=== PATIENT | female | born 1965 | race Caucasian/White ===

== ENCOUNTER 2017-04-18 17:15 | Emergency (ER) | payer MEDICARE, SELFPAY | END 2017-04-18 20:52 | disposition home or self-care (01) | PROVIDERS: Emergency Provider Emergency Medicine; Family Provider Family Medicine; Visit Provider Emergency Medicine | DX: S06.0X0A Concussion without loss of consciousness, initial encounter (principal); S16.1XXA Strain of muscle, fascia and tendon at neck level, initial encounter; W19.XXXA Unspecified fall, initial encounter | CPT/HCPCS: 70450; 72050; 72125; 99284 ==

== ENCOUNTER → 2017-04-27 09:34 | Outpatient (CLI) | payer MEDICARE, SELFPAY ==
--- NOTE | 2017-04-27 09:52 | US_ITS ---
US transvaginal CLINICAL INDICATION: ITS.REASON: PELVIC AND PERINEAL PAIN, HYPERTROPHY OF UTERUS ORDERING PHYSICIAN: Ravin Geller MD PATIENT AGE: 52 years COMPARISON: None FINDINGS: The uterus measures 11 x 5 x 6 cm. Combined endometrial thickness is 5 mm. Uterus has a somewhat lobular contour. 2 fibroids are present one which measures 1.6 x 1.5 cm in the body the uterus posteriorly. An additional fibroid noted in the fundal area of the uterus at 2.4 cm. The right ovary is 2.8 x 1.8 cm. The left ovary is 3.8 x 2.8 cm. There is a 1.47 m cyst of the right ovary and small follicles of the left ovary. No cul-de-sac fluid evident.. IMPRESSION: 1. Enlarged uterus with uterine fibroids. 2. Otherwise negative pelvic ultrasound
--- NOTE | 2017-04-27 09:54 | CT_ITS ---
CT chest wo con CLINICAL INDICATION: Follow-up pneumomediastinum ITS.REASON: ABNORMAL CT CSPINE ORDERING PHYSICIAN: Ravin Geller MD PATIENT AGE: 52 years COMPARISON: 04/18/2017 FINDINGS: There is heterogeneous density of the thyroid gland nonspecific. There are bilateral breast implants which evident unremarkable appearance. Calcified nodes are present in the mediastinum. Normal heart size. No mediastinal or hilar mass is evident. Once again there is noted a small area of gas to the right of the upper esophagus and posterior to the trachea. Is at the T2-T3 level similar to the previous exam consistent with a small esophageal or tracheal diverticulum versus a small chronic bleb. This does not have a typical progression for pneumomediastinum. There is evidence of old granulomatous disease. No lobar consolidation or collapse. There is a small hiatal hernia. There is been a prior cholecystectomy. There is borderline splenomegaly at 14 cm. There are degenerative changes in the thoracic spine. IMPRESSION: 1. Persistent small gas density noted posterior to the trachea and to the right of the upper thoracic esophagus unchanged and may represent small bleb the versus small esophageal or tracheal diverticulum. This does not have the normal progression of a pneumomediastinum. 2. No acute finding.
--- NOTE | 2017-04-27 10:14 | MM_ITS ---
MM Dig SC mamm implant BI CAD CAD Screening ORDERING PHYSICIAN : Ravin Geller MD PATIENT AGE: 52 years GENDER: Female COMPARISON: Previous mammograms: 20 Previous studies have finally arrived from towards down dated February 2009, January 2011. INDICATION: Routine screening. 2003 bilateral breast implants. No hormones currently Family history. Maternal with breast cancer. TECHNIQUE: Nyasia technique utilized. CC & MLO images were obtained of the breast tissue overlying implant, as well as a second set of images including the breast implant. Mammography is inherently limited due to the implants is a could obscure areas of breast R2 CAD reviewed. FINDINGS: Prior outside studies have finally become available for comparison Moderate breast density with no dominant mass nor suspicious calcifications either breast. Stable fibroglandular pattern. No dominant mass nor suspicious calcifications at the. Mild asymmetry is again noted & similar,/ stable The implants show no significant change . Bilateral follow-up one year adequate IMPRESSION: Prior outside studies have finally become available for comparison. Stable mammogram bilateral breast implants with no new areas of concern.. Follow-up in one year recommended Breast implants inherently limit optimal visualization of breast tissue but we see no significant new findings. Self breast examination be encouraged BI-RADS Category: 2 Benign Finding(s) RECOMMENDED FOLLOW-UP: 1YR - 1 YEAR FOLLOW-UP (A letter has been sent to the patient regarding results of the study.)
== END ==
PROVIDERS: Family Provider Family Medicine; PCP Family Medicine; Visit Provider Obstetrics & Gynecology
DX: R93.8 Abnormal findings on diagnostic imaging of other specified body structures (principal); R10.30 Lower abdominal pain, unspecified; Z12.31 Encounter for screening mammogram for malignant neoplasm of breast
CPT/HCPCS: 71250; 76830; 77067

== ENCOUNTER → 2017-05-10 12:57 | Outpatient (POV) | payer MEDICARE, SELFPAY | PROVIDERS: Family Provider Family Medicine; PCP Family Medicine; Visit Provider Nurse Practitioner Acute Care | DX: Z00.00 Encounter for general adult medical examination without abnormal findings (principal) ==

== ENCOUNTER → 2017-05-10 13:14 | Outpatient (POV) | payer MEDICARE, SELFPAY | PROVIDERS: Family Provider Family Medicine; PCP Family Medicine; Visit Provider Nurse Practitioner Acute Care | DX: Z00.00 Encounter for general adult medical examination without abnormal findings (principal) ==

== ENCOUNTER 2017-06-14 12:21 | Day surgery (SDC) | payer MEDICARE, SELFPAY ==
[2017-06-09 12:55] VITALS: BMI 30.6
[2017-06-14] VITALS (7 sets, daily range): BP systolic 113–144; BP diastolic 72–92; PULSE 80–100; RESP 18; TEMP 36.6–36.9; O2SAT 96–99
[2017-06-14 12:46] LABS: Urine Pregnancy, HCG Qual. Negative (Negative)
--- NOTE | 2017-06-14 12:49 | HMH.ANESCL ---
[facility] Anesthesia Checklist - Patient Identification Patient Identification: Arm Band, Verbal (Name & ) - Structural Data Admitted From: Home Planned Operative Procedure/s: egd/colon Consent for Planned Operative Procedure(s) Verified: Yes Verified Documents: Surgical Consent - NPO Status Verified Time NPO: 00:00 - Additional verifications Patient : No Anesthesia Reactions: No Hx Blood Transfusions: No Blood Transfusion Reaction: No Cephalosporin Allergy: No Previous Colonoscopy: No - Cardiovascular Assessment Heart Sounds: S1 & S2 Pulse Strength: Baseline Pulse Rhythm: Regular - Airway Assessment C-Spine Mobility Assessed: Yes TMJ Mobility Assessed: Yes Dentition: Good Dentition - Neurological Assessment Level of Consciousness: Awake, Alert, Appropriate Hx Seizures: No Numbness or tingling in extremities: No - Anesthesia Plan Anesthesia Risk discussed: Yes ASA Class: II Anesthesia Type: MAC [facility] Anesthesia HX I have reviewed the patient's past medical history: Yes Medical History: Reports:: Anxiety, Depression, Diabetes Mellitus Type 2 (IDDM, states always above 300), Hypertension Denies:: Diabetes Mellitus Type 1, Internal Pacemaker, Lung Disease Other Surgeries: No: Pacemaker Amputation: No Fractures: No *Family Hx:: Diabetes, Hypertension, Stroke
--- NOTE | 2017-06-14 13:34 | SUR.PREOP ---
1300-pt ambulated w/assist to br, voided w/out diff. 1330-checked on pt and , will go to cafeteria while in procedure. no c/o's from pt. resting quietly.
--- NOTE | 2017-06-14 14:00 | HMH.PROC ---
[facility] Procedure Note Procedure Note:: Upper Endoscopy Procedure Report: Esophagogastroduodenoscopy with cold biopsies and TTS balloon dilation Endoscopost: Oscar Weaver II, MD Referring Physician: Fer Main MD Date of Procedure: June 14, 2017 Equipment: Olympus GIF 180 standard upper endoscope Sedation: MAC sedation Indications: Mrs. Costa is a 52-year-old female with dysphagia and right upper quadrant abdominal pain. She had a cholecystectomy in 1994. She also had an appendectomy and in 1994. She does have some bloating and intermittent constipation. She reports no melena. She does have some dysphagia and her CAT scan did show esophageal diverticulum. The patient reports no weight loss. Procedure: Prior to the procedure, a history and physical exam was performed, and patient's medications and allergies were reviewed. The risks, benefits and alternatives of the sedation and procedure were discussed with the patient. All questions were answered and informed consent was obtained. The patient was brought to the procedure room. Patient identification and proposed procedure were verified by the physician and the nurse. The patient was placed in a left lateral decubitus position and the scope was passed under direct vision. Throughout the procedure, the patient's blood pressure, pulse, and oxygen saturations were monitored continuously. The upper GI endoscopy was accomplished without difficulty. The patient tolerated the procedure well. Findings: The scope was passed directly into the upper esophagus and advanced to the third portion of the duodenum. The post bulbar duodenum and duodenal bulb were normal with normal mucosa and conniventes. The scope was withdrawn through a normal duodenal bulb and pylorus into the stomach. The remainder of the antrum, body and fundus of the stomach were grossly normal. There appeared to be a reticular pattern to the body and fundus of the stomach consistent with mild chronic gastritis or portal gastropathy. Cold biopsies were obtained. Upon retroflexion there was no hiatal hernia. 2 biopsies were taken in the antrum and along the lesser curvature for histology to rule out gastritis and/or H pylori. The scope was then withdrawn into the esophagus. There was no evidence of reflux esophagitis. There were grade 1 esophageal varices. The remainder of the esophageal mucosa was normal. The entire esophagus was dilated to 60 Georgian/20 mm with a TTS hydrostatic balloon. There were tertiary contractions and mild dysmotility with nonerosive GERD. There was some cricopharyngeal spasm. There was resistance at the cricopharyngeus/upper esophageal sphincter. Impression: 1. Grade 1 esophageal varices 2. Mild chronic gastritis versus mild portal gastropathy 3. Cricopharyngeal spasm 4. Nonerosive GERD with mild esophageal dysmotility Plan: I will check liver chemistries as well as hepatic fibrotic markers. I will proceed with colonoscopy to evaluate further her abdominal pain.
--- NOTE | 2017-06-14 14:05 | P.PCN_ITS ---
[facility] Procedure Note Procedure Note:: Upper Endoscopy Procedure Report: Esophagogastroduodenoscopy with cold biopsies and TTS balloon dilation Endoscopost: Oscar Weaver II, MD Referring Physician: Fer Main MD Date of Procedure: June 14, 2017 Equipment: Olympus GIF 180 standard upper endoscope Sedation: MAC sedation Indications: Mrs. Costa is a 52-year-old female with dysphagia and right upper quadrant abdominal pain. She had a cholecystectomy in 1994. She also had an appendectomy and in 1994. She does have some bloating and intermittent constipation. She reports no melena. She does have some dysphagia and her CAT scan did show esophageal diverticulum. The patient reports no weight loss. Procedure: Prior to the procedure, a history and physical exam was performed, and patient' s medications and allergies were reviewed. The risks, benefits and alternatives of the sedation and procedure were discussed with the patient. All questions were answered and informed consent was obtained. The patient was brought to the procedure room. Patient identification and proposed procedure were verified by the physician and the nurse. The patient was placed in a left lateral decubitus position and the scope was passed under direct vision. Throughout the procedure, the patient's blood pressure, pulse, and oxygen saturations were monitored continuously. The upper GI endoscopy was accomplished without difficulty. The patient tolerated the procedure well. Findings: The scope was passed directly into the upper esophagus and advanced to the third portion of the duodenum. The post bulbar duodenum and duodenal bulb were normal with normal mucosa and conniventes. The scope was withdrawn through a normal duodenal bulb and pylorus into the stomach. The remainder of the antrum, body and fundus of the stomach were grossly normal. There appeared to be a reticular pattern to the body and fundus of the stomach consistent with mild chronic gastritis or portal gastropathy. Cold biopsies were obtained. Upon retroflexion there was no hiatal hernia. 2 biopsies were taken in the antrum and along the lesser curvature for histology to rule out gastritis and/ or H pylori. The scope was then withdrawn into the esophagus. There was no evidence of reflux esophagitis. There were grade 1 esophageal varices. The remainder of the esophageal mucosa was normal. The entire esophagus was dilated to 60 Montenegrin/20 mm with a TTS hydrostatic balloon. There were tertiary contractions and mild dysmotility with nonerosive GERD. There was some cricopharyngeal spasm. There was resistance at the cricopharyngeus/upper esophageal sphincter. Impression: 1. Grade 1 esophageal varices 2. Mild chronic gastritis versus mild portal gastropathy 3. Cricopharyngeal spasm 4. Nonerosive GERD with mild esophageal dysmotility Plan: I will check liver chemistries as well as hepatic fibrotic markers. I will proceed with colonoscopy to evaluate further her abdominal pain.
--- NOTE | 2017-06-14 14:20 | HMH.PROC ---
[facility] Procedure Note Procedure Note:: Colonoscopy Procedure Report: Colonoscopy with cold snare polypectomy Endoscopist: Oscar Weaver II, MD Referring physician: Fer Main MD Date of Procedure: June 14, 2017 Equipment: Olympus 180 variable stiffness pediatric colonoscope Sedation: MAC sedation Indication: Mrs. Costa is a 52-year-old female who is here for diagnostic colonoscopy. The patient has had right upper quadrant abdominal pain. She had cholecystectomy in 1994. She also had appendectomy and in 1994. The patient does have some occasional constipation but has regular bowel movements and reports 2-3 bowel movements daily. She reports no weight loss or family history of colon cancer. She does have some bright red rectal bleeding occasionally secondary to internal hemorrhoids. The patient did have an upper endoscopy that showed grade 1 esophageal varices. She has had elevated liver chemistries. She does have uncontrolled diabetes. Her CAT scan on April 18, 2017 showed borderline splenomegaly and steatosis of the liver. Procedure: Prior to the procedure, a history and physical exam was performed, and patient's medications and allergies were reviewed. The risks, benefits and alternatives of the sedation and procedure were discussed with the patient. All questions were answered and informed consent was obtained. The patient was brought to the procedure room. Patient identification and proposed procedure were verified by the physician and the nurse. The patient was placed in a left lateral decubitus position and the scope was passed under direct vision. Throughout the procedure, the patient's blood pressure, pulse, and oxygen saturations were monitored continuously. The colonoscopy was accomplished without difficulty. The patient tolerated the procedure well. Findings: On digital rectal examination there was normal rectal tone. There were no external hemorrhoids. The colonoscope was introduced through the anal canal to the rectum and advanced to the cecum. The ileocecal valve and appendiceal orifice were identified. The scope was advanced a short distance into the ileum which appeared grossly normal. The scope was then withdrawn into the colon. There were 7 colon polyps identified in the cecum ?2, ascending ?2, transverse ?1 and sigmoid ?2. These were placed in 2 bottles of formalin labeled cecum/ascending and transverse (bottle #2). These ranged in size from 4-8 mm and were all removed via cold snare polypectomy. There were scattered diverticuli throughout the descending and sigmoid colon (LEFT colon). The rectum itself was normal. Upon retroflexion within the rectum there were grade 1-2 internal hemorrhoids. Impression: 1. Colonic polyps ?7 2. Left-sided diverticulosis 3. Grade 1-2 internal hemorrhoids Plan: I will follow up the polyp pathology and recommend repeat colonoscopy again in 3 years based upon the polyp histology. I would encourage a fiber bowel regimen on a long-term daily maintenance basis. 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 I will obtain a hepatic fibrotic markers as well as additional serologies. I do feel that her right upper quadrant abdominal pain may be hepatic flexure syndrome versus sphincter of Oddi dysfunction. We will discuss additional diagnostic/treatment options.
--- NOTE | 2017-06-14 14:25 | P.PCN_ITS ---
[facility] Procedure Note Procedure Note:: Colonoscopy Procedure Report: Colonoscopy with cold snare polypectomy Endoscopist: Oscar Weaver II, MD Referring physician: Fer Main MD Date of Procedure: June 14, 2017 Equipment: Olympus 180 variable stiffness pediatric colonoscope Sedation: MAC sedation Indication: Mrs. Costa is a 52-year-old female who is here for diagnostic colonoscopy. The patient has had right upper quadrant abdominal pain. She had cholecystectomy in 1994. She also had appendectomy and in 1994. The patient does have some occasional constipation but has regular bowel movements and reports 2-3 bowel movements daily. She reports no weight loss or family history of colon cancer. She does have some bright red rectal bleeding occasionally secondary to internal hemorrhoids. The patient did have an upper endoscopy that showed grade 1 esophageal varices. She has had elevated liver chemistries. She does have uncontrolled diabetes. Her CAT scan on March showed borderline splenomegaly and steatosis of the liver. Procedure: Prior to the procedure, a history and physical exam was performed, and patient' s medications and allergies were reviewed. The risks, benefits and alternatives of the sedation and procedure were discussed with the patient. All questions were answered and informed consent was obtained. The patient was brought to the procedure room. Patient identification and proposed procedure were verified by the physician and the nurse. The patient was placed in a left lateral decubitus position and the scope was passed under direct vision. Throughout the procedure, the patient's blood pressure, pulse, and oxygen saturations were monitored continuously. The colonoscopy was accomplished without difficulty. The patient tolerated the procedure well. Findings: On digital rectal examination there was normal rectal tone. There were no external hemorrhoids. The colonoscope was introduced through the anal canal to the rectum and advanced to the cecum. The ileocecal valve and appendiceal orifice were identified. The scope was advanced a short distance into the ileum which appeared grossly normal. The scope was then withdrawn into the colon. There were 7 colon polyps identified in the cecum ?2, ascending ?2, transverse ?1 and sigmoid ?2. These were placed in 2 bottles of formalin labeled cecum/ascending and transverse (bottle #2). These ranged in size from 4- 8 mm and were all removed via cold snare polypectomy. There were scattered diverticuli throughout the descending and sigmoid colon (LEFT colon). The rectum itself was normal. Upon retroflexion within the rectum there were grade 1 -2 internal hemorrhoids. Impression: 1. Colonic polyps ?7 2. Left-sided diverticulosis 3. Grade 1-2 internal hemorrhoids Plan: I will follow up the polyp pathology and recommend repeat colonoscopy again in 3 years based upon the polyp histology. I would encourage a fiber bowel regimen on a long-term daily maintenance basis. 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 I will obtain a hepatic fibrotic markers as well as additional serologies. I do feel that her right upper quadrant abdominal pain may be hepatic flexure syndrome versus sphincter of Oddi dysfunction. We will discuss additional diagnostic/treatment options.
[2017-06-14 16:24] LABS: Ammonia 17 umol/L (19-54)
[2017-06-14 16:28] LABS: Basophils % 0.5 % (0.1-2.0); Eosinophils # 0.1 K/mm3 (0.0-0.4); Eosinophils % 1.2 % (0.1-12.0); Hematocrit 38.7 % (37.0-47.0); Hemoglobin 13.3 g/dL (12.2-16.2); Lymphocytes % 37.2 K/mm3 (10-50); Mean Corpuscular HGB Conc 34.4 g/dL (31.8-35.4); Mean Corpuscular Hemoglobin 30.4 pg (27.0-31.2); Mean Corpuscular Volume 88.5 fl (81-99); Mean Platelet Volume 7.9 fl (7.4-10.4); Monocytes # 0.3 K/mm3 (0.1-1.0); Monocytes % 5.7 % (1.7-9.3); Neutrophils % 55.4 % (37.0-80.0); Platelet Count 85 K/mm3 (142-424); Red Blood Count 4.37 M/mm3 (4.20-5.40); Red Cell Distribution Width 14.5 % (11.5-17.5); White Blood Count 5.3 K/mm3 (4.8-10.8)
[2017-06-14 16:33] LABS: INR 0.99 (0.9-1.1); Prothrombin Time 10.7 seconds (9.4-11.8)
[2017-06-14 17:53] LABS: Alanine Aminotransferase 107 U/L (12-78); Albumin/Globulin Ratio 1.2 (1.1-1.8); Alkaline Phosphatase 101 U/L (46-116); Anion Gap 13.8 mEq/L (5-15); Aspartate Amino Transferase 94 U/L (15-37); Bilirubin,Total 1.2 mg/dL (0.2-1.0); Blood Urea Nitrogen 10 mg/dL (7-18); Calcium 8.4 mg/dL (8.5-10.1); Carbon Dioxide 26 mmol/L (21.0-32.0); Chloride 99 mmol/L (98-107); Creatinine Clearance Estimated 126 mL/min (0-300); Creatinine,Serum 0.62 mg/dL (0.55-1.02); Estimated Glomerular Filt Rate 102 ml/min (>60); Ferritin 228 ng/mL (8-388); GFR (African American) 123 ML/MIN (>60); Globulin 3.4 gm/dl (1.3-3.2); Glucose 313 mg/dL (74-106); Sodium 136 mmol/L (136-145); Total Protein,Serum 7.4 gm/dL (6.4-8.2)
[2017-06-14 18:07] LABS: Potassium 2.8 mmoL/L (3.5-5.1)
[2017-06-16 08:28] LABS: Alpha-1-Antitrypsin 120 mg/dL (90-200); Iron 155 ug/dL (27-159); Iron Saturation 45 (15-55); UIBC 187 ug/dL (131-425)
[2017-06-16 09:21] LABS: Hep A Ab, IgM Negative (Negative); Hep B Core Ab, Total Negative (Negative); Hepatitis B Core Antibody IgM Negative (Negative); Hepatitis B Surface Antigen Negative (Negative)
[2017-06-17 11:01] LABS: Hep A Ab, Total Negative (Negative); Hep B Surface Ab, Qual Non Reactive (.); Hepatitis C Antibody <0.1 s/co ratio (0.0-0.9)
[2017-06-17 11:02] LABS: AFP, Tumor Marker 2.1 ng/mL (0.0-8.3); Actin (Smooth Muscle) Antibody 10 Units (0-19); Angiotensin Converting Enzyme 62 U/L (14-82); Liver-Kidney Microsomal Ab <1.0 Units (0.0-20.0); Mitochondrial (M2) Antibody <20.0 Units (0.0-20.0)
[2017-06-18 06:17] LABS: ALT (SGPT) P5P 90 IU/L (0-40); Alpha 2-Macroglobulins, Qn 196 mg/dL (110-276); Apolipoprotein A-1 134 mg/dL (116-209); Bilirubin, Total 0.5 mg/dL (0.0-1.2); Fibrosis Score 0.51 (0.00-0.21); GGT 227 IU/L (0-60); Haptoglobin 48 mg/dL (34-200); Necroinflammat Activity Grade A2-Moderate activity (.)
[2017-06-24 14:59] LABS: POC Glucose,Bedside 256 mg/dL (70-110)
== END 2017-06-14 15:35 | disposition home or self-care (01) ==
LOC: OUTP 12:23
PROVIDERS: Family Provider Family Medicine; PCP Family Medicine; Visit Provider Internal Medicine Gastroenterology
PROC: 0DJ08ZZ Inspection of Upper Intestinal Tract, Via Natural or Artificial Opening Endoscopic (ICD-10-PCS; CPT 43235; principal; 2017-06-14 13:30)
DX: I85.00 Esophageal varices without bleeding (principal); K31.9 Disease of stomach and duodenum, unspecified; J39.2 Other diseases of pharynx; K21.9 Gastro-esophageal reflux disease without esophagitis; K22.4 Dyskinesia of esophagus; E11.65 Type 2 diabetes mellitus with hyperglycemia; K63.5 Polyp of colon; K57.30 Diverticulosis of large intestine without perforation or abscess without bleeding; K64.0 First degree hemorrhoids; K64.1 Second degree hemorrhoids
CPT/HCPCS: 43239; 43249; 45380; 36415; 80053; 80074; 81025; 82104; 82105; 82140; 82164; 82728; 82962; 83550; 85025; 85610; 86255; 86256; 86376; 86704; 86706; 86708; 88305; C1726

== ENCOUNTER → 2017-08-09 10:34 | Outpatient (POV) | payer MEDICARE, SELFPAY | PROVIDERS: Family Provider Family Medicine; PCP Family Medicine; Visit Provider Nurse Practitioner Acute Care | DX: Z00.00 Encounter for general adult medical examination without abnormal findings (principal) ==

== ENCOUNTER → 2017-08-12 07:45 | Outpatient (CLI) | payer MEDICARE, SELFPAY ==
--- NOTE | 2017-08-12 07:48 | US_ITS ---
US abdomen limited: HISTORY: Right upper quadrant pain with nausea and bloating with history of cirrhosis ITS.REASON: CIRRHOSIS ORDERING PHYSICIAN: Carrie Barry PATIENT AGE: 52 years COMPARISON: FINDINGS: PANCREAS: Unremarkable. No obvious mass or abnormal fluid collection. No ductal dilatation LIVER: No focal liver lesion evident. The surface of the liver has a normal appearance. There is some minimal coarseness of the echotexture of the liver. There is appropriate direction of blood flow within the portal vein portal vein is upper normal at 12 mm. RIGHT KIDNEY: Unremarkable. Normal size and echogenicity. No hydronephrosis GALLBLADDER: Prior cholecystectomy. Common bile duct is normal at 4 mm. IMPRESSION: 1. Prior cholecystectomy. 2. Slightly coarse echogenic appearance of the liver which may be seen with cirrhosis. Please correlate with clinical parameters. There is appropriate directional blood flow within the portal vein which does not appear enlarged
== END ==
PROVIDERS: Family Provider Family Medicine; PCP Family Medicine; Visit Provider Nurse Practitioner Acute Care
DX: K74.60 Unspecified cirrhosis of liver (principal)
CPT/HCPCS: 76705

== ENCOUNTER → 2017-09-30 10:27 | Outpatient (CLI) | payer MEDICARE, SELFPAY ==
[2017-10-05 10:04] LABS: H. pylori Breath Test Negative (Negative)
== END ==
PROVIDERS: Visit Provider Nurse Practitioner Acute Care
DX: R10.11 Right upper quadrant pain (principal); R11.0 Nausea; B96.81 Helicobacter pylori [H. pylori] as the cause of diseases classified elsewhere; R14.0 Abdominal distension (gaseous)
CPT/HCPCS: 83013

== ENCOUNTER → 2017-10-13 11:46 | Outpatient (CLI) | payer MEDICARE, SELFPAY ==
[2017-10-13 12:11] LABS: Basophils % 0.4 % (0.1-2.0); Eosinophils # 0.1 K/mm3 (0.0-0.4); Eosinophils % 2.8 % (0.1-12.0); Hematocrit 40.1 % (37.0-47.0); Hemoglobin 13.3 g/dL (12.2-16.2); Lymphocytes # 1.2 K/mm3 (0.7-4.5); Lymphocytes % 27.3 K/mm3 (10-50); Mean Corpuscular HGB Conc 33.1 g/dL (31.8-35.4); Mean Corpuscular Hemoglobin 29.2 pg (27.0-31.2); Mean Corpuscular Volume 88.3 fl (81-99); Mean Platelet Volume 7.5 fl (7.4-10.4); Monocytes # 0.2 K/mm3 (0.1-1.0); Monocytes % 4.3 % (1.7-9.3); Neutrophils # 2.9 K/mm3 (1.8-7.8); Neutrophils % 65.1 % (37.0-80.0); Platelet Count 121 K/mm3 (142-424); Red Blood Count 4.54 M/mm3 (4.20-5.40); Red Cell Distribution Width 13.9 % (11.5-17.5); White Blood Count 4.4 K/mm3 (4.8-10.8)
[2017-10-13 12:19] LABS: Ammonia 38 umol/L (19-54)
[2017-10-13 13:08] LABS: Alanine Aminotransferase 34 U/L (12-78); Albumin Level 3.6 gm/dL (3.4-5.0); Albumin/Globulin Ratio 1.1 (1.1-1.8); Alkaline Phosphatase 85 U/L (46-116); Anion Gap 13.6 mEq/L (5-15); Aspartate Amino Transferase 27 U/L (15-37); Bilirubin,Total 1.4 mg/dL (0.2-1.0); Blood Urea Nitrogen 9 mg/dL (7-18); Calcium 8.9 mg/dL (8.5-10.1); Carbon Dioxide 25 mmol/L (21.0-32.0); Chloride 105 mmol/L (98-107); Creatinine,Serum 0.57 mg/dL (0.55-1.02); Estimated Glomerular Filt Rate 112 ml/min (>60); GFR (African American) 136 ML/MIN (>60); Globulin 3.2 gm/dl (1.3-3.2); Glucose 208 mg/dL (74-106); Potassium 3.6 mmoL/L (3.5-5.1); Sodium 140 mmol/L (136-145); Total Protein,Serum 6.8 gm/dL (6.4-8.2)
== END ==
PROVIDERS: Visit Provider Internal Medicine Gastroenterology
DX: K74.69 Other cirrhosis of liver (principal)
CPT/HCPCS: 36415; 80053; 82105; 82140; 85025

== ENCOUNTER → 2017-10-20 08:25 | Outpatient (CLI) | payer MEDICARE, SELFPAY ==
[2017-10-20 08:57] LABS: Blood Urea Nitrogen 10 mg/dL (7-18); Creatinine,Serum 0.72 mg/dL (0.55-1.02); Estimated Glomerular Filt Rate 86 ml/min (>60); GFR (African American) 104 ML/MIN (>60)
--- NOTE | 2017-10-20 09:12 | CT_ITS ---
CT abdomen w con CLINICAL INDICATION: ITS.REASON: HEPATIC MASS, CIRRHOSIS ORDERING PHYSICIAN: Carrie Barry PATIENT AGE: 52 years COMPARISON: 03/24/2017, 08/12/2017 TECHNIQUE: Axial images obtained with sagittal and coronal reformats. All CT scans at the facility use one or more dose reduction, viz: automated exposure control; ma/kV adjustment per patient size (including targeted exams where dose is matched to indication; i.e. head); or iterative reconstruction technique. PROCEDURE: Oral Contrast: Redicat IV Contrast: 75 mL of Isovue-370. FINDINGS: Lung bases are clear. Bilateral breast prosthesis noted. There is mild nonspecific thickening of the distal esophagus 3 phase liver imaging performed with arterial, portal venous, and delayed images. No enhancing or hypodense lesions are evident. No biliary dilatation. There has been prior cholecystectomy. Liver has homogeneous density. The portal vein is upper normal at 13 mm. There are varices noted in the perisplenic region and along the left renal hilum. Recanalized umbilical vein noted in the falciform ligament region. There is mild splenomegaly at 14 cm. The adrenal glands, pancreas, and kidneys have an unremarkable appearance. No intestinal obstruction or free air. No ascites evident in the upper abdomen. There is mild lumbar scoliosis convex left. IMPRESSION: 1. No liver lesions apparent. 2. Mild splenomegaly with perisplenic and perirenal varices and mild prominence of the portal vein consistent with portal venous hypertension. The liver does not have a typical cirrhotic appearance by CT.
--- NOTE | 2017-10-20 09:38 | HMH.ITSHM ---
INSULIN,LOSARTIN,MNEUROTIN,OXYCODONE
== END ==
PROVIDERS: Family Provider Family Medicine; PCP Family Medicine; Visit Provider Nurse Practitioner Acute Care
DX: K74.69 Other cirrhosis of liver (principal)
CPT/HCPCS: 36415; 74160; 82565; 84520; Q9967

== ENCOUNTER → 2018-01-26 14:47 | Outpatient (CLI) | payer MEDICARE, SELFPAY ==
[2018-02-01 07:33] LABS: H. pylori Breath Test Negative (Negative)
== END ==
PROVIDERS: PCP Family Medicine; Visit Provider Physician Assistant
DX: R10.13 Epigastric pain (principal)
CPT/HCPCS: 83013

== ENCOUNTER → 2018-01-31 09:56 | Outpatient (CLI) | payer MEDICARE, SELFPAY ==
[2018-01-31 10:13] LABS: Basophils % 0.4 % (0.1-2.0); Eosinophils # 0.1 K/mm3 (0.0-0.4); Eosinophils % 2.6 % (0.1-12.0); Hematocrit 36.8 % (37.0-47.0); Hemoglobin 12.6 g/dL (12.2-16.2); Lymphocytes # 1.3 K/mm3 (0.7-4.5); Lymphocytes % 35.4 K/mm3 (10-50); Mean Corpuscular HGB Conc 34.3 g/dL (31.8-35.4); Mean Corpuscular Hemoglobin 31.3 pg (27.0-31.2); Mean Corpuscular Volume 91.3 fl (81-99); Mean Platelet Volume 8.3 fl (7.4-10.4); Monocytes # 0.1 K/mm3 (0.1-1.0); Neutrophils % 57.7 % (37.0-80.0); Platelet Count 84 K/mm3 (142-424); Red Blood Count 4.03 M/mm3 (4.20-5.40); Red Cell Distribution Width 14.3 % (11.5-17.5); White Blood Count 3.5 K/mm3 (4.8-10.8)
[2018-01-31 10:18] LABS: Ammonia 23 umol/L (19-54)
[2018-01-31 10:33] LABS: INR 1.04 (0.9-1.1); Prothrombin Time 10.7 seconds (9.4-11.8)
[2018-01-31 10:44] LABS: Alanine Aminotransferase 33 U/L (12-78); Albumin Level 3.5 gm/dL (3.4-5.0); Albumin/Globulin Ratio 1.2 (1.1-1.8); Alkaline Phosphatase 71 U/L (46-116); Anion Gap 8.9 mEq/L (5-15); Aspartate Amino Transferase 27 U/L (15-37); Bilirubin,Total 0.9 mg/dL (0.2-1.0); Blood Urea Nitrogen 9 mg/dL (7-18); Calcium 8.1 mg/dL (8.5-10.1); Carbon Dioxide 28 mmol/L (21.0-32.0); Chloride 109 mmol/L (98-107); Creatinine,Serum 0.63 mg/dL (0.55-1.02); Estimated Glomerular Filt Rate 100 ml/min (>60); GFR (African American) 121 ML/MIN (>60); Globulin 2.9 gm/dl (1.3-3.2); Glucose 166 mg/dL (74-106); Potassium 3.9 mmoL/L (3.5-5.1); Sodium 142 mmol/L (136-145); Total Protein,Serum 6.4 gm/dL (6.4-8.2)
== END ==
PROVIDERS: PCP Family Medicine; Visit Provider Nurse Practitioner Acute Care
DX: K74.69 Other cirrhosis of liver (principal)
CPT/HCPCS: 36415; 80053; 82140; 85025; 85610

== ENCOUNTER → 2018-01-31 10:25 | Outpatient (POV) | payer MEDICARE, SELFPAY | PROVIDERS: Family Provider Family Medicine; PCP Family Medicine; Visit Provider Nurse Practitioner Acute Care | DX: Z00.00 Encounter for general adult medical examination without abnormal findings (principal) ==

== ENCOUNTER → 2018-02-07 08:23 | Outpatient (POV) | payer MEDICARE, SELFPAY | PROVIDERS: Visit Provider Nurse Practitioner Acute Care | DX: Z00.00 Encounter for general adult medical examination without abnormal findings (principal) ==

== ENCOUNTER → 2018-02-07 08:40 | Outpatient (CLI) | payer MEDICARE, SELFPAY ==
--- NOTE | 2018-02-07 08:45 | CA_ITS ---
PROCEDURE: 2-D M-mode and color Doppler study INDICATIONS FOR THE TEST: Chest pain COPD Heart Murmur Tobacco Smoking Palpitations Fatigue Syncope Edema Hypertension+Diabetes Mellitus+ Rheumatic Fever SOB+MANJARREZ Obesity+Hyperlipidemia Family History HD+ Additional History BREAST REDUCTION YRS AGO PATIENT INFORMATION HEIGHT: 61 WEIGHT:173 GENDER: F B/P:120/70 2-D/M-MODE INTERPRETATION: 2-D MEASUREMENTS OBSERVED VALUES IN CMS Right Ventricular Dimension (RVDd) 1.9 Interventricular Septum (Thickness)(IVsd) 1.2 Left Ventricular Internal Dimensions(LVIDd) 4.0 Left Ventricular Posterior Wall (Thickness)(LVPWd) 0.8 Aortic Root 3.2 Aortic Cusp Separation 1.9 Left Atrial Dimensions (LAD) 3.0 2D 1. Left atrium is qualitatively mildly enlarged, left ventricle is normal size, there is mild qualitative concentric left ventricular hypertrophy, visually estimated ejection fraction 55% with no regional wall motion abnormality. 2. The right atrium and right ventricle are normal size and contractility. 3. The aortic valve is minimally thickened and fibrosed. 4. The mitral and tricuspid valvular grossly normal. 5. The pulmonic valve is poorly visualized. 6. No significant pericardial effusion noted. DOPPLER INTERROGATION: Doppler interrogation of the aortic, mitral and tricuspid valvular presence of mild mitral and tricuspid regurgitation, tricuspid regurgitation jet velocity is inadequate for calculation of the right ventricular systolic pressure, grade 1 diastolic dysfunction seen with tissue Doppler evidence of raised left atrial pressure. CONCLUSION: 1. Mildly enlarged left atrium, normal left ventricular size, mild qualitative concentric left ventricular hypertrophy, visually estimated ejection fraction 55% with no regional wall motion abnormality, grade 1 diastolic dysfunction seen with tissue Doppler evidence of raised left atrial pressure. 2. Mild mitral and tricuspid regurgitation 3. No significant pericardial effusion noted.
== END ==
PROVIDERS: Family Provider Family Medicine; PCP Family Medicine; Visit Provider Family Medicine
DX: R07.9 Chest pain, unspecified (principal); R06.02 Shortness of breath
CPT/HCPCS: 93017; 93306

== ENCOUNTER 2018-03-04 00:42 | Observation (INO) ==
[2018-03-04 01:00] LABS: Basophils # 0.1 K/mm3 (0-0.2); Basophils % 0.6 % (0.1-2.0); Eosinophils # 0.1 K/mm3 (0.0-0.4); Eosinophils % 1.6 % (0.1-12.0); Hematocrit 41.1 % (37.0-47.0); Hemoglobin 13.7 g/dL (12.2-16.2); Lymphocytes % 24.3 % (10-50); Mean Corpuscular HGB Conc 33.2 g/dL (31.8-35.4); Mean Corpuscular Hemoglobin 30.1 pg (27.0-31.2); Mean Corpuscular Volume 90.8 fl (81-99); Monocytes # 0.5 K/mm3 (0.1-1.0); Monocytes % 5.5 % (1.7-9.3); Neutrophils # 5.6 K/mm3 (1.8-7.8); Neutrophils % 67.9 % (37.0-80.0); Platelet Count 145 K/mm3 (142-424); Red Blood Count 4.53 M/mm3 (4.20-5.40); Red Cell Distribution Width 14.4 % (11.5-17.5); White Blood Count 8.2 K/mm3 (4.8-10.8)
[2018-03-04 01:12] LABS: Anion Gap 15.4 mEq/L (5-15); Blood Urea Nitrogen 9 mg/dL (7-18); Carbon Dioxide 25 mmol/L (21.0-32.0); Chloride 103 mmol/L (98-107); Glucose 137 mg/dL (74-106); Potassium 3.4 mmoL/L (3.5-5.1); Sodium 140 mmol/L (136-145)
--- NOTE | 2018-03-04 01:20 | Emergency Department Note ---
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 container terminal insulin use: with chcf use Diabetes mellitus complication status: with unspecified complications Qualified Code(s): E11.8 - Type 2 diabetes mellitus with unspecified complications; Z79.4 - residential (current) use of insulin HTN (hypertension) Qualifiers: Hypertension type: essential hypertension Qualified Code(s): I10 - Essential (primary) hypertension Disposition: Admitted as Observation Condition on Discharge: Good - Critical Care Critical Care Time: No Attestation: On 03/04/18, the high probability of a clinically significant, sudden or life threatening deterioration of the following system(s) required my full and direct attention, intervention and personal management. The time I documented below is in addition to time spent performing reported procedures but includes the fo llowing listed in this critical care notation. Medical Decision Making - Medical Records Medical records reviewed: Yes: I reviewed the patient's medical records. - [place] Inquiry Pt receiving controlled substance: No Vital Signs: 03/04/18 00:42 03/04/18 00:51 03/04/18 01:12 Temperature 98.3 F Temperature Source Oral Pulse Rate [Right Radial] 100 H 106 H 102 H Respiratory Rate 20 18 18 Blood Pressure [Right Arm] 169/116 H 140/92 H 138/89 Blood Pressure Mean [Right Arm] 133 108 105 02 Sat by Pulse Oximetry 100 98 98 Oxygen Delivery Method Room Air - Lab Data Lab results reviewed: Yes: I reviewed the patient's lab results. Lab Results 03/04/18 00:46: WBC 8.2, RBC 4.53, Hgb 13.7, Hct 41.1, MCV 90.8, MCH 30.1, MCHC 33.2, RDW 14.4, Plt Count 145, MPV 7.0 L, Neut % (Auto) 67.9, Lymph % (Auto) 24.3, [place] % (Auto) 5.5, Eos % (Auto) 1.6, Baso % (Auto) 0.6, Neut # (Auto) 5.6, Lymph # (Auto) 2.0, [place] # (Auto) 0.5, Eos # (Auto) 0.1, Baso # (Auto) 0.1 03/04/18 00:46: Sodium 140, Potassium 3.4 L, Chloride 103, Carbon Dioxide 25, Anion Gap 15.4 H, BUN 9, Creatinine 0.68, Estimated Creat Clear 124, Estimated GFR 92, Est GFR ( Amer) 111, Glucose 137 H, Calcium 9.0, Troponin I < 0.02 Result diagrams: 03/04/18 00:46 03/04/18 00:46 Orders (Tests/Meds): ED MEDICATIONS Discontinued Medications Generic Name Dose Route Start Last Admin Trade Name Eliza PRN Reason Stop Dose Admin Aspirin 243 mg 03/04/18 00:49 03/04/18 00:50 Aspirin 81mg Chewable Tablet PO 03/04/18 00:50 243 mg ONCE ONE Administration Nitroglycerin 0.4 mg 03/04/18 00:49 03/04/18 00:50 Nitrostat 0.4mg Sl Tablet SL 03/04/18 00:50 0.4 mg ONCE ONE Administration Nitroglycerin 1 gm 03/04/18 01:05 03/04/18 01:06 Nitroglycerin 1 Inch Oint Udp TD 03/04/18 01:06 1 gm ONCE ONE Administration ORDERS Category Date Time Status XR chest 2V Stat Exams 03/04/18 00:47 Taken ECG Request by /John Stat Y 03/04/18 00:47 Ordered - Radiology Data #1 Image(s): Chest Image Reviewed: Yes I reviewed the patient's radiology image Preliminary Findings: Normal/NAD - ECG Data Tracing #1 Normal Sinus Rhythm: Yes Ischemic changes: non-specific ST-T wave changes - Physician Consults Physician Consulted: [email or web address] Reason -: Admission Additional Consult: molly Reason -: Pt condition Chest Pain HPI - General Chief Complaint: Chest Pain Stated Complaint: chest pain Time Seen by Provider: 03/04/18 00:50 Mode of Arrival: Family Vehicle Source of Information: Patient, Medical Record Limitations: No Limitations Description of Symptoms (Recalled from ER Triage Doc. by RN): pt states that approx 2 hours ago patient began having chest pain. pt states that while driving over here her left arm and shoulder started aching badly. pt states she has a heart cath scheduled wednesday. patient seen dr gurrola this morning. pt states she recently failed a stress test. pt states these pains have been going on all summer and increase with exertion. pt states she had "something very stressful" happen today. - History of Present Illness HPI narrative: pt with chest pain with rad to lt upper ext with hx of abn gxt and positive risk factors for cardiac disease - she saw card today - MD complaint: chest pain indicative of cardiac Onset (ago): hour(s) Duration: intermittent Activity at onset: during rest Pain location: substernal Severity: moderate Quality: dull Pain radiation: LUE Associated symptoms: nausea Risk Factors for CAD: Hypertension, Hypercholesterolemia, Family Hx of CAD, Diabetes Treatments prior to or on arrival for Cardiac Chest Pain: aspirin - MICHELLE Score Non-Stemi Age of patient: Less than 65 yrs Number of risk factors for CAD: Presence of 3 or more Prior coronary artery stenosis(seen in coronary angiography): Less than 50% ST-Segment deviation on ECG (more than 1 min): Absent Prior aspirin intake: ASA intake in the last 7 days Severe anginal chest pain: Two or more episodes in last 24 hours Elevated cardiac markers(CK-MB or troponin): Absent Non-Stemi Risk Score: 3 - Related Data Prior Cardiac Testing/Procedures: Stress Test On Oral Contraceptives: No Home Medications Medication Instructions Recorded Confirmed cyclobenzaprine 5 mg tablet 5 mg PO Q8H PRN 05/13/17 03/04/18 gabapentin 100 mg capsule 300 mg PO TID 05/13/17 03/04/18 lidocaine 5 % topical patch 1 patch TOPICAL Q12H PRN 05/13/17 03/04/18 losartan 25 mg tablet 50 mg PO QDAY 05/13/17 03/04/18 buspirone 5 mg tablet 5 mg PO DAILY tab 03/03/18 03/04/18 [id number] ER 1 tab PO Q12H PRN 03/03/18 03/04/18 tablet,extended release insulin human U-100 NPH-regulr 45 unit SQ BID ml 03/03/18 03/04/18 70-30 mix 100 unit/mL subcutaneous susp oxycodone-acetaminophen 5 mg-325 1 tab PO Q4-6H PRN 03/03/18 03/04/18 mg tablet Aspirin [Low Dose Aspirin EC] 81 mg PO DAILY 03/04/18 03/04/18 Bisoprolol Fumarate [Bisoprolol 5 mg PO QDAY 03/04/18 03/04/18 5mg Tablet] Omeprazole [Omeprazole 40mg 40 mg PO QDAY 03/04/18 03/04/18 Capsule] Ranolazine [Ranexa] 1,000 mg PO BID 03/04/18 03/04/18 Allergies Allergy/AdvReac Type Severity Reaction Status Date / Time No Known Allergies Allergy Verified 03/04/18 00:48 [facility] History I have reviewed the patient's past medical history: Yes Medical History: Reports:: Anxiety, Depression, Diabetes Mellitus Type 2, Hype rtension Denies:: Cancer, Diabetes Mellitus Type 1, Internal Pacemaker, Lung Disease, MRSA, Seizures Other Medical History: Reports: Liver Disease. Denies: Blood Transfusion Reaction Comment: DIABETES. HYPERTENSION. DEPRESSION. LARYNGEAL POLYP Other Surgeries: No: Pacemaker Amputation: No Fractures: No Comment: PRIMARY C/S, BTL--1994. LAP. CHOLY--1994. APPENDECTOMY OPEN--1994. ABDOMINOPLASTY--2001. BREAST REDUCTION--2001. TRIGGER FINGER SURGERY AND CARPAL TUNNEL (BILATERAL)--[id number] - Social History Smoking Status: Never smoker Alcohol Intake: never Alcohol Intake Frequency:: holidays/special occasions only Substance Use Type: denies use - Psychiatric History Expresses thoughts of harming self/others: None Suicide Plan Description: No Plan Pschychiatric History:: Reports:: Anxiety, Depression Family Hx:: Diabetes, Hypertension, Stroke, Coronary Artery Disease, Heart Attack Comment: Mother-@81-[place] Comment: 4 SAB, NO D&E. LMP: 04/19/2017 ROS Obtained: Yes All systems reviewed & no additional complaints - Constitutional Constitutional: Denies fever(s) - Eyes Eyes: Denies change in vision - ENT Ears, Nose, Mouth, and Throat: Denies sore throat - Cardiovascular Cardiovascular: Reports chest pain - Respiratory Respiratory: No cough - Gastrointestinal Gastrointestingal: Denies: abdominal pain - Genitourinary Female Genitourinary: Denies hematuria - Musculoskeletal Musculoskeletal: Denies joint pain - Integumentary/Breasts Skin/Breast: Denies rash - Neurologic Neurologic: Denies seizure-like activity Physical Exam - General General appearance: alert, in no apparent distress - Head Head exam: normocephalic - Eye Eye exam: Present: PERRL, EOMI - ENT ENT exam: Present: mucous membranes moist - Neck Neck exam: Present: trachea midline - Respiratory Respiratory exam: Absent: respiratory distress - Cardiovascular Cardiovascular exam: Present: regular rate, systolic murmur, +S4 - Abdominal Exam Abdominal exam: Present: soft - Extremities Exam Extremities exam: Absent: tenderness - Neurological Exam Neurological exam: Present: alert, oriented X3, CN II-XII intact - Psychiatric Psychiatric exam: Present: normal affect - Skin Skin exam: Absent: rash
[2018-03-04 05:46] LABS: Basophils % 0.6 % (0.1-2.0); Eosinophils # 0.1 K/mm3 (0.0-0.4); Eosinophils % 1.8 % (0.1-12.0); Lymphocytes # 1.8 K/mm3 (0.7-4.5); Lymphocytes % 27.6 % (10-50); Mean Corpuscular HGB Conc 33.2 g/dL (31.8-35.4); Mean Corpuscular Hemoglobin 30.4 pg (27.0-31.2); Mean Corpuscular Volume 91.5 fl (81-99); Monocytes # 0.4 K/mm3 (0.1-1.0); Monocytes % 5.7 % (1.7-9.3); Neutrophils # 4.1 K/mm3 (1.8-7.8); Neutrophils % 64.3 % (37.0-80.0); Platelet Count 134 K/mm3 (142-424); Red Blood Count 3.93 M/mm3 (4.20-5.40); Red Cell Distribution Width 14.4 % (11.5-17.5); White Blood Count 6.4 K/mm3 (4.8-10.8)
[2018-03-04 05:50] LABS: Anion Gap 13.4 mEq/L (5-15); Calcium 8.3 mg/dL (8.5-10.1); Potassium 3.4 mmoL/L (3.5-5.1)
[2018-03-04 06:01] LABS: Hemoglobin 12.1 g/dL (12.2-16.2)
--- NOTE | 2018-03-04 07:45 | Consult Report ---
Addendum entered and electronically signed by RHEAN Avalos 03/04/18 14:34: Cardiac cath showed essentially normal coronary arteries with elevated LVEDP. Will start spironolactone 50 mg daily. OK for discharge home from cardiology standpoint. Follow up in 1-2 wks with BMP prior to visit. Original Note: History of Present Illness Consult date: 03/04/18 Requesting physician: Gris Main Consult reason: chest pain Chief complaint: Chest pain Additional Medical History:: 1. Diabetes mellitus, treated since 2006 2. Hypertension 3. Hyperlipidemia 4. Nonalcoholic cirrhosis with esophageal varices 5. GERD 6. History of breast reduction with breast implant 7. History of cholecystectomy and appendectomy 8. Unstable angina pectoris with abnormal stress test January 2018 without Myoview imaging History of present illness: 52-year-old white female was seen in the office yesterday for abnormal stress test and was scheduled for cardiac catheterization early next week. Patient developed chest discomfort after leaving [place] yesterday with progression of symptoms to include left arm discomfort. Patient came to the ER for evaluation and was given sublingual nitroglycerin along with nitroglycerin paste which dramatically improved her symptoms which resolved eventually and have not recurred overnight. Patient was kept overnight with cardiac troponins returning normal. Patient denies any chest pain this morning. She is quite anxious about having a cardiac catheterization and this was well documented yesterday in the note with prolonged time spent answering multiple questions. EKG is sinus without acute ST segment changes. Patient has agreed to proceed with cardiac catheterization this morning. [facility] History Medical History: Reports:: Anxiety, Depression, Diabetes Mellitus Type 2, Hypertension Denies:: Cancer, Diabetes Mellitus Type 1, Internal Pacemaker, Lung Disease, MRSA, Seizures Other Medical History: Reports: Liver Disease. Denies: Blood Transfusion Reaction Other Surgeries: No: Pacemaker Amputation: No Fractures: No - *Social History Smoking Status: Never smoker Alcohol Intake: never Alcohol Intake Frequency:: holidays/special occasions only Substance Use Type: denies use Occupational Status: employed - Psychiatric History Expresses thoughts of harming self/others: None Suicide Plan Description: No Plan Pschychiatric History:: Reports:: Anxiety, Depression *Family Hx:: Diabetes, Hypertension, Stroke, Coronary Artery Disease, Heart Attack Meds Home Medications Medication Instructions Recorded Confirmed Type cyclobenzaprine 5 mg tablet 5 mg PO Q8H PRN 05/13/17 03/04/18 History gabapentin 100 mg capsule 300 mg PO TID 05/13/17 03/04/18 History lidocaine 5 % topical patch 1 patch TOPICAL Q12H PRN 05/13/17 03/04/18 History losartan 25 mg tablet 50 mg PO QDAY 05/13/17 03/04/18 History buspirone 5 mg tablet 5 mg PO DAILY tab 03/03/18 03/04/18 History eqhkzwufu-mwmik-xqivexwot-PPA ER 1 tab PO Q12H PRN 03/03/18 03/04/18 History tablet,extended release insulin human U-100 NPH-regulr 45 unit SQ BID ml 03/03/18 03/04/18 History 70-30 mix 100 unit/mL subcutaneous susp oxycodone-acetaminophen 5 mg-325 1 tab PO Q4-6H PRN 03/03/18 03/04/18 History mg tablet Aspirin [Low Dose Aspirin EC] 81 mg PO DAILY 03/04/18 03/04/18 History Bisoprolol Fumarate [Bisoprolol 5 mg PO QDAY 03/04/18 03/04/18 History 5mg Tablet] Omeprazole [Omeprazole 40mg 40 mg PO QDAY 03/04/18 03/04/18 History Capsule] Ranolazine [Ranexa] 1,000 mg PO BID 03/04/18 03/04/18 History Allergies Allergy/AdvReac Type Severity Reaction Status Date / Time No Known Allergies Allergy Verified 03/04/18 00:48 Review of Systems - *Cardiovascular Reports chest pain, Reports shortness of breath with activity - *Respiratory Reports shortness of breath - *Gastrointestinal Denies abdominal pain - *Genitourinary Denies blood in urine - *Neurologic Denies seizure-like activity Exam Vital signs and Labs for Last 24 Hours: Temp Pulse Resp BP Pulse Ox 97.8 F 81 18 132/75 99 03/04/18 04:00 03/04/18 04:00 03/04/18 04:00 03/04/18 04:00 03/04/18 04:00 Laboratory Results - last 24 hr 03/04/18 00:46: WBC 8.2, RBC 4.53, Hgb 13.7, Hct 41.1, MCV 90.8, MCH 30.1, MCHC 33.2, RDW 14.4, Plt Count 145, MPV 7.0 L, Neut % (Auto) 67.9, Lymph % (Auto) 24.3, [place] % (Auto) 5.5, Eos % (Auto) 1.6, Baso % (Auto) 0.6, Neut # (Auto) 5.6, Lymph # (Auto) 2.0, [place] # (Auto) 0.5, Eos # (Auto) 0.1, Baso # (Auto) 0.1 03/04/18 00:46: Sodium 140, Potassium 3.4 L, Chloride 103, Carbon Dioxide 25, Anion Gap 15.4 H, BUN 9, Creatinine 0.68, Estimated Creat Clear 124, Estimated GFR 92, Est GFR ( Amer) 111, Glucose 137 H, Calcium 9.0, Troponin I < 0.02 03/04/18 04:50: Troponin I < 0.02 03/04/18 04:50: WBC 6.4, RBC 3.93 L, Hgb 12.1 L D, Hct 36.0 L, MCV 91.5, MCH 30.4, MCHC 33.2, RDW 14.4, Plt Count 134 L, MPV 7.0 L, Neut % (Auto) 64.3, Lymph % (Auto) 27.6, [place] % (Auto) 5.7, Eos % (Auto) 1.8, Baso % (Auto) 0.6, Neut # (Auto) 4.1, Lymph # (Auto) 1.8, [place] # (Auto) 0.4, Eos # (Auto) 0.1, Baso # (Auto) 0.0 03/04/18 04:50: Sodium 140, Potassium 3.4 L, Chloride 105, Carbon Dioxide 25, Anion Gap 13.4, BUN 10, Creatinine 0.60, Estimated Creat Clear 141, Estimated GFR 106, Est GFR ( Amer) 128, Glucose 150 H, Calcium 8.3 L 03/04/18 06:03: POC Glucose 152 H I & O for Last 24 hours: Intake & Output 03/01/18 03/02/18 03/03/18 03/04/18 11:59 11:59 11:59 11:59 Weight 175 lb 0.012 oz - *Routine Neck Exam Present: supple. Absent: JVD, carotid bruit - *Routine Respiratory Exam Present: CTA bilaterally. Absent: accessory muscle use, rales, rhonchi, wheezes - *Routine Cardiovascular Exam Present: RRR. Absent: murmur, gallop, rubs - *Routine Abdominal Exam Present: soft. 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 control technician use Diabetes mellitus complication status: with unspecified complications Qualified Code(s): E11.8 - Type 2 diabetes mellitus with unspecified complications; Z79.4 - intermediate frame tender (current) use of insulin Category: Medical Code(s): E11.9 - Type 2 diabetes mellitus without complications (4) HTN (hypertension) Current visit: Yes Status: Chronic Qualifiers: Hypertension type: essential hypertension Qualified Code(s): I10 - Essential (primary) hypertension Category: Medical Code(s): I10 - Essential (primary) hypertension (5) Dyspnea Current visit: No Status: Acute Qualifiers: Dyspnea type: dyspnea on exertion Qualified Code(s): R06.09 - Other forms of dyspnea Category: Medical Code(s): R06.00 - Dyspnea, unspecified (6) Gastroesophageal reflux disease Current visit: No Status: Chronic Qualifiers: Esophagitis presence: without esophagitis Qualified Code(s): K21.9 - Gastro-esophageal reflux disease without esophagitis Category: Medical Code(s): K21.9 - Gastro-esophageal reflux disease without esophagitis (7) HLD (hyperlipidemia) Current visit: No Status: Chronic Qualifiers: Hyperlipidemia type: unspecified Qualified Code(s): E78.5 - Hyperlipidemia, unspecified Category: Medical Code(s): E78.5 - Hyperlipidemia, unspecified - Assessment and plan all Dx Assessment and Plan for all problems:: Proceed with left heart catheterization today. Further recommendations to follow.
--- NOTE | 2018-03-04 08:36 | Pharmacy Consult Notes ---
[facility] Pharmacy VTE Monitoring - Patient Demographics Admission date: 03/04/18 Report Date: 03/04/18 Time: 08:36 Allergies/Adverse Reactions: Patient Allergies No Known Allergies Allergy (Verified 03/04/18 00:48) Height: 16.15 m Weight: 79.379 kg Patient Problems: Current Active Problems Chest pain (Acute) Unstable angina pectoris (Acute) DM2 (diabetes mellitus, type 2) (Chronic) HTN (hypertension) (Chronic) - VTE Risk Labs: VTE Related Lab Results Hgb 12.1 g/dL (12.2-16.2) L D 03/04/18 04:50 Hct 36.0 % (37.0-47.0) L 03/04/18 04:50 Plt Count 134 K/mm3 (142-424) L 03/04/18 04:50 BUN 10 mg/dL (7-18) 03/04/18 04:50 Creatinine 0.60 mg/dL (0.55-1.02) 03/04/18 04:50 Estimated Creat Clear 141 mL/min (50-200) 03/04/18 04:50 Was VTE Risk Assessment Performed: Yes VTE Score: 1 VTE Risk Level: Very Low Risk - Prophylaxis VTE Prophylaxis Ordered?: Yes Types of VTE Prophylaxis: TEDS Knee High Location of Applied Device: Bilateral Lower Extremeties - VTE Diagnosis Confirmed Treatment or plan recommended: Continue Current Treatment
--- NOTE | 2018-03-04 08:56 | History & Physical Report ---
*Admission Date: 03/04/18 <Sara Mendez 03/04/18 08:58> *Chief complaint: CP <Sara Mendez 03/04/18 08:58> *History of present illness: Ms. Costa is a 52-year-old white female who was seen in the cardiology office yesterday for an abnormal stress test and was scheduled for cardiac catheterization early next week. She developed chest discomfort after leaving [place] yesterday with progression of symptoms to include left arm discomfort. Patient came to the ER for evaluation and was given sublingual nitroglycerin along with nitroglycerin paste which dramatically improved her symptoms. She was kept overnight with cardiac troponins returning normal. She denies any chest pain this morning. She has been seen by cardiology and will have a cath this am. <Sara Mendez 03/04/18 08:58> [facility] History Medical History: Reports:: Anxiety, Depression, Diabetes Mellitus Type 2, Hypertension Denies:: Cancer, Diabetes Mellitus Type 1, Internal Pacemaker, Lung Disease, MRSA, Seizures <Sara Mendez 03/04/18 08:58> Other Medical History: Reports: Liver Disease. Denies: Blood Transfusion Reaction <Sara Mendez 03/04/18 08:58> Comment: Diverticulitis <Sara Mendez 03/04/18 08:58> Other Surgeries: Yes: Appendectomy, Cholecystectomy. No: Pacemaker <Aaron Mendez - 03/04/18 08:58> Amputation: No <Sara Mendez 03/04/18 08:58> Fractures: No <Sara Mendez 03/04/18 08:58> Comment: Trigger thumb bilaterally, trigger finger <Sara Mendez 03/04/18 08:58> - *Social History Smoking Status: Never smoker <Sara Mendez 03/04/18 08:58> Alcohol Intake: never <Sara Mendez 03/04/18 08:58> Alcohol Intake Frequency:: holidays/special occasions only <Sara Mendez 03/04/18 08:58> Substance Use Type: denies use <Sara Mendez 03/04/18 08:58> Occupational Status: employed <Sara Mendez 03/04/18 08:58> - Psychiatric History Expresses thoughts of harming self/others: None <Sara Mendez 03/04/18 08:58> Suicide Plan Description: No Plan <Sara Mendez 03/04/18 08:58> Pschychiatric History:: Reports:: Anxiety, Depression <Sara Mendez 03/04/18 08:58> *Family Hx:: Diabetes, Hypertension, Stroke, Coronary Artery Disease, Heart Attack <Sara Mendez 03/04/18 08:58> Review of Systems - Constitutional Denies chills, Denies fever(s) <Sara Mendez 03/04/18 08:58> - Eyes Denies blurry vision, Denies double vision <Sara Mendez 03/04/18 08:58> - ENT Denies nasal congestion, Denies sore throat <Sara Mendez 03/04/18 08:58> - *Cardiovascular Reports chest pain, Reports shortness of breath, Denies rapid, pounding, or irregular heartbeat <Sara Mendez 03/04/18 08:58> - *Respiratory Reports shortness of breath, Denies cough <Sara Mendez 03/04/18 08:58> - *Gastrointestinal Denies abdominal pain, Denies loose stools, Denies nausea, Denies vomiting <Sara Mendez 03/04/18 08:58> - *Genitourinary Denies difficulty urinating, Denies painful urination <Sara Mendez 03/04/18 08:58> - *Musculoskeletal Reports joint pain (left arm) <Sara Mendez 03/04/18 08:58> - *Neurologic Denies seizure-like activity <Sara Mendez 03/04/18 08:58> Meds Home Medications Medication Instructions Recorded Confirmed Type cyclobenzaprine 5 mg tablet 5 mg PO Q8H PRN 05/13/17 03/04/18 History gabapentin 100 mg capsule 300 mg PO TID 05/13/17 03/04/18 History lidocaine 5 % topical patch 1 patch TOPICAL Q12H PRN 05/13/17 03/04/18 History losartan 25 mg tablet 50 mg PO QDAY 05/13/17 03/04/18 History buspirone 5 mg tablet 5 mg PO DAILY tab 03/03/18 03/04/18 History bqpggwtyy-zmlaa-[id number]-PPA ER 1 tab PO Q12H PRN 03/03/18 03/04/18 History tablet,extended release insulin human U-100 NPH-regulr 45 unit SQ BID ml 03/03/18 03/04/18 History 70-30 mix 100 unit/mL subcutaneous susp oxycodone-acetaminophen 5 mg-325 1 tab PO Q4-6H PRN 03/03/18 03/04/18 History mg tablet Aspirin [Low Dose Aspirin EC] 81 mg PO DAILY 03/04/18 03/04/18 History Bisoprolol Fumarate [Bisoprolol 5 mg PO QDAY 03/04/18 03/04/18 History 5mg Tablet] Omeprazole [Omeprazole 40mg 40 mg PO QDAY 03/04/18 03/04/18 History Capsule] Ranolazine [Ranexa] 1,000 mg PO BID 03/04/18 03/04/18 History <Valorie Comer - 03/04/18 10:28> Allergies Allergy/AdvReac Type Severity Reaction Status Date / Time No Known Allergies Allergy Verified 03/04/18 00:48 <Valorie Comer - 03/04/18 10:28> Exam Vital signs and Labs for Last 24 Hours: Temp Pulse Resp BP Pulse Ox 98.2 F 87 18 118/73 96 03/04/18 08:00 03/04/18 09:40 03/04/18 09:40 03/04/18 09:40 03/04/18 09:40 Laboratory Results - last 24 hr 03/04/18 00:46: WBC 8.2, RBC 4.53, Hgb 13.7, Hct 41.1, MCV 90.8, MCH 30.1, MCHC 33.2, RDW 14.4, Plt Count 145, MPV 7.0 L, Neut % (Auto) 67.9, Lymph % (Auto) 24.3, Emmons % (Auto) 5.5, Eos % (Auto) 1.6, Baso % (Auto) 0.6, Neut # (Auto) 5.6, Lymph # (Auto) 2.0, Emmons # (Auto) 0.5, Eos # (Auto) 0.1, Baso # (Auto) 0.1 03/04/18 00:46: Sodium 140, Potassium 3.4 L, Chloride 103, Carbon Dioxide 25, Anion Gap 15.4 H, BUN 9, Creatinine 0.68, Estimated Creat Clear 124, Estimated GFR 92, Est GFR ( Amer) 111, Glucose 137 H, Calcium 9.0, Troponin I < 0.02 03/04/18 04:50: Troponin I < 0.02 03/04/18 04:50: WBC 6.4, RBC 3.93 L, Hgb 12.1 L D, Hct 36.0 L, MCV 91.5, MCH 30.4, MCHC 33.2, RDW 14.4, Plt Count 134 L, MPV 7.0 L, Neut % (Auto) 64.3, Lymph % (Auto) 27.6, Emmons % (Auto) 5.7, Eos % (Auto) 1.8, Baso % (Auto) 0.6, Neut # (Auto) 4.1, Lymph # (Auto) 1.8, Emmons # (Auto) 0.4, Eos # (Auto) 0.1, Baso # (Auto) 0.0 03/04/18 04:50: Sodium 140, Potassium 3.4 L, Chloride 105, Carbon Dioxide 25, Anion Gap 13.4, BUN 10, Creatinine 0.60, Estimated Creat Clear 141, Estimated GFR 106, Est GFR ( Amer) 128, Glucose 150 H, Calcium 8.3 L 03/04/18 06:03: POC Glucose 152 H <Sound,Valorie - 03/04/18 10:28> Temp Pulse Resp BP Pulse Ox 98.2 F 74 18 121/74 98 03/04/18 08:00 03/04/18 08:00 03/04/18 08:00 03/04/18 08:00 03/04/18 08:00 Laboratory Results - last 24 hr 03/04/18 00:46: WBC 8.2, RBC 4.53, Hgb 13.7, Hct 41.1, MCV 90.8, MCH 30.1, MCHC 33.2, RDW 14.4, Plt Count 145, MPV 7.0 L, Neut % (Auto) 67.9, Lymph % (Auto) 24.3, Emmons % (Auto) 5.5, Eos % (Auto) 1.6, Baso % (Auto) 0.6, Neut # (Auto) 5.6, Lymph # (Auto) 2.0, Emmons # (Auto) 0.5, Eos # (Auto) 0.1, Baso # (Auto) 0.1 03/04/18 00:46: Sodium 140, Potassium 3.4 L, Chloride 103, Carbon Dioxide 25, Anion Gap 15.4 H, BUN 9, Creatinine 0.68, Estimated Creat Clear 124, Estimated GFR 92, Est GFR ( Amer) 111, Glucose 137 H, Calcium 9.0, Troponin I < 0.02 03/04/18 04:50: Troponin I < 0.02 03/04/18 04:50: WBC 6.4, RBC 3.93 L, Hgb 12.1 L D, Hct 36.0 L, MCV 91.5, MCH 30.4, MCHC 33.2, RDW 14.4, Plt Count 134 L, MPV 7.0 L, Neut % (Auto) 64.3, Lymph % (Auto) 27.6, Emmons % (Auto) 5.7, Eos % (Auto) 1.8, Baso % (Auto) 0.6, Neut # (Auto) 4.1, Lymph # (Auto) 1.8, Emmons # (Auto) 0.4, Eos # (Auto) 0.1, Baso # (Auto) 0.0 03/04/18 04:50: Sodium 140, Potassium 3.4 L, Chloride 105, Carbon Dioxide 25, Anion Gap 13.4, BUN 10, Creatinine 0.60, Estimated Creat Clear 141, Estimated GFR 106, Est GFR ( Amer) 128, Glucose 150 H, Calcium 8.3 L 03/04/18 06:03: POC Glucose 152 H <Sara Mendez - 03/04/18 08:58> I & O for Last 24 hours: Intake & Output 03/01/18 03/02/18 03/03/18 03/04/18 11:59 11:59 11:59 11:59 Weight 175 lb 0.012 oz <Valorie Comer - 03/04/18 10:28> Intake & Output 03/01/18 03/02/18 03/03/18 03/04/18 11:59 11:59 11:59 11:59 Weight 175 lb 0.012 oz <Sara Mendez 03/04/18 08:58> - Constitutional no acute distress <Sara Mendez 03/04/18 08:58> - *Routine HEENT Exam Head: Present: normocephalic <Sara Mendez 03/04/18 08:58> Eye: Present: EOMI, PERRL <Sara Mendez 03/04/18 08:58> ENT: Present: mucous membranes moist <Sara Mendez 03/04/18 08:58> - *Routine Neck Exam Present: supple. Absent: lymphadenopathy <Sara Mendez 03/04/18 08:58> - *Routine Respiratory Exam Present: CTA bilaterally <Sara Mendez 03/04/18 08:58> - *Routine Cardiovascular Exam Present: RRR <Sara Mendez 03/04/18 08:58> - *Routine Abdominal Exam Present: soft, normoactive bowel sounds. Absent: tenderness <Sara Mendez 03/04/18 08:58> - *Routine Extremities Exam Absent: cyanosis, clubbing, edema <Sara Mendez 03/04/18 08:58> - *Routine Skin Exam Present: warm. Absent: rash <Sara Mendez 03/04/18 08:58> - *Routine Neurological Exam Present: alert, oriented X3 <Sara Mendez 03/04/18 08:58> H&P: Result - Impressions CXR - nothing acute <Sara Mendez 03/04/18 08:58> Assessment and Plan (1) Unstable angina pectoris Current visit: Yes Status: Acute Category: Medical Code(s): I20.0 - Unstable angina (2) Abnormal result of cardiovascular function study Current visit: No Status: Acute Category: Medical Code(s): R94.30 - Abnormal result of cardiovascular function study, unspecified (3) DM2 (diabetes mellitus, type 2) Current visit: Yes Status: Chronic Qualifiers: Diabetes mellitus intermediate manager insulin use: with intermediate manager use Diabetes mellitus complication status: with unspecified complications Qualified Code(s): E11.8 - Type 2 diabetes mellitus with unspecified complications; Z79.4 - buttermaker helper (current) use of insulin Category: Medical Code(s): E11.9 - Type 2 diabetes mellitus without complications (4) HTN (hypertension) Current visit: Yes Status: Chronic Qualifiers: Hypertension type: essential hypertension Qualified Code(s): I10 - Essential (primary) hypertension Category: Medical Code(s): I10 - Essential (primary) hypertension (5) Dyspnea Current visit: No Status: Acute Qualifiers: Dyspnea type: dyspnea on exertion Qualified Code(s): R06.09 - Other forms of dyspnea Category: Medical Code(s): R06.00 - Dyspnea, unspecified (6) Gastroesophageal reflux disease Current visit: No Status: Chronic Qualifiers: Esophagitis presence: without esophagitis Qualified Code(s): K21.9 - Gastro-esophageal reflux disease without esophagitis Category: Medical Code(s): K21.9 - Gastro-esophageal reflux disease without esophagitis (7) HLD (hyperlipidemia) Current visit: No Status: Chronic Qualifiers: Hyperlipidemia type: unspecified Qualified Code(s): E78.5 - Hyperlipidemia, unspecified Category: Medical Code(s): E78.5 - Hyperlipidemia, unspecified <Sara Mendez - 03/04/18 08:53> (1) Unstable angina pectoris Current visit: Yes Status: Acute Category: Medical Code(s): I20.0 - Unstable angina (2) Abnormal result of cardiovascular function study Current visit: No Status: Acute Category: Medical Code(s): R94.30 - Abnormal result of cardiovascular function study, unspecified (3) DM2 (diabetes mellitus, type 2) Current visit: Yes Status: Chronic Qualifiers: Diabetes mellitus intermediate manager insulin use: with assisted use Diabetes mellitus complication status: with unspecified complications Qualified Code(s): E11.8 - Type 2 diabetes mellitus with unspecified complications; Z79.4 - MCFP (current) use of insulin Category: Medical Code(s): E11.9 - Type 2 diabetes mellitus without complications (4) HTN (hypertension) Current visit: Yes Status: Chronic Qualifiers: Hypertension type: essential hypertension Qualified Code(s): I10 - Essential (primary) hypertension Category: Medical Code(s): I10 - Essential (primary) hypertension (5) Dyspnea Current visit: No Status: Acute Qualifiers: Dyspnea type: dyspnea on exertion Qualified Code(s): R06.09 - Other forms of dyspnea Category: Medical Code(s): R06.00 - Dyspnea, unspecified (6) Gastroesophageal reflux disease Current visit: No Status: Chronic Qualifiers: Esophagitis presence: without esophagitis Qualified Code(s): K21.9 - Gastro-esophageal reflux disease without esophagitis Category: Medical Code(s): K21.9 - Gastro-esophageal reflux disease without esophagitis (7) HLD (hyperlipidemia) Current visit: No Status: Chronic Qualifiers: Hyperlipidemia type: unspecified Qualified Code(s): E78.5 - Hyperlipidemia, unspecified Category: Medical Code(s): E78.5 - Hyperlipidemia, unspecified <Valorie Comer - 03/04/18 10:28> - Assessment and plan all Dx Assessment and Plan for all problems:: Will await heart cath results and follow cardiology recommendations. <Valorie Comer - 03/04/18 10:28> She has been seen by cardiology and will have a heart cath today. <Sara Mendez - 03/04/18 08:58>
--- NOTE | 2018-03-06 17:09 | Discharge Summary ---
General - General Admission date:: 03/04/18 Discharge date: 03/04/18 HPI HPI: Ms. Costa is a 52-year-old white female who was seen in the cardiology office yesterday for an abnormal stress test and was scheduled for cardiac catheterization early next week. She developed chest discomfort after leaving [place] yesterday with progression of symptoms to include left arm discomfort. Patient came to the ER for evaluation and was given sublingual nitr oglycerin along with nitroglycerin paste which dramatically improved her symptoms. She was kept overnight with cardiac troponins returning normal. She denies any chest pain this morning. She has been seen by cardiology and will have a cath this am. Hospital Course Hospital Course: The patient's heart cath showed normal coronary arteries and a hyperdynamic ejection fraction consistent with hypertensive heart disease and/or diastolic dysfunction. They recommended better control of her HTN and diuretics in order to decrease her LVEDP. She was stable to be discharged home. Objective Vital signs: Temp Pulse Resp BP Pulse Ox 97.9 F 78 16 120/75 99 03/04/18 11:10 03/04/18 17:16 03/04/18 17:16 03/04/18 17:16 03/04/18 17:16 Narrative: - Constitutional no acute distress - *Routine HEENT Exam Head: Present: normocephalic Eye: Present: EOMI, PERRL ENT: Present: mucous membranes moist - *Routine Neck Exam Present: supple. Absent: lymphadenopathy - *Routine Respiratory Exam Present: CTA bilaterally - *Routine Cardiovascular Exam Present: RRR - *Routine Abdominal Exam Present: soft, normoactive bowel sounds. Absent: tenderness - *Routine Extremities Exam Absent: cyanosis, clubbing, edema - *Routine Skin Exam Present: warm. Absent: rash - *Routine Neurological Exam Present: alert, oriented X3 DS: Diagnosis - Discharge Diagnosis (1) Unstable angina pectoris Status: Acute (2) Abnormal result of cardiovascular function study Status: Acute (3) DM2 (diabetes mellitus, type 2) Status: Chronic (4) HTN (hypertension) Status: Chronic (5) Dyspnea Status: Acute (6) Gastroesophageal reflux disease Status: Chronic (7) HLD (hyperlipidemia) Status: Chronic Discharge Plan - Patient Discharge Instructions ACTIVITY: Continue current activity DIET: continue same diet Patient Instructions: DI for Chest Pain - Follow up Plan Follow up with: Gris Main MD [Primary Care Provider] - 1 week Disposition: Home, Self-Skilled Nursing Medications: Home Medications Medication Instructions Recorded Confirmed Type cyclobenzaprine 5 mg tablet 5 mg PO Q8H PRN 05/13/17 03/04/18 History buspirone 5 mg tablet 5 mg PO DAILY tab 03/03/18 03/04/18 History afauwiptl-jonmk-ixswvffde-PPA ER 1 tab PO Q12H PRN 03/03/18 03/04/18 History tablet,extended release insulin human U-100 NPH-regulr 45 unit SQ BID ml 03/03/18 03/04/18 History 70-30 mix 100 unit/mL subcutaneous susp Aspirin [Low Dose Aspirin EC] 81 mg PO DAILY 03/04/18 03/04/18 History Bisoprolol Fumarate [Bisoprolol 5 mg PO DAILY 03/04/18 03/04/18 History 5mg Tablet] Butalb/Acetaminophen/Caffeine 1 each PO Q4H 03/04/18 03/04/18 History [Fioricet 50-300-40 mg Capsule] Gabapentin [Gabapentin 300mg Cap] 300 mg PO TID 03/04/18 03/04/18 History Losartan/Hydrochlorothiazide 1 each PO DAILY 03/04/18 03/04/18 History [Losartan-Hctz 50-12.5 mg Tab] Omeprazole [Omeprazole 40mg 40 mg PO DAILY 03/04/18 03/04/18 History Capsule] Oxycodone HCl [Roxicodone 5mg tab] 5 mg PO Q6H 03/04/18 03/04/18 History Ranolazine [Ranexa] 1,000 mg PO BID 03/04/18 03/04/18 History Prescriptions/Medication Reconciliation: New Spironolactone [Aldactone 25mg Tab] 50 mg PO DAILY 30 Days tab Continue cyclobenzaprine 5 mg tablet 5 mg PO Q8H PRN PRN Reason: pain insulin human U-100 NPH-regulr 70-30 mix 100 unit/mL subcutaneous susp 45 unit SQ BID ml buspirone 5 mg tablet 5 mg PO DAILY tab Ranolazine [Ranexa] 1,000 mg PO BID Omeprazole [Omeprazole 40mg Capsule] 40 mg PO DAILY Bisoprolol Fumarate [Bisoprolol 5mg Tablet] 5 mg PO DAILY Aspirin [Low Dose Aspirin EC] 81 mg PO DAILY Oxycodone HCl [Roxicodone 5mg tab] 5 mg PO Q6H Butalb/Acetaminophen/Caffeine [Fioricet 50-300-40 mg Capsule] 1 each PO Q4H Gabapentin [Gabapentin 300mg Cap] 300 mg PO TID Losartan/Hydrochlorothiazide [Losartan-Hctz 50-12.5 mg Tab] 1 each PO DAILY No Action qbfywnlwu-jjwfn-rbhwxkcuq-PPA ER tablet,extended release 1 tab PO Q12H PRN PRN Reason: migraines
== END 2018-03-04 18:10 | disposition home or self-care (01) ==
LOC: 2ND 00:42 → ER 00:42 → 2ND 01:47
PROVIDERS: ADMIT Emergency Medicine; ATTEND Family Medicine

== ENCOUNTER → 2018-08-18 08:00 | Outpatient (CLI) | payer MEDICARE, SELFPAY ==
--- NOTE | 2018-08-18 08:04 | US_ITS ---
US abdomen limited History:Cirrhosis of the liver Ordering Physician:REHAN Eli Patient Age: 53 years Comparison:08/12/2017 Findings: Pancreas:Unremarkable. No obvious mass or abnormal fluid collection. No ductal dilatation Liver:Coarse echogenic appearance of the liver. No ductal dilatation or space occupying lesion. There are postcholecystectomy changes. The common bile duct is 7 mm. There is appropriate direction of blood flow within a nondilated portal vein Right Kidney:Unremarkable. Normal size and echogenicity. No hydronephrosis Gallbladder:Status post cholecystectomy Impression:Coarse echogenic appearance of the liver which may be related to cirrhosis. There is normal directional blood flow within the portal vein which does not appear dilated.
[2018-08-18 09:20] LABS: Basophils % 0.4 % (0.1-2.0); Eosinophils # 0.1 K/mm3 (0.0-0.4); Eosinophils % 2.4 % (0.1-12.0); Hematocrit 42.7 % (37.0-47.0); Hemoglobin 14.2 g/dL (12.2-16.2); Lymphocytes # 1.4 K/mm3 (0.7-4.5); Lymphocytes % 24.9 % (10-50); Mean Corpuscular HGB Conc 33.3 g/dL (31.8-35.4); Mean Corpuscular Hemoglobin 30.3 pg (27.0-31.2); Mean Platelet Volume 7.5 fl (7.4-10.4); Monocytes # 0.3 K/mm3 (0.1-1.0); Monocytes % 5.2 % (1.7-9.3); Neutrophils # 3.7 K/mm3 (1.8-7.8); Neutrophils % 67.1 % (37.0-80.0); Platelet Count 105 K/mm3 (142-424); Red Blood Count 4.69 M/mm3 (4.20-5.40); Red Cell Distribution Width 14.9 % (11.5-17.5); White Blood Count 5.5 K/mm3 (4.8-10.8)
[2018-08-18 19:26] LABS: Alanine Aminotransferase 39 U/L (12-78); Albumin/Globulin Ratio 1.1 (1.1-1.8); Alkaline Phosphatase 87 U/L (46-116); Amylase 49 U/L (25-115); Anion Gap 16.2 mEq/L (5-15); Aspartate Amino Transferase 19 U/L (15-37); Bilirubin,Total 0.7 mg/dL (0.2-1.0); Blood Urea Nitrogen 10 mg/dL (7-18); Calcium 8.8 mg/dL (8.5-10.1); Carbon Dioxide 24 mmol/L (21.0-32.0); Chloride 103 mmol/L (98-107); Creatinine,Serum 0.71 mg/dL (0.55-1.02); Estimated Glomerular Filt Rate 87 ml/min (>60); GFR (African American) 105 ML/MIN (>60); Globulin 3.5 gm/dl (1.3-3.2); Glucose 266 mg/dL (74-106); Lipase 130 u/L (73-393); Potassium 4.2 mmoL/L (3.5-5.1); Sodium 139 mmol/L (136-145); Total Protein,Serum 7.5 gm/dL (6.4-8.2)
== END ==
PROVIDERS: PCP Family Medicine; Visit Provider Physician Assistant
DX: R10.13 Epigastric pain (principal); R10.11 Right upper quadrant pain; K74.60 Unspecified cirrhosis of liver
CPT/HCPCS: 36415; 76705; 80053; 82150; 83690; 85025

== ENCOUNTER → 2019-04-12 08:40 | Outpatient (CLI) | payer MEDICARE, SELFPAY ==
--- NOTE | 2019-04-12 08:45 | US_ITS ---
PROCEDURE: US LIVER CLINICAL INDICATION: CIRRHOSIS Follow-up cirrhosis COMPARISON: [facility] US abdomen limited from 08/18/2018 FINDINGS: PANCREAS: Pancreas is poorly demonstrated. Pancreas may be better evaluated with CT if clinically desired LIVER: There remains coarse echogenicity of the liver. Common bile duct is normal at 4 mm. Portal vein is within normal limits with appropriate direction of blood flow. No focal liver lesions are evident. RIGHT KIDNEY: Unremarkable. Normal size and echogenicity. No hydronephrosis GALLBLADDER: Prior cholecystectomy IMPRESSION: Continued mild coarse echogenicity of the liver not significantly changed. Prior cholecystectomy Dictated by: Burak Ding MD 04/12/2019 19:02 Electronically signed by Burak Ding MD in [place] 04/12/2019 19:02
== END ==
PROVIDERS: PCP Family Medicine; Visit Provider Nurse Practitioner
DX: K74.60 Unspecified cirrhosis of liver (principal)
CPT/HCPCS: 76705

== ENCOUNTER → 2019-09-14 12:52 | Outpatient (CLI) | payer MEDICARE, SELFPAY ==
--- NOTE | 2019-09-14 12:55 | CT_ITS ---
PROCEDURE: CT ABDOMEN PELVIS WO CON CLINICAL INDICATION: LT UPPER QUAD PAIN Left upper quadrant pain radiating into the COMPARISON: ABDPELW/O CT ABD PELVIS W/O CONTRAST from 03/24/[address] abdomen w con from 10/20/2017 TECHNIQUE: Axial images obtained with sagittal and coronal reformats. All CT scans at the facility use one or more dose reduction, viz: automated exposure control, ma/kV adjustment per patient size (including targeted exams where dose is matched to indication, i.e. head), or iterative reconstruction technique. FINDINGS: LOWER THORAX: There bilateral breast implants. ABDOMEN & PELVIS: Status post cholecystectomy. Small hiatal hernia. The liver has an unremarkable appearance. Spleen is enlarged at 15 cm. There are perisplenic varices. The adrenal glands and pancreas have an unremarkable appearance. No renal or ureteral calculi. Sandhya renal varices noted. No evidence of appendicitis or diverticulitis. There are scattered colonic diverticula. No pelvic mass or abnormal fluid collection. The uterus has a somewhat bulky appearance. No acute bony findings. IMPRESSION: Overall no change with no acute finding. Splenomegaly with perisplenic and perirenal varices suggesting portal hypertension. Colonic diverticulosis without evidence of diverticulitis Dictated by: Burak Ding MD 09/14/2019 15:11 Electronically signed by Burak Ding MD in [facility] 09/14/2019 15:11
== END ==
PROVIDERS: PCP Family Medicine; Visit Provider Family Medicine
DX: R10.12 Left upper quadrant pain (principal)
CPT/HCPCS: 74176

== ENCOUNTER 2019-10-04 21:45 | Emergency (ER) | payer MEDICARE, SELFPAY ==
[2019-10-04 21:45] VITALS: BP 189/96; PULSE 98; RESP 16; TEMP 37; O2SAT 100; BMI 34.0
[2019-10-04 22:11] LABS: Microscopic, Urine URINE MICROSCOPIC (MICROSCOPIC)
[2019-10-04 22:12] LABS: Basophils % 0.4 % (0.1-2.0); Eosinophils # 0.2 K/mm3 (0.0-0.4); Eosinophils % 2.2 % (0.1-12.0); Hematocrit 40.2 % (37.0-47.0); Hemoglobin 14.4 g/dL (12.2-16.2); Lymphocytes # 2.3 K/mm3 (0.7-4.5); Lymphocytes % 26.7 % (10-50); Mean Corpuscular HGB Conc 35.9 g/dL (31.8-35.4); Mean Corpuscular Hemoglobin 32.8 pg (27.0-31.2); Mean Corpuscular Volume 91.3 fl (81-99); Mean Platelet Volume 7.8 fl (7.4-10.4); Monocytes # 0.4 K/mm3 (0.1-1.0); Monocytes % 5.1 % (1.7-9.3); Neutrophils # 5.7 K/mm3 (1.8-7.8); Neutrophils % 65.6 % (37.0-80.0); Platelet Count 96 K/mm3 (142-424); Red Cell Distribution Width 15.2 % (11.5-17.5); White Blood Count 8.7 K/mm3 (4.8-10.8)
[2019-10-04 22:16] LABS: Appearance,Urine CLEAR (Clear); Bilirubin,Urine Negative (Negative); Blood, Urine Negative (Negative); Color,Urine YELLOW (Yellow); Glucose,Urine (UA) Negative (Negative); Ketones,Urine Negative (Negative); Leukocyte Esterase,Urine Negative (Negative); Nitrate,Urine Negative (Negative); Protein,Urine Negative (Negative); Specific Gravity, Urine >= 1.030 (1.005-1.030)
--- NOTE | 2019-10-04 22:17 | CT_ITS ---
PROCEDURE: CT ABDOMEN PELVIS WO CON CLINICAL INDICATION: abd pain Localized left upper quadrant abdominal pain COMPARISON: CT ABDOMEN PELVIS WO CON from 09/14/2019 TECHNIQUE: Axial images obtained with sagittal and coronal reformats. All CT scans at the facility use one or more dose reduction, viz: automated exposure control, ma/kV adjustment per patient size (including targeted exams where dose is matched to indication, i.e. head), or iterative reconstruction technique. FINDINGS: LOWER THORAX: Bilateral breast implants are present. Mild thickening of the distal esophagus which is nonspecific. ABDOMEN & PELVIS: There is splenomegaly at 14 cm. There has been a prior cholecystectomy. The pancreas, adrenal glands, and kidneys have an unremarkable appearance. Perisplenic and left renal hilar varices are noted. No intestinal obstruction or free air. The appendix is not clearly delineated. There are multiple colonic diverticula. There is mild mucosal thickening involving the descending colon with very minimal stranding of the pericolic fat. No acute bony findings. No pelvic mass or abnormal fluid collection. The uterus is somewhat bulky. IMPRESSION: 1. There is colonic diverticulosis. There is minimal thickening of the descending colon with questionable stranding of the pericolic fat. Colitis or mild diverticulitis is a consideration. Repeat exam with IV and oral contrast may provide further evaluation. 2. Splenomegaly with varices noted consistent with portal hypertension. 3. Thickened distal esophagus which is nonspecific and may be better evaluated with upper GI or upper endoscopy. Dictated by: Burak Ding MD 10/05/2019 09:45 Electronically signed by Burak Ding MD in [facility] 10/05/2019 09:45
[2019-10-04 22:20] VITALS: BP 163/100; PULSE 107; RESP 18; O2SAT 99
[2019-10-04 22:22] LABS: Chloride 104 mmol/L (98-107)
[2019-10-04 22:23] LABS: Potassium 3.6 mmoL/L (3.5-5.1); Sodium 136 mmol/L (136-145)
[2019-10-04 22:25] LABS: Alanine Aminotransferase 40 U/L (12-78); Alkaline Phosphatase 95 U/L (38-126); Anion Gap 8.6 mEq/L (5-15); Aspartate Amino Transferase 54 U/L (14-36); Bilirubin,Total 2.5 mg/dl (0.2-1.3); Blood Urea Nitrogen 16 mg/dl (7-17); Carbon Dioxide 27 mmol/L (22.0-30.0); Creatinine Clearance Estimated 106 mL/min (50-200); Estimated Glomerular Filt Rate 75 ml/min (>60); GFR (African American) 91 ML/MIN (>60)
--- NOTE | 2019-10-04 22:25 | HMH.EDGENADL ---
ED Disposition Clinical Impression: Diverticulitis Disposition: Home, Self-Care Condition on Discharge: Good Instructions: DI for Diverticulitis Additional Instructions: look for shingles rash and call pcp for follow up Prescriptions: metroNIDAZOLE [Flagyl 500mg Tablet] 500 mg PO TID #21 tab Transmission Status: Pending to [facility] levoFLOXacin [Levaquin 500mg tab] 500 mg PO DAILY #7 tab Transmission Status: Pending to [facility] Referrals: Gris Main MD [Primary Care Provider] - - Critical Care Critical Care Time: No Attestation: On 10/04/19, the high probability of a clinically significant, sudden or life threatening deterioration of the following system(s) required my full and direct attention, intervention and personal management. The time I documented below is in addition to time spent performing reported procedures but includes the following listed in this critical care notation. Medical Decision Making - Medical Records Medical records reviewed: Yes: I reviewed the patient's medical records. - [place] Inquiry Pt receiving controlled substance: No Vital Signs: 10/04/19 21:45 10/04/19 22:20 10/04/19 22:44 Temperature 98.6 F Temperature Source Oral Pulse Rate Pulse Rate [Left Radial] 98 H 107 H 91 H Respiratory Rate 16 18 16 Blood Pressure Blood Pressure [Right Arm] 189/96 H 163/100 H 145/91 H Blood Pressure Mean [Right Arm] 127 121 109 Blood Pressure Source Blood Pressure Source [Right Arm] Automatic Cuff Blood Pressure Position Blood Pressure Position [Right Arm] Sitting Sitting 02 Sat by Pulse Oximetry 100 99 98 Oxygen Delivery Method Room Air Room Air Room Air 10/04/19 23:39 Temperature 98.6 F Temperature Source Oral Pulse Rate 85 Pulse Rate [Left Radial] Respiratory Rate 16 Blood Pressure 106/64 L Blood Pressure [Right Arm] Blood Pressure Mean [Right Arm] Blood Pressure Source Automatic Cuff Blood Pressure Source [Right Arm] Blood Pressure Position Sitting Blood Pressure Position [Right Arm] 02 Sat by Pulse Oximetry Oxygen Delivery Method Room Air - Lab Data Lab results reviewed: Yes: I reviewed the patient's lab results. Lab Results 10/04/19 22:05: Urine Color Yellow, Urine Appearance Clear, Urine pH 6.0, Ur Specific [place] >= 1.030, Urine Protein Negative, Urine Glucose (UA) Negative, Urine Ketones Negative, Urine Blood Negative, Urine Nitrate Negative, Urine Bilirubin Negative, Urine Urobilinogen 1.0, Ur Leukocyte Esterase Negative, Urine WBC Occasional, Ur Squamous Epith Cells 3-5, Urine Bacteria Trace 10/04/19 22:05: WBC 8.7, RBC 4.40, Hgb 14.4, Hct 40.2, MCV 91.3, MCH 32.8 H, MCHC 35.9 H, RDW 15.2, Plt Count 96 L, MPV 7.8, Neut % (Auto) 65.6, Lymph % (Auto) 26.7, [place] % (Auto) 5.1, Eos % (Auto) 2.2, Baso % (Auto) 0.4, Neut # (Auto) 5.7, Lymph # (Auto) 2.3, [place] # (Auto) 0.4, Eos # (Auto) 0.2, Baso # (Auto) 0.0, ESR 26 10/04/19 22:05: Sodium 136, Potassium 3.6, Chloride 104, Carbon Dioxide 27, Anion Gap 8.6, BUN 16, Creatinine 0.80, Estimated Creat Clear 106, Estimated GFR 75, Est GFR ( Amer) 91, Glucose 146 H, Calcium 9.4, Total Bilirubin 2.5 H, AST 54 H, ALT 40, Alkaline Phosphatase 95, C-Reactive Protein 1.6, Total Protein 7.9, Albumin 4.4, Globulin 3.5 H, Albumin/Globulin Ratio 1.3 Result diagrams: 10/04/19 22:05 10/04/19 22:05 Orders (Tests/Meds): ED MEDICATIONS Generic Name Dose Route Start Last Admin Trade Name Freq PRN Reason Stop Dose Admin Sodium Chloride 1,000 mls @ 999 mls/hr 10/04/19 22:30 10/04/19 22:38 Sod Chlor 0.9% 1000ml Bag IV 10/04/19 23:30 999 mls/hr .Q1H1M ZARA Administration Metronidazole 500 mg in 100 mls @ 100 mls/hr 10/04/19 23:45 10/05/19 00:02 Flagyl 500mg/100ml Ivpb IV 10/18/19 23:44 100 mls/hr Q8H ZARA Administration Protocol Discontinued Medications Generic Name Dose Route Start Last Admin Trade Name Freq PRN Reason
[2019-10-04 22:26] LABS: Albumin Level 4.4 g/dl (3.5-5.0); Albumin/Globulin Ratio 1.3 (1.1-1.8); Calcium 9.4 mg/dl (8.4-10.2); Globulin 3.5 g/dL (1.3-3.2); Glucose 146 mg/dl (74-100); Total Protein,Serum 7.9 g/dl (6.3-8.2)
[2019-10-04 22:34] LABS: Bacteria,Urine Trace /lpf; WBC,Urine Occasional #/hpf (0-3)
[2019-10-04 22:44] VITALS: BP 145/91; PULSE 91; RESP 16; O2SAT 98
[2019-10-04 23:10] LABS: C-Reactive Protein 1.6 mg/L (0-4)
[2019-10-04 23:11] LABS: Erythrocyte Sedimentation Rate 26 mm/hr (0-30)
[2019-10-04 23:39] VITALS: BP 177/91; PULSE 89; RESP 16; TEMP 37; O2SAT 99
== END 2019-10-05 01:11 | disposition home or self-care (01) ==
PROVIDERS: Emergency Provider Emergency Medicine; PCP Family Medicine
DX: K57.92 Diverticulitis of intestine, part unspecified, without perforation or abscess without bleeding (principal); K74.60 Unspecified cirrhosis of liver; I10 Essential (primary) hypertension; E11.9 Type 2 diabetes mellitus without complications; F41.8 Other specified anxiety disorders
CPT/HCPCS: 74176; 80053; 81001; 85025; 85651; 86140; 96365; 96367; 96375; 99284; J2405

== ENCOUNTER → 2020-02-07 11:23 | Outpatient (CLI) | payer MEDICARE, SELFPAY ==
[2020-02-07 12:20] LABS: Basophils % 0.5 % (0.1-2.0); Eosinophils # 0.1 K/mm3 (0.0-0.4); Eosinophils % 2.1 % (0.1-12.0); Hematocrit 43.4 % (37.0-47.0); Hemoglobin 13.8 g/dL (12.2-16.2); Lymphocytes # 1.2 K/mm3 (0.7-4.5); Mean Corpuscular HGB Conc 31.8 g/dL (31.8-35.4); Mean Corpuscular Hemoglobin 30.2 pg (27.0-31.2); Mean Corpuscular Volume 95.2 fl (81-99); Mean Platelet Volume 7.6 fl (7.4-10.4); Monocytes # 0.2 K/mm3 (0.1-1.0); Monocytes % 5.6 % (1.7-9.3); Neutrophils # 2.8 K/mm3 (1.8-7.8); Neutrophils % 63.9 % (37.0-80.0); Platelet Count 90 K/mm3 (142-424); Red Blood Count 4.56 M/mm3 (4.20-5.40); Red Cell Distribution Width 14.7 % (11.5-17.5); White Blood Count 4.4 K/mm3 (4.8-10.8)
[2020-02-07 13:06] LABS: INR 1.03 (0.9-1.1); Prothrombin Time 11.4 seconds (9.4-11.8)
[2020-02-07 14:16] LABS: Chloride 104 mmol/L (98-107); Sodium 139 mmol/L (136-145)
[2020-02-07 14:17] LABS: Potassium 3.8 mmoL/L (3.5-5.1)
[2020-02-07 14:19] LABS: HDL Cholesterol 65 mg/dl (40-60); Uric Acid 4.2 mg/dl (2.5-6.2)
[2020-02-07 14:19] LABS: Alanine Aminotransferase 54 U/L (12-78); Albumin Level 4.4 g/dl (3.5-5.0); Albumin/Globulin Ratio 1.5 (1.1-1.8); Alkaline Phosphatase 80 U/L (38-126); Anion Gap 12.8 mEq/L (5-15); Aspartate Amino Transferase 45 U/L (14-36); Bilirubin,Total 1.1 mg/dl (0.2-1.3); Blood Urea Nitrogen 14 mg/dl (7-17); Carbon Dioxide 26 mmol/L (22.0-30.0); Estimated Glomerular Filt Rate 105 ml/min (>60); GFR (African American) 127 ML/MIN (>60); Total Protein,Serum 7.4 g/dl (6.3-8.2)
[2020-02-07 14:20] LABS: Calcium 9.5 mg/dl (8.4-10.2); Glucose 278 mg/dl (74-100)
[2020-02-07 14:21] LABS: Erythrocyte Sedimentation Rate 16 mm/hr (0-30)
[2020-02-07 14:29] LABS: Direct LDL Cholesterol 101.22 mg/dL (100-129)
[2020-02-07 14:34] LABS: Chol/HDL Ratio 2.7 (1-3.5); Cholesterol 173 mg/dl (140-200); Triglycerides 99 mg/dl (30-150); VLDL Cholesterol 20 mg/dL (0-40)
[2020-02-07 14:51] LABS: Thyroid Stimulating Hormone 1.42 uIU/mL (0.465-4.68)
[2020-02-07 14:54] LABS: Ferritin 18.5 ng/ml (11.1-264)
[2020-02-07 16:26] LABS: Vitamin B12 793 pg/mL (239-931)
[2020-02-08 10:58] LABS: RA Latex Turbid. <10.0 IU/mL (0.0-13.9)
[2020-02-10 10:23] LABS: Antinuclear Antibodies, IFA Negative (.)
== END ==
PROVIDERS: Internal Medicine Gastroenterology; Visit Provider Nurse Practitioner Family
DX: R10.32 Left lower quadrant pain (principal); K75.81 Nonalcoholic steatohepatitis (NASH); K59.00 Constipation, unspecified; M25.50 Pain in unspecified joint; Z13.220 Encounter for screening for lipoid disorders; Z86.010 Personal history of colon polyps
CPT/HCPCS: 36415; 80053; 80061; 82607; 82728; 84439; 84443; 84550; 85025; 85610; 85651; 86038; 86431

== ENCOUNTER → 2020-04-09 08:01 | Outpatient (CLI) | payer MEDICARE, SELFPAY ==
--- NOTE | 2020-04-09 08:14 | US_ITS ---
PROCEDURE: US ABDOMEN LIMITED CLINICAL INDICATION: CIRRHOSIS,ABD PAIN COMPARISON: US ABDLM US abdomen limited from 08/18/[address] ABDOMEN PELVIS WO CON from 10/04/2019 FINDINGS: PANCREAS: Unremarkable. No obvious mass or abnormal fluid collection. No ductal dilatation LIVER: No focal liver lesions demonstrated. The liver has a slight coarse echotexture. No intrahepatic biliary ductal dilatation evident. There is appropriate direction of blood flow within a non dilated portal vein RIGHT KIDNEY: Unremarkable. Normal size and echogenicity. No hydronephrosis GALLBLADDER: Prior cholecystectomy. Common bile duct is normal at 4 mm. IMPRESSION: There is appropriate direction of blood flow within a non dilated portal vein. There is mild coarse echogenicity of the liver which is nonspecific but could be seen with early cirrhosis. Overall no significant change Dictated by: Burak Ding MD 04/09/2020 21:54 Burak Ding MD in [place] 04/09/2020 21:54
== END ==
PROVIDERS: PCP Family Medicine; Visit Provider Nurse Practitioner Family
DX: R10.32 Left lower quadrant pain (principal); K74.60 Unspecified cirrhosis of liver; K75.81 Nonalcoholic steatohepatitis (NASH); K30 Functional dyspepsia; K59.00 Constipation, unspecified; F41.9 Anxiety disorder, unspecified
CPT/HCPCS: 76705

== ENCOUNTER → 2020-08-27 07:49 | Outpatient (CLI) | payer MEDICARE, SELFPAY ==
--- NOTE | 2020-08-27 07:53 | MM_ITS ---
PROCEDURE INFORMATION: Exam: MG Screening 3D Mammography Exam date and time: 08/27/2020 7:53 AM Age: 55 years old Clinical indication: Screening mammogram TECHNIQUE: Imaging protocol: Screening tomosynthesis and 2D mammography including computer-aided detection (CAD) when performed. COMPARISON: MG SCIMPBI MM Dig SC mamm implant BI CAD 04/27/2017 10:29 AM FINDINGS: MAMMOGRAPHY: Breast composition: There are scattered areas of fibroglandular density. Mass: None. Architectural distortion: No new or suspicious architectural distortion. Calcifications: No new or suspicious calcifications are present Asymmetric density: No new or suspicious asymmetric density is present Skin thickening: None. Axillary adenopathy: None. Implants: Subpectoral saline augmentation implants are present. IMPRESSION: No mammographic evidence of malignancy. Recommend annual screening mammography unless otherwise clinically indicated. ASSESSMENT: BI-RADS category 2: Benign
== END ==
PROVIDERS: PCP Family Medicine; Visit Provider Obstetrics & Gynecology Gynecology
DX: Z12.31 Encounter for screening mammogram for malignant neoplasm of breast (principal)
CPT/HCPCS: 77063; 77067

== ENCOUNTER → 2020-09-27 08:28 | Outpatient (CLI) | payer MEDICARE, SELFPAY ==
--- NOTE | 2020-09-27 08:37 | US_ITS ---
PROCEDURE: US ABDOMEN LIMITED CLINICAL INDICATION: CIRRHOSIS, UNSPECIFIED, NONALCOHOLIC STEATOHEATITIS In the COMPARISON: US US ABDOMEN LIMITED from 04/09/2020 FINDINGS: PANCREAS: Unremarkable. No obvious mass or abnormal fluid collection. No ductal dilatation. The pancreatic tail is not well delineated due to overlying bowel gas. LIVER: No focal liver lesions demonstrated. Slightly coarse hepatic echogenicity nonspecific. No intrahepatic biliary ductal dilatation evident. There is appropriate direction of blood flow within a non dilated portal vein RIGHT KIDNEY: Unremarkable. Normal size and echogenicity. No hydronephrosis GALLBLADDER: Prior cholecystectomy. Common bile duct is normal at 3 mm IMPRESSION: Status post cholecystectomy. No biliary dilatation. Mild coarse echogenicity of the liver which is nonspecific but may be seen with hepatitis. There is appropriate direction of blood flow within the portal vein which is nondilated Dictated by: Burak Ding MD 09/27/2020 13:20 Burak Ding MD in [place] 09/27/2020 13:20
== END ==
PROVIDERS: PCP Family Medicine; Visit Provider Nurse Practitioner Family
DX: R10.32 Left lower quadrant pain (principal); K74.60 Unspecified cirrhosis of liver; K75.81 Nonalcoholic steatohepatitis (NASH); K30 Functional dyspepsia; K59.00 Constipation, unspecified; F41.9 Anxiety disorder, unspecified
CPT/HCPCS: 76705

== ENCOUNTER 2020-10-14 10:01 | Emergency (ER) | payer MEDICARE, SELFPAY ==
[2020-10-14 10:30] VITALS: BP 163/96; PULSE 89; RESP 18; TEMP 36.9; O2SAT 97; BMI 36.8
--- NOTE | 2020-10-14 10:56 | HMH.EDUTC ---
[facility] Disposition Clinical Impression: Sore throat (viral) Disposition: Home, Self-Care Condition on Discharge: Good Instructions: Sore Throat, DI for Cough -- Adult Additional Instructions: *Monitor Temp, Over the counter Motrin or Tylenol as directed/as needed Tylenol every 4 hours and Motrin every 6 hours (as long as your family doctor has told you that you can take it) for fever or pain. and straight to ER if unable to lower temp less than 101.0 after medication given *Warm salt water gargles may help to soothe the throat *Throat Lozenges *Warm fluids like tea with honey may help to soothe the throat *Sleep elevated *Humidifier/Vaporizer *Flonase 2 sprays in each nostril daily but be aware that it may take 2-3 days before you notice improvement Your throat swab was sent for culture. Those results are typically sent to your primary care. Be sure to follow up in 2-3 days with your family doctor/primary care physician if no improvement so they can review those result and treat if necessary. If you don?t have a primary care doctor, I recommend you get one but in the mean time, you will have to return to a walk in clinic Follow up IMMEDIATELY for new or worsening symptoms or no Noticeable improvement over the next 48-72 hours. 911 for difficulty breathing or swallowing Prescriptions: Fluticasone Propionate [Flonase Allergy Relief NS] 1 spray NS DAILY #1 bot Transmission Status: Pending to [facility] Benzonatate [Tessalon Perle 100mg Cap*] 100 mg PO TID PRN #15 cap PRN Reason: Cough Transmission Status: Pending to [facility] Referrals: Gris Main MD [Primary Care Provider] - As needed Time of Disposition: 12:02 Medical Decision Making - [place] Inquiry Pt receiving controlled substance: No [place] was queried for this patient: No Vital Signs: 10/14/20 10:30 10/14/20 11:37 Temperature 98.4 F 98.4 F Temperature Source Oral Pulse Rate 89 Pulse Rate [Right Brachial] 89 Respiratory Rate 18 18 Blood Pressure 163/96 H Blood Pressure [Right Arm] 163/96 H Blood Pressure Mean [Right Arm] 118 Blood Pressure Source [Right Arm] Automatic Cuff Blood Pressure Position [Right Arm] Sitting 02 Sat by Pulse Oximetry 97 Oxygen Delivery Method Room Air - Lab Data Lab Results 10/14/20 10:20: Strep Scn Rapid Clinic Negative 10/14/20 11:15: WBC 4.5 L, RBC 4.26, Hgb 12.9, Hct 37.0, MCV 86.8, MCH 30.4, MCHC 35.0, RDW 14.8, Plt Count 77 L, MPV 7.9, Neut % (Auto) 70.3, Lymph % (Auto) 23.1, [place] % (Auto) 4.5, Eos % (Auto) 1.8, Baso % (Auto) 0.2, Neut # (Auto) 3.1, Lymph # (Auto) 1.0, [place] # (Auto) 0.2, Eos # (Auto) 0.1, Baso # (Auto) 0.0 Result diagrams: 10/14/20 11:15 Orders (Tests/Meds): ORDERS Category Date Time Status Strep Screen Confirmation Stat Micro 10/14/20 10:20 Received Medical Decision Narrative: Discussed with patient that we have to draw blood for CBC in [facility] we do not do finger sticks and patient was a little agitated Recommended CXR and URP with COVID and patient declined testing Spoke with nurse in clinic of patient PCP and informed them of patient in [facility] and recommendations awaiting CBC Awaiting CBC results Lab results reported to PCP office and they viewed previous CBC and platelet was 72 in last test in clinic will have patient follow up with with PCP for further evaluation and testing [facility] HPI - General Stated complaint: sore throat, cough Time Seen by Provider: 10/14/20 10:57 Mode of Arrival: Ambulatory Source of Information: Patient Limitations: No Limitations Description of Symptoms (Recalled from Triage Doc. by RN): PATIENT C/O DRY COUGH, EAR PAIN, AND SORE THROAT X 1 WEEK. SHE STATES HER PCP STARTED HER ON ANTIBIOTICS AND STEROIDS BUT SHE IS NOT BETTER HEENT Symptoms (Recalled from RN notes): Yes Resp Symptoms (Recalled from RN notes): Yes Skin Symptoms (Recalled from RN notes): No MS Symptoms (Recalled from RN notes): No Functional S
[2020-10-14 10:59] LABS: UTC Strep Screen (Rapid) Negative (Negative)
[2020-10-14 11:37] VITALS: BP 163/96; PULSE 89; RESP 18; TEMP 36.9; O2SAT 97
[2020-10-14 11:46] LABS: Basophils % 0.2 % (0.1-2.0); Eosinophils # 0.1 K/mm3 (0.0-0.4); Eosinophils % 1.8 % (0.1-12.0); Hemoglobin 12.9 g/dL (12.2-16.2); Lymphocytes % 23.1 % (10-50); Mean Corpuscular Hemoglobin 30.4 pg (27.0-31.2); Mean Corpuscular Volume 86.8 fl (81-99); Mean Platelet Volume 7.9 fl (7.4-10.4); Monocytes # 0.2 K/mm3 (0.1-1.0); Monocytes % 4.5 % (1.7-9.3); Neutrophils # 3.1 K/mm3 (1.8-7.8); Neutrophils % 70.3 % (37.0-80.0); Platelet Count 77 K/mm3 (142-424); Red Blood Count 4.26 M/mm3 (4.20-5.40); Red Cell Distribution Width 14.8 % (11.5-17.5); White Blood Count 4.5 K/mm3 (4.8-10.8)
== END 2020-10-14 12:09 | disposition home or self-care (01) ==
PROVIDERS: Emergency Provider Nurse Practitioner; PCP Family Medicine
DX: J02.8 Acute pharyngitis due to other specified organisms (principal); F41.8 Other specified anxiety disorders
CPT/HCPCS: G0463; 85025; 87880; 99202

== ENCOUNTER 2020-10-15 23:39 | Emergency (ER) | payer MEDICARE, SELFPAY ==
[2020-10-15 23:47] VITALS: BP 124/79; PULSE 75; RESP 16; TEMP 36.6; O2SAT 98; BMI 34.0
--- NOTE | 2020-10-16 00:02 | HMH.EDURI ---
ED Disposition Clinical Impression: Acute pharyngitis Qualifiers: Pharyngitis/tonsillitis etiology: unspecified etiology Qualified Code(s): J02.9 - Acute pharyngitis, unspecified Disposition: Home, Self-Care Condition on Discharge: Good Instructions: DI for Viral Pharyngitis Additional Instructions: use meds and see pcp for follow up Prescriptions: Fluconazole [Diflucan 100mg tablet] 100 mg PO DAILY #5 tab Prescription Printed Referrals: Gris Main MD [Primary Care Provider] - - Critical Care Critical Care Time: No Attestation: On 10/15/20, the high probability of a clinically significant, sudden or life threatening deterioration of the following system(s) required my full and direct attention, intervention and personal management. The time I documented below is in addition to time spent performing reported procedures but includes the following listed in this critical care notation. Medical Decision Making - Medical Records Medical records reviewed: Yes: I reviewed the patient's medical records. - [place] Inquiry Pt receiving controlled substance: No Vital Signs: 10/15/20 23:47 Temperature 97.8 F Temperature Source Oral Pulse Rate [Right Brachial] 75 Respiratory Rate 16 Blood Pressure [Right Arm] 124/79 Blood Pressure Mean [Right Arm] 94 Blood Pressure Source [Right Arm] Automatic Cuff Blood Pressure Position [Right Arm] Sitting 02 Sat by Pulse Oximetry 98 Oxygen Delivery Method Room Air - Lab Data Lab results reviewed: Yes: I reviewed the patient's lab results. Orders (Tests/Meds): ED MEDICATIONS Discontinued Medications Generic Name Dose Route Start Last Admin Trade Name Freq PRN Reason Stop Dose Admin Ketorolac Tromethamine 60 mg 10/15/20 23:57 Ketorolac 60mg/2ml Vial IM 10/15/20 23:58 ONCE ONE Medical Decision Narrative: prob reactive pharyngitis - will ask pt to call pcp and ent wednesday URI/Sore Throat HPI - General Chief Complaint: Ear Stated Complaint: sore throat Time Seen by Provider: 10/16/20 00:02 Mode of Arrival: Family Vehicle Source of Information: Patient, Medical Record Limitations: No Limitations Description of Symptoms (Recalled from ER Triage Doc. by RN): patient states she has complaints of throat and ear pain , throat feels raw, cough. Patient states she was on vacation a week or so ago and it started, she was placed on a zpack and another (unk which one) atb and it improved somewhat. yesterday she was checked for strep and covid with negative results, placed on flonase and tessalon perles, additionally taking claritin, throat spray - History of Present Illness HPI Narrative: has ongoing throat pain over the last 2 weeks - no current fever - no rash - painful swallowing has been on abx and seen in the [facility] yesterday MD Complaint: sore throat Onset (ago): day(s) Severity: moderate Relieving factors: cough suppressant Able to tolerate fluids by mouth: Yes Context: recent travel Associated symptoms: denies other symptoms Treatments prior to arrival: cold medicine , antibiotics - Related Data Home Medications Medication Instructions Recorded Confirmed insulin human U-100 NPH-regulr 45 unit SQ BID ml 03/03/18 06/11/20 70-30 mix 100 unit/mL subcutaneous susp Loratadine [Claritin 10mg 10 mg PO DAILY 06/11/20 06/11/20 Tablet] Previous Rx's Medication Instructions Recorded losartan 50 mg-hydrochlorothiazide 1 tab PO DAILY #90 tab 01/05/20 12.5 mg tablet Benzonatate [Tessalon Perle 100mg 100 mg PO TID PRN #15 cap 10/14/20 Cap*] Fluticasone Propionate [Flonase 1 spray NS DAILY #1 bot 10/14/20 Allergy Relief NS] Fluconazole [Diflucan 100mg tablet] 100 mg PO DAILY #5 tab 10/16/20 Allergies Allergy/AdvReac Type Severity Reaction Status Date / Time No Known Allergies Allergy Verified 06/11/20 09:32 [facility] History - Hepatitis A Screen Drug use history?: No High risk sexual behaviors?: No
[2020-10-16 00:09] VITALS: BP 175/85; PULSE 78; RESP 18; TEMP 36.6; O2SAT 99
== END 2020-10-16 00:20 | disposition home or self-care (01) ==
PROVIDERS: Emergency Provider Emergency Medicine; PCP Family Medicine
DX: J02.9 Acute pharyngitis, unspecified (principal); E11.9 Type 2 diabetes mellitus without complications; F41.8 Other specified anxiety disorders; I10 Essential (primary) hypertension; Z79.899 Other long term (current) drug therapy
CPT/HCPCS: 96372; 99281

== ENCOUNTER → 2020-10-19 10:25 | Outpatient (CLI) | payer MEDICARE, SELFPAY | PROVIDERS: Visit Provider Internal Medicine Gastroenterology | DX: Z01.812 Encounter for preprocedural laboratory examination (principal); Z11.52 Encounter for screening for COVID-19; Z13.810 Encounter for screening for upper gastrointestinal disorder; Z12.11 Encounter for screening for malignant neoplasm of colon | CPT/HCPCS: U0003 ==

== ENCOUNTER 2020-10-21 07:58 | Day surgery (SDC) | payer MEDICARE, SELFPAY ==
[2020-10-16 09:23] VITALS: BMI 34.0
[2020-10-21] VITALS (7 sets, daily range): BP systolic 70–150; BP diastolic 38–93; PULSE 68–84; RESP 16–18; TEMP 36.4–36.8; O2SAT 94–100
[2020-10-21 08:37] LABS: Urine Pregnancy, HCG Qual. Negative (Negative)
[2020-10-21 08:40] LABS: POC Glucose,Bedside 218 (70-110)
--- NOTE | 2020-10-21 09:32 | HMH.PROC ---
[facility] Procedure Note Procedure Note:: Upper Endoscopy Procedure Report: Esophagogastroduodenoscopy with cold biopsies Endoscopost: Oscar Weaver II, MD Referring Physician: Manolo Main MD Date of Procedure: October 21, 2020 Equipment: Olympus GIF 190 standard upper endoscope Sedation: MAC sedation Indications: Mrs. 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 She did have an upper endoscopy in May 2017 and had a single esophageal varix and mild portal gastropathy. The patient did see another shower room attendant (Dr. Shimon Miller). The patient did have a MELD score as high as 11 but more recently was 7. The patient does state there her heartburn and reflux have improved. She has had some throat spasms. She reports no abdominal pain or weight loss. EGD is performed to rule out esophageal varices. Procedure: Prior to the procedure, a history and physical exam was performed, and patient's medications and allergies were reviewed. The risks, benefits and alternatives of the sedation and procedure were discussed with the patient. All questions were answered and informed consent was obtained. The patient was brought to the procedure room. Patient identification and proposed procedure were verified by the physician and the nurse. The patient was placed in a left lateral decubitus position and the scope was passed under direct vision. Throughout the procedure, the patient's blood pressure, pulse, and oxygen saturations were monitored continuously. The upper GI endoscopy was accomplished without difficulty. The patient tolerated the procedure well. Findings: The scope was passed directly into the upper esophagus and advanced to the third portion of the duodenum. The post bulbar duodenum and duodenal bulb were normal with normal mucosa and conniventes. The scope was withdrawn through a normal duodenal bulb and pylorus into the stomach. There was some mild linear reactive gastropathy of the antrum. There was moderate portal gastropathy with mosaic pattern of the body and fundus of the stomach. Upon retroflexion there was no hiatal hernia. There were no fundic varices. Cold biopsies were taken along the lesser curvature. The scope was then withdrawn into the esophagus. There was a serrated Z-line and biopsies were taken at the GE junction. There were grade 1-2 esophageal varices without any stigmata. There was some esophageal dysmotility. The remainder of the esophageal mucosa was normal. Impression: 1. Grade 1-2 esophageal varices without stigmata 2. Nonerosive GERD with mild esophageal dysmotility 3. Mild to moderate portal gastropathy Plan: I will follow-up the biopsies. The patient does have cirrhosis secondary to BLEVINS. Her MELD score is stable. I do feel that she should be on a nonselective beta-satish for prevention of variceal bleeding. I will discuss with the patient and family and proceed with colonoscopy.
--- NOTE | 2020-10-21 09:34 | HMH.ANESCL ---
[facility] Anesthesia Checklist - Structural Data Admitted From: Home Planned Operative Procedure/s: egd/colonoscopy Consent for Planned Operative Procedure(s) Verified: Yes - Additional verifications Anesthesia Reactions: Yes (N/V) Hx Blood Transfusions: No Blood Transfusion Reaction: No - Airway Assessment C-Spine Mobility Assessed: Yes TMJ Mobility Assessed: Yes Dentition: Good Dentition - Neurological Assessment Level of Consciousness: Awake, Alert, Appropriate - Anesthesia Plan Anesthesia Risk discussed: Yes Anesthesia Plan: Verified ASA Class: III Anesthesia Type: MAC [facility] History I have reviewed the patient's past medical history: Yes Medical History: Reports:: Anxiety, Depression, Diabetes Mellitus Type 2, Hypertension Denies:: Cancer, Diabetes Mellitus Type 1, Internal Pacemaker, Lung Disease, MRSA, Seizures *Have you ever received a pneumonia vaccine?: No *Have you received a flu vaccine this season?: No Other Medical History: Reports: Liver Disease. Denies: Blood Transfusion Reaction Anesthesia experience/problems:: none Laterality Cases: Bilateral: Carpal Tunnel Release Other Surgeries: Yes: Appendectomy, Cardiac Catheterization, Cholecystectomy. No: Pacemaker Amputation: No Fractures: No - *Social History Last grade of school completed: GED Smoking Status: Never smoker # Packs/Day (cigarettes): 1 Alcohol Intake: never Alcohol Intake Frequency:: a few times a month Substance Use Type: denies use *Occupational Status:: disabled Housing: house Household Members: spouse *Travel in the last 8 weeks: Inside the [place] - Psychiatric History Pschychiatric History:: Reports:: Anxiety, Depression Family Hx:: No significant family history
--- NOTE | 2020-10-21 09:49 | P.PCN_ITS ---
[facility] Procedure Note Procedure Note:: Colonoscopy Procedure Report: Colonoscopy with cold snare polypectomy Endoscopist: Oscar Weaver II, MD Referring physician: Fer Main MD Date of Procedure: October 21, 2020 Equipment: Olympus 190 variable stiffness pediatric colonoscope Sedation: MAC sedation Indication: Mrs. Costa is a 55-year-old female who is here for follow-up surveillance colonoscopy secondary to a personal history of colon polyps. Her colonoscopy in May 2017 revealed 7 polyps (tubular adenomas x5/small serrated adenomas x2) which were removed. The patient at one point had some left lower quadrant abdominal pain. She has improved with the regular use of MiraLAX plus Metamucil by mouth twice daily). Her bloating and discomfort have improved. She reports no rectal bleeding, weight loss or change in bowel habits. She has 1 first cousin with colon cancer. Procedure: Prior to the procedure, a history and physical exam was performed, and patient's medications and allergies were reviewed. The risks, benefits and alternatives of the sedation and procedure were discussed with the patient. All questions we re answered and informed consent was obtained. The patient was brought to the procedure room. Patient identification and proposed procedure were verified by the physician and the nurse. The patient was placed in a left lateral decubitus position and the scope was passed under direct vision. Throughout the procedure, the patient's blood pressure, pulse, and oxygen saturations were monitored continuously. The colonoscopy was accomplished without difficulty. The patient tolerated the procedure well. Findings: On digital rectal examination there was normal rectal tone. There were no external hemorrhoids. The colonoscope was introduced through the anal canal to the rectum and advanced to the cecum. The ileocecal valve and appendiceal orifice were identified. The scope was advanced a short distance into the ileum which appeared grossly normal. The scope was then withdrawn into the colon. There were 2 colon polyps (transverse x1 (4 mm) and sigmoid x1 (3 mm)) which were both removed via cold snare polypectomy. The remainder of the ascending and transverse were normal. There were scattered diverticuli throughout the descending and sigmoid colon (LEFT colon). The rectum itself was normal. Upon retroflexion within the rectum there were grade 2 internal hemorrhoids. The preparation was excellent throughout with [place] Preparation Score of 9. The cecal time was 12 minutes. Impression: 1. Diminutive colonic polyps x2 2. Left-sided diverticulosis 3. Grade 2 internal hemorrhoids Plan: I will follow up the polyp pathology and recommend repeat colonoscopy again in 5-7 years based upon the polyp histology and the patient's prior adenomatous polyps. I would encourage continuation of the fiber bowel regimen (combined MiraLAX plus Metamucil by mouth twice daily) on a long-term daily maintenance basis.
== END 2020-10-21 10:53 | disposition home or self-care (01) ==
PROVIDERS: PCP Family Medicine; Visit Provider Internal Medicine Gastroenterology
PROC: 0DJ08ZZ Inspection of Upper Intestinal Tract, Via Natural or Artificial Opening Endoscopic (ICD-10-PCS; CPT 43235; principal; 2020-10-21 09:00)
DX: K63.5 Polyp of colon (principal); K57.30 Diverticulosis of large intestine without perforation or abscess without bleeding; K64.1 Second degree hemorrhoids; I85.00 Esophageal varices without bleeding; K21.9 Gastro-esophageal reflux disease without esophagitis; K22.4 Dyskinesia of esophagus; K76.6 Portal hypertension; Z12.11 Encounter for screening for malignant neoplasm of colon; K31.89 Other diseases of stomach and duodenum; K75.81 Nonalcoholic steatohepatitis (NASH); K74.60 Unspecified cirrhosis of liver; Z86.010 Personal history of colon polyps
CPT/HCPCS: 43239; 45385; 81025; 82962; 88305

== ENCOUNTER 2020-12-21 02:31 | Emergency (ER) | payer MEDICARE, SELFPAY ==
[2020-12-21 02:42] VITALS: BP 160/75; PULSE 79; RESP 15; TEMP 36.5; O2SAT 99; BMI 30.7
--- NOTE | 2020-12-21 02:51 | XR_ITS ---
PROCEDURE INFORMATION: Exam: XR Right Ankle Exam date and time: 12/21/2020 2:51 AM Age: 55 years old Clinical indication: Pain; Ankle; Right; Additional info: Pain unable to bear weight on RT leg TECHNIQUE: Imaging protocol: XR Right ankle. Views: 3 or more views. COMPARISON: CR XR TIBIA FIBULA RT 2V 12/21/2020 2:58 AM FINDINGS: Bones/joints: There is a well corticated osseous body noted adjacent to the inferior right lateral malleolus. In addition, there is some spurring noted along the medial and inferior aspect of the medial malleolus. This is likely on the basis of old injury. There is spurring noted along the posterior and inferior aspects of the calcaneus. Soft tissues: There is mild soft tissue swelling noted about the right ankle. IMPRESSION: Suspected old bimalleolar injury. There is no evidence of acute fracture. There is mild overlying soft tissue swelling. Benign calcaneal spurring is identified.
--- NOTE | 2020-12-21 02:51 | XR_ITS ---
PROCEDURE INFORMATION: Exam: XR Right Femur Exam date and time: 12/21/2020 2:51 AM Age: 55 years old Clinical indication: Thigh; Right; Patient HX: Pain unable to bear weight on RT leg TECHNIQUE: Imaging protocol: XR Right femur. Views: 2 views. COMPARISON: CR XR HIP RT 2-3V W/PELVIS 12/21/2020 2:54 AM FINDINGS: Bones/joints: Degenerative changes noted within the right hip. There is spurring noted along the anterior superior aspect of the patella at insertion of quadriceps tendon onto the patella. No evidence of acute fracture. Osseous mineralization is normal. Soft tissues: Unremarkable. IMPRESSION: No acute findings.
--- NOTE | 2020-12-21 02:51 | XR_ITS ---
PROCEDURE INFORMATION: Exam: XR Right Knee Exam date and time: 12/21/2020 2:51 AM Age: 55 years old Clinical indication: Difficulty in walking and other: Pain in knee and RT leg, unable to bear weight; Additional info: Pain unable to bear weight on RT knee TECHNIQUE: Imaging protocol: XR Right knee. Views: 3 views. COMPARISON: CR XR ANKLE RT MIN 3V 12/21/2020 2:59 AM FINDINGS: Bones/joints: There is spurring noted along the superior and anterior aspect of the right patella, at insertion of quadriceps tendon onto the patella, thought to represent benign enthesopathic change. There is prominence of the tibial tuberosity which may be on the basis of old [place]-Schlatter's disease. No evidence of acute fracture. Patellofemoral and femorotibial joint spaces appear well maintained. Osseous mineralization is normal. Soft tissues: No evidence of knee effusion. There is no overlying soft tissue swelling. IMPRESSION: No acute findings.
--- NOTE | 2020-12-21 02:51 | XR_ITS ---
PROCEDURE INFORMATION: Exam: XR Right Hip Exam date and time: 12/21/2020 2:51 AM Age: 55 years old Clinical indication: Hip pain; Right hip; Additional info: Pain unable to bear weight TECHNIQUE: Imaging protocol: XR Right hip. Views: 2 or 3 views hip with pelvis when performed. COMPARISON: CT ABDOMEN PELVIS WO CON 10/04/2019 10:36 PM FINDINGS: Bones/joints: Mild degenerative changes of the right hip joint space. There is no evidence of acute fracture. Osseous mineralization is normal. Soft tissues: Unremarkable. IMPRESSION: No acute findings.
--- NOTE | 2020-12-21 02:51 | XR_ITS ---
PROCEDURE INFORMATION: Exam: XR Right Tibia and Fibula Exam date and time: 12/21/2020 2:51 AM Age: 55 years old Clinical indication: Pain; Lower leg; Right; Additional info: Pain unable to bear weight on RT leg TECHNIQUE: Imaging protocol: XR Right tibia and fibula. Views: 2 views. COMPARISON: No relevant prior studies available. FINDINGS: Bones/joints: No evidence of acute fracture. There is benign enthesopathy noted along the anterior superior aspect of the patella at the insertion of the quadriceps tendon onto the patella. There is prominence of the tibial tuberosity which may be on the basis of old [place]-Schlatter's disease. There is hypertrophic changes noted along the medial aspect of the medial malleolus and an unfused osseous body along the inferior aspect of the right lateral malleolus which is likely secondary to old healed bimalleolar injury. Osseous mineralization is normal. Soft tissues: Normal. IMPRESSION: No evidence of acute fracture. Degenerative and old healed posttraumatic changes, as described.
[2020-12-21 02:57] LABS: Basophils # 0.1 K/mm3 (0-0.2); Eosinophils # 0.1 K/mm3 (0.0-0.4); Eosinophils % 1.6 % (0.1-12.0); Hematocrit 41.1 % (37.0-47.0); Hemoglobin 13.9 g/dL (12.2-16.2); Lymphocytes # 1.5 K/mm3 (0.7-4.5); Mean Corpuscular HGB Conc 33.9 g/dL (31.8-35.4); Mean Corpuscular Hemoglobin 31.2 pg (27.0-31.2); Mean Corpuscular Volume 92.1 fl (81-99); Mean Platelet Volume 8.3 fl (7.4-10.4); Monocytes # 0.3 K/mm3 (0.1-1.0); Monocytes % 5.5 % (1.7-9.3); Neutrophils % 61.9 % (37.0-80.0); Platelet Count 80 K/mm3 (142-424); Red Blood Count 4.46 M/mm3 (4.20-5.40); Red Cell Distribution Width 14.6 % (11.5-17.5); White Blood Count 4.9 K/mm3 (4.8-10.8)
[2020-12-21 03:05] LABS: Chloride 102 mmol/L (98-107); Sodium 138 mmol/L (136-145)
[2020-12-21 03:07] LABS: Alanine Aminotransferase 62 U/L (12-78); Aspartate Amino Transferase 51 U/L (14-36); Blood Urea Nitrogen 13 mg/dl (7-17); Creatinine Clearance Estimated 144 mL/min (50-200); Estimated Glomerular Filt Rate 105 ml/min (>60); GFR (African American) 127 ML/MIN (>60)
[2020-12-21 03:08] LABS: Albumin Level 4.3 g/dl (3.5-5.0); Albumin/Globulin Ratio 1.4 (1.1-1.8); Alkaline Phosphatase 78 U/L (38-126); Bilirubin,Total 1.4 mg/dl (0.2-1.3); Carbon Dioxide 22 mmol/L (22.0-30.0); Glucose 364 mg/dl (74-100); Total Protein,Serum 7.3 g/dl (6.3-8.2)
[2020-12-21 03:14] LABS: C-Reactive Protein 2.8 mg/L (0-4)
[2020-12-21 03:15] LABS: Uric Acid 4.7 mg/dl (2.5-6.2)
[2020-12-21 03:45] VITALS: BP 155/80; PULSE 75; RESP 17; TEMP 36.7; O2SAT 99
[2020-12-21 03:54] LABS: Erythrocyte Sedimentation Rate 18 mm/hr (0-30)
--- NOTE | 2020-12-21 05:50 | HMH.EDGENADL ---
ED Disposition Clinical Impression: Knee internal derangement Qualifiers: Laterality: right Qualified Code(s): M23.91 - Unspecified internal derangement of right knee DM2 (diabetes mellitus, type 2) Qualifiers: Diabetes mellitus watermaster insulin use: unspecified [facility] insulin use status Diabetes mellitus complication status: with other specified complication Qualified Code(s): E11.69 - Type 2 diabetes mellitus with other specified complication Disposition: Home, Self-Care Condition on Discharge: Good Instructions: How to Use Crutches, DI for Knee Pain Additional Instructions: ice and limited wt bearing Referrals: Gris Main MD [Primary Care Provider] - Sam Perez MD [Staff Physician] - - Critical Care Critical Care Time: No Attestation: On 12/21/20, the high probability of a clinically significant, sudden or life threatening deterioration of the following system(s) required my full and direct attention, intervention and personal management. The time I documented below is in addition to time spent performing reported procedures but includes the following listed in this critical care notation. Medical Decision Making - Medical Records Medical records reviewed: Yes: I reviewed the patient's medical records. - [place] Inquiry Pt receiving controlled substance: No Vital Signs: 12/21/20 02:42 12/21/20 03:45 Temperature 97.7 F 98.0 F Temperature Source Oral Oral Pulse Rate 75 Pulse Rate [Right Brachial] 79 Respiratory Rate 15 17 Blood Pressure 155/80 H Blood Pressure [Right Arm] 160/75 H Blood Pressure Mean [Right Arm] 103 Blood Pressure Source Automatic Cuff Blood Pressure Source [Right Arm] Automatic Cuff Blood Pressure Position Sitting Blood Pressure Position [Right Arm] Sitting 02 Sat by Pulse Oximetry 99 Oxygen Delivery Method Room Air Room Air - Lab Data Lab Results 12/21/20 02:45: WBC 4.9, RBC 4.46, Hgb 13.9, Hct 41.1, MCV 92.1, MCH 31.2, MCHC 33.9, RDW 14.6, Plt Count 80 L, MPV 8.3, Neut % (Auto) 61.9, Lymph % (Auto) 30.0, [place] % (Auto) 5.5, Eos % (Auto) 1.6, Baso % (Auto) 1.0, Neut # (Auto) 3.0, Lymph # (Auto) 1.5, [place] # (Auto) 0.3, Eos # (Auto) 0.1, Baso # (Auto) 0.1, ESR 18 12/21/20 02:45: Sodium 138, Potassium 4.0, Chloride 102, Carbon Dioxide 22, Anion Gap 18.0 H, BUN 13, Creatinine 0.60, Estimated Creat Clear 144, Estimated GFR 105, Est GFR ( Amer) 127, Glucose 364 H, Uric Acid 4.7, Calcium 9.0, Total Bilirubin 1.4 H, AST 51 H, ALT 62, Alkaline Phosphatase 78, C-Reactive Protein 2.8, Total Protein 7.3, Albumin 4.3, Globulin 3.0, Albumin/Globulin Ratio 1.4 Result diagrams: 12/21/20 02:45 12/21/20 02:45 Orders (Tests/Meds): ED MEDICATIONS Generic Name Dose Route Start Last Admin Trade Name Freq PRN Reason Stop Dose Admin Sodium Chloride 1,000 mls @ 999 mls/hr 12/21/20 03:00 12/21/20 02:56 Sod Chlor 0.9% 1000ml Bag IV 12/21/20 04:00 999 mls/hr .Q1H1M ZARA Administration Discontinued Medications Generic Name Dose Route Start Last Admin Trade Name Freq PRN Reason Stop Dose Admin Acetaminophen/Codeine Phosphate 1 aramis 12/21/20 04:15 12/21/20 04:17 Acetaminophen 300mg W/Codeine 30mg Take Home Pack (6) PO 12/21/20 04:16 1 aramis ONCE ONE Administration Cyclobenzaprine HCl 10 mg 12/21/20 02:51 12/21/20 02:56 Cyclobenzaprine 10mg Tablet PO 12/21/20 02:52 10 mg ONCE ONE Administration Ketorolac Tromethamine 30 mg 12/21/20 02:50 12/21/20 02:56 Ketorolac 30mg/Ml Vial IV 12/21/20 02:51 30 mg ONCE ONE Administration Methylprednisolone Sodium Succinate 125 mg 12/21/20 02:50 12/21/20 02:56 Methylprednisolone Sod Succ 125mg Vial IV 12/21/20 02:51 125 mg ONCE ONE Administration - Radiology Data #1 Image(s): Pelvis, Hip, Knee, Tib/Fib, Ankle Image Reviewed: Yes I reviewed the patient's radiology image, Yes I have reviewed radiologist's interpretation Preliminary Findings: No Fracture S
== END 2020-12-21 06:04 | disposition home or self-care (01) ==
PROVIDERS: Emergency Provider Emergency Medicine; PCP Family Medicine
DX: M23.91 Unspecified internal derangement of right knee (principal); F41.8 Other specified anxiety disorders; E78.5 Hyperlipidemia, unspecified
CPT/HCPCS: 29505; 73502; 73552; 73562; 73590; 73610; 80053; 84550; 85025; 85651; 86140; 99283

== ENCOUNTER → 2021-01-06 07:44 | Outpatient (CLI) | payer MEDICARE, SELFPAY | PROVIDERS: PCP Family Medicine; Visit Provider Family Medicine | DX: M25.561 Pain in right knee (principal) ==

== ENCOUNTER → 2021-01-07 13:51 | Outpatient (CLI) | payer MEDICARE, SELFPAY | PROVIDERS: PCP Physician Assistant; Visit Provider Nurse Practitioner | DX: Z20.822 Contact with and (suspected) exposure to COVID-19 (principal) | CPT/HCPCS: C9803; U0003; U0005 ==

== ENCOUNTER → 2021-01-09 09:55 | Outpatient (CLI) | payer MEDICARE, SELFPAY ==
--- NOTE | 2021-01-09 09:59 | MR_ITS ---
PROCEDURE: MR KNEE RT WO CON CLINICAL INDICATION: RIGHT KNEE PAIN COMPARISON: CR XR KNEE RT 3V from 12/21/2020 TECHNIQUE: Routine multiplanar multi echo sequences are performed without gadolinium enhancement. FINDINGS: The cruciate ligaments, collateral ligaments, patellar tendon, and quadriceps tendon are intact. No obvious meniscal tear. There are mild osteoarthritic changes. There is moderate thinning of the patellar cartilage with minimal lateral patellar subluxation. The patellofemoral ligaments appear intact. There is a small knee joint effusion. IMPRESSION: Osteoarthritic changes most prominent at the patellofemoral joint with thinning of the patellar cartilage and minimal lateral patellar subluxation. Small knee joint effusion. No internal derangement. Dictated by: Burak Ding MD 01/10/2021 08:09 Burak Ding MD in [place] 01/10/2021 08:09
== END ==
PROVIDERS: PCP Family Medicine; Visit Provider Family Medicine
DX: M25.561 Pain in right knee (principal)
CPT/HCPCS: 73721

== ENCOUNTER → 2021-01-31 08:36 | Outpatient (CLI) | payer MEDICARE, SELFPAY ==
--- NOTE | 2021-01-31 08:39 | US_ITS ---
PROCEDURE: US ABDOMEN LIMITED CLINICAL INDICATION: CIRRHOSIS,ANXIETY DISORDER,CONSTIPATION COMPARISON: CT CT ABDOMEN PELVIS WO CON from 10/04/2019 FINDINGS: PANCREAS: Unremarkable. No obvious mass or abnormal fluid collection. No ductal dilatation LIVER: Slightly coarse echogenicity the hepatic parenchyma nonspecific. There is appropriate direction of blood flow within the portal vein. Portal vein does not appear dilated. Common bile duct is normal at 3 mm. No focal hepatic lesions. RIGHT KIDNEY: Unremarkable. Normal size and echogenicity. No hydronephrosis GALLBLADDER: Prior cholecystectomy. IMPRESSION: Overall no significant change. Slightly coarse echotexture of the liver with appropriate direction of blood flow within the portal vein. Dictated by: Burak Ding MD 02/03/2021 09:17 Burak Ding MD in [place] 02/03/2021 09:17
[2021-01-31 10:07] LABS: Basophils % 0.6 % (0.1-2.0); Eosinophils # 0.1 K/mm3 (0.0-0.4); Eosinophils % 1.1 % (0.1-12.0); Lymphocytes # 1.5 K/mm3 (0.7-4.5); Lymphocytes % 18.5 % (10-50); Mean Corpuscular HGB Conc 32.7 g/dL (31.8-35.4); Mean Corpuscular Hemoglobin 31.8 pg (27.0-31.2); Mean Corpuscular Volume 97.3 fl (81-99); Mean Platelet Volume 9.1 fl (7.4-10.4); Monocytes # 0.4 K/mm3 (0.1-1.0); Monocytes % 4.2 % (1.7-9.3); Neutrophils # 6.2 K/mm3 (1.8-7.8); Neutrophils % 75.6 % (37.0-80.0); Platelet Count 82 K/mm3 (142-424); Red Blood Count 4.73 M/mm3 (4.20-5.40); Red Cell Distribution Width 15.5 % (11.5-17.5); White Blood Count 8.2 K/mm3 (4.8-10.8)
[2021-01-31 10:14] LABS: Ammonia < 9 umol/L (9-30)
[2021-01-31 10:16] LABS: INR 1.01 (0.9-1.1); Prothrombin Time 11.4 seconds (10.1-12.5)
[2021-01-31 10:43] LABS: Chloride 105 mmol/L (98-107); Potassium 4.1 mmoL/L (3.5-5.1); Sodium 138 mmol/L (136-145)
[2021-01-31 10:45] LABS: Blood Urea Nitrogen 11 mg/dl (7-17); Estimated Glomerular Filt Rate 105 ml/min (>60); GFR (African American) 127 ML/MIN (>60)
[2021-01-31 10:46] LABS: Alanine Aminotransferase 62 U/L (12-78); Albumin Level 3.7 g/dl (3.5-5.0); Albumin/Globulin Ratio 1.4 (1.1-1.8); Alkaline Phosphatase 86 U/L (38-126); Anion Gap 9.1 mEq/L (5-15); Aspartate Amino Transferase 48 U/L (14-36); Bilirubin,Total 1.2 mg/dl (0.2-1.3); Carbon Dioxide 28 mmol/L (22.0-30.0); Globulin 2.7 g/dL (1.3-3.2); Glucose 114 mg/dl (74-100); Iron 90 ug/dL (37-170); Total Protein,Serum 6.4 g/dl (6.3-8.2)
[2021-01-31 10:55] LABS: Total Iron Binding Capacity 368 ug/dL (265-497)
[2021-01-31 11:21] LABS: Ferritin 45.5 ng/ml (11.1-264)
[2021-02-01 08:51] LABS: AFP, Tumor Marker 1.7 ng/mL (0.0-8.3)
== END ==
PROVIDERS: PCP Physician Assistant; Visit Provider Nurse Practitioner Family
DX: K75.81 Nonalcoholic steatohepatitis (NASH) (principal); K74.60 Unspecified cirrhosis of liver; K30 Functional dyspepsia; K59.00 Constipation, unspecified; F41.9 Anxiety disorder, unspecified
CPT/HCPCS: 36415; 76705; 80053; 82105; 82140; 82728; 83540; 83550; 85025; 85610

== ENCOUNTER → 2021-06-18 16:13 | Outpatient (CLI) | payer MEDICARE, SELFPAY ==
[2021-06-18 17:46] LABS: Creatinine,Urine Random 115 mg/dL (Not Estab.)
[2021-06-18 17:50] LABS: Microalbumin/Creatinine Ratio 15.9
[2021-06-18 18:04] LABS: Alanine Aminotransferase 65 U/L (12-78); Albumin Level 4.3 g/dl (3.5-5.0); Albumin/Globulin Ratio 1.5 (1.1-1.8); Alkaline Phosphatase 86 U/L (38-126); Anion Gap 11.1 mEq/L (5-15); Aspartate Amino Transferase 71 U/L (14-36); Bilirubin,Total 1.7 mg/dl (0.2-1.3); Blood Urea Nitrogen 13 mg/dl (7-17); Calcium 9.2 mg/dl (8.4-10.2); Carbon Dioxide 28 mmol/L (22.0-30.0); Chloride 103 mmol/L (98-107); Chol/HDL Ratio 3.1 (1-3.5); Cholesterol 175 mg/dl (140-200); Estimated Glomerular Filt Rate 104 ml/min (>60); GFR (African American) 126 ML/MIN (>60); Globulin 2.8 g/dL (1.3-3.2); Glucose 293 mg/dl (74-100); HDL Cholesterol 56 mg/dl (40-60); Potassium 4.1 mmoL/L (3.5-5.1); Sodium 138 mmol/L (136-145); Total Protein,Serum 7.1 g/dl (6.3-8.2); Triglycerides 190 mg/dl (30-150); VLDL Cholesterol 38 mg/dL (0-40)
[2021-06-18 18:14] LABS: Direct LDL Cholesterol 96.12 mg/dL (100-129)
[2021-06-18 18:34] LABS: Thyroid Stimulating Hormone 2.04 uIU/mL (0.465-4.68)
== END ==
PROVIDERS: Visit Provider Nurse Practitioner Family
DX: E11.9 Type 2 diabetes mellitus without complications (principal); Z79.4 Long term (current) use of insulin
CPT/HCPCS: 36415; 80053; 80061; 82043; 82570; 84443

== ENCOUNTER → 2021-07-30 10:48 | Outpatient (CLI) | payer MEDICARE, SELFPAY ==
[2021-07-30 11:20] LABS: INR 1.06 (0.9-1.1); Prothrombin Time 11.9 seconds (10.1-12.5)
[2021-07-30 11:23] LABS: Basophils % 1.1 % (0.1-2.0); Eosinophils # 0.1 K/mm3 (0.0-0.4); Eosinophils % 2.2 % (0.1-12.0); Hematocrit 41.3 % (37.0-47.0); Hemoglobin 13.6 g/dL (12.2-16.2); Lymphocytes # 1.1 K/mm3 (0.7-4.5); Lymphocytes % 31.4 % (10-50); Mean Corpuscular Hemoglobin 31.8 pg (27.0-31.2); Mean Corpuscular Volume 96.6 fl (81-99); Monocytes # 0.2 K/mm3 (0.1-1.0); Neutrophils # 2.1 K/mm3 (1.8-7.8); Neutrophils % 60.2 % (37.0-80.0); Platelet Count 77 K/mm3 (142-424); Red Blood Count 4.28 M/mm3 (4.20-5.40); White Blood Count 3.5 K/mm3 (4.8-10.8)
[2021-07-30 11:24] LABS: Ammonia 12 umol/L (9-30)
[2021-07-30 13:31] LABS: Chloride 108 mmol/L (98-107); Sodium 138 mmol/L (136-145)
[2021-07-30 13:34] LABS: Alanine Aminotransferase 53 U/L (12-78); Alkaline Phosphatase 82 U/L (38-126); Aspartate Amino Transferase 54 U/L (14-36); Bilirubin,Total 1.8 mg/dl (0.2-1.3); Blood Urea Nitrogen 13 mg/dl (7-17); Calcium 8.2 mg/dl (8.4-10.2); Carbon Dioxide 26 mmol/L (22.0-30.0); Estimated Glomerular Filt Rate 104 ml/min (>60); GFR (African American) 126 ML/MIN (>60); Glucose 228 mg/dl (74-100); Iron 94 ug/dL (37-170)
[2021-07-30 13:35] LABS: Albumin Level 3.6 g/dl (3.5-5.0); Albumin/Globulin Ratio 1.4 (1.1-1.8); Globulin 2.6 g/dL (1.3-3.2); Total Protein,Serum 6.2 g/dl (6.3-8.2)
[2021-07-30 13:45] LABS: Total Iron Binding Capacity 384 ug/dL (265-497)
[2021-07-30 14:10] LABS: Ferritin 50.1 ng/ml (11.1-264)
[2021-07-31 08:18] LABS: AFP, Tumor Marker 2.2 ng/mL (0.0-9.2)
== END ==
PROVIDERS: PCP Family Medicine; Visit Provider Nurse Practitioner Family
DX: K74.60 Unspecified cirrhosis of liver (principal); K75.81 Nonalcoholic steatohepatitis (NASH)
CPT/HCPCS: 36415; 80053; 82105; 82140; 82728; 83540; 83550; 85025; 85610

== ENCOUNTER → 2021-08-04 07:52 | Outpatient (CLI) | payer MEDICARE, SELFPAY ==
--- NOTE | 2021-08-04 08:08 | US_ITS ---
FINAL REPORT CLINICAL HISTORY: CIRRHOSIS FINDINGS: Sonographic images of the right upper quadrant were obtained. Gallbladder is absent. There is a coarsened echotexture to the liver which could represent cirrhosis. Common duct is within normal limits. Pancreas not well visualized. Spleen enlarged at 14.5 cm. Right kidney is unremarkable. IMPRESSION: Possible cirrhosis and splenomegaly. Reviewed, Interpreted and Dictated by Terence Valdez MD Transcribed by Fernanda Adam Authenticated by Terence Valdez MD on 08/04/2021 11:05:28 AM [facility]
== END ==
PROVIDERS: PCP Family Medicine; Visit Provider Nurse Practitioner Family
DX: K74.60 Unspecified cirrhosis of liver (principal)
CPT/HCPCS: 76705

== ENCOUNTER → 2022-01-02 09:15 | Outpatient (CLI) | payer MEDICARE, SELFPAY ==
--- NOTE | 2022-01-02 09:20 | US_ITS ---
FINAL REPORT CLINICAL HISTORY: CIRRHOSIS,DYSPEPSIA, COMPARISON: August 04, 2021 FINDINGS: Sonographic images of the right upper quadrant were obtained. The pancreas is partially obscured. The liver has a coarsened echotexture and mild irregular contour consistent with history of cirrhosis. The portal vein is patent with normal directional flow. The gallbladder appears normal without evidence of gallstones.There is no evidence of biliary ductal dilatation.The common duct measures 4mm. Limited images of the right kidney are unremarkable. IMPRESSION: Cirrhosis. Reviewed, Interpreted and Dictated by Jordi Toussaint III, MD Transcribed by Jerome Jaimes Authenticated and [facility]
== END ==
PROVIDERS: PCP Family Medicine; Visit Provider Nurse Practitioner Family
DX: K75.81 Nonalcoholic steatohepatitis (NASH) (principal); K74.60 Unspecified cirrhosis of liver; K30 Functional dyspepsia; K59.00 Constipation, unspecified; F41.9 Anxiety disorder, unspecified
CPT/HCPCS: 76705

== ENCOUNTER → 2022-01-05 19:36 | Outpatient (CLI) | payer MEDICARE, SELFPAY ==
[2022-01-05 20:33] LABS: Basophils # 0.1 K/mm3 (0-0.2); Basophils % 1.4 % (0.1-2.0); Eosinophils # 0.1 K/mm3 (0.0-0.4); Eosinophils % 1.1 % (0.1-12.0); Hematocrit 40.2 % (37.0-47.0); Hemoglobin 13.5 g/dL (12.2-16.2); Lymphocytes # 1.6 K/mm3 (0.7-4.5); Lymphocytes % 27.2 % (10-50); Mean Corpuscular HGB Conc 33.5 g/dL (31.8-35.4); Mean Corpuscular Hemoglobin 31.6 pg (27.0-31.2); Mean Corpuscular Volume 94.2 fl (81-99); Mean Platelet Volume 8.3 fl (7.4-10.4); Monocytes # 0.3 K/mm3 (0.1-1.0); Monocytes % 5.7 % (1.7-9.3); Neutrophils # 3.9 K/mm3 (1.8-7.8); Neutrophils % 64.6 % (37.0-80.0); Platelet Count 83 K/mm3 (142-424); Red Blood Count 4.27 M/mm3 (4.20-5.40)
[2022-01-05 20:39] LABS: Alanine Aminotransferase 51 U/L (12-78); Albumin Level 4.1 g/dl (3.5-5.0); Albumin/Globulin Ratio 1.4 (1.1-1.8); Alkaline Phosphatase 92 U/L (38-126); Anion Gap 14.5 mEq/L (5-15); Aspartate Amino Transferase 53 U/L (14-36); Blood Urea Nitrogen 12 mg/dl (7-17); Calcium 9.5 mg/dl (8.4-10.2); Carbon Dioxide 26 mmol/L (22.0-30.0); Chloride 101 mmol/L (98-107); Estimated Glomerular Filt Rate 104 ml/min (>60); GFR (African American) 126 ML/MIN (>60); Glucose 130 mg/dl (74-100); Potassium 3.5 mmoL/L (3.5-5.1); Sodium 138 mmol/L (136-145); Total Protein,Serum 7.1 g/dl (6.3-8.2)
[2022-01-05 20:40] LABS: Ammonia 23 umol/L (9-30)
[2022-01-05 20:44] LABS: INR 1.05 (0.9-1.1); Prothrombin Time 11.3 seconds (10.1-12.5)
[2022-01-05 21:10] LABS: Iron 115 ug/dL (37-170)
[2022-01-06 08:16] LABS: Total Iron Binding Capacity 353 ug/dL (265-497)
[2022-01-07 09:13] LABS: AFP, Tumor Marker 1.9 ng/mL (0.0-9.2)
== END ==
PROVIDERS: PCP Family Medicine; Visit Provider Nurse Practitioner Family
DX: K75.81 Nonalcoholic steatohepatitis (NASH) (principal); K74.60 Unspecified cirrhosis of liver; K30 Functional dyspepsia; K59.00 Constipation, unspecified; F41.9 Anxiety disorder, unspecified
CPT/HCPCS: 80053; 82105; 82140; 82728; 83540; 83550; 85025; 85610

== ENCOUNTER → 2022-06-23 09:52 | Outpatient (POV) | payer MEDICARE, SELFPAY ==
[2022-06-23 10:28] VITALS: BP 126/78; PULSE 84; RESP 18; O2SAT 97; BMI 35.9
--- NOTE | 2022-06-23 13:01 | EXP.PAIN.OV ---
HPI Data of Consult Patient: new to practice Consult date: 06/23/22 Requesting Physician: Ana Laura Vasques APRN Primary Care Provider: Gris Main MD Consult Narrative Reason for consult: Low back pain, right leg pain, right hip pain, bilateral knee pain History of present illness: Ms. Costa is a 57 year old female who presents today as a new patient. She is a referral from Monik Gibbs's office. She rates her pain a 2 out of 10 today. She states her pain is primarily in her low back that radiates into her right hip and right leg. She states this is a achy, throbbing sensation that is worse with increased activity. She cannot tolerate prolonged sitting, standing, walking due to the pain. She does state that walking up steps seems to aggravate her symptoms and that occasionally adding pressure to certain locations does help relieve some of the pain. She does state that it feels almost as if like she is bruised and sore to touch in certain areas especially around her right hip. She does state this has been going on for years but this last episode has been over several weeks and has not let up. She does state that she is worked at [employer] for 13 years and thinks this has to do with some of her additional pain symptoms. Patient also states that she has trouble with her knees and has had right knee injections by Dr. Perez in the past. She states this is a sharp, achy sensation and occasionally she will have her knees give out with difficulty walking. Patient states the prior injection did last for almost a year. She states she has reached out to this office and made an appointment for July 02 to discuss bilateral knee injections. Patient has tried steroid pack and muscle relaxer with minimal relief. Patient states she has gone to physical therapy in the past however this made her symptoms worse. She states she has had some imaging done by Dr. Johnson in [place]. Patient does have a significant history of Blevins and states she does have advanced cirrhosis. She cannot tolerate any NSAIDs due to this condition. Patient states that she does typically take Tylenol approximately 4 times per day. She also uses ice for additional relief however only temporary. Patient denies any topical use. She states that she does continue to do exercising at home to specifically target her low back pain and hip pain. She has been to a chiropractor for 1 visit for her neck pain years ago however it gave no additional relief and made her symptoms worse. She is not on any scheduled medications. Her [place] is [phone]. Its been reviewed and appropriate. CC: Ana Laura Vasques APRN [facility] Disclaimer: The information contained in this section may have been updated after the patient was seen, as this information can be updated by other users. Medical History BPV (benign positional vertigo) Cirrhosis of liver Diastolic dysfunction DM2 (diabetes mellitus, type 2) Gastroesophageal reflux disease HLD (hyperlipidemia) HTN (hypertension) TMJ tenderness, right Vertigo Surgical History H/O breast augmentation History of carpal tunnel release History of delivery Hx of appendectomy Social History (Updated 06/23/22 @ 10:30 by Bailey Henriquez RN) Smoking Status: Never smoker alcohol intake: never substance use type: denies use current occupational status: disabled Travel in the last 8 weeks: None household members: spouse housing: house current occupational exposures/hazards: No caffeine: Yes Review of Systems Review of Systems Review of systems:: pertinent systems reviewed and negative unless documented below Review of systems (narrative): Review of Systems: General: No recent weight changes, no fever, no sleep disturbances Respiratory: No cough, no shortness of air, no recurring pulmonary infections Cardiovascular/per
== END ==
LOC: SC.PAIN 09:53
PROVIDERS: PCP Family Medicine; Visit Provider Nurse Practitioner Family
DX: M54.50 Low back pain, unspecified (principal); M54.16 Radiculopathy, lumbar region; M46.1 Sacroiliitis, not elsewhere classified; M70.60 Trochanteric bursitis, unspecified hip; M25.551 Pain in right hip; M79.604 Pain in right leg; M25.561 Pain in right knee; M25.562 Pain in left knee
CPT/HCPCS: 99202; G0463

== ENCOUNTER → 2022-07-02 09:05 | Outpatient (CLI) | payer MEDICARE, SELFPAY ==
--- NOTE | 2022-07-02 09:11 | XR_ITS ---
FINAL REPORT CLINICAL HISTORY: knee pain FINDINGS: RIGHT KNEE Three views of the right knee reveal no evidence of fracture or dislocation. The bony alignment is normal. There are mild degenerative changes. There is no evidence of joint effusion. No localized soft tissue abnormality is identified. IMPRESSION: Mild degenerative changes with no acute abnormality identified. Reviewed, Interpreted and Dictated by Jordi Toussaint III, MD Transcribed by Janette Haney Authenticated and [facility]
--- NOTE | 2022-07-02 09:11 | XR_ITS ---
FINAL REPORT CLINICAL HISTORY: knee pain FINDINGS: LEFT KNEE Three views of the left knee reveal no evidence of fracture or dislocation. The bony alignment is normal. There are mild degenerative changes. There is no evidence of joint effusion. No localized soft tissue abnormality is identified. IMPRESSION: Mild degenerative changes with no acute bony abnormality. Reviewed, Interpreted and Dictated by Jordi Toussaint III, MD Transcribed by Janette Haney Authenticated and . [facility]
== END ==
LOC: RAD 09:06
PROVIDERS: PCP Family Medicine; Visit Provider Orthopaedic Surgery
DX: M25.561 Pain in right knee (principal); M25.562 Pain in left knee
CPT/HCPCS: 73562

== ENCOUNTER → 2022-07-21 07:49 | Outpatient (CLI) | payer MEDICARE, SELFPAY ==
--- NOTE | 2022-07-21 07:52 | US_ITS ---
FINAL REPORT TECHNIQUE: Sonographic images of the right upper quadrant were obtained. CLINICAL HISTORY: CIRRHOSIS,DYSPEPSIA,SOB,ANXIETY DISORDER FINDINGS: PANCREAS: Obscured. LIVER: Coarsened echotexture with slight nodular contour. No focal hepatic lesion. No intrahepatic biliary ductal dilatation. GALLBLADDER: Surgically absent. COMMON DUCT: 5 mm. Normal for age. RIGHT KIDNEY: The right kidney measures 10.1 cm. There is no hydronephrosis, mass, or stone. FREE FLUID: None. IMPRESSION: Cirrhosis. Cholecystectomy. Reviewed, Interpreted and Dictated by Heather Vyas MD Transcribed by Jerome Jaimes Authenticated and [facility]
== END ==
PROVIDERS: PCP Family Medicine; Visit Provider Nurse Practitioner Family
DX: K75.81 Nonalcoholic steatohepatitis (NASH) (principal)
CPT/HCPCS: 76705

== ENCOUNTER 2022-07-21 08:10 | Day surgery (SDC) | payer MEDICARE, SELFPAY ==
[2022-07-21 08:31] VITALS: BP 153/71; PULSE 74; RESP 18; TEMP 36.6; O2SAT 99; BMI 35.9
[2022-07-21 08:56] VITALS: BP 162/86; PULSE 74; RESP 18; O2SAT 98
[2022-07-21 08:57] VITALS: BP 162/86; PULSE 74; RESP 18; O2SAT 98
--- NOTE | 2022-07-21 09:00 | P.PCN_ITS ---
Procedure Date: 07/21/22 Time: 08:45 Anesthesiologist:: Gildardo Dubois CRNA Complications:: None Pre-procedure Diagnosis:: Right trochanteric bursitis, right sacroiliitis Post-procedure Diagnosis:: Same. Indications for Procedure:: Patient is a pleasant 57-year-old female that comes our clinic today for her initial right sacroiliac joint injection as well as right trochanteric bursa injection. Patient has extreme point tenderness upon examination at each site. She rates her pain 7/10. Patient has difficulty transitioning from sitting to standing. Difficulty laying on her right side. Difficulty climbing stairs. She rates her pain 8/10 Procedure Details:: Procedure: Right sacroliliac joint injection under fluoroscopy Informed consent was obtained and the risk and benefits of the procedure were explained to the patient.~ The patient was taken to the procedure room and noninvasive monitors were placed including noninvasive blood pressure cuff and pulse oximeter.~ The patient was placed prone on the procedure table.~ The~ rig ht hip was cleansed using Betadine as a cleansing solution.~ C-arm fluorosocpy was used to view the right SI joint.~ The skin and subcutaneous tissues were anesthetized using Lidocaine 1.5% and a 25-gauge needle.~ After this, a 22-gauge spinal needle was inserted under fluoroscopic guidance into the inferior aspect of the right SI joint.~ Omnipaque dye was injected and a good spread was seen throughout the joint.~ After this, approximately 5 mL of bupivacaine 0.25% and Depo-Medrol 40 mg was incrementally injected into the sacroiliac joint.~ The patient tolerated the procedure well with no complications.~ The patient was observed in the Pain Clinic, then discharged home neurologically intact.~ Procedure: Right trochanteric bursa injection under fluoroscopy We then moved to the right trochanteric bursa.~ C-arm fluoroscopy was used to view the left greater trochanter.~ The skin and subcutaneous tissues overlying the right greater trochanter were anesthetized using lidocaine, 1.5% and a 25- gauge needle.~ After this, a 22-gauge spinal needle was inserted and advanced until it contacted the right greater trochanter.~ Dye was injected and good spread was seen throughout the right trochanteric bursa. After this, approximately 5 mL of bupivacaine, 0.25% and Depo-Medrol, 40 mg was incrementally injected into the right right trochanteric bursa.~ The patient tolerated the procedure well with no complications. Plan and Disposition:: Patient was discharged without incident.
[2022-07-21 09:01] VITALS: BP 148/90; PULSE 77; RESP 18; O2SAT 98
== END 2022-07-21 09:01 | disposition home or self-care (01) ==
PROVIDERS: PCP Family Medicine; Visit Provider Nurse Anesthetist, Certified Registered
DX: M70.61 Trochanteric bursitis, right hip (principal); M46.1 Sacroiliitis, not elsewhere classified
CPT/HCPCS: 20610; 27096; 76705; 77002; G0260; J1040

== ENCOUNTER → 2022-07-28 18:29 | Outpatient (CLI) | payer MEDICARE, SELFPAY ==
[2022-07-28 19:15] LABS: Basophils # 0.1 K/mm3 (0-0.2); Basophils % 0.9 % (0.1-2.0); Eosinophils # 0.1 K/mm3 (0.0-0.4); Eosinophils % 1.5 % (0.1-12.0); Hematocrit 39.8 % (37.0-47.0); Hemoglobin 13.3 g/dL (12.2-16.2); Lymphocytes # 1.2 K/mm3 (0.7-4.5); Lymphocytes % 16.5 % (10-50); Mean Corpuscular HGB Conc 33.5 g/dL (31.8-35.4); Mean Corpuscular Hemoglobin 32.1 pg (27.0-31.2); Mean Corpuscular Volume 95.9 fl (81-99); Mean Platelet Volume 8.2 fl (7.4-10.4); Monocytes # 0.3 K/mm3 (0.1-1.0); Monocytes % 4.4 % (1.7-9.3); Neutrophils # 5.5 K/mm3 (1.8-7.8); Neutrophils % 76.7 % (37.0-80.0); Platelet Count 100 K/mm3 (142-424); Red Blood Count 4.15 M/mm3 (4.20-5.40); Red Cell Distribution Width 15.5 % (11.5-17.5); White Blood Count 7.1 K/mm3 (4.8-10.8)
[2022-07-28 19:22] LABS: Chloride 102 mmol/L (98-107)
[2022-07-28 19:23] LABS: INR 1.03 (0.9-1.1); Prothrombin Time 11.1 seconds (10.1-12.5); Sodium 136 mmol/L (136-145)
[2022-07-28 19:25] LABS: Alanine Aminotransferase 94 U/L (12-78); Aspartate Amino Transferase 55 U/L (14-36); Blood Urea Nitrogen 16 mg/dl (7-17); Estimated Glomerular Filt Rate 87 ml/min (>60); GFR (African American) 105 ML/MIN (>60)
[2022-07-28 19:26] LABS: Albumin/Globulin Ratio 1.5 (1.1-1.8); Alkaline Phosphatase 100 U/L (38-126); Bilirubin,Total 1.5 mg/dl (0.2-1.3); Calcium 8.9 mg/dl (8.4-10.2); Carbon Dioxide 27 mmol/L (22.0-30.0); Globulin 2.7 g/dL (1.3-3.2); Glucose 259 mg/dl (74-100); Iron 73 ug/dL (37-170); Total Protein,Serum 6.7 g/dl (6.3-8.2)
[2022-07-28 19:27] LABS: Ammonia 15 umol/L (9-30)
[2022-07-28 23:13] LABS: Total Iron Binding Capacity 330 ug/dL (265-497)
[2022-07-28 23:42] LABS: Ferritin 37.2 ng/ml (11.1-264)
== END ==
PROVIDERS: PCP Family Medicine; Visit Provider Nurse Practitioner Family
DX: R06.02 Shortness of breath (principal); D69.6 Thrombocytopenia, unspecified; K75.81 Nonalcoholic steatohepatitis (NASH); K74.60 Unspecified cirrhosis of liver; K30 Functional dyspepsia; K59.00 Constipation, unspecified; F41.9 Anxiety disorder, unspecified
CPT/HCPCS: 36415; 80053; 82105; 82140; 82728; 83540; 83550; 85025; 85610

== ENCOUNTER → 2022-08-06 10:00 | Outpatient (POV) | payer MEDICARE, SELFPAY ==
[2022-08-06 10:34] VITALS: BP 136/80; PULSE 78; RESP 18; O2SAT 98; BMI 35.9
--- NOTE | 2022-08-06 11:55 | EXP.PAIN.SOA ---
[facility] Pain Management SOAP Note Subjective:: Patient is a pleasant 57-year-old female who presents today for follow-up of right SI and right bursa injection on 07/21/2022. We are currently treating the patient for low back pain with lumbar radiculopathy symptoms, sacroiliitis, greater trochanteric bursitis, right hip pain, right leg pain, bilateral knee pain. Today she states she had at least 75% improvement following these injections. She does rate her pain a 2 out of 10. Patient denies any new trauma or injury. She does state that her pain is more related to her right knee and describes it as an aching, throbbing that is more medial to the joint. She does state it is tender to touch and frequently causes trouble even ambulating due to the pain. She does state this pain does interfere with her ability to perform activities of daily living. She also states she still continues to be tender to touch at her low back along the right side. Patient does take Tylenol approximately 4 times per day and cannot tolerate any NSAIDs due to advanced cirrhosis and Blevins. Patient has been to physical therapy however this made her symptoms worse but she continues to do at home exercises and stretching techniques with minimal improvement. Patient is not on any scheduled medications. Her [place] is [phone]. Its been reviewed and appropriate. Review of Systems: General: No recent weight changes, no fever, no sleep disturbances Respiratory: No cough, no shortness of air, no recurring pulmonary infections Cardiovascular/peripheral vascular: No chest pain, no palpitations, no edema, no shortness of breath Gastrointestinal: No new onset incontinence, normal bowel movements reported Genitourinary: No new onset incontinence Musculoskeletal: Low back pain, right knee pain Psychiatric: [Normal mood/affect] Neurological: [Denies weakness in extremities], [denies balance issues] Objective:: Physical Exam: General: Alert and oriented x3, no acute distress, pleasant and cooperative Lungs: Respirations even and unlabored, symmetrical chest expansion Eyes: PERRL Musculoskeletal: Flexion and extension of lumbar [spine] somewhat guarded secondary to pain, [antalgic gait noted] extreme point tenderness at right SI with positive right Melanie's, Chyna's, Gaenslen's, compression and distraction exam. Extreme point tenderness along right satorius muscle Neurological: Speech clear, no gross sensory deficit Assessment:: Low back pain with lumbar radiculopathy symptoms, sacroiliitis, greater trochanteric bursitis, right hip pain, right leg pain, bilateral knee pain, myofascial pain of the right sartorius muscle Plan:: Patient is experiencing significant pain at her medial side of her right knee with limited range of motion and extreme point tenderness with palpation on her right sartorius muscle. I have discussed with the patient that she may benefit from repeat right SI injection as well as trigger point injections of her right sartorius muscle along the medial aspect of her right knee. Risk and benefits of both of these injections were discussed with the patient however at this time she states she currently has a balance that she needs to take care of prior to scheduling any additional injections. Patient states she will call to schedule one of these injections in the future. She states she does have significant pain at both of these locations however she will decide depending on which one is more bothersome at that time. Patient will follow-up in clinic in 1 month for reevaluation of symptoms and plan of care. Patient has been instructed to contact the clinic with any concerns before the next appointment. Dr. Gee has reviewed this note and agrees with this plan of care. This note was dictated using voice recognition software and make contain errors or omissions. [facility] Disclaimer: The information contained in this section may have been updated after the patient was seen, as this informa
== END ==
LOC: SC.PAIN 10:01
PROVIDERS: PCP Family Medicine; Visit Provider Nurse Practitioner Family
DX: M54.16 Radiculopathy, lumbar region (principal); M54.50 Low back pain, unspecified; M46.1 Sacroiliitis, not elsewhere classified; M70.60 Trochanteric bursitis, unspecified hip; M25.551 Pain in right hip; M79.604 Pain in right leg; M25.561 Pain in right knee; M25.562 Pain in left knee; M79.18 Myalgia, other site
CPT/HCPCS: 99212; G0463

== ENCOUNTER → 2022-10-28 12:03 | Outpatient (CLI) | payer MEDICARE, SELFPAY ==
--- NOTE | 2022-10-28 | CA_ITS ---
APPROVED REPORT Exam: Pharmacologic Technologist: Argenis Christianson Ht: 5 ft 1 in Wt: 190 lbs BSA: 1.85 m2 HR: 66 bpm BP: 148/79 mmHg Rhythm: NSR Indications: Chest pain Medical History Medications: Metoprolol,,,,, Losartan,,,,, INSULIN,,,,, ClARITin,,,,, Multivitamin,,,,, Stress Test Details Test: LEXISCAN HR Resting HR: 65 bpm Max Heart Rate (APMHR): 165 bpm Max HR Achieved: 76 bpm Target HR (85% APMHR): 140 bpm % of APMHR: 46 Recovery HR: 68 bpm BP Resting BP: 148.0/79.0 mmHg Max BP: 148.0/79.0 mmHg Recovery BP: 147.0/82.0 mmHg ECG Resting ECG: Normal sinus rhythm, T-wave changes in lateral leads, low voltage QRS Stress ECG: No change Arrhythmia: None Recovery ECG: No change Recovery Arrhythmia: None Clinical Exercise duration: 04:00 min Highest Stage Achieved: Exercise capacity: 1.0 METs Stress ECG Conclusion Symptoms: Mild shortness of air, and head discomfort. No chest pain. Arrhythmias/Ectopy: None Baseline ECG demonstrates normal sinus rhythm, low-voltage across precordial leads, T-wave changes in lateral leads ST-T Changes: No significant changes. Conclusion: Unremarkable Lexiscan stress. Myoview images reported separately. Test Summary REST . . . . . . . Resting REST 03:56 . . 65 . 148/ 79 . . Stage 1 01:00 . . 74 . . . . Stage 2 01:00 . . 70 . 147/ 80 . . Stage 3 . . . . . . . left shoulder pain Stage 3 01:00 . . 71 . 140/ 86 . . Stage 4 01:00 . . 69 . 144/ 86 . Stop exercise at 04:00 RECOVERY 01:00 . . 68 . . . . RECOVERY 02:00 . . 70 . 146/ 87 . . RECOVERY 03:00 . . 68 . 147/ 82 . . RECOVERY 03:18 . . 66 . 147/ 82 . . Electronically signed by : Jana Cardoso, 10/29/2022 21:50:54
--- NOTE | 2022-10-28 12:07 | NM_ITS ---
APPROVED REPORT Exam: Nuclear Stress Test Indication: HTN, DM, FM HX, C.P., SOB, PALPITATIONS, FATIGUE Patient Location: Outpatient Stress Tech: Argenis Christianson [place] Tech:Cornelia Reynolds VIKRAMJero RT(R)(N) Ht: 5 ft 1 in Wt: 190 lbs Bra Size: D HR: 65 bpm BP: 148/79 mmHg BSA: 1.85 m2 Rhythm: NSR TID: 1.08 BMI: 35.8 History: HTN, DM, FM HX, C.P., SOB, PALPITATIONS, FATIGUE Procedure: Patient received 0.4 mg of intravenous Lexiscan, resting heart rate 65 bpm, resting blood pressure 148/79 mmHg, with Lexiscan maximum heart rate achieved was 76 bpm which is 46 % of the maximum predicted heart rate and blood pressure was 148/79 mmHg. With Lexiscan, patient denied any complaint of chest pain. Cardiac Stress and Resting SPECT Images: Cardiac Stress and Resting SPECT images were obtained using technetium 99m Myoview 30.3 mCi stress and 10.10 mCi at rest. Resting and stress perfusion imaging in both supine and prone positions demonstrate no reversible or fixed perfusion defects. Gated imaging demonstrates normal global and regional LV systolic function. LVEF is calculated at 75%. Conclusion: No reversible or fixed perfusion defects. Gated imaging demonstrates normal global and regional LV systolic function. LVEF is calculated at 75%. Electronically signed by : Jana Cardoso, 10/29/2022 21:53:09
== END ==
LOC: RAD 12:04
PROVIDERS: PCP Family Medicine; Visit Provider Physician Assistant
DX: R07.9 Chest pain, unspecified (principal); R06.02 Shortness of breath
CPT/HCPCS: 78452; 93017; A9502; J2785

== ENCOUNTER → 2023-01-20 18:07 | Outpatient (CLI) | payer MEDICARE, SELFPAY ==
[2023-01-20 19:07] LABS: Basophils % 0.3 % (0.1-2.0); Eosinophils # 0.1 K/mm3 (0.0-0.4); Hematocrit 43.1 % (37.0-47.0); Hemoglobin 14.2 g/dL (12.2-16.2); Lymphocytes # 1.6 K/mm3 (0.7-4.5); Lymphocytes % 29.7 % (10-50); Mean Corpuscular HGB Conc 33.1 g/dL (31.8-35.4); Mean Corpuscular Hemoglobin 30.9 pg (27.0-31.2); Mean Corpuscular Volume 93.4 fl (81-99); Mean Platelet Volume 8.4 fl (7.4-10.4); Monocytes # 0.3 K/mm3 (0.1-1.0); Monocytes % 5.6 % (1.7-9.3); Neutrophils # 3.3 K/mm3 (1.8-7.8); Neutrophils % 62.3 % (37.0-80.0); Platelet Count 79 K/mm3 (142-424); Red Blood Count 4.61 M/mm3 (4.20-5.40); Red Cell Distribution Width 14.8 % (11.5-17.5); White Blood Count 5.3 K/mm3 (4.8-10.8)
[2023-01-20 19:13] LABS: INR 1.09 (0.9-1.1); Prothrombin Time 11.7 seconds (10.1-12.5)
[2023-01-20 19:15] LABS: Chloride 107 mmol/L (98-107); Potassium 3.3 mmoL/L (3.5-5.1); Sodium 140 mmol/L (136-145)
[2023-01-20 19:17] LABS: Alanine Aminotransferase 57 U/L (12-78); Alkaline Phosphatase 92 U/L (38-126); Aspartate Amino Transferase 57 U/L (14-36); Bilirubin,Total 2.7 mg/dl (0.2-1.3); Blood Urea Nitrogen 10 mg/dl (7-17); Estimated Glomerular Filt Rate 104 ml/min (>60); GFR (African American) 126 ML/MIN (>60)
[2023-01-20 19:18] LABS: Albumin Level 3.9 g/dl (3.5-5.0); Albumin/Globulin Ratio 1.3 (1.1-1.8); Anion Gap 11.3 mEq/L (5-15); Calcium 9.1 mg/dl (8.4-10.2); Carbon Dioxide 25 mmol/L (22.0-30.0); Globulin 3.1 g/dL (1.3-3.2); Glucose 117 mg/dl (74-100); Iron 180 ug/dL (37-170)
[2023-01-20 19:19] LABS: Ammonia 35 umol/L (9-30)
[2023-01-20 19:27] LABS: Total Iron Binding Capacity 363 ug/dL (265-497)
[2023-01-20 19:55] LABS: Ferritin 39.7 ng/ml (11.1-264)
[2023-01-22 12:27] LABS: AFP, Tumor Marker 2.1 ng/mL (0.0-9.2)
== END ==
PROVIDERS: PCP Nurse Practitioner Family; Visit Provider Nurse Practitioner Family
DX: K75.81 Nonalcoholic steatohepatitis (NASH) (principal); K30 Functional dyspepsia; K74.60 Unspecified cirrhosis of liver; D69.6 Thrombocytopenia, unspecified; R68.84 Jaw pain
CPT/HCPCS: 36415; 80053; 82105; 82140; 82728; 83540; 83550; 85025; 85610

== ENCOUNTER → 2023-01-26 07:47 | Outpatient (CLI) | payer MEDICARE, SELFPAY ==
--- NOTE | 2023-01-26 07:55 | US_ITS ---
FINAL REPORT CLINICAL HISTORY: CIRRHOSIS,FUNCTIONAL DYSPEPSIA,STEATOHEPATITIS FINDINGS: Sonographic images of the right upper quadrant were obtained. The pancreas is partially obscured.The liver has a coarsened echotexture of uncertain significance.The gallbladder is surgically absent.There is no evidence of biliary ductal dilatation.The common duct measures 5 mm. Limited images of the right kidney are unremarkable. IMPRESSION: Coarsened hepatic echotexture of uncertain significance. Reviewed, Interpreted and Dictated by Jordi Toussaint III, MD Transcribed by Jerome Jaimes Authenticated and [facility]
== END ==
LOC: RAD 07:48
PROVIDERS: PCP Nurse Practitioner Family; Visit Provider Nurse Practitioner Family
DX: K75.81 Nonalcoholic steatohepatitis (NASH) (principal); K74.60 Unspecified cirrhosis of liver; K30 Functional dyspepsia; D69.6 Thrombocytopenia, unspecified; R68.84 Jaw pain
CPT/HCPCS: 76705

== ENCOUNTER → 2023-02-01 13:31 | Outpatient (CLI) | payer MEDICARE, SELFPAY ==
--- NOTE | 2023-02-01 13:34 | CA_ITS ---
APPROVED REPORT EXAM: Comprehensive 2D, Doppler, and color-flow Echocardiogram Can Repairer: Muriel Tadeo RVT Ht: 5 ft 1 in Wt: 190lbs BSA: 1.85 BP: 148/88 mmHg Indications: CP,PALPS,DM,CIRRHOSIS,DD,HTN,HLD 2D Dimensions LVOT 2.29 cm (M/F) 1.5-2.5 LA Volume 36.50 mL LA Volume Index 19.73 mL/m2 (M/F) 16-34 M-Mode Dimensions RVDd 3.54 cm (0.9-2.6) LA Diam 3.73 cm (1.9-4.0) LVDd 3.70 cm (3.5-5.7) Ao Diam 3.17 cm (2.0-3.7) LVDs 2.45 cm (3.5-5.7) IVSd 0.97 cm (0.6-1.1) PWd 0.76 cm (0.6-1.1) EF (Teich) 63.50% FS 33.80% EDV (Teich) 58.10 mL TAPSE 2.87 (<1.7) ESV (Teich) 21.20 mL LV Diastology E Decel Time 200.00 (160-240 msec) E/A Ratio 0.8 MED E' 4.80 (< 7 cm/sec) E'/MED E' Ratio 14.02 (>14) LAT E' 6.50 (<10 cm/sec) E/LAT E' Ratio 10.35 (>14) Aortic Valve AO Peak GR. 6.70 mmHg Mitral Valve MV E Max Lambert. 67.00 (40-130 cm/s) MV A Velocity 79.00 (40-130 cm/s) E/A Ratio 0.86 MV Decel. Time 200.00 (160-240 ms) MV PHT 59.00 ms Pulmonary Valve PV Peak Velocity 96.00 (50-150 cm/s) Tricuspid Valve TR P. Velocity 247.00 cm/s RAP Estimate 10.00 mmHg RVSP 34.40 mmHg Left Ventricle The left ventricle is normal size. The left ventricular systolic function is normal. The left ventricular ejection fraction is within the normal range. There is normal left ventricular wall thickness. There is normal LV segmental wall motion. The left ventricular diastolic function is normal. LVEF is 60% Right Ventricle The right ventricle is normal size. The right ventricular systolic function is normal. Atria The left atrium size is normal. The right atrium size is normal. The interatrial septum there is no Doppler evidence of interatrial shunt. Aortic Valve The aortic valve opens well. There is no aortic valvular stenosis. No aortic regurgitation is present. Mitral Valve The mitral valve is normal in structure. No evidence of mitral valve stenosis. Trace mitral regurgitation. Tricuspid Valve The tricuspid valve leaflets are thin and pliable. Mild tricuspid regurgitation. RVSP is 20-25 mmHg. Pulmonic Valve The pulmonary valve is normal in structure. Trace pulmonic regurgitation. Great Vessels The aortic root is normal in size. The ascending aorta is normal in size. IVC is normal in size and collapses >50% with inspiration. Pericardium There is no pericardial effusion. Other Information Study Quality: Fair Conclusion Normal biventricular systolic function. No significant valvular stenosis or regurgitation. Electronically signed by : Jana Cardoso MD 02/03/2023 23:18:12
== END ==
LOC: RT 13:31
PROVIDERS: PCP Nurse Practitioner Family; Visit Provider Physician Assistant
DX: R07.9 Chest pain, unspecified (principal); R06.02 Shortness of breath
CPT/HCPCS: 93306

== ENCOUNTER → 2023-03-16 12:41 | Outpatient (CLI) | payer MEDICARE, SELFPAY ==
[2023-03-16 13:13] LABS: Ammonia 52 umol/L (9-30)
[2023-03-17 10:22] LABS: Alanine Aminotransferase 43 U/L (12-78); Albumin Level 3.7 g/dl (3.5-5.0); Albumin/Globulin Ratio 1.3 (1.1-1.8); Alkaline Phosphatase 110 U/L (38-126); Anion Gap 9.6 mEq/L (5-15); Aspartate Amino Transferase 48 U/L (14-36); Bilirubin,Total 1.6 mg/dl (0.2-1.3); Blood Urea Nitrogen 8 mg/dl (7-17); Calcium 8.8 mg/dl (8.4-10.2); Carbon Dioxide 23 mmol/L (22.0-30.0); Chloride 106 mmol/L (98-107); Estimated Glomerular Filt Rate 128 ml/min (>60); GFR (African American) 155 ML/MIN (>60); Globulin 2.8 g/dL (1.3-3.2); Glucose 207 mg/dl (74-100); Potassium 3.6 mmoL/L (3.5-5.1); Sodium 135 mmol/L (136-145); Total Protein,Serum 6.5 g/dl (6.3-8.2)
== END ==
PROVIDERS: PCP Family Medicine; Visit Provider Nurse Practitioner Family
DX: K75.81 Nonalcoholic steatohepatitis (NASH) (principal); K74.60 Unspecified cirrhosis of liver; K30 Functional dyspepsia; D69.6 Thrombocytopenia, unspecified; R19.4 Change in bowel habit; K72.90 Hepatic failure, unspecified without coma
CPT/HCPCS: 80053; 82140

== ENCOUNTER → 2023-03-23 09:28 | Outpatient (CLI) | payer MEDICARE, SELFPAY ==
--- NOTE | 2023-03-23 09:39 | US_ITS ---
FINAL REPORT TECHNIQUE: Multiple transverse and longitudinal images CLINICAL HISTORY: CIRRHOSIS COMPARISON: 07/21/2022 FINDINGS: The gallbladder is surgically absent. No biliary ductal dilatation is appreciated. No fluid collections are seen. The liver has a coarse echotexture and slightly nodular contour similar to that seen on the prior ultrasound of January, stable in appearance. No evidence of ascites is seen. Limited portions of the right kidney are unremarkable. IMPRESSION: Coarse echotexture of the liver with a slightly nodular contour, stable. This is consistent with the patient's clinical diagnosis of cirrhosis. Prior cholecystectomy. Reviewed, Interpreted and Dictated by Gris Nguyen MD Transcribed by Nathaly Kirk Authenticated and [facility]
== END ==
LOC: RAD 09:29
PROVIDERS: PCP Family Medicine; Visit Provider Nurse Practitioner Family
DX: K75.81 Nonalcoholic steatohepatitis (NASH) (principal); K74.60 Unspecified cirrhosis of liver; R18.8 Other ascites; K72.90 Hepatic failure, unspecified without coma; R14.0 Abdominal distension (gaseous); K30 Functional dyspepsia
CPT/HCPCS: 76705

== ENCOUNTER → 2023-04-07 19:33 | Outpatient (CLI) | payer MEDICARE, SELFPAY ==
[2023-04-07 19:43] LABS: MANUAL DIFFERENTIAL MANUAL DIFFERENTIAL (MANUAL DIFF)
[2023-04-07 20:15] LABS: Basophils % 0.8 % (0.1-2.0); Eosinophils # 0.1 K/mm3 (0.0-0.4); Eosinophils % 2.1 % (0.1-12.0); Hematocrit 38.9 % (37.0-47.0); Hemoglobin 13.6 g/dL (12.2-16.2); Lymphocytes # 1.4 K/mm3 (0.7-4.5); Lymphocytes % 24.8 % (10-50); Mean Corpuscular HGB Conc 34.9 g/dL (31.8-35.4); Mean Corpuscular Hemoglobin 32.8 pg (27.0-31.2); Mean Corpuscular Volume 94.2 fl (81-99); Monocytes # 0.3 K/mm3 (0.1-1.0); Monocytes % 5.7 % (1.7-9.3); Neutrophils # 3.7 K/mm3 (1.8-7.8); Neutrophils % 66.6 % (37.0-80.0); Platelet Count 74 K/mm3 (142-424); Red Blood Count 4.13 M/mm3 (4.20-5.40); Red Cell Distribution Width 14.9 % (11.5-17.5); White Blood Count 5.5 K/mm3 (4.8-10.8)
[2023-04-07 20:27] LABS: Ammonia 20 umol/L (9-30)
[2023-04-07 22:04] LABS: Eosinophils % 1 % (0-3); Lymphocytes % 31 % (10-50); Monocytes % 2 % (2-9); Neutrophils % 66 % (42-76); Total Cells Counted 100
[2023-04-07 22:05] LABS: Platelet Estimate Moderate Decrease; RBC Morphology Normal
[2023-04-13 18:40] LABS: Vitamin B1 122.4 nmol/L (66.5-200.0)
== END ==
PROVIDERS: PCP Family Medicine; Visit Provider Nurse Practitioner Family
DX: E66.9 Obesity, unspecified (principal); E72.20 Disorder of urea cycle metabolism, unspecified; G47.9 Sleep disorder, unspecified; G89.29 Other chronic pain; H93.A3 Pulsatile tinnitus, bilateral; I10 Essential (primary) hypertension; K74.60 Unspecified cirrhosis of liver; R06.83 Snoring; R51.9 Headache, unspecified; E11.9 Type 2 diabetes mellitus without complications; Z79.4 Long term (current) use of insulin; Z68.38 Body mass index [BMI] 38.0-38.9, adult
CPT/HCPCS: 36415; 82140; 84425; 85007; 85014; 85018; 85048; 85049

== ENCOUNTER 2023-04-16 20:34 | Emergency (ER) | payer MEDICARE, SELFPAY ==
[2023-04-16 20:45] VITALS: BP 148/86; PULSE 103; RESP 15; TEMP 37.3; O2SAT 97; BMI 38.2
--- NOTE | 2023-04-16 20:45 | PC.NURSE ---
patient in room, no concerns at this time.
--- NOTE | 2023-04-16 20:54 | HMH.EDGENADL ---
Discharge Plan Disposition Patient Disposition: Home, Self-Care Prescriptions Prescriptions: New [id number] [Bromfed DM] 2-30-10 mg/5 mL syrup 5 ml PO Q6H PRN (Reason: cold symptoms) Qty: 118 0RF No Action furosemide 20 mg tablet 20 mg PO DAILY Xifaxan 550 mg tablet 550 mg PO ONCE lactulose 20 gram/30 mL solution 20 g PO DAILY loratadine [Claritin] 10 mg tablet 10 mg PO DAILY polyethylene glycol 3350 [Miralax] 17 gram/dose powder 17 g PO DAILY psyllium husk [Metamucil] 0.4 gram capsule 0.4 g PO DAILY Novolin 70/30 U-100 Insulin 100 unit/mL (70-30) suspension 0.8 unit SQ TID Rx Instructions: 80u in am/40 in pm cyclobenzaprine 5 mg tablet 5 mg PO DIRECTED losartan-hydrochlorothiazide 50-12.5 mg tablet 1 tab PO DAILY Qty: 90 3RF loratadine 10 MG tablet 10 mg PO DAILY metoprolol succinate 25 MG tablet extended release 24 hr 25 mg PO DAILY Referrals Follow up/Referrals: Gris Main MD [Primary Care Provider] - See instructions Activity Restrictions/Add. Instructions Additional Instructions/Restrictions: At this time it was felt you are safe to be discharged home. If new or worsening symptoms please do not hesitate to return the emergency department. If symptoms persist please follow-up with your family doctor as you are able. Clinical Impressions Clinical Impression: Viral respiratory infection Discharge ED Provider: Elder Oden General Adult HPI General Chief complaint: Upper Respiratory Infection Stated complaint: cough, headache, body aches Time Seen by Provider: 04/16/23 20:41 Mode of Arrival: Family Vehicle Source of Information: Patient Limitations: No Limitations Description of Symptoms (Recalled from ER Triage Doc. by RN): 57 yo female presents with cc of cough that has settled into her chest , headache, fever, body aches x 2 days. Possible exposure to illness 2 days ago. Patient is a liver patient who states she has to be extremely careful about what OTC meds she takes for her symptoms. Patient is alert, oriented, vss. Denies tobacco/etoh/drug History of Present Illness HPI narrative: Patient is a 57-year-old female with past medical history of insulin-dependent diabetes, cirrhosis who presents emergency department for evaluation of bodyaches, cough. Onset was acute, over the last 48 hours. Due to persistent symptoms she presents here for continued evaluation. Patient states her sugars have been running in the low 100s. Adequate p.o. intake and urine output. There is associated ear burning bilaterally. No other acute complaints at this time. Related Data Home Medications Medication Instructions Recorded Confirmed loratadine 10 mg tablet 10 mg PO DAILY allergies 06/11/20 08/06/22 metoprolol succinate 25 mg 25 mg PO DAILY bp 10/16/20 03/30/23 tablet,extended release 24 hr cyclobenzaprine 5 mg tablet 5 mg PO DIRECTED MUSCLES 05/27/22 08/06/22 furosemide 20 mg tablet 20 mg PO DAILY 03/30/23 03/30/23 insulin human U-100 NPH-regulr 0.8 unit SQ TID Diabetes 03/30/23 03/30/23 70-30 mix 100 unit/mL subcutaneous susp (Novolin 70/30 U-100 Insulin) lactulose 20 gram/30 mL oral 20 g PO DAILY 03/30/23 03/30/23 solution loratadine 10 mg tablet (Claritin) 10 mg PO DAILY 03/30/23 03/30/23 polyethylene glycol 3350 17 17 g PO DAILY 03/30/23 03/30/23 gram/dose oral powder (Miralax) psyllium husk 0.4 gram capsule 0.4 g PO DAILY 03/30/23 03/30/23 (Metamucil) rifaximin 550 mg tablet (Xifaxan) 550 mg PO ONCE 03/30/23 03/30/23 Previous Rx's Medication Instructions Recorded losartan 50 mg-hydrochlorothiazide 1 tab PO DAILY Hypertension #90 01/05/20 12.5 mg tablet tabs [id number]-[id number]-[id number] 5 ml PO Q6H PRN cold symptoms #118 04/16/23 2 mg-30 mg-10 mg/5 mL oral syrup mL (Bromfed DM) Allergies Allergy/AdvReac Type Severity Reaction Status Date / Time No Known A
[2023-04-16 21:08] LABS: POC Glucose,Bedside 129 (70-110)
[2023-04-16 21:20] LABS: Coronavirus 19, PCR Not Detected (NotDetected); Influenza A, PCR Not Detected (NotDetected); Influenza B, PCR Not Detected (NotDetected)
[2023-04-16 21:35] VITALS: BP 132/75; PULSE 78; RESP 15; TEMP 37.2; O2SAT 97
[2023-04-16 21:39] VITALS: BP 142/79; PULSE 100; RESP 16; TEMP 37.3; O2SAT 97
== END 2023-04-16 21:45 | disposition home or self-care (01) ==
PROVIDERS: Emergency Provider Emergency Medicine; PCP Family Medicine
DX: R05.9 Cough, unspecified (principal); R51.9 Headache, unspecified; R50.9 Fever, unspecified; M79.18 Myalgia, other site; B34.9 Viral infection, unspecified; E11.9 Type 2 diabetes mellitus without complications; K74.60 Unspecified cirrhosis of liver; K21.9 Gastro-esophageal reflux disease without esophagitis; I10 Essential (primary) hypertension; E78.5 Hyperlipidemia, unspecified; Z79.4 Long term (current) use of insulin
CPT/HCPCS: 82962; 87636; 99283

== ENCOUNTER 2023-05-05 13:44 | Outpatient (CLI) | payer MEDICARE, SELFPAY ==
[2023-05-05 14:19] LABS: Ammonia 57 umol/L (9-30)
[2023-05-05 14:59] LABS: Chloride 107 mmol/L (98-107); Potassium 3.8 mmoL/L (3.5-5.1); Sodium 138 mmol/L (136-145)
[2023-05-05 15:01] LABS: Blood Urea Nitrogen 17 mg/dl (7-17); Estimated Glomerular Filt Rate 87 ml/min (>60); GFR (African American) 105 ML/MIN (>60)
[2023-05-05 15:02] LABS: Alanine Aminotransferase 40 U/L (12-78); Albumin Level 3.7 g/dl (3.5-5.0); Albumin/Globulin Ratio 1.4 (1.1-1.8); Alkaline Phosphatase 65 U/L (38-126); Anion Gap 12.8 mEq/L (5-15); Aspartate Amino Transferase 41 U/L (14-36); Bilirubin,Total 2.4 mg/dl (0.2-1.3); Calcium 8.9 mg/dl (8.4-10.2); Carbon Dioxide 22 mmol/L (22.0-30.0); Globulin 2.6 g/dL (1.3-3.2); Glucose 151 mg/dl (74-100); Total Protein,Serum 6.3 g/dl (6.3-8.2)
== END 2023-05-05 23:59 ==
LOC: LAB 13:45
PROVIDERS: PCP Family Medicine; Visit Provider Nurse Practitioner Family
DX: K75.81 Nonalcoholic steatohepatitis (NASH) (principal); K74.60 Unspecified cirrhosis of liver; R18.8 Other ascites; K72.90 Hepatic failure, unspecified without coma; R14.0 Abdominal distension (gaseous); K30 Functional dyspepsia
CPT/HCPCS: 36415; 80053; 82140

== ENCOUNTER 2023-07-27 21:53 | Emergency (ER) | payer MEDICARE, SELFPAY ==
[2023-07-27 21:53] VITALS: BP 147/74; PULSE 91; RESP 16; TEMP 36.8; O2SAT 98; BMI 37.8
--- NOTE | 2023-07-27 21:59 | PC.NURSE ---
initial finger stick was 411, RN and MD aware
--- NOTE | 2023-07-27 22:01 | ED_ITS ---
<Statement entered by Ana Laura Link DO - 07/27/23 22:44> I was consulted by the DMITRIY, and we discussed the complexity of the problems being addressed. I approved the treatment and management plan for this patient's care in the emergency department, thus performing a substantive portion of the medical decision making. Ana Laura Link DO Discharge Plan Disposition Patient Disposition: Home, Self-Care Prescriptions Prescriptions: No Action furosemide 20 mg tablet 20 mg PO DAILY Xifaxan 550 mg tablet 550 mg PO ONCE lactulose 20 gram/30 mL solution 20 g PO DAILY loratadine [Claritin] 10 mg tablet 10 mg PO DAILY polyethylene glycol 3350 [Miralax] 17 gram/dose powder 17 g PO DAILY psyllium husk [Metamucil] 0.4 gram capsule 0.4 g PO DAILY Novolin 70/30 U-100 Insulin 100 unit/mL (70-30) suspension 0.8 unit SQ TID Rx Instructions: 80u in am/40 in pm cyclobenzaprine 5 mg tablet 5 mg PO DIRECTED losartan-hydrochlorothiazide 50-12.5 mg tablet 1 tab PO DAILY Qty: 90 3RF loratadine 10 MG tablet 10 mg PO DAILY metoprolol succinate 25 MG tablet extended release 24 hr 25 mg PO DAILY rysnlubjrliaagb-bulfzuqvd-WF [Bromfed DM] 2-30-10 mg/5 mL syrup 5 ml PO Q6H PRN (Reason: cold symptoms) Qty: 118 0RF Referrals Follow up/Referrals: Gris Main MD [Primary Care Provider] - See instructions Activity Restrictions/Add. Instructions Additional Instructions/Restrictions: Please follow-up with your primary care provider and neurology for further assessment of your symptoms. You will likely need an MRI of your brain and of your neck. Also recommend getting a follow-up ultrasound of your thyroid as the thyroid looked a little abnormal on the CT scan. Please return to the emergency department if you develop any new or worsening symptoms or become concerned for your health. Clinical Impressions Clinical Impression: Cervical radiculopathy, Transient diplopia, Abnormal imaging of thyroid, Hyperglycemia Discharge ED Provider: Ana Laura Link General Adult HPI <REHAN Gan - Last Filed: 07/27/23 22:29> General Chief complaint: PAIN Stated complaint: arm numbness Time Seen by Provider: 07/27/23 21:54 History of Present Illness HPI narrative: Patient presents for 3-day history of intermittent double vision and for numbness of the left upper extremity. Patient has a longstanding history of headaches, neck pain and was in the process of being worked up for same by her PCP with outpatient imaging scheduled. Patient reports that on Wednesday when she woke that she was having problems with double vision. It has occurred intermittently for the last 3 days and has not been constant. However today patient began having numbness of her left upper extremity associated with left- sided trapezius pain. Palpation of the trapezius and range of motion testing of the left upper extremity increases the patient's sensation of numbness/tingling. Patient denies chest pain loss of vision change in sensorium alteration in taste or smell fever chills hemoptysis hematochezia melena nausea vomiting diarrhea diaphoresis. Related Data Home Medications Medication Instructions Recorded Confirmed loratadine 10 mg tablet 10 mg PO DAILY allergies 06/11/20 08/06/22 metoprolol succinate 25 mg 25 mg PO DAILY bp 10/16/20 03/30/23 tablet,extended release 24 hr cyclobenzaprine 5 mg tablet 5 mg PO DIRECTED MUSCLES 05/27/22 08/06/22 furosemide 20 mg tablet 20 mg PO DAILY 03/30/23 03/30/23 insulin human U-100 NPH-regulr 0.8 unit SQ TID Diabetes 03/30/23 03/30/23 70-30 mix 100 unit/mL subcutaneous susp (Novolin 70/30 U-100 Insulin) lactulose 20 gram/30 mL oral 20 g PO DAILY 03/30/23 03/30/23 solution loratadine 10 mg tablet (Claritin) 10 mg PO DAILY 03/30/23 03/30/23 polyethylene glycol 3350 17 17 g PO DAILY 03/30/23 03/30/23 gram/dose oral powder (Miralax) psyllium husk 0.4 gram capsule 0.4 g PO DAILY 03/30/23 03/30/23 (Metamucil) rifaximin 550 mg tablet (Xifaxan) 550 mg PO ONCE 03/30/23 03/30/23 Previous Rx's Medication Instructions Recorded losartan 50 mg-hydrochlorothiazide 1 tab PO DAILY Hypertension #90 01/05/20 12.5 mg tablet tabs ofsizgnibtoyydx-wzqaqmjxefaovzn-GO 5 ml PO Q6H PRN cold symptoms #118 04/16/23 2 mg-30 mg-10 mg/5 mL oral syrup mL (Bromfed DM) Allergies Allergy/AdvReac Type Severity Reaction Status Date / Time No Known Allergies Allergy Verified 03/30/23 10:13 PFS <REHAN Gan - Last Filed: 07/27/23 22:29> PFS Disclaimer: The information contained in this section may have been updated after the patient was seen, as this information can be updated by other users. Medical History (Updated 07/27/23 @ 23:48 by Joaquín Plunkett MD) Difficulty sleeping Obesity BPV (benign positional vertigo) TMJ tenderness, right Vertigo Cirrhosis of liver Gastroesophageal reflux disease Diastolic dysfunction DM2 (diabetes mellitus, type 2) HLD (hyperlipidemia) HTN (hypertension) Surgical History History of carpal tunnel release H/O breast augmentation History of delivery Hx of appendectomy Family History (Updated 03/30/23 @ 10:24 by Lida Bain) Other Alcoholism Cancer Coronary artery disease Diabetes Hypertension No significant family history Social History (Updated 03/30/23 @ 10:25 by Lida Bain) Smoking Status: Never smoker alcohol intake: former substance use type: denies use current occupational status: disabled Travel in the last 8 weeks: None household members: spouse housing: house current occupational exposures/hazards: No caffeine: Yes <REHAN Gan - Last Filed: 07/27/23 22:29> ROS Obtained: Yes Systems reviewed as appropriate & no additional complaints except as documented Physical Exam <REHAN Gan - Last Filed: 07/27/23 22:29> General General appearance: alert and in no apparent distress Head Head exam: atraumatic and normal inspection Eye Eye exam: Present normal appearance, PERRL and EOMI; Absent scleral icterus, conjunctival redness, nystagmus, miosis, mydriasis, periorbital swelling or periorbital tenderness ENT ENT exam: Present normal exam, normal oropharynx, mucous membranes moist and TM's normal bilaterally Neck Neck exam: Present normal inspection, full ROM, trachea midline and tenderness (Posterior cervical muscular tenderness to palpation but no deformities felt on palpation. Patient has tenderness to palpation of the cervical portion of the left trapezius as well as the thoracic portion.); Absent lymphadenopathy Chest Chest inspection: Present normal inspection and symmetric chest wall rise Respiratory Respiratory exam: Present normal lung sounds bilaterally; Absent respiratory distress Cardiovascular Cardiovascular exam: Present regular rate, normal rhythm, normal heart sounds, +S1 and +S2 Abdominal Exam Abdominal exam: Present soft and normal bowel sounds; Absent tenderness Extremities Exam Extremities exam: Present normal inspection, full ROM (Painful range of motion testing about the left shoulder) and tenderness (Left upper extremity trapezius muscles) Expanded Upper Extremity Exam Left: Arm exam: Present normal inspection, full ROM (Tender range of motion testing in the left trapezius area) and tenderness; Absent swelling Elbow exam: Present normal inspection and full ROM Forearm/Wrist exam: Present normal inspection and full ROM Hand exam: Present normal inspection and full ROM Neurosensory exam: Normal radial nerve, ulnar nerve, median nerve, axillary nerve and 2-point discrimination (Intact) Vascular exam: Normal capillary refill (Normal), radial pulse (Normal), ulnar pulse (Normal), brachial pulse (Normal) and Burak?s test (Normal) Back Exam Back exam: Present normal inspection, full ROM and tenderness (To palpation of the musculature of the left trapezius but not of the dorsal spine) Neurological Exam Neurological exam: Present alert, oriented X3 and CN II-XII intact Psychiatric Psychiatric exam: Present normal affect and normal mood Skin Skin exam: Present warm, dry and normal color Medical Decision Making <REHAN Gan - Last Filed: 07/27/23 22:29> Medical Records Medical records reviewed: Yes I reviewed the patient's medical records. [place] Inquiry Pt receiving controlled substance: No Vital Signs: 07/27/23 21:53 07/27/23 22:30 07/27/23 23:11 Temperature 98.3 F Temperature Source Oral Pulse Rate 84 80 Pulse Rate [Left] 91 H Respiratory Rate 16 Blood Pressure 135/90 114/65 Blood Pressure [Right Arm] 147/74 H Blood Pressure Mean [Right Arm] 98 02 Sat by Pulse Oximetry 98 97 98 Oxygen Delivery Method Room Air 07/27/23 23:30 07/27/23 23:52 Temperature 98.4 F Temperature Source Oral Pulse Rate 81 79 Pulse Rate [Left] Respiratory Rate 16 Blood Pressure 116/67 116/67 Blood Pressure [Right Arm] Blood Pressure Mean [Right Arm] 02 Sat by Pulse Oximetry 98 Oxygen Delivery Method Room Air Lab Data Lab results reviewed: Yes I reviewed the patient's lab results. Lab Results 07/27/23 21:57: WBC 2.9 L, RBC 3.65 L, Hgb 12.6, Hct 36.3 L, MCV 99.5 H, MCH 34.5 H, MCHC 34.7, RDW 14.9, Plt Count 63 L, MPV 8.5, Neut % (Auto) 53.8, Lymph % (Auto) 35.6, [place] % (Auto) 7.9, Eos % (Auto) 1.8, Baso % (Auto) 0.9, Neut # (Auto) 1.6 L, Lymph # (Auto) 1.0, [place] # (Auto) 0.2, Eos # (Auto) 0.1, Baso # (Auto) 0.0, ESR 18, PT 11.4, INR 1.06, D-Dimer 0.44, Sodium 133 L, Potassium 4.2, Chloride 105, Carbon Dioxide 23, Anion Gap 9.2, BUN 16, Creatinine 0.70, Estimated Creat Clear 129, Estimated GFR 87, Est GFR ( Amer) 105, Glucose 413 H*, Calcium 9.0, Magnesium 1.9, Total Bilirubin 1.7 H, AST 65 H, ALT 57, Alkaline Phosphatase 97, Troponin I < 0.01, Total Protein 6.4, Albumin 3.7, Globulin 2.7, Albumin/Globulin Ratio 1.4, TSH 2.06 07/27/23 22:36: Lactate 1.6, Ammonia 34 H 07/27/23 21:57 07/27/23 21:57 Orders (Tests/Meds): ED MEDICATIONS Discontinued Medications Generic Name Dose Route Start Last Admin Trade Name Freq PRN Reason Stop Dose Admin Acetaminophen 1,000 mg 07/27/23 22:17 07/27/23 22:24 Acetaminophen 1,000mg/100ml Vial IV 07/27/23 22:18 1,000 mg ONCE ONE Administration Lactated Ringer's 1,000 mls @ 999 mls/hr 07/27/23 22:49 07/27/23 23:09 Lactated Ringer's 1000 Ml Bag IV 07/27/23 23:49 999 mls/hr .Q1H1M ONE Administration Insulin Human Regular 5 unit 07/27/23 22:48 07/27/23 23:05 Insulin Human Regular 100 Units/Ml 10ml Vial IVP 07/27/23 22:49 5 unit ONCE ONE Administration Iopamidol 100 ml 07/27/23 23:06 07/27/23 23:07 Iopamidol-370 (76%);100ml Bottle IV 07/27/23 23:07 100 ml ONCE ONE Administration Ketorolac Tromethamine 15 mg 07/27/23 22:17 07/27/23 22:24 Ketorolac 30mg/Ml Vial IV 07/27/23 22:18 15 mg ONCE ONE Administration Sodium Chloride 10 ml 07/27/23 23:06 07/27/23 23:07 Sodium Chloride 0.9% 10ml Syr (Rad Only) IV 07/27/23 23:07 10 ml ONCE ONE Administration ORDERS Category Date Time Status CT angio head Stat Cat Scan 07/27/23 22:[address] angio neck Stat Cat Scan 07/27/23 22:[address] cervical spine wo con Stat Cat Scan 07/27/23 22:[address] head/brain wo con Stat Cat Scan 07/27/23 22:16 Completed Ammonia Stat Lab 07/27/23 22:36 Completed CBC w/Auto Diff [Complete Blood Count Auto Diff] Stat Lab 07/27/23 21:57 Completed CMP [Comprehensive Metabolic Panel] Stat Lab 07/27/23 21:57 Completed D-Dimer Stat Lab 07/27/23 21:57 Completed ESR [Erythrocyte Sedimentation Rate] Stat Lab 07/27/23 21:57 Completed INR [Prothrombin Time INR] Stat Lab 07/27/23 21:57 Completed Lactic Acid Stat Lab 07/27/23 22:36 Completed Magnesium Stat Lab 07/27/23 21:57 Completed TSH [Thyroid Stimulating Hormone] Stat Lab 07/27/23 21:57 Completed Trop I [Troponin I] Stat Lab 07/27/23 21:57 Completed Medical Decision Narrative: In summary patient is a 8-year-old female who presents to the emergency department for evaluation of double vision, headache, left upper extremity paresthesia. Patient is hemodynamically stable upon arrival, afebrile. Physical exam is remarkable for equal pupils with normal reaction to light and accommodation and extraocular movements intact with no nystagmus. Patient is neurovascularly intact distally in the left upper extremity. Patient experiencing of paresthesias with bilateral loss of sensorimotor. Patient has worsened sensation with palpation of the cervical portion and thoracic portion of the trapezius but no abnormalities felt or elicited on palpation of the dorsal cervical or thoracic spine. [place] Coma Score 15 currently.. Differential diagnosis includes cervical radiculopathy versus tension headache versus CVA versus vertebral dissection etc. Initial workup will be conducted with ET scan of the head and neck without contrast and CTA of the head and neck, hematologic labs.. Initial interventions include Toradol and Tylenol. Initial workup pending at time of transfer to Dr. Plunkett at 2300 <Joaquín Plunkett MD - Last Filed: 07/28/23 00:09> Vital Signs: 07/27/23 21:53 07/27/23 22:30 07/27/23 23:11 Temperature 98.3 F Temperature Source Oral Pulse Rate 84 80 Pulse Rate [Left] 91 H Respiratory Rate 16 Blood Pressure 135/90 114/65 Blood Pressure [Right Arm] 147/74 H Blood Pressure Mean [Right Arm] 98 02 Sat by Pulse Oximetry 98 97 98 Oxygen Delivery Method Room Air 07/27/23 23:30 07/27/23 23:52 Temperature 98.4 F Temperature Source Oral Pulse Rate 81 79 Pulse Rate [Left] Respiratory Rate 16 Blood Pressure 116/67 116/67 Blood Pressure [Right Arm] Blood Pressure Mean [Right Arm] 02 Sat by Pulse Oximetry 98 Oxygen Delivery Method Room Air Lab Data Lab Results 07/27/23 21:57: WBC 2.9 L, RBC 3.65 L, Hgb 12.6, Hct 36.3 L, MCV 99.5 H, MCH 34.5 H, MCHC 34.7, RDW 14.9, Plt Count 63 L, MPV 8.5, Neut % (Auto) 53.8, Lymph % (Auto) 35.6, [place] % (Auto) 7.9, Eos % (Auto) 1.8, Baso % (Auto) 0.9, Neut # (Auto) 1.6 L, Lymph # (Auto) 1.0, [place] # (Auto) 0.2, Eos # (Auto) 0.1, Baso # (Auto) 0.0, ESR 18, PT 11.4, INR 1.06, D-Dimer 0.44, Sodium 133 L, Potassium 4.2, Chloride 105, Carbon Dioxide 23, Anion Gap 9.2, BUN 16, Creatinine 0.70, Estimated Creat Clear 129, Estimated GFR 87, Est GFR ( Amer) 105, Glucose 413 H*, Calcium 9.0, Magnesium 1.9, Total Bilirubin 1.7 H, AST 65 H, ALT 57, Alkaline Phosphatase 97, Troponin I < 0.01, Total Protein 6.4, Albumin 3.7, Globulin 2.7, Albumin/Globulin Ratio 1.4, TSH 2.06 07/27/23 22:36: Lactate 1.6, Ammonia 34 H Orders (Tests/Meds): ED MEDICATIONS Discontinued Medications Generic Name Dose Route Start Last Admin Trade Name Freq PRN Reason Stop Dose Admin Acetaminophen 1,000 mg 07/27/23 22:17 07/27/23 22:24 Acetaminophen 1,000mg/100ml Vial IV 07/27/23 22:18 1,000 mg ONCE ONE Administration Lactated Ringer's 1,000 mls @ 999 mls/hr 07/27/23 22:49 07/27/23 23:09 Lactated Ringer's 1000 Ml Bag IV 07/27/23 23:49 999 mls/hr .Q1H1M ONE Administration Insulin Human Regular 5 unit 07/27/23 22:48 07/27/23 23:05 Insulin Human Regular 100 Units/Ml 10ml Vial IVP 07/27/23 22:49 5 unit ONCE ONE Administration Iopamidol 100 ml 07/27/23 23:06 07/27/23 23:07 Iopamidol-370 (76%);100ml Bottle IV 07/27/23 23:07 100 ml ONCE ONE Administration Ketorolac Tromethamine 15 mg 07/27/23 22:17 07/27/23 22:24 Ketorolac 30mg/Ml Vial IV 07/27/23 22:18 15 mg ONCE ONE Administration Sodium Chloride 10 ml 07/27/23 23:06 07/27/23 23:07 Sodium Chloride 0.9% 10ml Syr (Rad Only) IV 07/27/23 23:07 10 ml ONCE ONE Administration ORDERS Category Date Time Status CT angio head Stat Cat Scan 07/27/23 22:[address] angio neck Stat Cat Scan 07/27/23 22:[address] cervical spine wo con Stat Cat Scan 07/27/23 22:[address] head/brain wo con Stat Cat Scan 07/27/23 22:16 Completed Ammonia Stat Lab 07/27/23 22:36 Completed CBC w/Auto Diff [Complete Blood Count Auto Diff] Stat Lab 07/27/23 21:57 Completed CMP [Comprehensive Metabolic Panel] Stat Lab 07/27/23 21:57 Completed D-Dimer Stat Lab 07/27/23 21:57 Completed ESR [Erythrocyte Sedimentation Rate] Stat Lab 07/27/23 21:57 Completed INR [Prothrombin Time INR] Stat Lab 07/27/23 21:57 Completed Lactic Acid Stat Lab 07/27/23 22:36 Completed Magnesium Stat Lab 07/27/23 21:57 Completed TSH [Thyroid Stimulating Hormone] Stat Lab 07/27/23 21:57 Completed Trop I [Troponin I] Stat Lab 07/27/23 21:57 Completed Medical Decision Narrative: In summary patient is a 8-year-old female who presents to the emergency department for evaluation of double vision, headache, left upper extremity paresthesia. Patient is hemodynamically stable upon arrival, afebrile. Physical exam is remarkable for equal pupils with normal reaction to light and accommodation and extraocular movements intact with no nystagmus. Patient is neurovascularly intact distally in the left upper extremity. Patient experiencing of paresthesias with bilateral loss of sensorimotor. Patient has worsened sensation with palpation of the cervical portion and thoracic portion of the trapezius but no abnormalities felt or elicited on palpation of the dorsal cervical or thoracic spine. [place] Coma Score 15 currently.. Differential diagnosis includes cervical radiculopathy versus tension headache versus CVA versus vertebral dissection etc. Initial workup will be conducted with ET scan of the head and neck without contrast and CTA of the head and neck, hematologic labs.. Initial interventions include Toradol and Tylenol. Initial workup pending at time of transfer to Dr. Plunkett at 2300 Dimitrios FIGUEREDO: I assumed care of the patient at the time of handoff from the prior provider. On reassessment, patient made hemodynamically stable, no return of diplopia. Laboratory studies interpreted by me, significant for hyperglycemia for which she was given 5 units of regular insulin by previous provider. Otherwise nonactionable labs that are consistent with her chronic medical conditions. CT imaging independently interpreted by me, significant for no acute intracranial extracranial occlusion stenosis dissection etc. No large intracranial masses. Does show likely thyroid nodules that will require outpatient follow-up. Noncon scans show multilevel facet arthropathy. Given these findings, the underlying etiology of the diplopia is unclear, but does not appear to be as result of acute stroke, dissection, intracranial mass or bleeding. The underlying etiology of the left upper extremity radicular symptoms is likely cervical radiculopathy from chronic degenerative changes. I had extensive discussion with patient regarding her presentation, symptoms, laboratory and imaging findings. I recommend that she call and follow-up with her PCP and neurologist. She likely needs MRI of the brain and of the cervical spine for further assessment of these symptoms. She was discharged in stable condition symptom- free. Critical Care <REHAN Gan - Last Filed: 07/27/23 22:29> Critical Care Time Critical Care Time: No
--- NOTE | 2023-07-27 22:16 | CT_ITS ---
PROCEDURE INFORMATION: Exam: CT Head Without Contrast Exam date and time: 07/27/2023 10:51 PM Age: 58 years old Clinical indication: Visual disturbance; Additional info: Double vision, headache TECHNIQUE: Imaging protocol: Computed tomography of the head without contrast. Radiation optimization: All CT scans at this facility use at least one of these dose optimization techniques: automated exposure control; mA and/or kV adjustment per patient size (includes targeted exams where dose is matched to clinical indication); or iterative reconstruction. COMPARISON: [facility] CT HEAD W/O CONTRAST 04/18/2017 7:20 PM FINDINGS: Brain: Normal. No hemorrhage. Unremarkable white matter. No mass effect. Cerebral ventricles: No ventriculomegaly. Pituitary gland and sella: Negative Paranasal sinuses: Visualized sinuses are unremarkable. No fluid levels. Mastoid air cells: Visualized mastoid air cells are well aerated. Orbital cavities: Negative. Parotid and submandibular glands: Negative Bones/joints: Unremarkable. No acute fracture. Soft tissues: Unremarkable. Vasculature: Negative. IMPRESSION: No acute intracranial abnormality.
--- NOTE | 2023-07-27 22:16 | CT_ITS ---
PROCEDURE INFORMATION: Exam: CTA Head With Contrast, Arteriography Exam date and time: 07/27/2023 10:59 PM Age: 58 years old Clinical indication: Visual disturbance; Additional info: Double vision, headache TECHNIQUE: Imaging protocol: Computed tomographic angiography of the head with contrast. Exam focused on the arteries. 3D rendering (Not supervised by radiologist): MIP and/or 3D reconstructed images were created by the technologist. Radiation optimization: All CT scans at this facility use at least one of these dose optimization techniques: automated exposure control; mA and/or kV adjustment per patient size (includes targeted exams where dose is matched to clinical indication); or iterative reconstruction. Contrast material: ISOVUE; Contrast volume: 100 ml; Contrast route: INTRAVENOUS (IV); COMPARISON: CT HEAD/BRAIN WO CON 07/27/2023 10:51 PM FINDINGS: ANTERIOR CIRCULATION: Right internal carotid artery: Intracranial segment is patent with no significant stenosis. No aneurysm. Right middle cerebral artery: No occlusion or significant stenosis. No aneurysm. Right anterior cerebral artery: No occlusion or significant stenosis. No aneurysm. Left internal carotid artery: Intracranial segment is patent with no significant stenosis. No aneurysm. Left middle cerebral artery: No occlusion or significant stenosis. No aneurysm. Left anterior cerebral artery: No occlusion or significant stenosis. No aneurysm. POSTERIOR CIRCULATION: Right vertebral artery: No occlusion or significant stenosis. No aneurysm. Left vertebral artery: No occlusion or significant stenosis. No aneurysm. Basilar artery: No occlusion or significant stenosis. No aneurysm. Right posterior cerebral artery: No occlusion or significant stenosis. No aneurysm. Left posterior cerebral artery: No occlusion or significant stenosis. No aneurysm. Brain: No definite mass, mass effect, or midline shift. Cerebral ventricles: No ventriculomegaly. Bones/joints: Unremarkable. No acute fracture. Soft tissues: Unremarkable. IMPRESSION: No large vessel stenosis or occlusion.
--- NOTE | 2023-07-27 22:16 | CT_ITS ---
PROCEDURE INFORMATION: Exam: CTA Neck With Contrast Exam date and time: 07/27/2023 10:59 PM Age: 58 years old Clinical indication: Visual disturbance; Additional info: Double vision, headache TECHNIQUE: Imaging protocol: Computed tomographic angiography of the neck with contrast. Exam focused on the cervical segments of the vasculature. 3D rendering (Not supervised by radiologist): MIP and/or 3D reconstructed images were created by the technologist. Radiation optimization: All CT scans at this facility use at least one of these dose optimization techniques: automated exposure control; mA and/or kV adjustment per patient size (includes targeted exams where dose is matched to clinical indication); or iterative reconstruction. Contrast material: ISOVUE; Contrast volume: 100 ml; Contrast route: INTRAVENOUS (IV); COMPARISON: CT CERVICAL SPINE WO CON 07/27/2023 10:54 PM FINDINGS: Right common carotid artery: No stenosis. No dissection or occlusion. Right internal carotid artery: No stenosis of the extracranial segment. No dissection or occlusion. Right external carotid artery: No occlusion or stenosis of the origin. Left common carotid artery: No stenosis. No dissection or occlusion. Left internal carotid artery: No stenosis of the extracranial segment. No dissection or occlusion. Left external carotid artery: No occlusion or stenosis of the origin. Right vertebral artery: No stenosis. No dissection or occlusion. Left vertebral artery: No stenosis. No dissection or occlusion. Thyroid: Small low-density lesions in both thyroid lobes; recommend ultrasound. Soft tissues: Normal. No significant soft tissue swelling. Bones/joints: No acute fracture. IMPRESSION: Evidence for occlusion, stenosis or dissection of the cervical vessels. REFERENCES: NASCET CRITERIA. The degree of stenosis in the cervical segment of the internal carotid artery is based on NASCET criteria. Normal is no stenosis. Mild is less than 50% stenosis. Moderate is 50-69% stenosis. Severe is 70% to 99% stenosis. Total occlusion is no detectable patent lumen.
--- NOTE | 2023-07-27 22:16 | CT_ITS ---
PROCEDURE INFORMATION: Exam: CT Cervical Spine Without Contrast Exam date and time: 07/27/2023 10:54 PM Age: 58 years old Clinical indication: Other: Double vision; Additional info: Double vision, headache TECHNIQUE: Imaging protocol: Computed tomography of the cervical spine without contrast. Radiation optimization: All CT scans at this facility use at least one of these dose optimization techniques: automated exposure control; mA and/or kV adjustment per patient size (includes targeted exams where dose is matched to clinical indication); or iterative reconstruction. COMPARISON: [facility] CT CERVICAL SPINE W/O CONT 04/18/2017 7:16 PM FINDINGS: Bones/joints: Spine alignment is normal. No fracture or bone destruction. Predental space narrowing and proliferative changes around the dens consistent with arthritis. Multilevel degenerative disc disease most notable at C5-C6 and C6-C7 levels with posterior osteophytic spurring. Multilevel ventral osteophytic spurring. Multilevel ezhm-qb-hbhpawwu facet arthropathy. Lungs: Lung apices are normal. Soft tissues: Unremarkable. IMPRESSION: 1. Spine alignment is normal. 2. No fracture or bone destruction. 3. Predental space narrowing and proliferative changes around the dens consistent with arthritis. 4. Multilevel degenerative disc disease most notable at C5-C6 and C6-C7 levels with posterior osteophytic spurring. 5. Multilevel ventral osteophytic spurring. 6. Multilevel prae-jk-nruwghox facet arthropathy.
[2023-07-27] MEDS: KETOROLAC 30MG/ML VIAL 15 MG IV (22:24)
[2023-07-27] MEDS: ACETAMINOPHEN 1,000MG/100ML VIAL 1000 MG IV (22:24)
[2023-07-27 22:26] LABS: Basophils % 0.9 % (0.1-2.0); Eosinophils # 0.1 K/mm3 (0.0-0.4); Eosinophils % 1.8 % (0.1-12.0); Hematocrit 36.3 % (37.0-47.0); Hemoglobin 12.6 g/dL (12.2-16.2); Lymphocytes % 35.6 % (10-50); Mean Corpuscular HGB Conc 34.7 g/dL (31.8-35.4); Mean Corpuscular Hemoglobin 34.5 pg (27.0-31.2); Mean Corpuscular Volume 99.5 fl (81-99); Mean Platelet Volume 8.5 fl (7.4-10.4); Monocytes # 0.2 K/mm3 (0.1-1.0); Monocytes % 7.9 % (1.7-9.3); Neutrophils # 1.6 K/mm3 (1.8-7.8); Neutrophils % 53.8 % (37.0-80.0); Platelet Count 63 K/mm3 (142-424); Red Blood Count 3.65 M/mm3 (4.20-5.40); Red Cell Distribution Width 14.9 % (11.5-17.5); White Blood Count 2.9 K/mm3 (4.8-10.8)
[2023-07-27 22:30] VITALS: BP 135/90; PULSE 84; O2SAT 97
[2023-07-27 22:35] LABS: INR 1.06 (0.9-1.1); Prothrombin Time 11.4 seconds (10.1-12.5)
[2023-07-27 22:40] LABS: Chloride 105 mmol/L (98-107); Potassium 4.2 mmoL/L (3.5-5.1); Sodium 133 mmol/L (136-145)
[2023-07-27 22:43] LABS: Alanine Aminotransferase 57 U/L (12-78); Albumin Level 3.7 g/dl (3.5-5.0); Albumin/Globulin Ratio 1.4 (1.1-1.8); Alkaline Phosphatase 97 U/L (38-126); Anion Gap 9.2 mEq/L (5-15); Aspartate Amino Transferase 65 U/L (14-36); Bilirubin,Total 1.7 mg/dl (0.2-1.3); Blood Urea Nitrogen 16 mg/dl (7-17); Carbon Dioxide 23 mmol/L (22.0-30.0); Creatinine Clearance Estimated 129 mL/min (50-200); Estimated Glomerular Filt Rate 87 ml/min (>60); GFR (African American) 105 ML/MIN (>60); Globulin 2.7 g/dL (1.3-3.2); Magnesium 1.9 mg/dl (1.6-2.3); Total Protein,Serum 6.4 g/dl (6.3-8.2)
[2023-07-27 22:47] LABS: Glucose 413 mg/dl (74-100)
--- NOTE | 2023-07-27 22:47 | PC.NURSE ---
pt to CT
[2023-07-27 22:49] LABS: D-Dimer 0.44 ug/mL (0.0-0.5)
[2023-07-27 22:54] LABS: Ammonia 34 umol/L (9-30); Lactic Acid 1.6 mmol/L (0.7-2.1)
[2023-07-27 23:03] LABS: Troponin I < 0.01 ng/ml (0.00-0.034)
[2023-07-27 23:05] LABS: Erythrocyte Sedimentation Rate 18 mm/hr (0-30)
[2023-07-27] MEDS: INSULIN HUMAN REGULAR 100 UNITS/ML 10ML VIAL 5 UNIT IVP (23:05)
[2023-07-27] MEDS: SODIUM CHLORIDE 0.9% 10ML SYR (RAD ONLY) 10 ML IV (23:07)
[2023-07-27] MEDS: IOPAMIDOL-370 (76%);100ML BOTTLE 100 ML IV (23:07)
[2023-07-27] MEDS: LACTATED RINGERS 1000ML 1,000 ML 999 ML IV (23:09)
[2023-07-27 23:11] VITALS: BP 114/65; PULSE 80; O2SAT 98
[2023-07-27 23:14] LABS: Thyroid Stimulating Hormone 2.06 uIU/mL (0.465-4.68)
[2023-07-27 23:30] VITALS: BP 116/67; PULSE 81; O2SAT 98
[2023-07-27 23:52] VITALS: BP 116/67; PULSE 79; RESP 16; TEMP 36.9; O2SAT 99
== END 2023-07-27 23:57 | disposition home or self-care (01) ==
PROVIDERS: Physician Assistant; Emergency Provider Emergency Medicine; PCP Family Medicine
DX: E11.65 Type 2 diabetes mellitus with hyperglycemia (principal); M54.12 Radiculopathy, cervical region; H53.2 Diplopia; R93.89 Abnormal findings on diagnostic imaging of other specified body structures; K21.9 Gastro-esophageal reflux disease without esophagitis; E78.5 Hyperlipidemia, unspecified; I10 Essential (primary) hypertension; Z79.4 Long term (current) use of insulin
CPT/HCPCS: 70450; 70496; 70498; 72125; 80053; 82140; 83605; 83735; 84443; 84484; 85025; 85378; 85610; 85651; 96361; 96374; 96375; 99285; J0131; Q9967

== ENCOUNTER 2023-08-24 15:15 | Outpatient (CLI) | payer MEDICARE, SELFPAY ==
--- NOTE | 2023-08-24 15:17 | US_ITS ---
FINAL REPORT CLINICAL HISTORY: THYROID NODULE COMPARISON: None FINDINGS: THYROID ULTRASOUND: The right lobe of the thyroid measures 4.5 x 2.2 x 1.5 cm in size. The left lobe of the thyroid measures 4.9 x 1.9 x 1.7 cm in size. The isthmus measures 2 mm in thickness. There is a single solid nodule in the left lobe of the thyroid, isoechoic, measuring up to 17 mm in size. There are several other cystic and subcentimeter in size foci noted bilaterally. IMPRESSION: Single solid isoechoic left thyroid nodule, a TI-RADS category 3 nodule. Recommend 12-month follow-up ultrasound for further Reviewed, Interpreted and Dictated by Gris Nguyen MD Transcribed by Nathaly Kirk Authenticated and [facility]
== END 2023-08-24 23:59 | disposition home or self-care (01) ==
LOC: RAD 15:15
PROVIDERS: PCP Physician Assistant; Visit Provider Physician Assistant
DX: E04.1 Nontoxic single thyroid nodule (principal)
CPT/HCPCS: 76536

== ENCOUNTER 2023-09-02 08:54 | Outpatient (CLI) | payer MEDICARE, SELFPAY ==
--- NOTE | 2023-09-02 09:00 | MR_ITS ---
FINAL REPORT CLINICAL HISTORY: RADICULAR PAIN OF LEFT UPPER EXTREMITY FINDINGS: Multiplanar MR imaging of the cervical spine was performed without contrast. On the sagittal T2-weighted images, disc degeneration is seen at multiple levels. There is no evidence of fracture. The vertebral alignment is normal. The cervical spinal cord has an unremarkable appearance without evidence of mass, edema or syrinx. The cervicomedullary junction is normal. C2-3: There is no significant canal stenosis or neural foraminal narrowing. C3-4: A disc bulge is present with small uncovertebral osteophytes. A small right paracentral disc protrusion mildly indents the thecal sac. There is moderate left neural foraminal narrowing. C4-5: A disc bulge is present with a small central disc protrusion which indents the thecal sac. No significant canal stenosis or neural foraminal narrowing is seen. C5-6: A disc osteophyte complex is present. There is a left paracentral disc protrusion which indents the thecal sac. There is probable left C6 nerve root impingement. Mild right and severe left neural foraminal narrowing is seen. Mild central canal stenosis is seen with an AP diameter of the thecal sac of 7 mm. C6-7: A disc osteophyte complex is present. There is a small right foraminal disc protrusion. Mild right and moderate left neural foraminal narrowing is seen. C7-T1: There is no significant canal stenosis or neural foraminal narrowing. IMPRESSION: Left paracentral C5-6 disc protrusion with mild central canal stenosis and left C6 nerve root impingement. Small right foraminal C6-7 disc protrusion. Small disc protrusions at C3-4 and C4-5. Authenticated and [facility]
--- NOTE | 2023-09-02 09:00 | MR_ITS ---
FINAL REPORT CLINICAL HISTORY: DOUBLE VISION, DIZZINES FINDINGS: Multiplanar MR imaging of the brain was performed without and with contrast. There is degradation of overall image quality secondary to motion on many sequences. There is no evidence of intracranial hemorrhage or mass. No abnormal extra-axial fluid collection is seen. The ventricular size is within normal limits. There is no evidence of shift of the midline structures. The posterior fossa and brainstem have an unremarkable appearance. No area of abnormal restricted diffusion is identified. No abnormal contrast enhancement is seen. Normal major vessel vascular flow voids are noted. IMPRESSION: No acute intracranial abnormality identified. Reviewed, Interpreted and Dictated by Jordi Toussaint III, MD Transcribed by Nathaly Kirk Authenticated and [facility]
[2023-09-02 09:56] LABS: Blood Urea Nitrogen 15 mg/dl (7-17); Estimated Glomerular Filt Rate 103 ml/min (>60); GFR (African American) 125 ML/MIN (>60)
[2023-09-02] MEDS: SODIUM CHLORIDE 0.9% 10ML SYR (RAD ONLY) 10 ML IV (11:17)
[2023-09-02] MEDS: GADOTERIDOL INJ 17ML SYRINGE 18 ML IV (11:17)
== END 2023-09-02 23:59 | disposition home or self-care (01) ==
LOC: RAD 08:56
PROVIDERS: PCP Physician Assistant; Visit Provider Physician Assistant
DX: M79.2 Neuralgia and neuritis, unspecified (principal); H53.2 Diplopia; R42 Dizziness and giddiness
CPT/HCPCS: 36415; 70553; 72141; 82565; 84520; A9576

== ENCOUNTER 2023-12-14 09:19 | Outpatient (CLI) | payer MEDICARE, SELFPAY ==
--- NOTE | 2023-12-14 09:32 | CT_ITS ---
FINAL REPORT CLINICAL HISTORY: CIRRHOSIS OF LIVER W/OUT ASCITES COMPARISON: 10/05/2019 FINDINGS: CT ABDOMEN AND PELVIS WITH AND WITHOUT CONTRAST: Bilateral subglandular implants are noted. The lung bases are clear. Moderate fatty infiltration of the liver is present. The spleen is enlarged, measuring 14.5 cm in the craniocaudal dimension and 16.5 cm in the AP dimension, larger than seen on the prior exam of 2019. The adrenals are normal. The pancreas is unremarkable. There are left hemiabdominal varices, and the perisplenic and perirenal areas. These are also more prominent than noted on the prior CT. The kidneys enhance appropriately. Precontrast images demonstrate no nephrolithiasis. The uterus is anteverted. The bladder is incompletely distended. There are diverticula present in the descending and sigmoid portions of the colon, without evidence of acute inflammatory change. IMPRESSION: Increased splenomegaly since the prior CT of 2019. Left abdominal varices are more evident and numerous when compared to the prior exam. Moderate fatty infiltration of the liver is present without evidence of biliary ductal dilatation. No ascites is present. Reviewed, Interpreted and Dictated by Terence Valdez MD Transcribed by Nathaly Kirk Authenticated and [facility]
[2023-12-14 10:33] LABS: Blood Urea Nitrogen 12 mg/dl (7-17); Estimated Glomerular Filt Rate 87 ml/min (>60); GFR (African American) 105 ML/MIN (>60)
[2023-12-14] MEDS: SODIUM CHLORIDE 0.9% 10ML SYR (RAD ONLY) 10 ML IV (11:08)
[2023-12-14] MEDS: IOPAMIDOL-370 (76%);100ML BOTTLE 75 ML IV (11:08)
== END 2023-12-14 23:59 | disposition home or self-care (01) ==
LOC: RAD 09:19
PROVIDERS: PCP Nurse Practitioner Pediatrics; Visit Provider Physician Assistant Medical
DX: K74.60 Unspecified cirrhosis of liver (principal)
CPT/HCPCS: 36415; 74178; 82565; 84520; Q9967

== ENCOUNTER 2024-01-04 17:20 | Emergency (ER) | payer MEDICARE, SELFPAY ==
[2024-01-04 17:29] VITALS: BP 169/91; PULSE 97; RESP 14; TEMP 36.8; O2SAT 97; BMI 37.8
--- NOTE | 2024-01-04 17:37 | HMH.EDGENADL ---
Discharge Plan Disposition Patient Disposition: Home, Self-Care Prescriptions Prescriptions: New prednisone 20 mg tablet 40 mg PO DAILY 5 Days Qty: 10 0RF lidocaine 5 % adhesive patch,medicated 1 patch topical DAILY Qty: 30 0RF Rx Instructions: leave on most painful area for up to 12 hrs No Action furosemide 20 mg tablet 20 mg PO DAILY Xifaxan 550 mg tablet 550 mg PO ONCE lactulose 20 gram/30 mL solution 20 g PO DAILY loratadine [Claritin] 10 mg tablet 10 mg PO DAILY polyethylene glycol 3350 [Miralax] 17 gram/dose powder 17 g PO DAILY psyllium husk [Metamucil] 0.4 gram capsule 0.4 g PO DAILY Novolin 70/30 U-100 Insulin 100 unit/mL (70-30) suspension 0.8 unit SQ TID Rx Instructions: 80u in am/40 in pm cyclobenzaprine 5 mg tablet 5 mg PO DIRECTED losartan-hydrochlorothiazide 50-12.5 mg tablet 1 tab PO DAILY Qty: 90 3RF loratadine 10 MG tablet 10 mg PO DAILY metoprolol succinate 25 MG tablet extended release 24 hr 25 mg PO DAILY sbagpyvsfbaqfwr-wukizcvts-PE [Bromfed DM] 2-30-10 mg/5 mL syrup 5 ml PO Q6H PRN (Reason: cold symptoms) Qty: 118 0RF Referrals Follow up/Referrals: Gris Main MD [Primary Care Provider] - See instructions Jason Vasques DO [Staff Physician] - See instructions Activity Restrictions/Add. Instructions Additional Instructions/Restrictions: Call your family doctor to establish care for this visit to the emergency department and schedule follow-up within 48 hours to ensure improvement. If you have any worsening of your condition or any other concerning signs or symptoms, return to the emergency department or your primary care doctor for further evaluation. Prednisone each morning for the next 5 days. Be sure to check your sugars every 4-6 hours at a minimum while on prednisone to avoid dangerous spikes in glucose. Clinical Impressions Clinical Impression: Cervical radiculopathy at C8 Instructions Patient Instructions: DI for Neck Pain Print Language Print Language: Moldovan Discharge ED Provider: Jose Alfredo Carpenter General Adult HPI General Chief complaint: Neck Pain/Injury Stated complaint: Pain in neck radiating down left arm,no injury Time Seen by Provider: 01/04/24 17:23 Mode of Arrival: Ambulatory Source of Information: Patient Limitations: No Limitations Description of Symptoms (Recalled from ER Triage Doc. by RN): pt states she woke up a few days ago with L sided neck pain that radiates distal to her L elbow. pt states the pain is constant, 10/10 and pinching/shooting in nature. pt states she took 1000mg of tylenol around 1200 and flexeril at 0300 without any relief. pt denies injury. pt thinks it was aggrevated by folding towels or sleeping wrong. pt says she recently had a cervical CT and is suppose to consult with a surgeon. pt reports a hx of BLEVINS, cirrhosis and DM. Due to the liver conditions she states she does not take NSAIDS. History of Present Illness HPI narrative: Please note that above description of symptoms, in this electronic medical record under categorization of recalled from ER triage doctor by RN are reflective of an initial nursing assessment, however, is not reflective of my full history and physical exam that was personally taken and clarified. Consequentially, this preceding description of symptoms, which may include the patient's categorized chief complaint in the EMR, do not reflect my personal clinical impression, and the ultimate description of history of present illness and patient stated complaints should be deferred to this section of the note. Unless stated otherwise or congruent with this section of the note, additional signs, symptoms, or incongruence should be interpreted as inaccurate with my clinical impression. Related Data Home Medications ?Medication ?Instructions ?Recorded ?Confirmed loratadine 10 mg tablet 10 mg PO DAILY allergies 06/11/20 08/06/22 metoprolol succinate 25 mg 25 mg PO DAILY bp 10/16/20 03/30/23 tablet,extended release 24 hr cyclobenzaprine 5 mg tablet 5 mg PO DIRECTED MUSCLES 05/27/22 08/06/22 furosemide 20 mg tablet 20 mg PO DAILY 03/30/23 03/30/23 insulin human U-100 NPH-regulr 0.8 unit SQ TID Diabetes 03/30/23 03/30/23 70-30 mix 100 unit/mL subcutaneous susp (Novolin 70/30 U-100 Insulin) lactulose 20 gram/30 mL oral 20 g PO DAILY 03/30/23 03/30/23 solution loratadine 10 mg tablet (Claritin) 10 mg PO DAILY 03/30/23 03/30/23 polyethylene glycol 3350 17 17 g PO DAILY 03/30/23 03/30/23 gram/dose oral powder (Miralax) psyllium husk 0.4 gram capsule 0.4 g PO DAILY 03/30/23 03/30/23 (Metamucil) rifaximin 550 mg tablet (Xifaxan) 550 mg PO ONCE 03/30/23 03/30/23 Previous Rx's ?Medication ?Instructions ?Recorded losartan 50 mg-hydrochlorothiazide 1 tab PO DAILY Hypertension #90 01/05/20 12.5 mg tablet tabs dfheecogroeennu-ijtznqpylmuezry-SO 5 ml PO Q6H PRN cold symptoms #118 04/16/23 2 mg-30 mg-10 mg/5 mL oral syrup mL (Bromfed DM) lidocaine 5 % topical patch 1 patch topical DAILY #30 ea 01/04/24 prednisone 20 mg tablet 40 mg (2 x 20 mg) PO DAILY 5 days 01/04/24 #10 tabs Allergies Allergy/AdvReac Type Severity Reaction Status Date / Time No Known Allergies Allergy Verified 01/04/24 17:37 [facility] Disclaimer: The information contained in this section may have been updated after the patient was seen, as this information can be updated by other users. Medical History (Updated 01/04/24 @ 17:39 by Jose Alfredo Carpenter MD) Difficulty sleeping Obesity BPV (benign positional vertigo) TMJ tenderness, right Vertigo Cirrhosis of liver Gastroesophageal reflux disease Diastolic dysfunction DM2 (diabetes mellitus, type 2) HLD (hyperlipidemia) HTN (hypertension) Surgical History History of carpal tunnel release H/O breast augmentation History of delivery Hx of appendectomy Family History (Updated 03/30/23 @ 10:24 by Lida Bain) Other Alcoholism Cancer Coronary artery disease Diabetes Hypertension No significant family history Social History (Updated 03/30/23 @ 10:25 by Lida Bain) Smoking Status: Never smoker alcohol intake: former substance use type: denies use current occupational status: disabled Travel in the last 8 weeks: None household members: spouse housing: house current occupational exposures/hazards: No caffeine: Yes ROS Obtained: Yes All systems reviewed & no additional complaints except as documented Physical Exam General General appearance: alert and in no apparent distress Head Head exam: atraumatic and normocephalic Eye Eye exam: Present normal appearance, PERRL and EOMI Neck Neck exam: Present normal inspection, full ROM, trachea midline and tenderness (Paraspinal muscles on the left side as well as trapezius muscle on the left side radiating down left shoulder posteriorly.) Respiratory Respiratory exam: Absent respiratory distress, wheezes, stridor, accessory muscle use or prolonged expiratory phase Cardiovascular Cardiovascular exam: Present other (Pulses equal symmetric in upper and lower extremities) Abdominal Exam Abdominal exam: Present soft; Absent distention, tenderness or pulsatile mass Extremities Exam Extremities exam: Absent edema Neurological Exam Neurological exam: Present alert, oriented X3 and CN II-XII intact; Absent motor sensory deficit (Tingling left fourth and fifth digits) Skin Skin exam: Present warm and dry; Absent diaphoresis or erythema Medical Decision Making Medical Records Medical records reviewed: Yes I reviewed the patient's medical records. [place] Inquiry Pt receiving controlled substance: No [place] was queried for this patient: No Vital Signs: 01/04/24 17:29 Temperature 98.2 F Temperature Source Oral Pulse Rate [Left] 97 H Respiratory Rate 14 Blood Pressure [Right Arm] 169/91 H Blood Pressure Mean [Right Arm] 117 Blood Pressure Source [Right Arm] Automatic Cuff Blood Pressure Position [Right Arm] Sitting 02 Sat by Pulse Oximetry 97 Oxygen Delivery Method Room Air Medical Decision Narrative: This is a 58-year-old female with history of poorly controlled type 2 diabetes, Blevins cirrhosis, hypertension, hyperlipidemia, chronic neck and back pain presenting with acute on chronic neck and back pain. Patient states that a couple days prior to this she was folding laundry and she had an acute pain shot from her base of her neck down her left arm. Is getting progressively worse. States that she was opening food packet today when she had severe pain shoot from the base of her neck down posterior left shoulder into her left fourth and fifth digit. States that she has been taking ibuprofen, ice packs, putting towels under her neck, avoiding Tylenol secondary to her Blevins cirrhosis. States that she is going to call and get follow-up with orthopedics here at [facility], just has not done so yet. Pain is currently moderate in intensity, sharp, stabbing, radiating. No weakness, bilateral symptoms, left lower extremity symptoms, or any other concerns. History obtained with patient. On arrival, patient appears to be uncomfortable, but in no acute distress. She is holding her left wrist with her right arm in internal rotation. Tenderness about paraspinal muscles on the left with palpable muscular knot at the base of her neck and trapezius on the left. Sensation of tingling down into her left fourth and fifth digits consistent with C8 radiculopathy. Because patient without upper extremity weakness, lower extremity symptoms, any other red flag signs or symptoms, deemed appropriate for outpatient management. Was given her first lidocaine patch here and prednisone for symptomatic management and relief. Close return precautions were discussed with patient and close glucose monitoring was also discussed with patient, she voiced her understanding. Because patient at baseline without signs or symptoms of clinical decompensation, deemed appropriate for discharge. I discussed my clinical impression with patient and answered all questions. At this time, the evidence for any other entities in the differential is insufficient to warrant any further testing or ED observation. This was explained as well. Advisory was given that persistent or worsening symptoms require further evaluation. I confirmed the understanding of this discussion. [place] Auditor disclaimer Much of this encounter note is an electronic legal billing analyst spoken language to printed text. Electronic legal billing analyst of the spoken language may permit errors. Although I have reviewed the note, some errors may still exist. Critical Care Critical Care Time Critical Care Time: No
[2024-01-04] MEDS: LIDOCAINE 5% TRANSDERMAL PATCH 1 EACH TP (17:39)
[2024-01-04] MEDS: predniSONE 20MG TAB 40 MG PO (17:40)
[2024-01-04 17:45] VITALS: BP 154/99; PULSE 90; RESP 14; TEMP 36.8
== END 2024-01-04 17:47 | disposition home or self-care (01) ==
PROVIDERS: Emergency Provider Emergency Medicine; PCP Family Medicine
DX: M50.13 Cervical disc disorder with radiculopathy, cervicothoracic region (principal); R20.2 Paresthesia of skin
CPT/HCPCS: 99283

== ENCOUNTER 2024-01-16 18:20 | Emergency (ER) | payer MEDICARE, SELFPAY ==
[2024-01-16 18:22] VITALS: BP 174/88; PULSE 96; RESP 18; TEMP 36.8; O2SAT 99; BMI 37.8
--- NOTE | 2024-01-16 18:22 | ED_ITS ---
<Statement entered by Ana Laura Link DO - 01/16/24 19:54> I was consulted by the DMITRIY, and we discussed the complexity of the problems being addressed. I approved the treatment and management plan for this patient's care in the emergency department, thus performing a substantive portion of the medical decision making. Ana Laura Link DO Discharge Plan Disposition Patient Disposition: Xfer Short-Term Hosp Condition: Good Prescriptions Prescriptions: No Action furosemide 20 mg tablet 20 mg PO DAILY Xifaxan 550 mg tablet 550 mg PO ONCE lactulose 20 gram/30 mL solution 20 g PO DAILY loratadine [Claritin] 10 mg tablet 10 mg PO DAILY polyethylene glycol 3350 [Miralax] 17 gram/dose powder 17 g PO DAILY psyllium husk [Metamucil] 0.4 gram capsule 0.4 g PO DAILY Novolin 70/30 U-100 Insulin 100 unit/mL (70-30) suspension 0.8 unit SQ TID Rx Instructions: 80u in am/40 in pm cyclobenzaprine 5 mg tablet 5 mg PO DIRECTED losartan-hydrochlorothiazide 50-12.5 mg tablet 1 tab PO DAILY Qty: 90 3RF loratadine 10 MG tablet 10 mg PO DAILY metoprolol succinate 25 MG tablet extended release 24 hr 25 mg PO DAILY xchkboegtnjvkkf-xdkkzvczy-IF [Bromfed DM] 2-30-10 mg/5 mL syrup 5 ml PO Q6H PRN (Reason: cold symptoms) Qty: 118 0RF prednisone 20 mg tablet 40 mg PO DAILY 5 Days Qty: 10 0RF lidocaine 5 % adhesive patch,medicated 1 patch topical DAILY Qty: 30 0RF Rx Instructions: leave on most painful area for up to 12 hrs Referrals Follow up/Referrals: Juan Thornton MD [Primary Care Provider] - See instructions Activity Restrictions/Add. Instructions Additional Instructions/Restrictions: To the [facility] emergency department care of Dr. Garcia Clinical Impressions Clinical Impression: Vitreous detachment of left eye Stand Alone Forms Stand Alone Forms: Transfer Record - ED Print Language Print Language: [place] Discharge ED Provider: Ana Laura Link General Adult HPI <REHAN Gan - Last Filed: 01/16/24 19:53> General Chief complaint: Eye Problems Stated complaint: black spot in left eye Time Seen by Provider: 01/16/24 18:23 History of Present Illness HPI narrative: Patient presents for evaluation of vision changes in left eye. She woke up at 9 AM with a black portion of her superior vision of the left eye. Throughout the day it has moved but not gone away completely. She has central preserved vision she denies headache fever chills hemoptysis hematochezia melena nausea vomit diarrhea. She has had previous retinal surgery at the [facility] although she is not sure exactly what the procedure was. Patient is also a diabetic. Related Data Home Medications ?Medication ?Instructions ?Recorded ?Confirmed loratadine 10 mg tablet 10 mg PO DAILY allergies 06/11/20 08/06/22 metoprolol succinate 25 mg 25 mg PO DAILY bp 10/16/20 03/30/23 tablet,extended release 24 hr cyclobenzaprine 5 mg tablet 5 mg PO DIRECTED MUSCLES 05/27/22 08/06/22 furosemide 20 mg tablet 20 mg PO DAILY 03/30/23 03/30/23 insulin human U-100 NPH-regulr 0.8 unit SQ TID Diabetes 03/30/23 03/30/23 70-30 mix 100 unit/mL subcutaneous susp (Novolin 70/30 U-100 Insulin) lactulose 20 gram/30 mL oral 20 g PO DAILY 03/30/23 03/30/23 solution loratadine 10 mg tablet (Claritin) 10 mg PO DAILY 03/30/23 03/30/23 polyethylene glycol 3350 17 17 g PO DAILY 03/30/23 03/30/23 gram/dose oral powder (Miralax) psyllium husk 0.4 gram capsule 0.4 g PO DAILY 03/30/23 03/30/23 (Metamucil) rifaximin 550 mg tablet (Xifaxan) 550 mg PO ONCE 03/30/23 03/30/23 Previous Rx's ?Medication ?Instructions ?Recorded losartan 50 mg-hydrochlorothiazide 1 tab PO DAILY Hypertension #90 01/05/20 12.5 mg tablet tabs lzbanzcsvawhcuk-atznfbkpdbfdkuf-UF 5 ml PO Q6H PRN cold symptoms #118 04/16/23 2 mg-30 mg-10 mg/5 mL oral syrup mL (Bromfed DM) lidocaine 5 % topical patch 1 patch topical DAILY #30 ea 01/04/24 prednisone 20 mg tablet 40 mg (2 x 20 mg) PO DAILY 5 days 01/04/24 #10 tabs Allergies Allergy/AdvReac Type Severity Reaction Status Date / Time No Known Allergies Allergy Verified 01/04/24 17:37 [facility] <REHAN Gan - Last Filed: 01/16/24 19:53> [facility] Disclaimer: The information contained in this section may have been updated after the patient was seen, as this information can be updated by other users. Medical History (Updated 01/16/24 @ 19:26 by REHAN Gan) Difficulty sleeping Obesity BPV (benign positional vertigo) TMJ tenderness, right Vertigo Cirrhosis of liver Gastroesophageal reflux disease Diastolic dysfunction DM2 (diabetes mellitus, type 2) HLD (hyperlipidemia) HTN (hypertension) Surgical History History of carpal tunnel release H/O breast augmentation History of delivery Hx of appendectomy Family History (Updated 03/30/23 @ 10:24 by Lida Bain) Other Alcoholism Cancer Coronary artery disease Diabetes Hypertension No significant family history Social History (Updated 03/30/23 @ 10:25 by Lida Bain) Smoking Status: Never smoker alcohol intake: former substance use type: denies use current occupational status: disabled Travel in the last 8 weeks: None household members: spouse housing: house current occupational exposures/hazards: No caffeine: Yes <REHAN Gan - Last Filed: 01/16/24 19:53> ROS Obtained: Yes Systems reviewed as appropriate & no additional complaints except as documented Physical Exam <REHAN Gan - Last Filed: 01/16/24 19:53> General General appearance: alert and in no apparent distress Eye Eye exam: Present PERRL and EOMI; Absent conjunctival redness, conjunctival injection or nystagmus Respiratory Respiratory exam: Present normal lung sounds bilaterally Cardiovascular Cardiovascular exam: Present regular rate Neurological Exam Neurological exam: Present alert and oriented X3 Medical Decision Making <REHAN Gan - Last Filed: 01/16/24 19:53> Medical Records Medical records reviewed: Yes I reviewed the patient's medical records. Screening: Per USPSTF and CDC recommendations, given the prevalence of disease in our region, it is our hospital?s policy to screen for HIV and viral Hepatitis for all patients aged 18 and over and those with ongoing risk factors. [place] Inquiry Pt receiving controlled substance: No Vital Signs: 01/16/24 18:22 01/16/24 18:30 Temperature 98.3 F Temperature Source Oral Pulse Rate 98 H Pulse Rate [Radial] 96 H Respiratory Rate 18 Blood Pressure 155/83 H Blood Pressure [Right Arm] 174/88 H Blood Pressure Mean [Right Arm] 116 Blood Pressure Source [Right Arm] Automatic Cuff Blood Pressure Position [Right Arm] Sitting 02 Sat by Pulse Oximetry 99 98 Oxygen Delivery Method Room Air Lab Data Lab results reviewed: Yes I reviewed the patient's lab results. Orders (Tests/Meds): ORDERS Category Date Time Status POCUS Point of Care (ER Only) Stat Exams 01/16/24 18:27 Ordered Medical Decision Narrative: In summary patient is a 58-year-old female who presents to the emergency department for evaluation of loss of vision left eye. Patient is hemodynamically stable upon arrival, afebrile. Physical exam is remarkable for her pupils being equal round reactive to light accommodation. Patient has good bilateral light reflex with ophthalmoscope and I am unable to appreciate a defect in the retina with the hand-held abdominal scope patient's visual acuity is 20/10 in both eyes 20/10 in the right eye and 20/13 in the left. Differential diagnosis includes retinal detachment versus floater versus vitreal detachment etc. Initial workup will be conducted with POCUS. After review of POCUS she has vitreal detachment without evidence of involvement of the retina currently. Given this I had a interact discussion with the [facility] Dr. Garcia and one of the ophthalmology residents on-call about patient management. She will be transferred to the [facility] emergency department by POV for further evaluation and management and care of Dr. Garcia. <Ana Laura Link, DO - Last Filed: 01/16/24 19:12> Vital Signs: 01/16/24 18:22 01/16/24 18:30 Temperature 98.3 F Temperature Source Oral Pulse Rate 98 H Pulse Rate [Radial] 96 H Respiratory Rate 18 Blood Pressure 155/83 H Blood Pressure [Right Arm] 174/88 H Blood Pressure Mean [Right Arm] 116 Blood Pressure Source [Right Arm] Automatic Cuff Blood Pressure Position [Right Arm] Sitting 02 Sat by Pulse Oximetry 99 98 Oxygen Delivery Method Room Air Orders (Tests/Meds): ORDERS Category Date Time Status POCUS Point of Care (ER Only) Stat Exams 01/16/24 18:27 Ordered Procedures <Ana Laura Link DO - Last Filed: 01/16/24 19:12> Limited Ultrasound Findings:: Limited ocular ultrasound Indication: Vision change Identified structures: -Left Findings: Left eye: Retina: Normal Lens: Normal Vitreous body: hyperechoic strand without involvement of retina Optic nerve sheath diameter: normal Foreign body: absent Impression: Left eye: -vitreous detachment without involvement of retina Images were saved to permanent archive The study was technically adequate CPT 86256-14 This study was performed by me, and I personally interpreted all images/videos. Based on my clinical judgement, these images were adequate and did not necessitate further imaging. Critical Care <REHAN Gan - Last Filed: 01/16/24 19:53> Critical Care Time Critical Care Time: No
[2024-01-16 18:30] VITALS: BP 155/83; PULSE 98; O2SAT 98
--- NOTE | 2024-01-16 19:13 | PC.NURSE ---
Contacted [facility] in regards to a consult for this patient they will be calling back.
[2024-01-16 19:57] VITALS: BP 155/83; PULSE 101; RESP 16; TEMP 36.6; O2SAT 99
== END 2024-01-16 19:59 | disposition short-term general hospital (02) ==
PROVIDERS: Emergency Provider Emergency Medicine; PCP Family Medicine
DX: H43.812 Vitreous degeneration, left eye (principal); I10 Essential (primary) hypertension; E78.5 Hyperlipidemia, unspecified; E11.9 Type 2 diabetes mellitus without complications; K74.60 Unspecified cirrhosis of liver; K21.9 Gastro-esophageal reflux disease without esophagitis; E66.9 Obesity, unspecified
CPT/HCPCS: 99285

== ENCOUNTER 2024-05-18 09:42 | Outpatient (CLI) | payer MEDICARE, SELFPAY ==
--- NOTE | 2024-05-18 09:47 | CT_ITS ---
FINAL REPORT TECHNIQUE: Pre- and postcontrast images of the abdomen were performed by computed tomography. This study was performed with techniques to keep radiation doses as low as reasonably achievable (ALARA). Individualized dose reduction techniques using automated exposure control or adjustment of mA and/or kV according to the patient's size were employed. CLINICAL HISTORY: [facility] COMPARISON: 12/14/2023 FINDINGS: CT ABDOMEN WITH AND WITHOUT CONTRAST: Bilateral subglandular breast implants are present. The lung bases are clear. Diffuse fatty infiltration of the liver is once again noted. The gallbladder has been surgically resected. There is moderate splenomegaly, with an AP diameter of the spleen measuring 17 mm, larger than seen on the prior exam of November 2023. A multitude of varices are once again noted in the left upper quadrant, similar to the previous examination. The adrenals are normal. The pancreas is unremarkable. The kidneys enhance appropriately. Prominent cecal mucosa is identified, that may be secondary to incomplete distention. The uterus is anteverted. Diverticulosis is present in the descending and sigmoid colon without acute inflammatory change. IMPRESSION: Increased splenomegaly since the prior exam of November 2023. Numerous varices are once again noted in the left upper quadrant, similar to the prior examination. Diffuse fatty infiltration of the liver persists. Reviewed, Interpreted and Dictated by Terence Valdez MD Transcribed by Nathaly Kirk Authenticated and [facility]
[2024-05-18 10:07] LABS: Blood Urea Nitrogen 9 mg/dl (7-17); Estimated Glomerular Filt Rate 86 ml/min (>60); GFR (African American) 104 ML/MIN (>60)
[2024-05-18] MEDS: IOPAMIDOL-370 (76%);100ML BOTTLE 75 ML IV (10:54)
[2024-05-18] MEDS: SODIUM CHLORIDE 0.9% 10ML SYR (RAD ONLY) 10 ML IV (10:54)
== END 2024-05-18 23:59 | disposition home or self-care (01) ==
LOC: RAD 09:44
PROVIDERS: PCP Family Medicine; Visit Provider Physician Assistant Medical
DX: K75.81 Nonalcoholic steatohepatitis (NASH) (principal); K74.60 Unspecified cirrhosis of liver
CPT/HCPCS: 36415; 74170; 82565; 84520; Q9967

== ENCOUNTER 2024-06-15 14:00 | Outpatient (RCR) | payer MEDICARE, SELFPAY ==
--- NOTE | 2024-06-11 17:44 | HMH.PTOPEV ---
PT Outpatient Evaluation Rehab PT Outpatient Evaluation Start: 06/08/24 13:07 Freq: Status: Active Protocol: Document 06/08/24 10:00 FARAZ (Rec: 06/11/24 17:44 FARAZ [id number]) E-signed By Daniel Hollins, PT Outpatient Therapy Subjective History Subjective History Patient is a 59 year old female presenting to outpatient PT with reports of insidious onset starting approx 10 years ago per patient report. Most recent imaging indicates mulit-level bulging discs and stenosis. At this time, cervical spine pain and NT radiating to L hand are main concern. Other comorbidities include hx of diabetes, B CTR, cirrhosis and cardiac arrhythmia. Cervical Eval Palpation Cervical Muscles R Cervical Paraspinal,L Cervical Paraspinal,R CT Junction,L CT Junction,R Upper Trapezius,L Upper Trapezius,R Thoracic Paraspinals,L Thoracic Paraspinals Cervical/Thoracic Palpation Findings Tenderness,Spasm Posture Head/C-Spine Posture Sitting Position C-Spine Flattened Head/C-Spine Posture Standing Position C-Spine Flattened Flexibility Deficits Upper Trapezius Muscle Length (R) Moderate Tightness,(L) Moderate Tightness Levaetor Scapulae Muscle Length (R) Moderate Tightness,(L) Moderate Tightness Scalene Group Muscle Length (R) Moderate Tightness,(L) Moderate Tightness Pectoralis Minor Muscle Length (R) Moderate Tightness,(L) Moderate Tightness Passive Joint Mobility Cervical PIVM Dec: R OA L OA R AA L AA R C2/3 L C2/3 R C3/4 L C3/4 R C4/5 L C4/5 R C5/6 L C5/6 R C6/7 L C6/7 R C7/T1 L C7/T1 AROM Cervical Spine Extension Active Range of 22 Motion (degrees) Cervical Spine Flexion Active Range of 28 Motion (degrees) Cervical Spine Right Lateral Flexion 31 Active Range of Motion (degrees) Cervical Spine Left Lateral Flexion 29 Active Range of Motion (degrees) Cervical Spine Right Rotation Active 34 Range of Motion (degrees) Cervical Spine Left Rotation Active 36 Range of Motion (degrees) MMT Bilateral Deltoid (C5) 4- Good- Biceps Brachii Strength Grade 4- Good- Wrist Extension Strength Grade 4 Good Triceps Brachii Strength Grade 4 Good Wrist Flexion Strength Grade 4 Good Extensor Pollicis Longus Strength Grade 4 Good Finger Abduction Strength Grade 4- Good- Altered Sensation Left Upper extremity Dermatomes C4 Comment int NT Special Test C-Spine Foraminal Compression (Spurling) Negative Left,Negative Right Test C-Spine Foraminal Distraction Test Positive Shoulder/Elbow Eval Shoulder Objective Measurements Palpation Tenderness tenderness over the SA bursa shoulder bilateral exam standard Shoulder Palpation Findings Tenderness Shoulder Palpation Overall Comment supra/infraspinatus Posture Shoulder Posture Sitting Position (L) Forward,(R) Forward Shoulder Posture Standing Position (L) Forward,(R) Forward Scapula Posture Sitting Position (L) Protracted,(R) Protracted Scapular Posture Standing Position (L) Protracted,(R) Protracted Shoulder ROM Bilateral Shoulder ROM Limitations Soft Tissue Tightness,Bony Restriction Shoulder Abduction Active Range of 90 Motion (degrees) Shoulder Flexion Active Range of Motion 124 (degrees) Query Text: Shoulder External Rotation Active Range 70 of Motion (degrees) Shoulder Internal Rotation Active Range 55 of Motion (degrees) pain with active ROM shoulder exam bilateral standard Shoulder MMT Left Shoulder Abduction Strength Grade 4- Good- Shoulder Flexion Strength Grade 4- Good- Shoulder External Rotation Strength 4- Good- Grade Shoulder Internal Rotation Strength 4- Good- Grade Shoulder Special Tests impingement sign present shoulder exam bilateral standard Shoulder Drop Arm Test Negative Left,Negative Right Shoulder Cross-Over Impingement Test Positive Left,Positive Right Shoulder Empty Can (Supraspinatus) Test Negative Right,Positive Left Shoulder Madrigal-Zafar Impingement Positive Left,Positive Right Test Shoulder Neer Impingement Test Positive Left,Positive Right Shoulder Speed's Sign Test Positive Left,Positive Right Elbow Objective Measurements Lumbopelvic Eval Posture Thoracic Spine Posture Standing Position Increased Kyphosis Lumbar Spine Posture Standing Position Increased Lordosis Assistive device Assistive Devices None / NA Palapation tenderness bilateral lumbar spinal tenderness Yes: L3-S1 3/4 buttock tenderness Yes: 3/4 Lumbar/Sacral Palpation Findings Tenderness Lumbar/Sacral Palpation Overall Comment B SIJ 3/4 Accessory Movement L3 bilateral L4 bilateral L5 bilateral S1 bilateral Range of Motion Lumbar Spine Active Flexion Range of 34 Motion (degrees) Lumbar Spine Active Extension Range of 7 Motion (degrees) Left Lumbar Spine Lateral Flexion Active 14 Range of Motion (degrees) Right Lumbar Spine Lateral Flexion 16 Active Range of Motion (degrees) Lumbar Spine ROM Limitations Soft Tissue Tightness,Bony Restriction Manual Muscle Test Bilateral Knee Extension Strength Grade 4 Good Knee Flexion Strength Grade 4 Good Hip Flexion Strength Grade 4 Good Extensor Hallucis Longus Strength Grade 4 Good Ankle Dorsiflexion Strength Grade 5 Normal Gastronemius/Soleus Strength Grade 4 Good Special Tests Hip Gildardo (ADÁN) Test Positive Left,Positive Right Hip Kerri Test Positive Left,Positive Right Hip Piriformis Test Positive Left,Positive Right Sciatic Nerve Tension Test Positive Left,Positive Right Odell Test Positive Sacroiliac Joint Compression Test Negative Left,Negative Right Sacroiliac Joint Distraction Test Negative Left,Negative Right Lumbar Long Ewing Distraction Test/Manual Positive Traction Oswestry Index Section 1 Pain Intensity The pain is mild and does not vary much Section 2 Personal Care (Washing,Dresing) increase the pain and I find it necessary to change my way of doing it Section 3 Lifting lifting heavy weights off the floor, but I can manage if they are Section 4 Walking I cannot walk more than 1/4 mile without increasing pain Section 5 Sitting Pain prevents me from sitting for more than 10 minutes Section 6 Standing I cannot stand more than 10 minutes without increasing pain Section 7 Sleeping Because of my pain, my normal night's sleep is less than 4 hours Section 8 Social Life Pain has restricted my social life and I do not go out often Section 9 Traveling I get extra pain while traveling, but it does not compel me to seek al Section 10 Changing Degreee of Pain My pain is gradually getting worse Score and Risk Level Oswestry Sc 31 Oswestry Risk Level Severe Disability Neck Disability Index Neck Disability Index Section 1: Pain Intensity The pain is moderate at the moment Section 2: Personal Care (washing, It is painful to look after dressing, etc.) myself and I am slow and careful Section 3: Lifting I can only lift very light weights Section 5: Headaches I have severe headaches, which come frequently Section 6: Concentration I have a lot of difficulty in concentrating when I want to Section 7: Work I can hardly do any work at all Section 8: Driving I can drive my car as long as I want with moderate pain in my neck Section 9: Sleeping My sleep is greatly disturbed (3-5 hrs sleepless) Section 10: Recreation I am able to engage in a few of my usual recreation activities because [employer] Activities Please rate your ability to do the following activities in the last week by selecting the number below the appropriate response. 1. Open a tight or new jar. Moderate difficulty 2. Do heavy bread dumper (e.g., wash Severe difficulty hilario, floors). 3. Carry a shopping bag or briefcase. Moderate difficulty 4. Wash your back. Moderate difficulty 6. Recreational activities in which you Severe difficulty take some force or impact through your arm, shoulder, or hand (e.g., golf, hammering, tennis, etc.). 7. During the past week, to what extent Moderately has your arm, shoulder or hand problem interfered with your normal social activities with family, friends, neighbors or groups? 8. During the past week, were you Moderately limited limited in your work or other regular daily activites as a result of your arm, shoulder or hand problem? 9. Arm, shoulder or hand pain. Moderate 10. Tingling (pins and needles) in your Moderate arm, shoulder or hand. 11. During the past week, how much Moderate difficulty difficulty have you had sleeping because of the pain in your arm, shoulder or hand? Outpatient Therapy Assessment Impairments Problems/Impairmments Palpation Tenderness,Impaired Range of Motion,Impaired Strength,Impaired Walking, Impaired Standing,Impaired Driving,Impaired Lifting, Impaired Dressing,Impaired Household Care,Impaired Bending,Impaired Recreational Activities,Subjective C/O Pain ,Impaired Self Care/Self Management Prognosis Rehab Potential Good Outpatient Therapy Plan of Care Treatment Plan May Include Therapeutic Exercise Including Home Yes Exercise Program Manual Therapy Techniques Yes Neuromuscular Re-education Yes Therapeutic Activities to Return to Yes Previous Functional/Work Level Gait Training Yes ADL/Self Care Education Yes Mechanical Traction Yes Dry Needling Yes Thermal Modalities Yes Electrical Stimulation Yes Ultrasound/Phonophoresis Yes Iontophoresis Yes Orthotics/Bracing/Splinting Yes Vasopneumatic Compression Pump Yes Massage Yes Eval/Re-Eval Yes Frequency Times per week 2-3 Duration Number of Weeks 4-6 Addendums This patient is a candidate for social No or vocational rehab? Patient/Guardian verbally acknowledges Yes understanding of treatment program and consents to further treatment? Patient/Guardian verbally acknowledges Yes understanding of diagnosis, prognosis and goals for treatment? Eval Complexity PT Charges 97502 - Moderate Complexity PHYSICIAN CERTIFICATION: I certify the specified therapy services for Monae Costa are required, authorized, and reviewed every 30 days.
== END 2024-06-15 23:59 | disposition home or self-care (01) ==
LOC: PT 14:00
PROVIDERS: PCP Family Medicine; Visit Provider Physician Assistant
DX: M25.611 Stiffness of right shoulder, not elsewhere classified (principal); M54.2 Cervicalgia; G57.01 Lesion of sciatic nerve, right lower limb
CPT/HCPCS: 97110; 97163

== ENCOUNTER 2024-07-13 22:57 | Emergency (ER) | payer MEDICARE, SELFPAY ==
[2024-07-13 23:04] VITALS: BP 136/74; PULSE 88; RESP 20; TEMP 36.6; O2SAT 99; BMI 35.9
--- NOTE | 2024-07-13 23:06 | ECG_ITS ---
APPROVED REPORT Exam: Resting ECG HR:88 bpm ECG Measurements Heart Rate 88 AXES IN 151 P 39 QRSd 85 QRS 9 QT 380 T 23 QTc 425 Conclusion SINUS RHYTHM LOW QRS VOLTAGE IN PRECORDIAL LEADS [QRS DEFLECTION < 1.0 mV IN CHEST LEADS] BORDERLINE ECG UNCONFIRMED REPORT Electronically signed by : ADAL ARGUETA, 07/14/2024 02:22:35
--- NOTE | 2024-07-13 23:07 | XR_ITS ---
PROCEDURE INFORMATION: Exam: XR Chest Exam date and time: 07/13/2024 11:25 PM Age: 59 years old Clinical indication: Pain; Chest pressure; Additional info: Chest pain TECHNIQUE: Imaging protocol: Radiologic exam of the chest. Views: 1 view. COMPARISON: CR CXR2V XR chest 2V 03/04/2018 1:09 AM FINDINGS: Lungs: Unremarkable. No consolidation. Pleural spaces: Unremarkable. No pleural effusion. No pneumothorax. Heart/Mediastinum: Unremarkable. No cardiomegaly. Bones/joints: Unremarkable. IMPRESSION: No acute findings.
--- NOTE | 2024-07-13 23:08 | PC.NURSE ---
Skin pink warm and dry Resp full and easy Speech clear and appropriate. Family at bedside
--- NOTE | 2024-07-13 23:09 | HMH.EDGENADL ---
Discharge Plan Disposition Patient Disposition: Home, Self-Care Prescriptions Prescriptions: No Action furosemide 20 mg tablet 20 mg PO DAILY Xifaxan 550 mg tablet 550 mg PO ONCE lactulose 20 gram/30 mL solution 20 g PO DAILY loratadine [Claritin] 10 mg tablet 10 mg PO DAILY polyethylene glycol 3350 [Miralax] 17 gram/dose powder 17 g PO DAILY psyllium husk [Metamucil] 0.4 gram capsule 0.4 g PO DAILY Novolin 70/30 U-100 Insulin 100 unit/mL (70-30) suspension 0.8 unit SQ TID Rx Instructions: 80u in am/40 in pm cyclobenzaprine 5 mg tablet 5 mg PO DIRECTED losartan-hydrochlorothiazide 50-12.5 mg tablet 1 tab PO DAILY Qty: 90 3RF loratadine 10 MG tablet 10 mg PO DAILY metoprolol succinate 25 MG tablet extended release 24 hr 25 mg PO DAILY oabshueoynqhgpb-msxfqzfny-ZX [Bromfed DM] 2-30-10 mg/5 mL syrup 5 ml PO Q6H PRN (Reason: cold symptoms) Qty: 118 0RF prednisone 20 mg tablet 40 mg PO DAILY 5 Days Qty: 10 0RF lidocaine 5 % adhesive patch,medicated 1 patch topical DAILY Qty: 30 0RF Rx Instructions: leave on most painful area for up to 12 hrs Referrals Follow up/Referrals: Gris Main MD [Primary Care Provider] - See instructions Activity Restrictions/Add. Instructions Additional Instructions/Restrictions: Please follow-up with your primary care provider. Please return to the emergency department if you develop any new or worsening symptoms or become concerned for your health. Clinical Impressions Clinical Impression: Chest pain Stand Alone Forms Stand Alone Forms: Work/School Release Print Language Print Language: Greek Discharge ED Provider: Joaquín Plunkett General Adult HPI General Chief complaint: Chest Pain Stated complaint: chest pain Time Seen by Provider: 07/13/24 23:00 Mode of Arrival: Ambulatory Source of Information: Patient Description of Symptoms (Recalled from ER Triage Doc. by RN): intermittant chest pain History of Present Illness HPI narrative: 59-year-old female with history of cirrhosis and poorly controlled diabetes, GERD recently started on Ozempic presents for chest pain. Reports it is centrally located, burning, has been ongoing throughout the day. Associated with some shortness of breath. She felt like it was just reflux and so did not come in, but it has been persistent and so she came to be evaluated. She reports that her sister recently suddenly without obvious explanation and her older brother just underwent open heart surgery. She is doing better from a cirrhosis standpoint. Since starting the Ozempic, her blood sugars have been lower so she has been adjusting her insulin at home to try to avoid going too low. As result she reports her blood sugar has been high, in the 300s and 400s. Denies any significant abdominal pain, nausea vomiting, cough, fever. Related Data Home Medications ?Medication ?Instructions ?Recorded ?Confirmed loratadine 10 mg tablet 10 mg PO DAILY allergies 06/11/20 08/06/22 metoprolol succinate 25 mg 25 mg PO DAILY bp 10/16/20 03/30/23 tablet,extended release 24 hr cyclobenzaprine 5 mg tablet 5 mg PO DIRECTED MUSCLES 05/27/22 08/06/22 furosemide 20 mg tablet 20 mg PO DAILY 03/30/23 03/30/23 insulin human U-100 NPH-regulr 0.8 unit SQ TID Diabetes 03/30/23 03/30/23 70-30 mix 100 unit/mL subcutaneous susp (Novolin 70/30 U-100 Insulin) lactulose 20 gram/30 mL oral 20 g PO DAILY 03/30/23 03/30/23 solution loratadine 10 mg tablet (Claritin) 10 mg PO DAILY 03/30/23 03/30/23 polyethylene glycol 3350 17 17 g PO DAILY 03/30/23 03/30/23 gram/dose oral powder (Miralax) psyllium husk 0.4 gram capsule 0.4 g PO DAILY 03/30/23 03/30/23 (Metamucil) rifaximin 550 mg tablet (Xifaxan) 550 mg PO ONCE 03/30/23 03/30/23 Previous Rx's ?Medication ?Instructions ?Recorded losartan 50 mg-hydrochlorothiazide 1 tab PO DAILY Hypertension #90 01/05/20 12.5 mg tablet tabs tmiqcooqgqvmuor-bgjofjhcremxiyr-IN 5 ml PO Q6H PRN cold symptoms #118 04/16/23 2 mg-30 mg-10 mg/5 mL oral syrup mL (Bromfed DM) lidocaine 5 % topical patch 1 patch topical DAILY #30 ea 01/04/24 prednisone 20 mg tablet 40 mg (2 x 20 mg) PO DAILY 5 days 01/04/24 #10 tabs Allergies Allergy/AdvReac Type Severity Reaction Status Date / Time No Known Allergies Allergy Verified 01/04/24 17:37 [facility] Disclaimer: The information contained in this section may have been updated after the patient was seen, as this information can be updated by other users. Medical History (Updated 07/14/24 @ 02:11 by Joaquín Plunkett MD) Difficulty sleeping Obesity BPV (benign positional vertigo) TMJ tenderness, right Vertigo Cirrhosis of liver Gastroesophageal reflux disease Diastolic dysfunction DM2 (diabetes mellitus, type 2) HLD (hyperlipidemia) HTN (hypertension) Surgical History History of carpal tunnel release H/O breast augmentation History of delivery Hx of appendectomy Family History (Updated 03/30/23 @ 10:24 by Lida Bain) Other Alcoholism Cancer Coronary artery disease Diabetes Hypertension No significant family history Social History (Updated 03/30/23 @ 10:25 by Lida Bain) Smoking Status: Never smoker alcohol intake: former substance use type: denies use current occupational status: disabled Travel in the last 8 weeks: None household members: spouse housing: house current occupational exposures/hazards: No caffeine: Yes Have you lived/traveled outside US in past 30 days?: No Contact w/someone who lives/traveled outside US past 30 days?: No Exposure to someone with infectious disease in past 14 days?: No Do you have a fever (greater than 100.4 F or 38 C)?: No Have you tested positive for COVID-19: No Exposed to someone with COVID-19 in past 14 days?: No Do you have a sore throat?: No Do you have a cough?: No Do you have any weakness?: No Do you have any diarrhea?: No Are you experiencing any unusual bleeding?: No Do you have any muscle aches/pain?: No Do you have any abdominal pain?: No Are you experiencing loss of taste or smell?: No Other Medical History Have you received the Flu Vaccine for this season: No Have you received the Pneumonia Vaccine: No ROS Obtained: Yes All systems reviewed & no additional complaints except as documented Physical Exam General General appearance: alert and in no apparent distress Head Head exam: atraumatic and normocephalic Eye Eye exam: Present normal appearance, PERRL and EOMI ENT ENT exam: Present normal oropharynx and normal external ear exam Neck Neck exam: Present normal inspection and full ROM Chest Chest inspection: Present normal inspection and symmetric chest wall rise; Absent tenderness Respiratory Respiratory exam: Present normal lung sounds bilaterally; Absent respiratory distress Cardiovascular Cardiovascular exam: Present regular rate and normal rhythm Abdominal Exam Abdominal exam: Present soft; Absent distention, tenderness or guarding Extremities Exam Extremities exam: Present normal inspection; Absent edema or joint swelling Back Exam Back exam: Present normal inspection; Absent tenderness Neurological Exam Neurological exam: Present alert and oriented X3; Absent motor sensory deficit Psychiatric Psychiatric exam: Present normal affect and normal mood Skin Skin exam: Present warm, dry and normal color Lymphatic Lymphatic Findings: no adenopathy Medical Decision Making Medical Records Medical records reviewed: Yes I reviewed the patient's medical records. Screening: Per USPSTF and CDC recommendations, given the prevalence of disease in our region, it is our hospital?s policy to screen for HIV and viral Hepatitis for all patients aged 18 and over and those with ongoing risk factors. [place] Inquiry Pt receiving controlled substance: No [place] was queried for this patient: No Vital Signs: 07/13/24 23:04 07/14/24 00:00 07/14/24 00:30 Temperature 97.8 F Temperature Source Oral Pulse Rate 93 H 96 H Pulse Rate [Right Brachial] 88 Respiratory Rate 20 15 15 Blood Pressure 112/73 122/65 Blood Pressure [Right Arm] 136/74 Blood Pressure Mean 86 82 Blood Pressure Mean [Right Arm] 94 Blood Pressure Source Blood Pressure Source [Right Arm] Manual Cuff/ Auscultation Blood Pressure Position Blood Pressure Position [Right Arm] Supine 02 Sat by Pulse Oximetry 99 96 96 Oxygen Delivery Method Room Air 07/14/24 01:00 07/14/24 01:30 07/14/24 02:14 Temperature 98.4 F Temperature Source Oral Pulse Rate 89 68 83 Pulse Rate [Right Brachial] Respiratory Rate 13 15 20 Blood Pressure 113/73 102/74 L 121/77 Blood Pressure [Right Arm] Blood Pressure Mean 82 80 Blood Pressure Mean [Right Arm] Blood Pressure Source Automatic Cuff Blood Pressure Source [Right Arm] Blood Pressure Position Sitting Blood Pressure Position [Right Arm] 02 Sat by Pulse Oximetry 97 97 Oxygen Delivery Method Room Air Lab Data Lab results reviewed: Yes I reviewed the patient's lab results. Lab Results 07/13/24 22:15: WBC 6.3, RBC 4.22, Hgb 13.5, Hct 37.9, MCV 89.8, MCH 32.0 H, MCHC 35.6 H, RDW 13.5, Plt Count 64 L, MPV 10.6 H, Neut % (Auto) 84.2 H, Lymph % (Auto) 11.5, Grimes % (Auto) 3.7, Eos % (Auto) 0.2, Baso % (Auto) 0.2, Neut # (Auto) 5.3, Lymph # (Auto) 0.7, Grimes # (Auto) 0.2, Eos # (Auto) 0.0, Baso # (Auto) 0.0, PT 12.4, INR 1.12 H, D-Dimer 0.38, Sodium 133 L, Potassium 4.3, Chloride 102, Carbon Dioxide 23, Anion Gap 12.3, BUN 15, Creatinine 0.80, Estimated Creat Clear 106, Estimated GFR 74, Est GFR ( Amer) 89, Glucose 333 H, Calcium 9.5, Total Bilirubin 2.9 H, AST 42 H, ALT 38, Alkaline Phosphatase 54, Troponin I < 0.01, Total Protein 7.1, Albumin 4.6, Globulin 2.5, Albumin/Globulin Ratio 1.8, Lipase 192, Acetone Level None detected, HCV Ab MARION w/Rflx PCR Qn Negative, HIV Ag/Ab Combo Qual Negative 07/13/24 23:08: VBG pH 7.40, VBG pCO2 40.1, VBG pO2 42.0 H, VBG HCO3 24.1, VBG Total CO2 25.3, VBG O2 Saturation 76.0 H, VBG Base Excess -0.8, VBG Lactic Acid 2.5 H 07/13/24 23:15: SARS-CoV-2 (PCR) Not detected, Influenza A Untype (PCR) Not detected, Influenza Type B (PCR) Not detected 07/14/24 01:35: Troponin I < 0.01 07/13/24 22:15 07/13/24 22:15 Orders (Tests/Meds): ED MEDICATIONS Discontinued Medications Generic Name Dose Route Start Last Admin Trade Name Freq PRN Reason Stop Dose Admin Acetaminophen 1,000 mg 07/13/24 23:06 07/13/24 23:25 Acetaminophen 500mg Tab PO 07/13/24 23:07 1,000 mg ONCE ONE Administration Aspirin 324 mg 07/13/24 23:06 07/13/24 23:25 Aspirin 81mg Chewable Tablet PO 07/13/24 23:07 324 mg ONCE ONE Administration Belladonna Alkaloids 60 ml 07/13/24 23:06 07/13/24 23:28 Belladonna Alkaloids 60 Ml Ml PO 07/13/24 23:07 60 ml ONCE ONE Administration Insulin Human Lispro 8 unit 07/14/24 00:40 07/14/24 00:45 Humalog 100 Units/Ml 10ml Vial (Ssi) SUBCUT 07/14/24 00:41 8 unit ONCE ONE Administration ORDERS Category Date Time Status CXR --portable [XR chest portable] Stat Exams 07/13/24 23:07 Completed Acetone, Serum (Rapid) Stat Lab 07/13/24 22:15 Completed CBC w/Auto Diff [Complete Blood Count Auto Diff] Stat Lab 07/13/24 22:15 Completed CMP [Comprehensive Metabolic Panel] Stat Lab 07/13/24 22:15 Completed D-Dimer Stat Lab 07/13/24 22:15 Completed HIV Combo Routine Lab 07/13/24 22:15 Completed Hepatitis C Ab Qual. W/ RFX Routine Lab 07/13/24 22:15 Completed INR [Prothrombin Time INR] Stat Lab 07/13/24 22:15 Completed Lipase Stat Lab 07/13/24 22:15 Completed Rapid PCR Covid and Flu A/B Stat Lab 07/13/24 23:15 Completed Troponin I Q3H Lab 07/13/24 22:15 Completed Troponin I Q3H Lab 07/14/24 01:35 Completed VBG [Venous Blood Gas] Stat RT 07/13/24 23:08 Completed HEART Score History (anamnesis): Slightly suspicious ECG: Normal Age: 45-65 years Risk factors: 3 or more risk factors Troponin: </= normal limit HEART Score: 3 Medical Decision Narrative: 59-year-old female with history of cirrhosis, poorly controlled diabetes, hypertension hyperlipidemia, GERD presents for central chest pain throughout the day with some associated shortness of. History was obtained via interactive discussion with patient, chart review. On arrival, patient is [afebrile, hemodynamically stable, satting appropriately, alert, oriented x4, GCS 15], moving all extremities spontaneously. Full physical exam performed and significant for clear lungs bilaterally, no significant abdominal tenderness. Differential includes but is not limited to ACS, PE, GERD, pancreatitis, variceal bleed, esophagitis, cholecystitis, musculoskeletal chest pain, pneumonia, pneumothorax, diabetic complication Patient was given Tylenol, full dose aspirin, GI cocktail, for symptomatic management and correction of underlying abnormalities. Workup initiated including CBC CMP EKG troponin chest x-ray D-dimer, VBG,. On re-evaluation, patient reports significant symptomatic improvement after the GI cocktail Laboratory workup independently interpreted by me and significant for no significant leukocytosis, thrombocytopenia, stable from patient's baseline, INR normal, no significant acidosis. Minimally elevated lactate. Blood sugar 333, no evidence of DKA, bilirubin mildly elevated. Initial troponin negative. D-dimer negative. Overall, labs are consistent with patient's history of cirrhosis and diabetes. Does not appear acutely decompensated.. Imaging independently interpreted by me and significant for clear lungs bilaterally without focal opacity. See radiology read for full review of final results. EKG independently interpreted by me and significant for normal sinus rhythm, ventricular rate of 88, no ST elevation or depression, no T wave inversions. At this time patient was placed in ED observation status for cardiac monitoring and serial troponin. CT PE was considered, but deemed unnecessary due to negative D-dimer. On reassessment, patient remains in sinus rhythm on a pvc monitor. Repeat troponin interpreted me and is undetectably low. No evidence of emergent pathology on ER workup. Given this, patient was deemed appropriate for discharge with outpatient management. Patient's symptoms may be related to Ozempic, or could be gastroesophageal. Does not appear to be cardiac based on workup. No evidence of cirrhotic decompensation on workup either. She was discharged in stable condition with return precautions and instructions to follow-up with PCP/cardiology. Procedures Risk/Benefits of Procedure(s) Were Explained: Yes Critical Care Critical Care Time Critical Care Time: No
[2024-07-13 23:25] LABS: Basophils % 0.2 % (0.1-2.0); Eosinophils % 0.2 % (0.1-12.0); Hematocrit 37.9 % (37.0-47.0); Hemoglobin 13.5 g/dL (12.2-16.2); Lymphocytes # 0.7 K/mm3 (0.7-4.5); Lymphocytes % 11.5 % (10-50); Mean Corpuscular HGB Conc 35.6 g/dL (31.8-35.4); Mean Corpuscular Volume 89.8 fl (81-99); Mean Platelet Volume 10.6 fl (7.4-10.4); Monocytes # 0.2 K/mm3 (0.1-1.0); Monocytes % 3.7 % (1.7-9.3); Neutrophils # 5.3 K/mm3 (1.8-7.8); Neutrophils % 84.2 % (37.0-80.0); Platelet Count 64 K/mm3 (142-424); Red Blood Count 4.22 M/mm3 (4.20-5.40); Red Cell Distribution Width 13.5 % (11.5-17.5); White Blood Count 6.3 K/mm3 (4.8-10.8)
[2024-07-13] MEDS: ACETAMINOPHEN 500MG TAB 1000 MG PO (23:25)
[2024-07-13] MEDS: ASPIRIN 81MG CHEWABLE TABLET 324 MG PO (23:25)
[2024-07-13 23:27] LABS: Lactate Venous 2.5 mmol/L (0.4-2.0); VBG Base Excess -0.8 mmol/L (-2.4-2.3); VBG HCO3 24.1 mmol/L (23-30); VBG PCO2 40.1 mmol/L (35-51); VBG Total CO2 25.3 mmol/L (23-27)
[2024-07-13 23:28] LABS: Coronavirus 19, PCR Not Detected (NotDetected); Influenza A, PCR Not Detected (NotDetected); Influenza B, PCR Not Detected (NotDetected)
[2024-07-13] MEDS: BELLADONNA ALKALOIDS 60 ML ML PO (23:28)
[2024-07-13 23:36] LABS: INR 1.12 (0.9-1.1); Prothrombin Time 12.4 seconds (10.1-12.5)
[2024-07-13 23:40] LABS: Albumin Level 4.6 g/dl (3.5-5.0); Chloride 102 mmol/L (98-107); Potassium 4.3 mmoL/L (3.5-5.1); Sodium 133 mmol/L (136-145)
[2024-07-13 23:42] LABS: Blood Urea Nitrogen 15 mg/dl (7-17); Creatinine Clearance Estimated 106 mL/min (50-200); Estimated Glomerular Filt Rate 74 ml/min (>60); GFR (African American) 89 ML/MIN (>60)
[2024-07-13 23:43] LABS: Alanine Aminotransferase 38 U/L (12-78); Albumin/Globulin Ratio 1.8 (1.1-1.8); Alkaline Phosphatase 54 U/L (38-126); Anion Gap 12.3 mEq/L (5-15); Aspartate Amino Transferase 42 U/L (14-36); Bilirubin,Total 2.9 mg/dl (0.2-1.3); Calcium 9.5 mg/dl (8.4-10.2); Carbon Dioxide 23 mmol/L (22.0-30.0); Globulin 2.5 g/dL (1.3-3.2); Glucose 333 mg/dl (74-100); Lipase 192 U/L (23-300); Total Protein,Serum 7.1 g/dl (6.3-8.2)
[2024-07-13 23:44] LABS: D-Dimer 0.38 ug/mL (0.0-0.5)
[2024-07-13 23:45] LABS: Acetone, Serum (Rapid) None Detected (None Detect)
[2024-07-13 23:56] LABS: Troponin I < 0.01 ng/ml (0.00-0.034)
[2024-07-14] VITALS: BP 112/73; PULSE 93; RESP 15; O2SAT 96
[2024-07-14 00:25] LABS: HIV Combo NEGATIVE (Negative)
[2024-07-14 00:30] VITALS: BP 122/65; PULSE 96; RESP 15; O2SAT 96
[2024-07-14 00:32] LABS: Hepatitis C Ab Qual. W/ RFX NEGATIVE (Negative)
[2024-07-14] MEDS: humaLOG 100 UNITS/ML 10ML VIAL (SSI) 8 UNIT SUBCUT (00:45)
[2024-07-14 01:00] VITALS: BP 113/73; PULSE 89; RESP 13; O2SAT 97
[2024-07-14 01:30] VITALS: BP 102/74; PULSE 68; RESP 15; O2SAT 97
[2024-07-14 02:07] LABS: Troponin I < 0.01 ng/ml (0.00-0.034)
[2024-07-14 02:14] VITALS: BP 121/77; PULSE 83; RESP 20; TEMP 36.9; O2SAT 97
[2024-07-14 03:28] LABS: Reflex Lactic Add Lactic Reflex
== END 2024-07-14 02:20 | disposition home or self-care (01) ==
PROVIDERS: Emergency Medicine; Emergency Provider Emergency Medicine; PCP Family Medicine
DX: R07.9 Chest pain, unspecified (principal); R06.02 Shortness of breath; K74.60 Unspecified cirrhosis of liver; K21.9 Gastro-esophageal reflux disease without esophagitis; E11.9 Type 2 diabetes mellitus without complications
CPT/HCPCS: 71045; 80053; 82009; 82803; 83690; 84484; 85025; 85378; 85610; 86803; 87389; 87636; 93005; 99284

== ENCOUNTER 2025-01-10 21:24 | Emergency (ER) | payer MEDICARE, SELFPAY ==
--- OUTSIDE RECORDS SUMMARY | 2023-10-13 11:30 | XMS_ITS ---
Author Organization [facility] Address [address] [facility] [address] [place] [id number] Care Team Providers Care Glue Bone Crusher Name Role Phone Radha Main Primary Care Provider [phone] Sara Mendez Unavailable [phone] Allergies Allergen (clinical drug ingredient) Drug/Non Drug [...] 10/13/2023 Encounters Encounter Location Date Provider Diagnosis [facility] [address] [facility] [address] [place], [place] [id number] 10/13/2023 Sara Mendez Acute URI J06.9 ; [...] Notes * TANYA FIGUEROACARRILLODOB:1965 (59 yo F)Acc No.[id number]:10/13/2023 Progress Notes Patient: CHETNA GILL Provider: REHAN Cabrera :1965 A ge:58 Y S ex:Female Date:10/13/2023 Address:[address] [place] [address], [facility], [id number] Pcp:Radha Main Subjective: * Chief Complaints: * [...] varices 09/14/2019 CT. 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 * Hospitalization/Major Diagno stic Procedure: M onitoring for chest pain 01-21 to 01-23-08, [facility] ER : passed out , [facility] - passed out Apr 18, 2017. [...] * Procedure Codes: 9 [address] [place], [address] CAPILLARY BLOOD DRAW, 29074 CBC WITH AUTO DIFF * Follow Up: p rn * Images: Billing Information: * Visit Code: 75640 Office Visit, Est Pt., Level 3. * Procedure Codes: [address] [place]. [address] CAPILLARY BLOOD DRAW. 34768 CBC WITH AUTO DIFF. * Electronic signature of REHAN Jeffery on 01/10/2025 at 10:27 PM EDT Sign off status: Pending * Provider: REHAN Cabrera Date: 0 10/13/2023 Generated for Osmel nassar/Lakeisha/eTransmitting on: 0 01/10/2025 10:27 PM EDT History and Physical Notes * HPI (History [...]
--- OUTSIDE RECORDS SUMMARY | 2023-10-18 10:45 | XMS_ITS ---
Author Organization [facility] Address [address] [facility] [address] [place] [id number] Care Team Providers Care Shipping Technician Name Role Phone Radha Main Primary Care Provider Taty Gibbs Unavailable [phone] Allergies Allergen (clinical drug ingredient) Drug/Non Drug [...] W/U Status Risk Notes Problem Otitis externa (7332928) Otitis externa (H60.90) Active confirmed Vital Signs Blood pressure systolic 146 mm Hg 10/18/19 24 Blood pressure diastolic 82 mm Hg 024 Heart Rate 110 /min 10/18/2023 Height 60.50 in 10/18/2023 Weight 201.8 lbs 10/18/2023 BMI 38.76 kg/m2 10/18/2023 Encounters Encounter Location Date Provider Diagnosis [facility] [address] [place], [place] [phone] 10/18/2023 Tatymainor Gibbs Otitis media H66.90 ; [...] several months; has an appt at [facility] end of October; will run out [...] several months; has an appt at [facility] end of October; will run out of above meds before this;will RF meds as noted Next Appt Details Follow Up: 10/22/2023, Reason : Progress Notes * CAROLINA, CHETNADOB:1965 (59 yo F)Acc No.[id number]:10/18/2023 Progress Notes Patient: CHETNA GILL Provider: CLARA Bo :1965 A ge:58 Y S ex:Female Date:10/18/2023 Address:[facility] [address], [place], [id number] Pcp:Radha Main Subjective: * Chief Complaints: * [...] varices 09/14/2019 CT. 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 * Hospitalization/Major Diagno stic Procedure: M onitoring for chest pain 01-21 to 01-23-08, [facility] : passed out , [facility] - passed out Apr 18, [...] * Images: Billing Information: * Visit Code: 46246 Office Visit, Est Pt., Level 3. * Procedure Codes: 30130 PULSE OX. * Electronic signature of Andreea Gibbs APRN on 01/10/2025 at 10:26 PM EDT Sign off status: Pending * Provider: CLARA Bo Date: 0 10/18/2023 Generated for Osmel nassar/Lakeisha/eTransmitting on: 0 01/10/2025 10:26 PM EDT History and Physical Notes * [...]
--- OUTSIDE RECORDS SUMMARY | 2023-10-22 05:45 | XMS_ITS ---
Author Organization [facility] Address [address] [facility] [address] [place] [phone] Care Team Providers Care Sewage Plant Operator Name Role Phone Radha Main Primary Care Provider Sara Mendez Unavailable [phone] Allergies Allergen (clinical drug ingredient) Drug/Non Drug [...] Status W/U Status Risk Notes Problem Hypoglycemia (000669652) Hypoglycemia (E16.2) Active confirmed Vital Signs Blood pressure systolic 128 mm Hg 10/22/19 24 Blood pressure diastolic 76 mm Hg 024 Heart Rate 85 /min 10/22/2023 Height 60.50 in 10/22/2023 Weight 202.4 lbs 10/22/2023 BMI 38.87 kg/m2 10/22/2023 Encounters Encounter Location Date Provider Diagnosis [facility] [address] [place], [place] [phone] 10/22/2023 Sara Crowdy Otitis externa H60.9 0 [...] Notes * IGOR, CHETNADOB:1965 (59 yo F)Acc No.[id number]:10/22/2023 Patient: CHETNA GILL Provider: REHAN Cabrera :1965 A ge:58 Y S ex:Female Date:10/22/2023 [facility] [id number] Pcp:Radha Main Subjective: * Chief Complaints: * [...] ardiology: Pt sts that she seen her estate planning director the other day and they mentioned a [...] varices 09/14/2019 CT. 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 * Hospitalization/Major Diagno stic Procedure: M onitoring for chest pain 01-21 to 01-23-08, [facility] : passed out , [facility] - passed out Apr 18, 2017. [...] * Procedure Codes: 9 4760 PULSE [place]X, [address] CAPILLARY BLOOD DRAW, 52197 GLUCOSE TEST * Follow Up: p rn * Images: Billing Information: * Visit Code: 57268 Office Visit, Est Pt., Level 3. * Procedure Codes: [address] [place]. [address] CAPILLARY BLOOD DRAW. 07291 GLUCOSE TEST. * Electronic signature of REHAN Jeffery on 01/10/2025 at 10:26 PM EDT Sign off status: Pending * Provider: REHAN Cabrera Date: 0 10/22/2023 Generated for Osmel nassar/Lakeisha/Mecheitting on: 0 01/10/2025 10:26 PM EDT History [...]
--- OUTSIDE RECORDS SUMMARY | 2024-05-26 07:00 | XMS_ITS ---
[facility] Address [address] [place] [phone] Care Team Providers Care Finisher Fine Diamond Dies Name Role Phone Radha Main Primary Care Provider [phone] Sara Mendez Unavailable [phone] Allergies Allergen (clinical drug ingredient) Drug/Non Drug [...] n behavior of skin (D48.5) [facility] Referring Provider First Name Sara Referring Provider Last Name Andrea Referring Provider Speciality Physician Caser Up Referred Provider Dermatology, . Referred Provider Specialty Dermatology General Notes Sara Mendez 2024 10:23:10 AM > Would like someone at , if not there will try [facility], Taylor Spence 05/30/2024 1:30:38 PM > completed [...] Last Name Andrea Referring Provider Speciality Physician Caser Up Referred Provider Physical Therapy, . Referred Provider Specialty Physical The rapist General Notes Sara Mendez 2024 10:24:24 AM > Would like to go to [facility], Taylor Spence 05/29/2024 10:42:37 AM > faxed to [facility] PT Referral Priority Routine REASON FOR [...] Status Risk Notes Problem Sciatic nerve lesion (689978678) Piriformis syndrome of right side (G57.01) Active confirmed Problem Neck pain (68515327) Neck pain (M54.2) Active confirmed Vital Signs Blood pressure systolic 124 mm Hg 05/26/19 25 Blood pressure diastolic 82 mm Hg 025 Heart Rate 94 /min 05/26/2024 Height 60.50 in 05/26/2024 Weight 207.8 lbs 05/26/2024 BMI 39.91 kg/m2 05/26/2024 Encounters Encounter Location Date Provider Diagnosis [facility] [address] [place] [phone] 05/26/2024 Sara Mendez Neoplasm of uncertai n [...] Notes * CHETNA COSTADOB:1965 (59 yo F)Acc No.[id number]:05/26/2024 Progress Notes Patient: CHETNA GILL Provider: REHAN Cabrera :1965 A ge:59 Y S ex:Female Date:05/26/2024 Address:[address], [place], [id number] Pcp:Radha Main Subjective: * Chief Complaints: * [...] varices 09/14/2019 CT. * Surgical History: t digital analytics manager thumb bilaterally 11/2006,01/2007, trigger thumb/2nd, 3rd digit release 08/2009, cholecystectomy and appendectomy 1994, Heart Cath 03/13, panascopy 10/21. * Hospitalization/Major Diagno stic Procedure: M onitoring for chest pain 01-21 to 01-23-08, [facility] ER : passed out , [facility] ER - passed out Apr 18, [...] * Images: Billing Information: * Visit Code: 64513 Office Visit, Est Pt., Level 4. * Procedure Codes: G2211 Complex e/m visit add on. 3074F SYST BP LT 130 MM HG. 3079F DIAST BP 80-89 MM HG. * Electronic signature of REHAN Jeffery on 01/10/2025 at 10:26 PM EDT Sign off status: Pending * Provider: REHAN Cabrera Date: 0 05/26/2024 Generated for Osmel nassar/Lakeisha/Nneka on: 0 01/10/2025 10:26 PM EDT History [...]
--- OUTSIDE RECORDS SUMMARY | 2024-11-20 09:24 | XMS_ITS | Encounter Summary ---
Author Organization [facility] Address [address] [place] [address] Care Team Providers Care Scarrer Name Role Phone Elfego Main MD Primary Care Provider [phone] Reason for Referral * Imaging (Routine) - Closed Specialty Diagnoses / Procedures Referred By Mirtha scanlon Referred To Contact Radiology Diagnoses Cirrhosis of liver without ascites, unspecified hepatic cirrhosis type (CMS/HCC) Procedures US Liver Screen Farzaneh Brennan APRN [address] [address] Phone: tel: fax: Referral ID Status Reason Start Date Expiration Date Visits Re quested Visits Authorized [id number] Closed 05/30/2024 11/29/2025 1 1 Reason for Visit * Imaging (Routine) - Closed Specialty Diagnoses / Procedures Referred By Contbassem scanlon Referred To Contact Radiology Diagnoses Cirrhosis of liver without ascites, unspecified hepatic cirrhosis type (CMS/HCC) Procedures US Liver Screen Farzaneh Brennan APRN [address] [facility] [address] [place] [address] Phone: tel: fax: Referral ID Status Reason Start Date Expiration Date Visits Re quested Visits Authorized [id number] Closed 05/30/2024 11/29/2025 1 1 Encounter Details Date Type Department Care Team (Latest Contact Info) Description 11/20/2024 9:24 AM EDT - 11/20/2024 11:59 PM EDT Hospital Encounter [facility] Ultrasound [address] [place] [address] Cirrhosis of liver without ascites, unspecified hepatic cirrhosis type ([facility]/HCC) Discharge Disposition: Home or Self Care Social History Tobacco Use Types Packs/Day Years Used Date Smoking Tobacco: Never Passive Smoke Exposure: Never Smokeless Tobacco: Never Alcohol Use Standard Drinks/Week Comments Yes 0 (1 standard drink = 0.6 oz pur e alcohol) ocassionally PHQ-2 Answer Date Recorded Patient Health Questionnaire-2 Score 0 11/27/2024 PHQ-9 Answer Date Recorded Patient Health Questionnaire-9 Score 3 05/30/2024 Comments No Sex and Gender Information Value Date Recorded Sex Assigned at Not on file Legal Sex Female 7:30 PM EDT Gender Identity Not on file Sexual Orientation Not on file documented as of this encounter Medications at Time of Discharge acetaminophen (Tylenol) 500 MG tablet Take 2 tablets by mouth every 6 hours as needed for pain, headaches or fever. Continuous Glucose Sensor (FreeStyle Eric 3 Plus Sensor) miscIndications: Type 2 diabetes mellitus with hyperglycemia, with long-term current use of insulin ([facility]) 1 sensor every 15 days. 6 each 3 11/09/2024 6 fluticasone (Flonase) 50 MCG/ACT nasal spray Administer 2 sprays into each nostril daily as needed for allergies or rhinitis. 02/05/2023 furosemide (Lasix) 20 MG tablet TAKE ONE TABLET BY MOUTH ONCE A DAY 30 tablet 3 09/25/2024 glucagon (Baqsimi Two Pack) 3 MG/DOSE powder Nasal Powder Administer 3 mg into affected nostril(s) 1 (one) time if needed (severe hypoglycemia). 2 each 3 01/26/2024 5 lidocaine (Lidoderm) 5 % patch Apply 1 patch topically as needed. 01/04/2024 loratadine (Claritin) 10 MG tablet Take 1 tablet by mouth daily. losartan-hydroCH LOROthiazide (Hyzaar) 50-12.5 MG tablet Take 0.5 tablets by mouth daily. 10/04/2020 meclizine (Antivert) 25 MG tablet Take 1 tablet by mouth 3 (three) times a day as needed for dizziness. 05/29/2024 pen needle, diabetic (B-D UF III MINI PEN NEEDLES) 31G X 5 MM misc Use 2x/day 180 each 3 08/02/2024 rifAXIMin (Xifaxan) 550 MG tablet Take 1 tablet (550 mg) by mouth 2 (two) times a day. 60 tablet 11/23/2023 Semaglutide, 1 MG/DOSE, (Ozempic, 1 MG/DOSE,) 4 MG/3ML solution pen-injector Inject 1 mg under the skin 1 time per week. 9 mL 3 11/09/2024 spironolactone (Aldactone) 50 MG tablet TAKE ONE TABLET BY MOUTH ONCE A DAY 30 tablet 3 08/15/2024 documented as of this encounter Plan of Treatment Upcoming Encounters Date Type Department Care Team (Late st Contact Info) Description 01/24/2025 8:15 AM EDT Office Visit [facility] [address] [place] [address] Alix Webb MD [address] [place] [address] 01/30/2025 1:10 PM EDT Appointment [facility] [address] [place] [address] James Benson MD [address] [place] [id number] 03/07/2025 2:20 PM EST Office Visit [facility] [address] [place] [address] Caridad Mondragon, JITTERBUG OPERATOR [address] [place] [address] 05/31/2025 9:00 AM EST Office Visit [facility] [address] [place] [address] Barrett Stratton PA [address] [place] [address] 09/20/2025 10:30 AM EDT Office Visit [facility] [address] [place] [address] Yo Guadarrama MD [address] [place] [address] documented as of this encounter Procedures Procedure Name Priority Date/Time Associated Diagnosis Comments US LIVER SCREEN Routine 11/20/2024 10:09 AM EDT Cirrhosis of liver without ascites, unspecified hepatic cirrhosis type (CMS/HCC) documented in this encounter Results * US Liver Screen (11/20/2024 10:09 AM EDT) Anatomical Region Laterality Modality Abdomen, Liver Ultrasound Impressions 11/20/2024 10:23 AM EDT 1. Morphologic changes underlying parenchymal disease. No suspicious hepatic focal lesion. 2. Splenomegaly. No ascites. Category Score US-1 Negative. No US evidence of HCC. No observation or Only definitely benign observation(s). Continue with regular screening. Visualization Score Vis B. Moderate limitations. Limitations may obscure small masses. The above scoring system and recommendations are based on Ultrasound LI-RADS version 2017. [email or web address] CRITICAL RESULT: No. COMMUNICATION: Per this written report. Drafted by Joey Herrera MD on 11/20/2024 10:21 AM Final report signed by Joey Herrera MD on 11/20/2024 10:23 AM Narrative 11/20/2024 10:23 AM EDT CLINICAL INDICATION: Cirrhosis r/o HCC TECHNIQUE: Multiplanar static and cine lambert scale ultrasound images of the abdomen were obtained, accompanied by selective color Doppler ultrasound images. COMPARISON: None. FINDINGS: Grayscale: Liver: The liver is coarse and heterogenous consistent with parenchymal disease. No suspicious focal lesions are detected. Portal Vein: There is antegrade flow within the main portal vein. Gallbladder: The gallbladder is absent Common Duct: 3 mm Spleen: The spleen is enlarged measuring 15.7 cm. Free Fluid: There is no ascites Other: N/A Procedure Note Joey Herrera MD - 11/20/2024 CLINICAL INDICATION: Cirrhosis r/o HCC TECHNIQUE: Multiplanar static and cine lambert scale ultrasound images of the abdomenwere obtained, accompanied by selective color Doppler ultrasound images. COMPARISON: None. FINDINGS: Grayscale: Liver: The liver is coarse and heterogenous consistent with parenchymaldisease. No suspicious focal lesions are detected. Portal Vein: There is antegrade flow within the main portal vein. Gallbladder: The gallbladder is absent Common Duct: 3 mm Spleen: The spleen is enlarged measuring 15.7 cm. Free Fluid: There is no ascites Other: N/A IMPRESSION: 1.Morphologic changes underlying parenchymal disease. No suspicioushepatic focal lesion. 2.Splenomegaly. No ascites. Category Score US-1 Negative. No US evidence of HCC. No observation orOnly definitely benign observation(s). Continue with regular screening. Visualization Score Vis B. Moderate limitations. Limitations may obscuresmall masses. The above scoring system and recommendations are based on UltrasoundLI-RADS version 2017. [email or web address] CRITICAL RESULT: No. COMMUNICATION: Per this written report. Drafted by Joey Herrera MD on 11/20/2024 10:21 AM Final report signed by Joey Herrera MD on 11/20/2024 10:23 AM us Farzaneh Brennan JITTERBUG OPERATOR IMG US PROCEDURES Final Res ult documented in this encounter Visit Diagnoses Diagnosis Cirrhosis of liver without ascites, unspecified hepatic cirrhosis type (CMS/HCC) documented in this encounter Additional Health Concerns Assessment Noted Time PHQ-9 Depression Total Score: 3 05/30/19 25 11:43 AM EST A fall risk assessment has been complete d for the patient 10/25/2024 10:12 AM EDT A Body Mass Index follow-up plan has been documented for the patient 11/09/2024 2:30 PM EDT documented as of this encounter Care Teams Scarrer Relationship Specialty Start Date End Date Elfego Main MD [address] [place] [id number] PCP - General 09/06/20 documented as of this encounter
--- OUTSIDE RECORDS SUMMARY | 2024-11-27 10:30 | XMS_ITS | Encounter Summary ---
Author Organization [facility] Address [address] [place] [address] Care Team Providers Care Condenser Cleaner Name Role Phone Elfego Main MD Primary Care Provider [phone] Reason for Referral * Consultation (Routine) - Authorized Specialty Diagnoses / Procedures Referred By Contac t Referred To Contact Diagnoses Esophageal dysphagia Cirrhosis of liver without ascites, unspecified hepatic cirrhosis type (CMS/HCC) Gastroesophageal reflux disease without esophagitis Barrett Stratton PA [address] [place] [address] Phone: tel: fax: Referral ID Status Reason Start Date Expiration Date V isits Requested Visits Authorized [id number] Authorized 11/27/2024 05/29/2026 1 1 * Imaging (Routine) - Pending Review Specialty Diagnoses / Procedures Referred By Contac t Referred To Contact Radiology Diagnoses Cirrhosis of liver without ascites, unspecified hepatic cirrhosis type (CMS/HCC) Procedures US Liver Screen Barrett Stratton PA [address] [place] [address] Phone: tel: fax: Referral ID Status Reason Start Date Expiration Date V isits Requested Visits Authorized [id number] Pending Review 11/27/2024 05/29/2026 1 1 * Imaging (Routine) - Pending Review Specialty Diagnoses / Procedures Referred By Mirtha scanlon Referred To Contact Gastroenterology Diagnoses Esophageal dysphagia Cirrhosis of liver without ascites, unspecified hepatic cirrhosis type (CMS/HCC) Gastroesophageal reflux disease without esophagitis Procedures EGD Barrett Stratton PA [address] [place] [address] Phone: tel: fax: Referral ID Status Reason Start Date Expiration Date Visits Requested Visits Authorized [id number] Pending Review Specialty Services Required 11/27/2024 05/29/2026 1 1 Reason for Visit * Reason Comments Follow-up Encounter Details Date Type Department Care Team (Late st Contact Info) Description 11/27/2024 10:30 AM EDT [facility] [address] [place] [address] Barrett Stratton PA [address] [place] [address] Esophageal dysphagia (Primary Dx); Cirrhosis of liver without ascites, unspecified hepatic cirrhosis type (CMS/HCC); Gastroesophageal reflux disease without esophagitis; Costovertebral angle tenderness; BMI 36.0-36.9,adult Social History Tobacco Use Types Packs/Day Years [...] on file documented as of this encounter Last Filed Vital Signs Vital Sign Reading Time Taken Comments Blood Pressure 112/75 11/27/2024 10:12 AM EDT Pulse 73 11/27/2024 10:12 AM EDT Temperature 36.8 C (98.2 F) 11/27/2024 10:12 AM EDT Respiratory Rate - - Oxygen Saturation 98% 11/27/2024 10:12 AM EDT Inhaled Oxygen Concentration - - Weight 88 kg (194 lb 0.1 oz) 11/27/2024 10:12 AM EDT Height 154.9 cm (5' 1 ) 11/27/2024 10:12 AM EDT Body Mass Index 36.66 11/27/2024 10:12 AM EDT documented in this encounter Functional Status * Over the past 2 weeks, how often have you been bothered by any of the following problems? Question Answer Date of Assessment Author Little interest or pleasure in doing things Not at all 11/27/2024 10:10 AM DESEANT Kaci Guerrero Feeling down, depressed, or hopeless Not at all 11/27/2024 10:10 AM DESEANT Kaci Guerrero Patient Health Questionnaire -2 Score 0 11/27/2024 10:10 AM EDT Kaci Guerrero * Question Answer Date of Assessment Author Trouble falling or staying a sleep, or sleeping too much Not at all 11/27/2024 10:10 AM Kaci Garduno Feeling tired or having angely le energy Not at all 11/27/2024 10:10 AM DESEANT Kaci Guerrero Feeling bad about yourself - or that you are a failure or have let yourself or your family down Not at all 11/27/2024 10:10 AM Kaci Garduno Trouble concentrating on thi ngs, such as reading the newspaper or watching television Not at all 11/27/2024 10:10 AM DESEANT Kaci Guerrero Moving or speaking so slowly that other people could have noticed? Or the opposite - being so fidgety or restless that you have been moving around a lot more than usual. Not at all 11/27/2024 10:10 AM Kaci Garduno Thoughts that you would be b faheem off or hurting yourself in some way Not at all 11/27/2024 10:10 AM Dereck Gardunoka documented as of this encounter Miscellaneous Notes * Progress Notes - Barrett Stratton PA - 11/27/2024 10:30 AM EDT General Hepatology Note Subjective Patient ID: Monae Costa is a 59 y.o. female. The following portions of the chart were reviewed this encounter and updated as appropriate: Tobacco Allergies Meds Problems Med Hx Surg Hx Fam Hx Chief Complaint Patient presents with Follow-up History of Presenting Illness Ms. Monae Costa is a 59 y.o. female presenting for follow-up of KOENIG Cirrhosis. She has an additional past medical history of HTN, GERD with H Pylori, T2DM, colonic polyps, PHG, Esophageal varices, anxiety and depression. The patient states she has been doing well overall, but does report back pain on her left side. Shestates it is worsened around the kidneys. The pain started and has worsened some over the last 2-3 months. She is unsure if it is secondary to kidney issues or if it is muscular. Her urine output appears normal; renal function on recent labs is okay. She has lidocaine patches at home, but hasn't used them yet. She also reports history of constipation. Patient denies dysphagia, or chest pain. No abdominal distention or lower leg swelling. No vomitingor diarrhea. No hematemesis, hematochezia or melena reported. No confusion or memory changes. No fever or chills. No unintentional weight changes. No jaundice or icterus. No NSAID use. No tobacco, alcohol or illicit drug use reported. No family history relative to hepatic or GI-related malignanciesor disease. US Liver Screen 11/20/2024: The liver is coarse and heterogenous consistent with parenchymal disease. No suspicious focal lesions are detected. Antegrade flow in the main portal vein. Gallbladder is absent. CBD 3mm. Spleen is enlarged measuring 15.7cm. No ascites. OSH Labs 05/05/23: Sodium 138, Creatinine 0.7, tBili 2.4, Albumin 3.7, ALP 65, AST 41, ALT 40, RBC 4.13, HCT 13.9, Plt 74. US Liver Screen 03/23/23: No gallbladder or biliary ductal dilatation. No fluid collections noted. Liver is coarse in echotexture and slightly nodular contour similar to that seen in the prior US in 01/2023. Stable in appearance. No ascites. Echocardiogram 01/2023: Left ventricle is normal size. The left ventricular systolic function is normal. The left ventricular ejection fraction is within the normal range. There is normal left ventricular wall thickness. There is normal LV segmental wall motion. The left ventricular diastolic function is normal. LVEF is 60%. Right ventricle is normal size. The right ventricular systolic function is normal. Atria are normal. There interatrial septum there is no Doppler evidence of intraatrial shunt. Aortic valve opens well. There is no aortic valvular stenosis. No aortic regurgitation present.Mitral valve is normal in structure. No evidence of mitral valve stenosis. Trace mitral regurgitation. Tricuspid valve leaflets are thin and pliable. Mild tricuspid regurgitation. RVSP is 20-25 mmHg.Pulmonary valve is normal in structure. Trace pulmonic regurgitation. Aortic root is normal in size. The ascending aortia is normal in size. IVC is normal in size and collapses >50% with inspiration. No pericardial effusion. EGD 10/21/2020: On exam, the post bulbar duodenum and duodenal bulb were normal with normal mucosa and conniventes. There was some mild linear reactive gastropathy of the antrum. There was moderate portal gastropathy with mosaic pattern of the body and fundus of the stomach. Upon retroflexion therewas no hiatal hernia. No fundic varices. Grade 1-2 esophageal varices noted; without stigmata of bleeding. Nonerosive GERD with mild esophageal dysmotility. Mild to moderate portal gastropathy. Biopsies shows marked chronic gastritis. No H. Pylori or intestinal metaplasia noted. Reactive gastric mucosa with mixed inflammation. No squamous mucosa identified. No intestinal metaplasia or dysplasia identified. Colonoscopy 10/21/2020: On digital rectal examination there was normal rectal tone. There were no external hemorrhoids. Left sided colonic diverticulosis. Grade 2 internal hemorrhoids. Tubular Adenoma in the transverse colon. Hyperplastic polyp in the sigmoid colon. Repeat 5 years. Past Medical History Past Medical History: Diagnosis Date Anxiety disorder, unspecified Anxiety and depression Cirrhosis (CMS/HCC) KOENIG Irregular heart beat patient states her physician always tells her at her office that she has a heart murmur. Personal history of other diseases of the circulatory system History of hypertension Personal history of other diseases of the circulatory system History of other diseases of the circulatory system, not elsewhere classified Personal history of other diseases of the digestive system History of gastroesophageal reflux (GERD) Type 2 diabetes mellitus 2009 Started using insulin regulary 2012 Surgical History Past Surgical History: Procedure Laterality Date APPENDECTOMY N/A Appendectomy from [facility] BELT ABDOMINOPLASTY BREAST AUGMENTATION CARPAL TUNNEL RELEASE Bilateral SECTION, LOW TRANSVERSE N/A Section from [facility] COLONOSCOPY GALLBLADDER SURGERY N/A Gallbladder Surgery from [facility] TRIGGER FINGER RELEASE Bilateral TRIGGER POINT INJECTION multiple to neck and shoulder Family History Family History Problem Relation Name Age of Onset Stroke Mother Diabetes Mother Hypertension Mother Obesity Mother Conversions - Other Mother Heart trouble Other cancer Sister Anesthesia problems Neg Hx Malig Hyperthermia Neg Hx Social History Social History Socioeconomic History Marital status: Spouse name: Not on file Number of children: Not on file Years of education: Not on file Highest education level: Not on file Occupational History Not on file Tobacco Use Smoking status: Never Passive exposure: Never Smokeless tobacco: Never Vaping Use Vaping status: Never Used Substance and Sexual Activity Alcohol use: Yes Comment: ocassionally Drug use: Never Sexual activity: Defer Other Topics Concern Not on file Social History Narrative Marital Status: Sexually active History of body piercing History of tattoo Social Drivers of Health Financial Resource Strain: Not on file Food Insecurity: Not on file Transportation Needs: Not on file Physical Activity: Not on file Stress: Not on file Social Connections: Unknown (02/01/2023) Received from [facility] Family and Community Support Help with Day-to-Day Activities: Not on file Lonely or Isolated: Not on file Intimate Partner Violence: Unknown (02/01/2023) Received from [facility] Abuse Screen Unsafe at Home or Work/School: Not on file Feels Threatened by Someone?: Not on file Does Anyone Keep You from Contacting Others or Doint Things Outside the Home?: Not on file Physical Sign of Abuse Present: Not on file Housing Stability: Unknown (02/01/2023) Received from [facility] Housing Stability Current Living Arrangements: Not on file Potentially Unsafe Housing Conditions: Not on file Review of Systems A 14 point review of systems negative except for HPI Outpatient Medications Current Outpatient Medications Medication Instructions acetaminophen (TYLENOL) 1,000 mg, Every 6 hours PRN Baqsimi Two Pack 3 mg, Nasal, Once as needed Continuous Glucose Sensor (FreeStyle Eric 3 Plus Sensor) misc 1 sensor, Does not apply, Every 15 days fluticasone (Flonase) 50 MCG/ACT nasal spray 2 sprays, Daily PRN furosemide (LASIX) 20 mg, Oral, Daily lidocaine (Lidoderm) 5 % patch 1 patch, As needed loratadine (CLARITIN) 10 mg, Daily losartan-hydroCHLOROthiazide (Hyzaar) 50-12.5 MG tablet 0.5 tablets, Daily meclizine (Antivert) 25 MG tablet Take 1 tablet by mouth 3 (three) times a day as needed for dizziness. omeprazole (PRILOSEC) 20 mg, Oral, Daily, Do not crush or chew. Ozempic (1 MG/DOSE) 1 mg, Subcutaneous, Weekly pen needle, diabetic (B-D UF III MINI PEN NEEDLES) 31G X 5 MM misc Use 2x/day rifAXIMin (XIFAXAN) 550 mg, Oral, 2 times daily spironolactone (ALDACTONE) 50 mg, Oral, Daily Allergies Allergies Allergen Reactions Nsaids Other - please document in the comment field Patient states with her low platelets and cirrhosis she has been advised not to take any NSAIDs. Canagliflozin Other - please document in the comment field Duloxetine Hcl Other - please document in the comment field Insulin Glargine Other - please document in the comment field Linagliptin Other - please document in the comment field Metformin Other - please document in the comment field Sitaglip Phos-Metformin Hcl Er Other - please document in the comment field Vaccinations There is no immunization history on file for this patient. Vital Signs Visit Vitals BP 112/75 Pulse 73 Temp 36.8 ??C (98.2 ??F) Ht 1.549 m (5' 1 ) Wt 88 kg (194 lb 0.1 oz) LMP (LMP Unknown) SpO2 98% BMI 36.66 kg/m?? OB Status Postmenopausal Smoking Status Never BSA 1.95 m?? Physical Exam General - Well nourished and developed. She is in no acute distress. Appears stated age. HEENT - No scleral icterus, EOMI, atraumatic, normocephalic; ears located midway on head with normal appearance, nose midline without discharge. Cardiovascular - No LE edema present Respiratory - Respiratory rate even and non-labored. Gastrointestinal - Bowel sounds present; soft, generalized tenderness upon palpation, non-distended, no ascites noted; no hernias present; liver and spleen not felt. No CVA tenderness. Dermatologic - No jaundice, spider angiomata, or palmar erythema. MSK - No deformities noted; no edema or erythema of joints visible, normal gait and station Neuro - Oriented to time and place. Psychiatric - Pleasant, calm, cooperative. Labs MELD 3.0: 13 at 11/27/2024 10:59 AM MELD-Na: 11 at 11/27/2024 10:59 AM Calculated from: Serum Creatinine: 0.71 mg/dL (Using min of 1 mg/dL) at 11/27/2024 10:59 AM Serum Sodium: 138 mmol/L (Using max of 137 mmol/L) at 11/27/2024 10:59 AM Total Bilirubin: 2.2 mg/dL at 11/27/2024 10:59 AM Serum Albumin: 3.9 g/dL (Using max of 3.5 g/dL) at 11/27/2024 10:59 AM INR(ratio): 1.2 at 11/27/2024 10:59 AM Age at listing (hypothetical): 59 years Sex: Female at 11/27/2024 10:59 AM AFP Lab Results Component Value Date/Time AFP <2.3 11/27/2024 1059 AFP 2.8 05/30/2024 1248 HgB Lab Results Component Value Date/Time HGB 12.4 11/27/2024 1059 HGB 13.3 08/10/2024 1517 WBC Lab Results Component Value Date/Time WBC 3.94 11/27/2024 1059 WBC 4.19 08/10/2024 1517 PLT Lab Results Component Value Date/Time PLT 57 (L) 11/27/2024 1059 PLT 61 (L) 08/10/2024 1517 A1c Lab Results Component Value Date/Time HGBA1C 7.3 11/09/2024 1342 HGBA1C 9.7 (A) 06/16/2021 1423 Lab Results Component Value Date/Time AST 38 (H) 11/27/2024 1059 ALT 34 11/27/2024 1059 ALKPHOS 77 11/27/2024 1059 BILITOT 2.2 (H) 11/27/2024 1059 INR 1.2 (H) 11/27/2024 1059 PLT 57 (L) 11/27/2024 1059 ALBUMIN 3.9 11/27/2024 1059 HEPBSAG Negative 11/23/2023 1056 HECG Negative 11/23/2023 1056 HAG Negative 11/23/2023 1056 CREATININE 0.71 11/27/2024 1059 HGBA1C 7.3 11/09/2024 1342 HGBA1C 9.7 (A) 06/16/2021 1423 CHOL 170 11/23/2023 1056 LDLCALC 100 (H) 11/23/2023 1056 LDLCALC 93 09/23/2018 1241 HDL 53 11/23/2023 1056 TRIG 90 11/23/2023 1056 AFP <2.3 11/27/2024 1059 HGB 12.4 11/27/2024 1059 TSH 2.32 09/19/2024 1420 Assessment and Plan Problem List Items Addressed This Visit Cirrhosis (CMS/HCC) Relevant Orders EGD Alpha Fetoprotein, Serum (Completed) Prothrombin Time/INR (Completed) Comprehensive Metabolic Panel, Plasma (Completed) CBC and Differential (Completed) Magnesium (Completed) US Liver Screen Follow Up GI Gastroesophageal reflux disease Relevant Medications omeprazole (PriLOSEC) [address] capsule Other Relevant Orders EGD Follow Up GI Other Visit Diagnoses Esophageal dysphagia - Primary Relevant Medications omeprazole (PriLOSEC) [address] capsule Other Relevant Orders EGD Follow Up GI Costovertebral angle tenderness Relevant Orders Urinalysis with reflex microscopic AND reflex culture (IF UTI SUSPECTED) (Completed) #Liver Cirrhosis - MELD 10 previous visit; has increased to 13 as of today. - Likely metabolic in nature; elevated BMI 38.61, T2DM, HTN notable in history. - History of EV and PHG; no bleeding. No overt HE symptoms noted in history. No ascites noted. - No suspicious liver lesions; AFP has remained WNL MELD 3.0: 13 at 11/27/2024 10:59 AM MELD-Na: 11 at 11/27/2024 10:59 AM Calculated from: Serum Creatinine: 0.71 mg/dL (Using min of 1 mg/dL) at 11/27/2024 10:59 AM Serum Sodium: 138 mmol/L (Using max of 137 mmol/L) at 11/27/2024 10:59 AM Total Bilirubin: 2.2 mg/dL at 11/27/2024 10:59 AM Serum Albumin: 3.9 g/dL (Using max of 3.5 g/dL) at 11/27/2024 10:59 AM INR(ratio): 1.2 at 11/27/2024 10:59 AM Age at listing (hypothetical): 59 years Sex: Female at 11/27/2024 10:59 AM #Ascites #Lower leg swelling - Patient denies concerns of abdominal fluid onset at this time. - Per chart review; no known history of ascites for this patient - Continue spironolactone 50mg and lasix 20mg for her lower leg swelling. - Continue to monitor. #PHG #Esophageal Varices - History of Esophageal varices and mild PHG noted on previous EGDs. - Most recent EGD was in 2020; with a finding of Grade 2 varices. - No concerns of hematemesis reported. - Previously on metoprolol. D/c d/t hypotension per patient. - EGD is pending - will schedule here at #Hepatic Encephalopathy - No reported overt symptoms of HE. Previous confusion potentially relative to uncontrolled blood glucose levels. - Previous water reuse program manager frequently checked patient's ammonia level; would vary at times with unknown clinical significance. - Patient is on xifaxan; lactulose for bowel habits. - No reports of confusion at this time. Continue to monitor. #HCC Surveillance - No previous history of liver lesions or elevated AFP - US Liver Screen 03/23/23: No gallbladder or biliary ductal dilatation. No fluid collections noted. Liver is coarse in echotexture and slightly nodular contour similar to that seen in the prior US in 01/2023. Stable in appearance. No ascites. - CT ABD 05/18/24: splenomegaly, varices in LUQ, diffuse fatty infiltration of the liver - AFP WNL #CVA pain #Constipation - Reports 2-3 months of worsening CVA pain; no specific tenderness. Testing is negative for overt tenderness. - Colonoscopy 10/21/2020: On digital rectal examination there was normal rectal tone. There were noexternal hemorrhoids. Left sided colonic diverticulosis. Grade 2 internal hemorrhoids. Tubular Adenoma in the transverse colon. Hyperplastic polyp in the sigmoid colon. Repeat 5 year. - DDX include renal related etiology, constipation and muscular etiology. - Trial lidocaine patches for pain. - UA pending #History of Colonic polyps #History of Diverticulosis - Multiple findings of colonic polyps on previous colonoscopy; originally noted on scope in 2018 (7polyps at that time). - Colonoscopy 10/21/2020: On digital rectal examination there was normal rectal tone. There were noexternal hemorrhoids. Left sided colonic diverticulosis. Grade 2 internal hemorrhoids. Tubular Adenoma in the transverse colon. Hyperplastic polyp in the sigmoid colon. Repeat 5 years. - No concerns of hematochezia or melena at this time. - Reports abdominal pain and tenderness - Bowel habits overall controlled at this time with use of Lactulose. No longer use metamucil and/or miralax. - Colonoscopy repeat due 2025; sooner if indicated #Healthcare Maintenance Immunity to Hepatitis A- No immunity Immunity to Hepatitis B- No immunity HBsAg - Negative EGD 10/21/2020: On exam, the post bulbar duodenum and duodenal bulb were normal with normal mucosa and conniventes. There was some mild linear reactive gastropathy of the antrum. There was moderate portal gastropathy with mosaic pattern of the body and fundus of the stomach. Upon retroflexion therewas no hiatal hernia. No fundic varices. Grade 1-2 esophageal varices noted; without stigmata of bleeding. Nonerosive GERD with mild esophageal dysmotility. Mild to moderate portal gastropathy. Biopsies shows marked chronic gastritis. No H. Pylori or intestinal metaplasia noted. Reactive gastric mucosa with mixed inflammation. No squamous mucosa identified. No intestinal metaplasia or dysplasia identified. Colonoscopy 10/21/2020: On digital rectal examination there was normal rectal tone. There were no external hemorrhoids. Left sided colonic diverticulosis. Grade 2 internal hemorrhoids. Tubular Adenoma in the transverse colon. Hyperplastic polyp in the sigmoid colon. Repeat 5 year (2025) RTC 6 Months documented in this encounter Plan of Treatment Upcoming Encounters Date Type Department Care Team (Late st Contact Info) Description 01/24/2025 8:15 AM EDT Office Visit [facility] [address] [place] [address] Alix Webb MD [address] [address] 01/30/2025 1:10 PM EDT Appointment [facility] [address] [place] [address] James Benson MD [address] [place] [address] 03/07/2025 2:20 PM EST Office Visit [facility] [address] [place] [address] Caridad Mondragon, TISSUE COORDINATOR [address] [facility] [address] [place] [address] 05/31/2025 9:00 AM EST [facility] [address] [place] [address] Barrett Stratton PA [address] [place] [address] 09/20/2025 10:30 AM EDT Office Visit [facility] [address] [place] [address] Yo Guadarrama MD [address] [facility] [address] [place] [address] Scheduled Orders Name Type Priority Associated Diagnoses Orde r Schedule EGD Endoscopy Routine Esophageal dysphagia Cirrhosis of liver without ascites, unspecified hepatic cirrhosis type (CMS/HCC) Gastroesophageal reflux disease without esophagitis Expected: 11/27/2024, Expires: 05/31/2026 Liver Screen Imaging Routine Cirrhosis of liver without ascites, unspecified hepatic cirrhosis type (CMS/HCC) Expected: 05/30/2025 (Approximate), Expires: 05/31/2026 Scheduled Referrals Name Type Priority Associated Diagnoses Orde r Schedule Follow Up GI Outpatient Referral Routine Esophageal dysphagia Cirrhosis of liver without ascites, unspecified hepatic cirrhosis type (CMS/HCC) Gastroesophageal reflux disease without esophagitis Expected: 05/30/2025, Expires: 12/28/2025 documented as of this encounter Results * Magnesium (11/27/2024 10:59 AM EDT) Pathologist [facility] Magnesium, Plasma 1.9 1.9 - 2.4 mg/dL 11/27/2024 12:31 PM EDT [facility] Blood Venous blood specimen / Unknown Venipuncture / Unknown 11/27/2024 10:59 AM EDT 11/27/2024 10:59 AM EDT us Barrett VAN LAB BLOOD ORDERABLES Final Res ult [facility] [address] [place] [address] * (ABNORMAL) CBC and Differential (11/27/2024 10:59 AM EDT) Pathologist [facility] WBC Count 3.94 3.70 - 10.30 10*3/uL LAB HEMATOLOGY METHOD 11/27/2024 3:48 PM EDT [facility] RBC Count 3.85(L) 3.90 - 5.20 10*6/uL LAB HEMATOLOGY METHOD 11/27/2024 3:48 PM EDT [facility] HGB 12.4 11.2 - 15.7 g/dL LAB HEMATOLOGY METHOD 11/27/2024 3:48 PM EDT [facility] HCT 35.9 34.0 - 45.0 % LAB HEMATOLOGY METHOD 11/27/2024 3:48 PM EDT [facility] Platelet Count 57(L) 155 - 369 10*3/uL LAB HEMATOLOGY METHOD 11/27/2024 3:48 PM EDT [facility] MCV 93 79 - 98 fL LAB HEMATOLOGY METHOD 11/27/2024 3:48 PM EDT [facility] MCH 32.2(H) 26.0 - 32.0 pg LAB HEMATOLOGY METHOD 11/27/2024 3:48 PM EDT [facility] MCHC 34.5 30.7 - 35.5 g/dL LAB HEMATOLOGY METHOD 11/27/2024 3:48 PM EDT [facility] RDW 14.2 11.5 - 14.5 % LAB HEMATOLOGY METHOD 11/27/2024 3:48 PM EDT [facility] MPV 10.7 8.8 - 12.5 fL LAB HEMATOLOGY METHOD 11/27/2024 3:48 PM EDT [facility] nRBC 0.0 <=0.0 per 100 WBCs LAB HEMATOLOGY METHOD 11/27/2024 3:48 PM EDT [facility] Differential Type Automated LAB HEMATOLOGY METHOD 11/27/2024 3:48 PM EDT [facility] Neutrophils % 63 % LAB HEMATOLOGY METHOD 11/27/2024 3:48 PM EDT [facility] Lymphocytes % 28 % LAB HEMATOLOGY METHOD 11/27/2024 3:48 PM EDT [facility] Monocytes % 6 % LAB HEMATOLOGY METHOD 11/27/2024 3:48 PM EDT [facility] Eosinophils % 2 % LAB HEMATOLOGY METHOD 11/27/2024 3:48 PM EDT [facility] Basophils % 1 % LAB HEMATOLOGY METHOD 11/27/2024 3:48 PM EDT [facility] Immature Granulocytes % 0 % LAB HEMATOLOGY METHOD 11/27/2024 3:48 PM EDT [facility] Neutrophils Absolute 2.48 1.60 - 6.10 10*3/uL LAB HEMATOLOGY METHOD 11/27/2024 3:48 PM EDT [facility] Lymphocytes Absolute 1.11(L) 1.20 - 3.90 10*3/uL LAB HEMATOLOGY METHOD 11/27/2024 3:48 PM EDT [facility] Monocytes Absolute 0.25(L) 0.30 - 0.90 10*3/uL LAB HEMATOLOGY METHOD 11/27/2024 3:48 PM EDT [facility] Eosinophils Absolute 0.06 0.00 - 0.50 10*3/uL LAB HEMATOLOGY METHOD 11/27/2024 3:48 PM EDT [facility] Basophils Absolute 0.03 0.00 - 0.10 10*3/uL LAB HEMATOLOGY METHOD 11/27/2024 3:48 PM EDT [facility] Immature Granulocytes Absolute 0.01 0.00 - 0.06 10*3/uL LAB HEMATOLOGY METHOD 11/27/2024 3:48 PM EDT [facility] Blood Venous blood specimen / Unknown Venipuncture / Unknown 11/27/2024 10:59 AM EDT 11/27/2024 10:59 AM EDT Narrative [facility] - 11/27/2024 3:48 PM EDT Therapeutic decision making should be based on absolute values, rather than percentages. us Barrett VAN LAB BLOOD ORDERABLES Final Res ult [facility] [address] [place] [address] * (ABNORMAL) Comprehensive Metabolic Panel, Plasma (11/27/2024 10:59 AM EDT) Glucose, Plasma 214(H) 74 - 99 mg/dL 11/27/2024 12:31 PM EDT [facility] BUN, Plasma 12 7 - 21 mg/dL 11/27/2024 12:31 PM EDT [facility] Creatinine, Plasma 0.71 0.60 - 1.10 mg/dL 11/27/2024 12:31 PM EDT [facility] BUN/Creatinine Ratio 17 11/27/2024 12:31 PM EDT [facility] Sodium, Plasma 138 136 - 145 mmol/L 11/27/2024 12:31 PM EDT [facility] Potassium, Plasma 4.1 3.6 - 4.9 mmol/L 11/27/2024 12:31 PM EDT [facility] Chloride, Plasma 107 97 - 107 mmol/L 11/27/2024 12:31 PM EDT [facility] CO2, Plasma 20(L) 22 - 29 mmol/L 11/27/2024 12:31 PM EDT [facility] Anion Gap 11 6 - 16 mmol/L 11/27/2024 12:31 PM EDT [facility] Total Calcium, Plasma 9.0 8.9 - 10.2 mg/dL 11/27/2024 12:31 PM EDT [facility] Total Protein 6.3 6.3 - 7.9 g/dL 11/27/2024 12:31 PM EDT [facility] Albumin, Plasma 3.9 3.5 - 5.2 g/dL 11/27/2024 12:31 PM EDT [facility] AST, Plasma 38(H) 10 - 35 U/L 11/27/2024 12:31 PM EDT [facility] ALT, Plasma 34 10 - 35 U/L 11/27/2024 12:31 PM EDT [facility] Alkaline Phosphatase, Plasma 77 46 - 142 U/L 11/27/2024 12:31 PM EDT [facility] Total Bilirubin, Plasma 2.2(H) 0.2 - 1.1 mg/dL 11/27/2024 12:31 PM EDT [facility] eGFRcr 99.3 mL/min/1.7 3m*2 11/27/2024 12:31 PM EDT [facility] Comment:Reported eGFRcr in m L/min/1.73m2 is based the CKD-EPI 2020 equation that does not use a race coefficient. Blood Venous blood specimen / Unknown Venipuncture / Unknown 11/27/2024 10:59 AM EDT 11/27/2024 10:59 AM EDT us Barrett VAN LAB BLOOD ORDERABLES Final Res ult [facility] [address] [place] [address] * (ABNORMAL) Prothrombin Time/INR (11/27/2024 10:59 AM EDT) Prothrombin Time 15.0(H) 12.0 - 14.3 sec LAB COAGULATION METHOD 11/27/2024 12:35 PM EDT [facility] INR 1.2(H) 0.9 - 1.1 LAB COAGULATION METHOD 11/27/2024 12:35 PM EDT [facility] Blood Venous blood specimen / Unknown Venipuncture / Unknown 11/27/2024 10:59 AM EDT 11/27/2024 10:59 AM EDT Narrative [facility] - 11/27/2024 12:35 PM EDT OPTIMAL INR RANGES FOR PATIENT ON ORAL ANTICOAGULANT THERAPY Prevention of venous thromboembolism INR 2.0 to 3.0 In patients with heart disease: Atrial fibrillation INR 2.0 to 3.0 Valvular heart disease INR 2.0 to 3.0 Tissue heart valves INR 2.0 to 3.0 Mechanical prosthetic valves INR 2.5 to 3.5 Prevention of recurrent OR INR 2.5 to 3.5 Barrett VAN LAB BLOOD ORDERABLES Final Res ult Performing Organization Address [facility] Co de Phone Number [facility] [address] [place] [address] * Alpha Fetoprotein, Serum (11/27/2024 10:59 AM EDT) Alpha Fetoprotein, Serum <2.3 <10.0 ng/mL 11/27/2024 1:51 PM EDT [facility] Blood Venous blood specimen / Unknown Venipuncture / Unknown 11/27/2024 10:59 AM EDT 11/27/2024 10:59 AM EDT Narrative [facility] - 11/27/2024 1:51 PM EDT Performed by Marga electrochemiluminescent immunoassay which is traceable to the 1st AFP IRP WHO Reference standard 72/255. Results obtained with different test methods or kits cannot be used interchangeably. Barrett VAN LAB BLOOD ORDERABLES Final Res ult Performing Organization Address [facility] Co de Phone Number [facility] [address] [place] [address] documented in this encounter Visit Diagnoses Diagnosis Esophageal dysphagia- Primary Dysphagia, pharyngoesophageal phase Cirrhosis of liver without ascites, unspecified hepatic cirrhosis type (CMS/HCC) Gastroesophageal reflux disease without esophagitis Esophageal reflux Costovertebral angle tenderness BMI 36.0-36.9,adult documented in this encounter Additional Health Concerns Assessment Noted Time PHQ-9 Depression Total Score: 3 05/30/19 25 11:43 AM EST A fall risk assessment has been complete d for the patient 11/27/2024 10:10 AM EDT A Body Mass Index follow-up plan has been documented for the patient 12/01/2024 1:57 PM EDT documented as of this encounter Care Teams Condenser Cleaner Relationship Specialty Start Date End Date Elfego Main MD [address] [place] [address] PCP - General 09/06/20 documented as of this encounter
[2025-01-10 22:06] VITALS: BP 149/77; PULSE 83; RESP 20; TEMP 36.6; O2SAT 99; BMI 35.1
[2025-01-10 22:21] VITALS: BP 149/77; PULSE 83; RESP 20; TEMP 36.6; O2SAT 99
--- NOTE | 2025-01-10 22:26 | HMH.EDGENADL ---
Discharge Plan Disposition Patient Disposition: Home, Self-Care Prescriptions Prescriptions: New sulfamethoxazole-trimethoprim 800-160 mg tablet 1 tab PO BID 7 Days Qty: 14 0RF No Action furosemide 20 mg tablet 20 mg PO DAILY Xifaxan 550 mg tablet 550 mg PO ONCE lactulose 20 gram/30 mL solution 20 g PO DAILY loratadine [Claritin] 10 mg tablet 10 mg PO DAILY polyethylene glycol 3350 [Miralax] 17 gram/dose powder 17 g PO DAILY psyllium husk [Metamucil] 0.4 gram capsule 0.4 g PO DAILY Novolin 70/30 U-100 Insulin 100 unit/mL (70-30) suspension 0.8 unit SQ TID Rx Instructions: 80u in am/40 in pm cyclobenzaprine 5 mg tablet 5 mg PO DIRECTED losartan-hydrochlorothiazide 50-12.5 mg tablet 1 tab PO DAILY Qty: 90 3RF loratadine 10 MG tablet 10 mg PO DAILY metoprolol succinate 25 MG tablet extended release 24 hr 25 mg PO DAILY pwafvepnqyznokn-afeennhmx-SR [Bromfed DM] 2-30-10 mg/5 mL syrup 5 ml PO Q6H PRN (Reason: cold symptoms) Qty: 118 0RF prednisone 20 mg tablet 40 mg PO DAILY 5 Days Qty: 10 0RF lidocaine 5 % adhesive patch,medicated 1 patch topical DAILY Qty: 30 0RF Rx Instructions: leave on most painful area for up to 12 hrs Referrals Follow up/Referrals: Gris Main MD [Primary Care Provider, Medical] - See instructions Activity Restrictions/Add. Instructions Additional Instructions/Restrictions: Please take antibiotics as prescribed for treatment of urinary tract infection. Please follow-up with your primary care provider. Please return to the emergency department if you develop any new or worsening symptoms or become concerned for your health. Clinical Impressions Clinical Impression: UTI (urinary tract infection) Qualifiers: Encounter type: initial encounter Instructions Patient Instructions: DI for Acute Abdominal Pain Print Language Print Language: Setswana Discharge ED Provider: Joaquín Plunkett General Adult HPI <Cristy Schwartz, - Last Filed: 01/11/25 00:55> General Chief complaint: Abdominal Pain Stated complaint: abdominal pain , back pain Time Seen by Provider: 01/10/25 22:26 Mode of Arrival: Ambulatory Source of Information: Patient Description of Symptoms (Recalled from ER Triage Doc. by RN): Pt presents with abdominal and back pain that started on . Pt vomited once on , but no nausea or vomiting since then. Pt does have a history of stage 4 cirrhosis, and last saw her liver doctor on november 27. Pt does appear slightly jaundiced in the corner of her eyes. History of Present Illness HPI narrative: Patient is a 59-year-old female with a past medical history of Blevins cirrhosis who presented to the emergency department with intermittent abdominal pain since . Patient states that she feels like her abdomen is slightly more bloated than usual. Patient reports pain in her back as well. Patient denies any fevers patient denies any nausea or vomiting. Patient denies any chest pain or shortness of breath. Patient does follow with the liver doctor at . Patient denies any hemoptysis or hematemesis. Patient does state that she looks more jaundiced than usual. Patient has not had any recent travel. Has a follow-up appointment with her GI doctor on January 30. Related Data Home Medications ?Medication ?Instructions ?Recorded ?Confirmed loratadine 10 mg tablet 10 mg PO DAILY allergies 06/11/20 08/06/22 metoprolol succinate 25 mg 25 mg PO DAILY bp 10/16/20 03/30/23 tablet,extended release 24 hr cyclobenzaprine 5 mg tablet 5 mg PO DIRECTED MUSCLES 05/27/22 08/06/22 furosemide 20 mg tablet 20 mg PO DAILY 03/30/23 03/30/23 insulin human U-100 NPH-regulr 0.8 unit SQ TID Diabetes 03/30/23 03/30/23 70-30 mix 100 unit/mL subcutaneous susp (Novolin 70/30 U-100 Insulin) lactulose 20 gram/30 mL oral 20 g PO DAILY 03/30/23 03/30/23 solution loratadine 10 mg tablet (Claritin) 10 mg PO DAILY 03/30/23 03/30/23 polyethylene glycol 3350 17 17 g PO DAILY 03/30/23 03/30/23 gram/dose oral powder (Miralax) psyllium husk 0.4 gram capsule 0.4 g PO DAILY 03/30/23 03/30/23 (Metamucil) rifaximin 550 mg tablet (Xifaxan) 550 mg PO ONCE 03/30/23 03/30/23 Previous Rx's ?Medication ?Instructions ?Recorded losartan 50 mg-hydrochlorothiazide 1 tab PO DAILY Hypertension #90 01/05/20 12.5 mg tablet tabs slwigwbihhwawjm-lbrhgypnbhniszl-AT 5 ml PO Q6H PRN cold symptoms #118 04/16/23 2 mg-30 mg-10 mg/5 mL oral syrup mL (Bromfed DM) lidocaine 5 % topical patch 1 patch topical DAILY #30 ea 01/04/24 prednisone 20 mg tablet 40 mg (2 x 20 mg) PO DAILY 5 days 01/04/24 #10 tabs sulfamethoxazole 800 1 tab PO BID 7 days #14 tabs 01/11/25 mg-trimethoprim 160 mg tablet Allergies Allergy/AdvReac Type Severity Reaction Status Date / Time No Known Allergies Allergy Verified 01/04/24 17:37 [facility] <Cristy Schwartz DO - Last Filed: 01/11/25 00:55> [facility] Disclaimer: The information contained in this section may have been updated after the patient was seen, as this information can be updated by other users. Medical History (Updated 01/11/25 @ 01:35 by Joaquín Plunkett MD) Difficulty sleeping Obesity BPV (benign positional vertigo) TMJ tenderness, right Vertigo Cirrhosis of liver Gastroesophageal reflux disease Diastolic dysfunction DM2 (diabetes mellitus, type 2) HLD (hyperlipidemia) HTN (hypertension) Surgical History History of carpal tunnel release H/O breast augmentation History of delivery Hx of appendectomy Family History (Updated 03/30/23 @ 10:24 by Lida Bain) Other Alcoholism Cancer Coronary artery disease Diabetes Hypertension No significant family history Social History (Updated 03/30/23 @ 10:25 by Lida Bain) Smoking Status: Never smoker alcohol intake: former substance use type: denies use current occupational status: disabled Travel in the last 8 weeks?: None household members: spouse housing: house current occupational exposures/hazards: No caffeine: Yes Have you lived/traveled outside [place] in past 30 days?: No Contact w/someone who lives/traveled outside US past 30 days?: No Exposure to someone with infectious disease in past 14 days?: No Do you have a fever (greater than 100.4 F or 38 C)?: No Have you tested positive for COVID-19?: No Exposed to someone with COVID-19 in past 14 days?: No Do you have a sore throat?: No Do you have a cough?: No Do you have any weakness?: No Do you have any diarrhea?: No Are you experiencing any unusual bleeding?: No Do you have any muscle aches/pain?: No Do you have any abdominal pain?: No Are you experiencing loss of taste or smell?: No Other Medical History Have you received the Flu Vaccine for this season: No Have you received the Pneumonia Vaccine: No <Cristy Schwartz, - Last Filed: 01/11/25 00:55> ROS Obtained: Yes All systems reviewed & no additional complaints except as documented and Yes Systems reviewed as appropriate & no additional complaints except as documented Physical Exam <Cristy Schwartz DO - Last Filed: 01/11/25 00:55> General General appearance: alert and in no apparent distress Head Head exam: atraumatic, normocephalic and normal inspection Eye Eye exam: Present normal appearance, PERRL, EOMI and other (jaundice); Absent scleral icterus ENT ENT exam: Present normal exam and normal external ear exam Neck Neck exam: Present normal inspection and full ROM Chest Chest inspection: Present normal inspection and symmetric chest wall rise Respiratory Respiratory exam: Present normal lung sounds bilaterally; Absent respiratory distress or wheezes Cardiovascular Cardiovascular exam: Present regular rate, normal rhythm and normal heart sounds Abdominal Exam Abdominal exam: Present soft, distention and tenderness (diffuse with L CVA tenderness ); Absent guarding or rebound Extremities Exam Extremities exam: Present normal inspection and full ROM Back Exam Back exam: Present normal inspection and full ROM Neurological Exam Neurological exam: Present alert and oriented X3 Psychiatric Psychiatric exam: Present normal affect and normal mood Skin Skin exam: Present warm and dry Medical Decision Making <Cristy Schwartz DO - Last Filed: 01/11/25 00:55> Medical Records Medical records reviewed: Yes I reviewed the patient's medical records. Screening: Per USPSTF and CDC recommendations, given the prevalence of disease in our region, it is our hospital?s policy to screen for HIV and viral Hepatitis for all patients aged 18 and over and those with ongoing risk factors. [place] Inquiry Pt receiving controlled substance: No Vital Signs: 01/10/25 22:06 01/10/25 22:21 01/11/25 01:35 Temperature 97.8 F 97.8 F Temperature Source Temporal Artery Scan Pulse Rate 83 65 Pulse Rate [Right] 83 Respiratory Rate 20 20 17 Blood Pressure 149/77 H 125/71 Blood Pressure [Right Arm] 149/77 H Blood Pressure Mean [Right Arm] 101 Blood Pressure Source [Right Arm] Automatic Cuff Blood Pressure Position [Right Arm] Sitting 02 Sat by Pulse Oximetry 99 99 98 Oxygen Delivery Method Room Air Room Air Room Air 01/11/25 01:35 Temperature 98.6 F Temperature Source Pulse Rate 65 Pulse Rate [Right] Respiratory Rate 17 Blood Pressure 125/71 Blood Pressure [Right Arm] Blood Pressure Mean [Right Arm] Blood Pressure Source [Right Arm] Blood Pressure Position [Right Arm] 02 Sat by Pulse Oximetry Oxygen Delivery Method Room Air Lab Data Lab results reviewed: Yes I reviewed the patient's lab results. Lab Results 01/10/25 00:44: Urine Color Yellow, Urine Appearance Clear, Urine pH 6.5, Ur Specific Waldo 1.010, Urine Protein Negative, Urine Glucose (UA) Negative, Urine Ketones Negative, Urine Blood Negative, Urine Nitrate Negative, Urine Bilirubin Negative, Urine Urobilinogen 1.0, Ur Leukocyte Esterase Negative, Urine WBC 10-20, Ur Squamous Epith Cells 10-20, Urine Bacteria 1+ 01/10/25 22:25: WBC 3.3 L, RBC 4.11 L, Hgb 13.3, Hct 37.5, MCV 91.2, MCH 32.4 H, MCHC 35.5 H, RDW 13.3, Plt Count 56 L, MPV 10.1, Neut % (Auto) 65.1, Lymph % (Auto) 27.4, Island % (Auto) 5.1, Eos % (Auto) 2.1, Baso % (Auto) 0.3, Neut # (Auto) 2.2, Lymph # (Auto) 0.9, Island # (Auto) 0.2, Eos # (Auto) 0.1, Baso # (Auto) 0.0, Sodium 137, Potassium 3.6, Chloride 105, Carbon Dioxide 25, Anion Gap 10.6, BUN 9, Creatinine 0.60, Estimated Creat Clear 138, Estimated GFR 103, Est GFR ( Amer) 125, Glucose 209 H, Calcium 8.9, Magnesium 1.6, Total Bilirubin 4.3 H, AST 52 H, ALT 41, Alkaline Phosphatase 78, Total Protein 7.1, Albumin 4.1, Globulin 3.0, Albumin/Globulin Ratio 1.4, Lipase 170 01/10/25 22:25 01/10/25 22:25 Orders (Tests/Meds): ED MEDICATIONS Discontinued Medications Generic Name Dose Route Start Last Admin Trade Name Freq PRN Reason Stop Dose Admin Dicyclomine HCl 20 mg 01/10/25 22:44 01/10/25 22:56 Dicyclomine 10mg Capsule PO 01/10/25 22:45 20 mg ONCE ONE Administration Iopamidol 75 ml 01/10/25 23:20 01/10/25 23:21 Iopamidol-370 (76%);100ml Bottle IV 01/10/25 23:21 75 ml ONCE ONE Administration Ketorolac Tromethamine 30 mg 01/10/25 22:44 01/10/25 22:56 Ketorolac 30mg/Ml Vial IV 01/10/25 22:45 30 mg ONCE ONE Administration Sodium Chloride 10 ml 01/10/25 23:20 01/10/25 23:21 Sodium Chloride 0.9% 10ml Syr (Rad Only) IV 02/09/25 23:19 10 ml NEEDED PRN Administration Maintain IV Site Trimethoprim/Sulfamethoxazole 1 each 01/11/25 01:33 01/11/25 01:39 Sulfa/Trimethoprim 1 Tablet PO 01/11/25 01:34 1 each ONCE ONE Administration ORDERS Category Date Time Status CT abdomen pelvis w con Stat Cat Scan 01/10/25 22:44 Completed CBC w/Auto Diff [Complete Blood Count Auto Diff] Stat Lab 01/10/25 22:25 Completed CMP [Comprehensive Metabolic Panel] Stat Lab 01/10/25 22:25 Completed Hepatitis Panel Stat Lab 01/11/25 00:39 Received Lipase Stat Lab 01/10/25 22:25 Completed MAG [Magnesium] Stat Lab 01/10/25 22:25 Completed UA [Urinalysis and Microscopic] Stat Lab 01/10/25 00:44 Completed Urine Culture Stat Micro 01/10/25 00:44 Received Medical Decision Narrative: Patient is a 59-year-old female with past medical history of Blevins cirrhosis who presented to the emergency department with intermittent abdominal pain, urinary symptoms and flank pain. Patient states that she looks slightly more jaundiced than usual. On arrival, patient was hemodynamically stable with unremarkable vital signs. Differential includes but not limited to: UTI, pyelonephritis, nephrolithiasis, decompensation of her cirrhosis, hepatitis, intra-abdominal pathology, ascites, amongst others. Patient CBC showed no leukocytosis, hemoglobin was stable. CMP had an elevated bilirubin of 4.3, baseline 3. Otherwise unremarkable. Lipase normal. CT scan of the abdomen showed no acute intra-abdominal pathology. Patient was signed out to the oncoming provider Dr. Plunkett pending UA and final disposition. <Joaquín Plunkett MD - Last Filed: 01/11/25 02:06> Vital Signs: 01/10/25 22:06 01/10/25 22:21 01/11/25 01:35 Temperature 97.8 F 97.8 F Temperature Source Temporal Artery Scan Pulse Rate 83 65 Pulse Rate [Right] 83 Respiratory Rate 20 20 17 Blood Pressure 149/77 H 125/71 Blood Pressure [Right Arm] 149/77 H Blood Pressure Mean [Right Arm] 101 Blood Pressure Source [Right Arm] Automatic Cuff Blood Pressure Position [Right Arm] Sitting 02 Sat by Pulse Oximetry 99 99 98 Oxygen Delivery Method Room Air Room Air Room Air 01/11/25 01:35 Temperature 98.6 F Temperature Source Pulse Rate 65 Pulse Rate [Right] Respiratory Rate 17 Blood Pressure 125/71 Blood Pressure [Right Arm] Blood Pressure Mean [Right Arm] Blood Pressure Source [Right Arm] Blood Pressure Position [Right Arm] 02 Sat by Pulse Oximetry Oxygen Delivery Method Room Air Lab Data Lab Results 01/10/25 00:44: Urine Color Yellow, Urine Appearance Clear, Urine pH 6.5, Ur Specific Waldo 1.010, Urine Protein Negative, Urine Glucose (UA) Negative, Urine Ketones Negative, Urine Blood Negative, Urine Nitrate Negative, Urine Bilirubin Negative, Urine Urobilinogen 1.0, Ur Leukocyte Esterase Negative, Urine WBC 10-20, Ur Squamous Epith Cells 10-20, Urine Bacteria 1+ 01/10/25 22:25: WBC 3.3 L, RBC 4.11 L, Hgb 13.3, Hct 37.5, MCV 91.2, MCH 32.4 H, MCHC 35.5 H, RDW 13.3, Plt Count 56 L, MPV 10.1, Neut % (Auto) 65.1, Lymph % (Auto) 27.4, Island % (Auto) 5.1, Eos % (Auto) 2.1, Baso % (Auto) 0.3, Neut # (Auto) 2.2, Lymph # (Auto) 0.9, Island # (Auto) 0.2, Eos # (Auto) 0.1, Baso # (Auto) 0.0, Sodium 137, Potassium 3.6, Chloride 105, Carbon Dioxide 25, Anion Gap 10.6, BUN 9, Creatinine 0.60, Estimated Creat Clear 138, Estimated GFR 103, Est GFR ( Amer) 125, Glucose 209 H, Calcium 8.9, Magnesium 1.6, Total Bilirubin 4.3 H, AST 52 H, ALT 41, Alkaline Phosphatase 78, Total Protein 7.1, Albumin 4.1, Globulin 3.0, Albumin/Globulin Ratio 1.4, Lipase 170 Orders (Tests/Meds): ED MEDICATIONS Discontinued Medications Generic Name Dose Route Start Last Admin Trade Name Freq PRN Reason Stop Dose Admin Dicyclomine HCl 20 mg 01/10/25 22:44 01/10/25 22:56 Dicyclomine 10mg Capsule PO 01/10/25 22:45 20 mg ONCE ONE Administration Iopamidol 75 ml 01/10/25 23:20 01/10/25 23:21 Iopamidol-370 (76%);100ml Bottle IV 01/10/25 23:21 75 ml ONCE ONE Administration Ketorolac Tromethamine 30 mg 01/10/25 22:44 01/10/25 22:56 Ketorolac 30mg/Ml Vial IV 01/10/25 22:45 30 mg ONCE ONE Administration Sodium Chloride 10 ml 01/10/25 23:20 01/10/25 23:21 Sodium Chloride 0.9% 10ml Syr (Rad Only) IV 02/09/25 23:19 10 ml NEEDED PRN Administration Maintain IV Site Trimethoprim/Sulfamethoxazole 1 each 01/11/25 01:33 01/11/25 01:39 Sulfa/Trimethoprim 1 Tablet PO 01/11/25 01:34 1 each ONCE ONE Administration ORDERS Category Date Time Status CT abdomen pelvis w con Stat Cat Scan 01/10/25 22:44 Completed CBC w/Auto Diff [Complete Blood Count Auto Diff] Stat Lab 01/10/25 22:25 Completed CMP [Comprehensive Metabolic Panel] Stat Lab 01/10/25 22:25 Completed Hepatitis Panel Stat Lab 01/11/25 00:39 Received Lipase Stat Lab 01/10/25 22:25 Completed MAG [Magnesium] Stat Lab 01/10/25 22:25 Completed UA [Urinalysis and Microscopic] Stat Lab 01/10/25 00:44 Completed Urine Culture Stat Micro 01/10/25 00:44 Received Medical Decision Narrative: Patient is a 59-year-old female with past medical history of Blevins cirrhosis who presented to the emergency department with intermittent abdominal pain, urinary symptoms and flank pain. Patient states that she looks slightly more jaundiced than usual. On arrival, patient was hemodynamically stable with unremarkable vital signs. Differential includes but not limited to: UTI, pyelonephritis, nephrolithiasis, decompensation of her cirrhosis, hepatitis, intra-abdominal pathology, ascites, amongst others. Patient CBC showed no leukocytosis, hemoglobin was stable. CMP had an elevated bilirubin of 4.3, baseline 3. Otherwise unremarkable. Lipase normal. CT scan of the abdomen showed no acute intra-abdominal pathology. Patient was signed out to the oncoming provider Dr. Plunkett pending UA and final disposition. Dimitrios FIGUEREDO: I assumed care of the patient at the time of handoff from the prior provider. CT imaging was independently interpreted by me and showed findings consistent with cirrhosis, no acute pathology. Urinalysis was independently turbid by me. Patient does have 10-20 WBCs 1+ bacteria, though she had elevated squames and negative nitrate. In total, unclear whether she has UTI. However, I think treatment for possible UTI/pyelo- is reasonable. I communicated this with patient and she was given a dose of Bactrim and discharged with prescription for Bactrim. Return precautions were given. Critical Care <Cristy Schwartz, DO - Last Filed: 01/11/25 00:55> Critical Care Time Critical Care Time: No
--- OUTSIDE RECORDS SUMMARY | 2025-01-10 22:26 | XMS_ITS | Encounter Summary ---
Author Organization Healthcare Address [address] [place] [address] Care Team Providers Care Kitchen Lead Name Role Phone Elfego Main MD Primary Care Provider [phone] Encounter Details Date Type Department Care Team (Latest Contact Info) Description 11/27/2024 Travel Social History Tobacco Use Types Packs/Day Years [...] on file documented as of this encounter Functional Status * Over the [...] much Not at all 11/27/2024 10:10 AM EDT Kaci Guerrero Feeling tired or having angely le energy Not at all 11/27/2024 10:10 AM EDT Kaci Guerrero Feeling bad about yourself - or that you are a failure or have let yourself or your family down Not at all 11/27/2024 10:10 AM EDT Kaci Guerrero Trouble concentrating on thi ngs, such as reading the newspaper or watching television Not at all 11/27/2024 10:10 AM EDT Kaci Guerrero Moving or speaking so slowly that other people could have noticed? Or the opposite - being so fidgety or restless that you have been moving around a lot more than usual. Not at all 11/27/2024 10:10 AM EDT Kaci Guerrero Thoughts that you would be b faheem off or hurting yourself in some way Not at all 11/27/2024 10:10 AM EDT Kaci Guerrero documented as of this encounter Plan of Treatment Upcoming Encounters Date Type Department Care Team (Late st Contact Info) Description 01/24/2025 8:15 AM EDT Office Visit [facility] [address] [place] [address] Alix Webb MD [address] [place] [address] 01/30/2025 1:10 PM EDT Appointment [facility] [address] [place] [address] James Benson MD [address] [place] [address] 03/07/2025 2:20 PM EST Office Visit [facility] Endocrinology [address] [place] [address] Caridad Mondragon, DIETETIC TECHNICIAN [address] [place] [address] 05/31/2025 9:00 AM EST Office Visit [facility] [address] [place] [address] Barrett Stratton PA [address] [place] [address] 09/20/2025 10:30 AM EDT Office Visit [facility] Endocrinology [address] [place] [address] Yo Guadarrama MD [address] [place] [address] documented as of this encounter Visit Diagnoses Not on filedocumented in this encounter Additional Health Concerns Assessment Noted Time PHQ-9 Depression Total Score: 3 05/30/19 25 11:43 AM EST A fall risk assessment has been complete d for the patient 11/27/2024 10:10 AM EDT A Body Mass Index follow-up plan has been documented for the patient 12/01/2024 1:57 PM EDT documented as of this encounter Care Teams Kitchen Lead Relationship Specialty Start Date End Date Elfego Main MD [address] [place] [address] PCP - General 09/06/20 documented as of this encounter
--- OUTSIDE RECORDS SUMMARY | 2025-01-10 22:26 | XMS_ITS | Encounter Summary ---
Author Organization Healthcare Address [address] [place] [address] Care Team Providers Care Galley Worker Name Role Phone Elfego Main MD Primary Care Provider [phone] Encounter Details Date Type Department Care Team (Late st Contact Info) Description 12/06/2024 Orders Only [facility] [address] [place] [address] Barrett Stratton, PA [address] [place] [address] Cirrhosis of liver without ascites, unspecified hepatic cirrhosis type (CMS/HCC) (Primary Dx) Social History Tobacco Use Types Packs/Day Years [...] on file documented as of this encounter Plan of Treatment Upcoming Encounters Date Type Department Care Team (Late st Contact Info) Description 01/24/2025 8:15 AM EDT Office Visit [facility] [address] [place] [address] Alix Webb MD [address] [place] [address] 01/30/2025 1:10 PM EDT Appointment [facility] [address] [place] [address] James Benson MD [address] [place] [address] 03/07/2025 2:20 PM EST Office Visit [facility] Endocrinology [address] [place] [address] Caridad Mondragon APRN [address] [facility] [address] [place] [address] 05/31/2025 9:00 AM EST [facility] [address] [place] [address] Barrett Stratton PA [address] [place] [address] 09/20/2025 10:30 AM EDT Office Visit [facility] Endocrinology [address] [place] [address] Yo Guadarrama MD [address] [facility] [address] [place] [address] Scheduled Orders Name Type Priority Associated Diagnoses Orde r Schedule Alpha Fetoprotein, Serum Lab Routine Cirrhosis of liver without ascites, unspecified hepatic cirrhosis type (CMS/HCC) Expected: 12/06/2024 (Approximate), Expires: 06/08/2026 Prothrombin Time/INR Lab Routine Cirrhosis of liver without ascites, unspecified hepatic cirrhosis type (CMS/HCC) Expected: 12/06/2024 (Approximate), Expires: 06/08/2026 Comprehensive Metabolic Panel, Plasma Lab Routine Cirrhosis of liver without ascites, unspecified hepatic cirrhosis type (CMS/HCC) Expected: 12/06/2024 (Approximate), Expires: 06/08/2026 CBC and Differential Lab Routine Cirrhosis of liver without ascites, unspecified hepatic cirrhosis type (CMS/HCC) Expected: 12/06/2024 (Approximate), Expires: 06/08/2026 documented as of this encounter Goals Goal Patient Goal Type Associated Problems Recent Progress Patient-Stated? Author Autogenerat ed Goal Care Plan Autogenerated Problem No Leo Torres documented as of this encounter Visit Diagnoses Diagnosis Cirrhosis of liver without ascites, unspecified hepatic cirrhosis type (CMS/HCC)- Primary documented in this encounter Additional Health Concerns Active Problems Noted Date Diagnosed Date Autogenerated Problem 12/04/2024 Assessment Noted Time PHQ-9 Depression Total Score: 3 05/30/19 25 11:43 AM EST A fall risk assessment has been complete d for the patient 11/27/2024 10:10 AM EDT A Body Mass Index follow-up plan has been documented for the patient 12/01/2024 1:57 PM EDT documented as of this encounter Care Teams Galley Worker Relationship Specialty Start Date End Date Elfego Main MD [address] [place] [id number] PCP - General 09/06/20 documented as of this encounter
--- OUTSIDE RECORDS SUMMARY | 2025-01-10 22:26 | XMS_ITS | Encounter Summary ---
Author Organization Healthcare Address [address] [place] [address] Care Team Providers Care Senior Office Assistant Name Role Phone Elfego Main MD Primary Care Provider [phone] Encounter Details Date Type Department Care Team (Late st Contact Info) Description 11/29/2024 Results [facility]-Up [facility] [address] [place] [address] Barrett Stratton, REHAN [address] [place] [address] Social History Tobacco Use Types Packs/Day Years [...] Description 01/24/2025 8:15 AM EDT Office Visit [facility] [address] [place] [phone] Alix Webb MD [address] [place] [address] 01/30/2025 1:10 PM EDT Appointment [facility] [address] [place] [address] James Benson MD [address] [place] [address] 03/07/2025 2:20 PM EST Office [facility] Endocrinology [address] [place] [address] Caridad Mondragon APRN [address] [facility] [address] [place] [address] 05/31/2025 9:00 AM EST Office Visit [facility] [address] [place] [address] Barrett Stratton PA [address] [facility] [address] [place] [address] 09/20/2025 10:30 AM EDT Office Visit [facility] Endocrinology [address] [place] [address] Yo Guadarrama MD [address] [facility] [address] [place] [address] documented as of this encounter [...] documented as of this encounter Care Teams Senior Office Assistant Relationship Specialty Start Date End Date Jose David, Elfego G, MD [address] [place] [address] PCP - General 09/06/20 documented as of this encounter
--- OUTSIDE RECORDS SUMMARY | 2025-01-10 22:26 | XMS_ITS | Encounter Summary ---
Author Organization Healthcare Address [address] [place] [address] Care Team Providers Care Silk Screen Repairer Name Role Phone Elfego Main MD Primary Care Provider [phone] Encounter Details Date Type Department Care Team (Late st Contact Info) Description 01/17/2024 Ophth Exam [facility] [address] [place] [address] Roscoe Davis MD [address] [place] [address] Social History Tobacco Use Types Packs/Day Years Used Date Smoking Tobacco: Never Smokeless Tobacco: Never Alcohol Use Standard Drinks/Week Comments Yes 0 (1 standard drink = 0.6 oz pur e alcohol) ocassionally PHQ-2 Answer Date Recorded Patient Health Questionnaire-2 Score 1 01/13/2024 Comments Unknown Sex and Gender Information Value Date Recorded Sex Assigned at Not on file Legal Sex Female 7:30 PM EDT Gender Identity Not on file Sexual Orientation Not on file documented as of this encounter Plan of Treatment Upcoming Encounters Date Type Department Care Team (Late st Contact Info) Description 01/24/2025 8:15 AM EDT Office Visit [facility] [address] [place] [address] Alix Webb MD [address] [address] 01/30/2025 1:10 PM EDT Appointment [facility] [address] [place] [address] James Benson MD [address] [place] [address] 03/07/2025 2:20 PM EST Office Visit [facility] Endocrinology [address] [place] [address] Caridad Mondragon S, COPYING MACHINE REPAIRER [address] [facility] [address] [place] [address] 05/31/2025 9:00 AM EST Office Visit [facility] [address] [place] [address] Barrett Stratton PA [address] [place] [address] 09/20/2025 10:30 AM EDT Office Visit [facility] Endocrinology [address] [place] [address] Yo Guadarrama MD [address] [facility] [address] [place] [address] documented as of this encounter Visit Diagnoses Not on filedocumented in this encounter Additional Health Concerns Assessment Noted Time A fall risk assessment has been complete d for the patient 11/23/2023 9:38 AM EDT A Body Mass Index follow-up plan has been documented for the patient 01/13/2024 9:49 AM EDT documented as of this encounter Care Teams Silk Screen Repairer Relationship Specialty Start Date End Date Elfego Main MD [address] [place] [id number] PCP - General 09/06/20 documented as of this encounter
--- OUTSIDE RECORDS SUMMARY | 2025-01-10 22:26 | XMS_ITS | Encounter Summary ---
Author Organization Healthcare Address [address] [place] [address] Care Team Providers Care Special Assets Officer Name Role Phone Elfego Main MD Primary Care Provider [phone] Encounter Details Date Type Department Care Team (Latest Contact Info) Description 11/20/2024 Travel Social History Tobacco Use Types Packs/Day Years Used Date Smoking Tobacco: Never Passive Smoke Exposure: Never Smokeless Tobacco: Never Alcohol Use Standard Drinks/Week Comments Yes 0 (1 standard drink = 0.6 oz pur e alcohol) ocassionally PHQ-2 Answer Date Recorded Patient Health Questionnaire-2 Score 0 05/30/2024 PHQ-9 Answer Date Recorded Patient Health Questionnaire-9 [...] Description 01/24/2025 8:15 AM EDT Office Visit [facility] [address] [place] [address] Alix Webb MD [address] [address] 01/30/2025 1:10 PM EDT Appointment [facility] [address] [place] [address] James Benson MD [address] [place] [address] 03/07/2025 2:20 PM EST Office Visit [facility] Endocrinology [address] [place] [address] Caridad Mondragno, TOPOGRAPHIC COMPUTATOR [address] [facility] [address] [place] [address] 05/31/2025 9:00 AM EST [facility] [address] [place] [address] Barrett Stratton PA [address] [place] [address] 09/20/2025 10:30 AM EDT Office Visit [facility] Endocrinology [address] [place] [address] Yo Guadarrama MD [address] [address] documented as of this encounter Visit [...] documented as of this encounter Care Teams Special Assets Officer Relationship Specialty Start Date End Date Elfego Main MD [address] [place] [id number] PCP - General 09/06/20 documented as of this encounter
--- OUTSIDE RECORDS SUMMARY | 2025-01-10 22:26 | XMS_ITS | Encounter Summary ---
Author Organization [facility] Address [address] [place] [address] Care Team Providers Care Tenterer Name Role Phone Elfego Main MD Primary Care Provider [phone] Encounter Details Date Type Department Care Team (Late st Contact Info) Description 11/20/2024 Results Follow-Up [facility] [address] [place] [address] MikaFarzaneh scanlon, POULTRY DEBEAKER [address] [place] [address] Social History Tobacco Use Types [...] Description 01/24/2025 8:15 AM EDT Office Visit [facility] [address] [place] [phone] Alix Webb MD [address] [place] [address] 01/30/2025 1:10 PM EDT Appointment [facility] [address] [place] [address] James Benson MD [address] [place] [address] 03/07/2025 2:20 PM EST Office Visit [facility] Endocrinology [address] [place] [address] Caridad Mondragon, POULTRY DEBEAKER [address] [facility] [address] [place] [address] 05/31/2025 9:00 AM EST Office Visit [facility] [address] [place] [address] Barrett Startton PA [address] [facility] [address] [place] [address] 09/20/2025 10:30 AM EDT Office Visit [facility] Endocrinology [address] [place] [address] Yo Guadarrama MD [address] [facility] [address] [place] [address] documented as of this encounter [...] documented as of this encounter Care Teams Tenterer Relationship Specialty Start Date End Date Elfego Main MD [address] [place] [address] PCP - General 09/06/20 documented as of this encounter
--- OUTSIDE RECORDS SUMMARY | 2025-01-10 22:27 | XMS_ITS | Encounter Summary ---
Author Organization [facility] Address [address] [place] [address] Care Team Providers Care Insurance Agent Name Role Phone Elfego Main MD Primary Care Provider [phone] Encounter Details Date Type Department Care Team (Late Contact Info) Description 09/19/2024 Results Follow-Up Sae Simpson [facility] Endocrinology [address] [place] [address] Yo Guadarrama MD [address] [place] [address] Social History Tobacco Use Types Packs/Day Years [...] Description 01/24/2025 8:15 AM EDT Office Visit [facility] [address] [place] [id number] AboAlix Mckeon MD [address] [place] [phone] 01/30/2025 1:10 PM EDT Appointment [facility] [address] [place] [id number] James Benson MD [address] [place] [address] 03/07/2025 2:20 PM EST Office Visit [facility] Endocrinology [address] [place] [address] Caridad Mondragon APRN [address] [facility] [address] [place] [address] 05/31/2025 9:00 AM EST Office Visit [facility] [address] [place] [address] Barrett Stratton PA [address] [facility] [address] [place] [address] 09/20/2025 10:30 AM EDT Office Visit [facility] Endocrinology [address] [place] [address] Yo Guadarrama MD [address] [facility] [address] [place] [address] documented as of this encounter Visit Diagnoses Not on filedocumented in this encounter Additional Health Concerns Assessment Noted Time PHQ-9 Depression Total Score: 3 05/30/19 11:43 AM EST A fall risk assessment has been complete d for the patient 07/19/2024 11:02 AM EDT A Body Mass Index follow-up plan has been documented for the patient 09/24/2024 11:13 PM EDT documented as of this encounter Care Teams Insurance Agent Relationship Specialty Start Date End Date Elfego Main MD [address] [place] [id number] PCP - General 09/06/20 documented as of this encounter
--- OUTSIDE RECORDS SUMMARY | 2025-01-10 22:28 | XMS_ITS | Clinical Summary ---
Author Organization [facility] Address [address] [place] [address] Care Team Providers Care Car Tester Name Role Phone Elfego Mian MD Primary Care Provider [phone] Allergies Active Allergy Reactions Criticality Noted Date Comments Canagliflozin Other - please document in the comment field Low 09/19/2024 Duloxetine Hcl Other - please document in the comment field Low 09/19/2024 Insulin Glargine Other - please document in the comment field Low 09/19/2024 Linagliptin Other - please document in the comment field Low 09/19/2024 Metformin Other - please document in the comment field Low 09/19/2024 Nsaids Other - please document in the comment field Medium 08/14/2024 Patient states with her low platelets and cirrhosis she has been advised not to take any NSAIDs. Sitaglip Phos-Metformin Hcl Er Other - please document in the comment field Low 09/19/2024 Medications losartan-hydroC HLOROthiazide (Hyzaar) 50-12.5 MG tablet Take 0.5 tablets by mouth daily. 1 Active loratadine (Claritin) 10 MG tablet Take 1 tablet by mouth daily. Active fluticasone (Flonase) 50 MCG/ACT nasal spray Administer 2 sprays into each nostril daily as needed for allergies or rhinitis. 3 Active rifAXIMin (Xifaxan) 550 MG tablet Take 1 tablet (550 mg) by mouth 2 (two) times a day. 60 tablet 4 Active lidocaine (Lidoderm) 5 % patch Apply 1 patch topically as needed. 4 Active glucagon (Baqsimi Two Pack) 3 MG/DOSE powder Nasal Powder Administer 3 mg into affected nostril(s) 1 (one) time if needed (severe hypoglycemia). 2 each 3 4 01/26/20 25 Active meclizine (Antivert) 25 MG tablet Take 1 tablet by mouth 3 (three) times a day as needed for dizziness. 5 Active pen needle, diabetic (B-D UF III MINI PEN NEEDLES) 31G X 5 MM misc Use 2x/day 180 each 3 5 Active acetaminophen (Tylenol) 500 MG tablet Take 2 tablets by mouth every 6 hours as needed for pain, headaches or fever. Active spironolactone (Aldactone) 50 MG tablet TAKE ONE TABLET BY MOUTH ONCE A DAY 30 tablet 3 5 Active furosemide (Lasix) 20 MG tablet TAKE ONE TABLET BY MOUTH ONCE A DAY 30 tablet 3 5 Active Continuous Glucose Sensor (FreeStyle Eric 3 Plus Sensor) miscIndications :Type 2 diabetes mellitus with hyperglycemia, with long-term current use of insulin ([facility]) 1 sensor every 15 days. 6 each 3 5 11/10/19 26 Active Semaglutide, 1 MG/DOSE, (Ozempic, 1 MG/DOSE,) 4 MG/3ML solution pen-injector Inject 1 mg under the skin 1 time per week. 9 mL 3 5 11/10/19 26 Active omeprazole (PriLOSEC) [address] capsule Take 1 capsule by mouth daily. Do not crush or chew. 30 capsule 11 5 11/28/19 26 Active Active Problems Problem Noted Date Diagnosed Date Atrophic gastritis 10/25/2024 Cervical nerve root compression 10/25/2024 Chronic congestive splenomegaly 10/25/2024 Esophageal varices without bleeding 10/25/2024 Hyperglycemia due to type 2 diabetes mellitus Hypoglycemia 10/25/2024 Irritable bowel syndrome 10/25/2024 Left upper quadrant abdominal pain 10/25/2024 Mixed anxiety and depressive disorder 10/25/2024 Nonalcoholic steatohepatitis (KOENIG) 10/25/2024 Otitis externa 10/25/2024 Paresthesia 10/25/2024 Piriformis syndrome of right side 10/25/2024 Polyneuropathy due to type 2 diabetes mellitus 0 10/25/2024 Portal hypertension 10/25/2024 Sciatic nerve lesion 10/25/2024 Thyroid nodule 10/25/2024 Vitamin D deficiency 10/25/2024 Abnormal imaging of thyroid 07/19/2024 Abnormal result of cardiovascular function study 07/19/2024 Acute pharyngitis 07/19/2024 Bilateral knee pain 07/19/2024 BPV (benign positional vertigo) 07/19/2024 Callus of foot 07/19/2024 Cervical radiculopathy 07/19/2024 Chronic headaches 07/19/2024 Diastolic dysfunction 07/19/2024 Difficulty sleeping 07/19/2024 Dyspnea 07/19/2024 Gastroesophageal reflux disease 07/19/2024 Hyperammonemia 07/19/2024 Hyperglycemia 07/19/2024 Knee internal derangement 07/19/2024 Low back pain 07/19/2024 Neck pain 07/19/2024 Osteoarthritis of left knee 07/19/2024 Osteoarthritis of right knee 07/19/2024 Pulsatile tinnitus of both ears 07/19/2024 Chest pain 07/19/2024 Greater trochanteric bursitis 07/19/2024 Right hip pain 07/19/2024 Right leg pain 07/19/2024 Sacroiliitis 07/19/2024 Snoring 07/19/2024 Somnolence, daytime 07/19/2024 Sore throat (viral) 07/19/2024 TMJ tenderness, right 07/19/2024 Typical angina 07/19/2024 Transient diplopia 07/19/2024 Unstable angina pectoris 07/19/2024 Vertigo 07/19/2024 Viral respiratory infection 07/19/2024 Cirrhosis of liver 07/19/2024 HLD (hyperlipidemia) 07/19/2024 DM2 (diabetes mellitus, type 2) 07/19/2024 Overview (07/19/2024): mild diffuse callus only plantar right foot Vitreous hemorrhage of left eye 07/19/2024 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 07/19/2024 Hyperlipidemia 01/26/2024 Retinopathy 10/31/2020 Neuropathy 10/31/2020 Non-compliance 10/31/2020 Diabetic macular edema of left eye 04/20/2019 Diabetic macular edema of right eye 04/20/2019 Nuclear senile cataract 04/20/2019 Proliferative diabetic retin opathy of left eye determined by examination 04/20/2019 Proliferative diabetic retin opathy of right eye determined by examination 04/20/2019 Diabetic neuropathy 01/07/2019 HTN (hypertension) 11/12/2017 Obesity (BMI 30-39.9) 11/12/2017 Type 2 diabetes 08/23/2017 Overview (01/26/2022): Regulatory Update January 2022 Cirrhosis 08/23/2017 Encounters Date Type Department Care Team Description 12/06/2024 Orders Only [facility] Medicine Specialties [address] [place] [address] Barrett Stratton PA Cirrhosis of liver without ascites, unspecified hepatic cirrhosis type (CMS/HCC) (Primary Dx) 11/29/2024 Results Follow-Up [facility] Medicine Specialties [address] [place] [address] Barrett Stratton PA 11/27/2024 10:30 AM EDT Office Visit [facility] Medicine Specialties [address] [place] [address] Barrett Stratton PA Esophageal dysphagia (Primary Dx); Cirrhosis of liver without ascites, unspecified hepatic cirrhosis type (CMS/HCC); Gastroesophageal reflux disease without esophagitis; Costovertebral angle tenderness; BMI 36.0-36.9,adult 11/27/2024 Travel 11/20/2024 9:24 AM EDT - 11/20/2024 11:59 PM EDT Hospital Encounter [facility] Ultrasound [address] [place] [address] Cirrhosis of liver without ascites, unspecified hepatic cirrhosis type (CMS/HCC) Discharge Disposition: Home or Self Care 11/20/2024 Results Follow-Up [facility] Medicine Specialties [address] [place] [address] MikaJasFarzanehbautista Garcia APRN 11/20/2024 Travel 11/09/2024 1:40 PM EDT Office Visit [facility] Endocrinology [address] [place] [address] Alanna Caridad S, HALL CLERK Type 2 diabetes mellitus with hyperglycemia, with long-term current use of insulin ([facility]) (Primary Dx); Retinopathy; Neuropathy; Hypertension, unspecified type; Obesity (BMI 30-39.9) 11/09/2024 Travel 10/25/2024 10:00 AM EDT Office Visit [facility] [address] [place] [address] Alix Webb MD 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 (Primary Dx); Vitreomacular traction syndrome of left eye 10/25/2024 2:00 AM EDT Ancillary Procedure [facility] [address] [place] [address] 10/25/2024 Travel from Last 3 Months Family History Medical History Relation Name Comments Conversions - Other Mother Heart tr ouble Diabetes Mother Hypertension Mother Obesity Mother Stroke Mother Other cancer Sister Anesthesia problems Neg Hx Malig Hyperthermia Neg Hx Relation Name Status Comments Mother Sister Social History Tobacco Use Types Packs/Day Years Used Date Smoking Tobacco: Never Passive Smoke Exposure: Never Smokeless Tobacco: Never Tobacco Cessation:Counseling Given: Not Answered Alcohol Use Standard Drinks/Week Comments Yes 0 [...] on file Sexual Orientation Not on file Last Filed Vital Signs Vital Sign Reading Time Taken Comments Blood Pressure 112/75 11/27/2024 10:12 AM EDT Pulse 73 11/27/2024 10:12 AM EDT Temperature 36.8 C (98.2 F) 11/27/2024 10:12 AM EDT Respiratory Rate 20 08/14/2024 11:09 AM EDT Oxygen Saturation 98% 11/27/2024 10:12 AM EDT Inhaled Oxygen Concentration - - Weight 88 kg (194 lb 0.1 oz) 11/27/2024 10:12 AM EDT Height 154.9 cm (5' 1 ) 11/27/2024 10:12 AM EDT Body Mass Index 36.66 11/27/2024 10:12 AM EDT Plan of Treatment Upcoming Encounters Date Type Department Care Team (Late st Contact Info) Description 01/24/2025 8:15 AM EDT Office Visit [facility] [address] [place] [address] Alix Webb MD [address] [facility] [address] [place] [address] 01/30/2025 1:10 PM EDT Appointment [facility] [address] [place] [address] James Benson MD [address] [place] [address] 03/07/2025 2:20 PM EST Office Visit [facility] Endocrinology [address] [place] [address] Caridad Mondragon S, HALL CLERK [address] [facility] [address] [place] [address] 05/31/2025 9:00 AM EST Office Visit [facility] Medicine Specialties [address] [place] [address] Barrett Stratton PA [address] [place] [address] 09/20/2025 10:30 AM EDT Office Visit [facility] [address] [place] [address] Yo Guadarrama MD [address] [place] [address] Health Maintenance Due Date Last Done Comments [facility]-Medicare Annual Wellness (AWV) 1967 [facility]-Infant/Child/Adol SDOH Screenings 1967 Diabetes: Dental Exam 1977 [facility]- SDOH Screenings 1985 [facility]-Adult SDOH Screenings 1985 [facility]-DTaP,Tdap,and Td Vaccines (1 - Tdap) 1986 [facility]-Hepatitis A Vaccines (1 of 2 - Risk 2-dose series) 1986 [facility]-Hepatitis B Vaccines (1 of 3 - 19+ 3-dose series) 1986 [facility]-Pneumococcal Vaccine: 50+ Years (1 of 2 - PCV) 1986 [facility]-Pap Smear 1988 [facility]-Cervical Cancer Screening 1997 [facility]-HPV/Cotest 1997 CT Colonography 2012 Colonoscopy 2012 FIT-DNA 2012 FIT 2012 FOBT 2012 Sigmoidoscopy 2012 [facility]-Colorectal Cancer Screening 2012 [facility]-Breast Cancer Screening 2017 [facility]-Zoster Vaccines (1 of 2) 2017 LAI-WNUOC-98 Vaccine (1 - 2023- season) 2024 [facility]-Influenza Vaccine (#1) 2024 [facility]-Diabetes: Hemoglobin A1C 02/08/2025, 08/02/2024, 05/02/2024, Additional history exists [facility]-Depression Screening 11/27/2025 11/27/2024, 02/0 07/2024 [facility]-Hepatitis C Screening Completed 11/23/2023 [facility]-HIV Screening Completed 01/16/2024 [facility]-Obesity Intervention Completed 025, 11/09/2024, 11/09/2024, Additional history exists HPV Vaccines Aged Out No longer eligi ble based on patient's age to complete this topic [facility]-HIB Vaccines Aged Out No longer e ligible based on patient's age to complete this topic [facility]-IPV Vaccines Aged Out No longer e ligible based on patient's age to complete this topic [facility]-Rotavirus Vaccines Aged Out No lo nger eligible based on patient's age to complete this topic Goals Goal Patient Goal Type Associated Problems Recent Progress Patient-Stated? Author Autogenerat ed Goal Care Plan Autogenerated Problem No Leo Torres Procedures Procedure Name Priority Date/Time Associated Diagnosis Comments URINE REDMAN PANEL Routine 11/27/2024 11:0 1 AM EDT Costovertebral angle tenderness URINALYSIS WITH REFLEX MICROSCOPIC Routine 11/27/2024 11:01 AM EDT Costovertebral angle tenderness URINALYSIS WITH REFLEX MICROSCOPIC AND CULTURE Routine 11/27/2024 11:01 AM EDT Costovertebral angle tenderness ALPHA FETOPROTEIN, SERUM Routine 11/27/2024 10:59 AM EDT Cirrhosis of liver without ascites, unspecified hepatic cirrhosis type (CMS/HCC) PROTHROMBIN TIME(PT) / INR Routine 11/27/2024 10:59 AM EDT Cirrhosis of liver without ascites, unspecified hepatic cirrhosis type (CMS/HCC) COMPREHENSIVE METABOLIC PANEL, PLASMA Routine 11/27/2024 10:59 AM EDT Cirrhosis of liver without ascites, unspecified hepatic cirrhosis type (CMS/HCC) CBC WITH AUTO DIFFERENTIAL Routine 11/27/2024 10:59 AM EDT Cirrhosis of liver without ascites, unspecified hepatic cirrhosis type (CMS/HCC) MAGNESIUM, PLASMA Routine 11/27/2024 10: 59 AM EDT Cirrhosis of liver without ascites, unspecified hepatic cirrhosis type (CMS/HCC) US LIVER SCREEN Routine 11/20/2024 10:09 AM EDT Cirrhosis of liver without ascites, unspecified hepatic cirrhosis type (CMS/HCC) POCT GLYCOSYLATED HEMOGLOBIN (HGB A1C) Routine 11/09/2024 1:42 PM EDT Type 2 diabetes mellitus with hyperglycemia, with long-term current use of insulin (CMS/HCC) INTRAVITREAL INJECTION, PHARMACOLOGIC AGENT - OU - BOTH EYES Routine 10/25/2024 11:52 AM EDT 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 Vitreomacular traction syndrome of left eye OCT, RETINA - OU - BOTH EYES Routine 10/25/2024 11:13 AM EDT 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 Vitreomacular traction syndrome of left eye ED HIV 1/2 ANTIBODY/ANTIGEN SCREEN WITH REFLEX TO HIV I/II DIFFERENTIATION STAT 01/16/2024 10:38 PM EDT HEPATITIS C ANTIBODY W/REFLEX TO HCV QUANT PCR Routine 11/23/2023 10:56 AM EDT KOENIG (nonalcoholic steatohepatitis) Cirrhosis of liver without ascites, unspecified hepatic cirrhosis type (CMS/HCC) from Last 3 Months or Most Recently Relevant to Health Maintenance Results * Urine Redman Panel (11/27/2024 11:01 AM EDT) Extra Reflex urine culture not indicated 11/27/2024 7:01 PM EDT [facility] Comment: Previously prelim verified as Specimen evaluation in progress on 11/27/2024 at 1301 EDT. Previously prelim verified as Specimen evaluation in progress on 11/27/2024 at 1401 EDT. Previously prelim verified as Specimen evaluation in progress on 11/27/2024 at 1501 EDT. Previously prelim verified as Specimen evaluation in progress on 11/27/2024 at 1601 EDT. Previously prelim verified as Specimen evaluation in progress on 11/27/2024 at 1701 EDT. Previously prelim verified as Specimen evaluation in progress on 11/27/2024 at 1801 EDT. Urine Urine specimen obtained by clean catch procedure / Unknown Non-blood Collection / Unknown 11/27/2024 11:01 AM EDT 11/27/2024 11:01 AM EDT us Barrett VAN LAB URINE ORDERABLES Final Res ult [facility] [address] [place] [address] * Urinalysis with reflex microscopic (Culture NOT Included) (11/27/2024 11:01 AM EDT) Color, Urine Yellow LAB URINALYSIS - AUTOMATED METHOD 11/27/2024 12:16 PM EDT [facility] Clarity, Urine Clear LAB URINALYSIS - AUTOMATED METHOD 11/27/2024 12:16 PM EDT [facility] Spec [place], Urine 1.020 1.005 - 1.030 LAB URINALYSIS - AUTOMATED METHOD 11/27/2024 12:16 PM EDT [facility] pH, Urine 6.0 5.0 - 8.0 LAB URINALYSIS - AUTOMATED METHOD 11/27/2024 12:16 PM EDT [facility] Protein, Urine Negative Negative mg/dL LAB URINALYSIS - AUTOMATED METHOD 11/27/2024 12:16 PM EDT [facility] Glucose, Urine Negative Negative mg/dL LAB URINALYSIS - AUTOMATED METHOD 11/27/2024 12:16 PM EDT [facility] Ketones, Urine Negative Negative mg/dL LAB URINALYSIS - AUTOMATED METHOD 11/27/2024 12:16 PM EDT [facility] Blood, Urine Negative Negative LAB URINALYSIS - AUTOMATED METHOD 11/27/2024 12:16 PM EDT [facility] Bilirubin, Urine Negative Negative LAB URINALYSIS - AUTOMATED METHOD 11/27/2024 12:16 PM EDT [facility] Urobilinogen, Urine 1.0 0.2 to 1.0 mg/dL LAB URINALYSIS - AUTOMATED METHOD 11/27/2024 12:16 PM EDT [facility] Leukocytes, Urine Negative Negative LAB URINALYSIS - AUTOMATED METHOD 11/27/2024 12:16 PM EDT [facility] Nitrite, Urine Negative Negative LAB URINALYSIS - AUTOMATED METHOD 11/27/2024 12:16 PM EDT [facility] Urine Urine specimen obtained by clean catch procedure / Unknown Non-blood Collection / Unknown 11/27/2024 11:01 AM EDT 11/27/2024 11:01 AM EDT Barrett VAN LAB URINE ORDERABLES Final Res ult Performing Organization Address [facility] de Phone Number [facility] [address] [place] [address] * Alpha Fetoprotein, Serum (11/27/2024 10:59 AM EDT) Alpha Fetoprotein, Serum <2.3 <10.0 ng/mL 11/27/2024 1:51 PM EDT [facility] Blood Venous blood specimen / Unknown Venipuncture / Unknown 11/27/2024 10:59 AM EDT 11/27/2024 10:59 AM EDT Narrative [facility] - 11/27/2024 1:51 PM EDT Performed by Marga electrochemiluminescent immunoassay which is traceable to the 1st AFP IRP WHO Reference standard 72/255. Results obtained with different test methods or kits cannot be used interchangeably. us Barrett VAN LAB BLOOD ORDERABLES Final Res ult Performing Organization Address [facility] Co de Phone Number [facility] [address] [place] [address] * (ABNORMAL) Prothrombin Time/INR (11/27/2024 10:59 AM EDT) Prothrombin Time 15.0(H) 12.0 - 14.3 sec LAB COAGULATION METHOD 11/27/2024 12:35 PM EDT [facility] INR 1.2(H) 0.9 - 1.1 LAB COAGULATION METHOD 11/27/2024 12:35 PM EDT [facility] Blood Venous blood specimen / Unknown Venipuncture / Unknown 11/27/2024 10:59 AM EDT 11/27/2024 10:59 AM EDT Narrative [facility] - 11/27/2024 12:35 PM EDT OPTIMAL INR RANGES FOR PATIENT ON ORAL ANTICOAGULANT THERAPY Prevention of venous thromboembolism INR 2.0 to 3.0 In patients with heart disease: Atrial fibrillation INR 2.0 to 3.0 Valvular heart disease INR 2.0 to 3.0 Tissue heart valves INR 2.0 to 3.0 Mechanical prosthetic valves INR 2.5 to 3.5 Prevention of recurrent AR INR 2.5 to 3.5 us Barrett VAN LAB BLOOD ORDERABLES Final Res ult [facility] [address] [place] [address] * (ABNORMAL) CBC and Differential (11/27/2024 10:59 AM EDT) WBC Count 3.94 3.70 - 10.30 10*3/uL LAB HEMATOLOGY METHOD 11/27/2024 3:48 PM EDT [facility] RBC Count 3.85(L) 3.90 - 5.20 10*6/uL LAB HEMATOLOGY METHOD 11/27/2024 3:48 PM EDT [facility] HGB 12.4 11.2 - 15.7 g/dL LAB HEMATOLOGY METHOD 11/27/2024 3:48 PM EDT [facility] HCT 35.9 34.0 - 45.0 % LAB HEMATOLOGY METHOD 11/27/2024 3:48 PM EDT [facility] Platelet Count 57(L) 155 - 369 10*3/uL LAB HEMATOLOGY METHOD 11/27/2024 3:48 PM EDT [facility] MCV 93 79 - 98 fL LAB HEMATOLOGY METHOD 11/27/2024 3:48 PM EDT [facility] MCH 32.2(H) 26.0 - 32.0 pg LAB HEMATOLOGY METHOD 11/27/2024 3:48 PM EDT [facility] MCHC 34.5 30.7 - 35.5 g/dL LAB HEMATOLOGY METHOD 11/27/2024 3:48 PM EDT [facility] RDW 14.2 11.5 - 14.5 % LAB HEMATOLOGY METHOD 11/27/2024 3:48 PM EDT [facility] MPV 10.7 8.8 - 12.5 fL LAB HEMATOLOGY METHOD 11/27/2024 3:48 PM EDT [facility] nRBC 0.0 <=0.0 per 100 WBCs LAB HEMATOLOGY METHOD 11/27/2024 3:48 PM EDT [facility] Differential Type Automated LAB HEMATOLOGY METHOD 11/27/2024 3:48 PM EDT [facility] Neutrophils % 63 % LAB HEMATOLOGY METHOD 11/27/2024 3:48 PM EDT [facility] Lymphocytes % 28 % LAB HEMATOLOGY METHOD 11/27/2024 3:48 PM EDT [facility] Monocytes % 6 % LAB HEMATOLOGY METHOD 11/27/2024 3:48 PM EDT [facility] Eosinophils % 2 % LAB HEMATOLOGY METHOD 11/27/2024 3:48 PM EDT [facility] Basophils % 1 % LAB HEMATOLOGY METHOD 11/27/2024 3:48 PM EDT [facility] Immature Granulocytes % 0 % LAB HEMATOLOGY METHOD 11/27/2024 3:48 PM EDT [facility] Neutrophils Absolute 2.48 1.60 - 6.10 10*3/uL LAB HEMATOLOGY METHOD 11/27/2024 3:48 PM EDT [facility] Lymphocytes Absolute 1.11(L) 1.20 - 3.90 10*3/uL LAB HEMATOLOGY METHOD 11/27/2024 3:48 PM EDT [facility] Monocytes Absolute 0.25(L) 0.30 - 0.90 10*3/uL LAB HEMATOLOGY METHOD 11/27/2024 3:48 PM EDT [facility] Eosinophils Absolute 0.06 0.00 - 0.50 10*3/uL LAB HEMATOLOGY METHOD 11/27/2024 3:48 PM EDT [facility] Basophils Absolute 0.03 0.00 - 0.10 10*3/uL LAB HEMATOLOGY METHOD 11/27/2024 3:48 PM EDT [facility] Immature Granulocytes Absolute 0.01 0.00 - 0.06 10*3/uL LAB HEMATOLOGY METHOD 11/27/2024 3:48 PM EDT [facility] Blood Venous blood specimen / Unknown Venipuncture / Unknown 11/27/2024 10:59 AM EDT 11/27/2024 10:59 AM EDT [facility] 11/27/2024 3:48 PM EDT Therapeutic decision making should be based on absolute values, rather than percentages. us Barrett VAN LAB BLOOD ORDERABLES Final Res ult Performing Organization Address City/[facility]/ZIP Co de Phone Number [facility] [address] [place] [address] * Magnesium (11/27/2024 10:59 AM EDT) Magnesium, Plasma 1.9 1.9 - 2.4 mg/dL 11/27/2024 12:31 PM EDT [facility] Blood Venous blood specimen / Unknown Venipuncture / Unknown 11/27/2024 10:59 AM EDT 11/27/2024 10:59 AM EDT Barrett VAN LAB BLOOD ORDERABLES Final Res ult Performing Organization Address [facility]/ZIP Co de Phone Number [facility] [address] [place] [address] * (ABNORMAL) Comprehensive Metabolic Panel, Plasma (11/27/2024 10:59 AM EDT) Glucose, Plasma 214(H) 74 - 99 mg/dL 11/27/2024 12:31 PM EDT [facility] BUN, Plasma 12 7 - 21 mg/dL 11/27/2024 12:31 PM EDT [facility] Creatinine, Plasma 0.71 0.60 - 1.10 mg/dL 11/27/2024 12:31 PM EDT [facility] BUN/Creatinine Ratio 17 11/27/2024 12:31 PM EDT [facility] Sodium, Plasma 138 136 - 145 mmol/L 11/27/2024 12:31 PM EDT [facility] Potassium, Plasma 4.1 3.6 - 4.9 mmol/L 11/27/2024 12:31 PM EDT [facility] Chloride, Plasma 107 97 - 107 mmol/L 11/27/2024 12:31 PM EDT [facility] CO2, Plasma 20(L) 22 - 29 mmol/L 11/27/2024 12:31 PM EDT [facility] Anion Gap 11 6 - 16 mmol/L 11/27/2024 12:31 PM EDT [facility] Total Calcium, Plasma 9.0 8.9 - 10.2 mg/dL 11/27/2024 12:31 PM EDT [facility] Total Protein 6.3 6.3 - 7.9 g/dL 11/27/2024 12:31 PM EDT [facility] Albumin, Plasma 3.9 3.5 - 5.2 g/dL 11/27/2024 12:31 PM EDT [facility] AST, Plasma 38(H) 10 - 35 U/L 11/27/2024 12:31 PM EDT [facility] ALT, Plasma 34 10 - 35 U/L 11/27/2024 12:31 PM EDT [facility] Alkaline Phosphatase, Plasma 77 46 - 142 U/L 11/27/2024 12:31 PM EDT [facility] Total Bilirubin, Plasma 2.2(H) 0.2 - 1.1 mg/dL 11/27/2024 12:31 PM EDT [facility] eGFRcr 99.3 mL/min/1.7 3m*2 11/27/2024 12:31 PM EDT [facility] Comment:Reported eGFRcr in m L/min/1.73m2 is based the CKD-EPI 2020 equation that does not use a race coefficient. Blood Venous blood specimen / Unknown Venipuncture / Unknown 11/27/2024 10:59 AM EDT 11/27/2024 10:59 AM EDT us Barrett VAN LAB BLOOD ORDERABLES Final Res ult [facility] [address] [place] [address] * US Liver Screen (11/20/2024 10:09 AM [...] are based on Ultrasound LI-RADS version 2017. [email or web address] CRITICAL RESULT: No. COMMUNICATION: Per this written report. Drafted by Joey Herrera MD on 11/20/2024 10:21 AM Final report signed by Joey Herrera MD on 11/20/2024 10:23 AM Narrative 11/20/2024 10:23 AM EDT CLINICAL INDICATION: Cirrhosis r/o HCC TECHNIQUE: Multiplanar static and cine redman scale ultrasound images of the abdomen were [...] r/o HCC TECHNIQUE: Multiplanar static and cine redman scale ultrasound images of the abdomenwere obtained, [...] recommendations are based on UltrasoundLI-RADS version 2017. [email or web address] CRITICAL RESULT: No. COMMUNICATION: Per this written report. Drafted by Joey Herrera MD on 11/20/2024 10:21 AM Final report signed by Joey Herrera MD on 11/20/2024 10:23 AM us Farzaneh Brennan HALL CLERK IMG US PROCEDURES Final Res ult * POCT glycosylated hemoglobin (Hb A1C) (11/09/2024 1:42 PM EDT) POCT Hemoglobin A1C 7.3 <5.7% Non-Diabe tic % [facility] Kit Lot Number [id number] [facility] [employer] [facility] Kit Expiration Date 08/23/2026 [facility] Blood Venous blood specimen / Unknown 11/09/2024 1:42 PM EDT us Caridad Mondragon HALL CLERK POINT OF CARE TEST ENTER/ED IT ORDERABLES Final Result Performing Organization Address City/State/[facility] Co de Phone Number HEALTHCARE [facility] [address] [place] [address] * Intravitreal Injection, Pharmacologic Agent - OU - Both Eyes (10/25/2024 11:52 AM EDT) Anatomical Region Laterality Modality Head Other Narrative 10/27/2024 3:56 PM EDT Time Out 10/25/2024. 11:52 AM. Confirmed correct patient, procedure, site, and patient consented. Anesthesia Right Eye Topical anesthesia was used. Anesthetic medications included Proparacaine 0.5%. Left Eye Topical anesthesia was used. Anesthetic medications included Proparacaine 0.5%. Procedure Right Eye Preparation included 5% betadine to ocular surface. A 30 gauge needle was used. Injection: 0.05 mL Bevacizumab 1.25 MG/0.05ML Route: Intravitreal, Site: Right Eye [facility]: [id number], Lot: [id number], Expiration date: 11/18/2024 Left Eye Preparation included 5% betadine to ocular surface. A 30 gauge needle was used. Injection: 0.05 mL Bevacizumab 1.25 MG/0.05ML Route: Intravitreal, Site: Left Eye [facility]: 97658-233-91, Lot: [id number], Expiration date: 01/19/2025 Post-op Right Eye Post injection exam found visual acuity of at least counting fingers. The patient tolerated the procedure well. There were no complications. The patient received written and verbal post procedure care education. Post injection medications were not given. Left Eye Post injection exam found visual acuity of at least counting fingers. The patient tolerated the procedure well. There were no complications. The patient received written and verbal post procedure care education. Post injection medications were not given. Result [facility] Alix Webb MD OPHTH CLINIC PROCEDURE S Final Result * OCT, Retina - OU - Both Eyes (10/25/2024 11:13 AM EDT) Anatomical Region Laterality Modality Head Optical [facility] e Tomography Narrative 10/25/2024 11:13 AM EDT Right Eye Quality was good. Scan locations included subfoveal. Left Eye Quality was good. Scan locations included subfoveal. Notes Both eyes (OU) - no csDME Result [facility] Alix Webb MD OPHTH TOMOGRAPHY Final Result * ED HIV 1/2 Antibody/Antigen Screen w/Reflex to HIV 1/2 Differentiation (01/16/2024 10:38 PM EDT) HIV 1 & 2 Antibody/Antigen Screen Non Reactive Non Reactive 01/16/2024 11:37 PM EDT [facility] Comment:Screening for HIV 1 & 2 antibodies, and P24 antigen is NONREACTIVE. No confirmatory testing is required. Blood Venous blood specimen / Unknown Venipuncture / Unknown 01/16/2024 10:38 PM EDT 01/16/2024 10:55 PM EDT Result [facility] Gildardo Das MD LAB BLOOD ORDERABLES Final Re sult [facility] [address] [place] [address] * Hepatitis C antibody (11/23/2023 10:56 AM EDT) Hepatitis C Antibody Negative Negative 11/23/2023 1:23 PM EDT [facility] Blood Venous blood specimen / Unknown Venipuncture / Unknown 11/23/2023 10:56 AM EDT 11/23/2023 10:58 AM EDT us Barrett VAN LAB BLOOD ORDERABLES Final Res ult [facility] [address] [place] [address] from Last 3 Months or Most Recently Relevant to Health Maintenance Additional Health Concerns Active Problems Noted Date Diagnosed Date Autogenerated Problem 12/04/2024 Insurance MEDICARE Care Teams Car Tester Relationship Specialty Start Date End Date Elfego Main MD [address] [place] [address] PCP - General 09/06/20
--- OUTSIDE RECORDS SUMMARY | 2025-01-10 22:28 | XMS_ITS | Patient Health Record ---
[facility] [address] [facility] [address] [place] [id number] Care Team Providers Care Environmental Compliance Officer Name Role Phone Radha Main Primary Care Provider Sara Mendez Unavailable [phone] Allergies Allergen (clinical drug ingredient) Drug/Non Drug [...] metFORMIN stomach upset Drug Allergy Act vladimir Medications Medication SIG (Take, Route, Frequency, Duration) Notes Start Date End Date Status Xifaxan 550 MG 1 tablet Orally Twic a day; Duration: 30 day(s) Active Fluticasone Propionate 50 MCG/ACT 1 spray in each nostril Nasally once daily Active Losartan Potassium-HCTZ 50-12.5 MG TAKE ONE TABLET BY MOUTH ONCE A DAY; Duration: 30 Active HumuLIN R U-500 (CONCENTRATED) 500 UNIT/ML 130 units Subcutaneous twice a day Active Furosemide 20 MG 1 tablet Orally Once a day; Duration: 30 day(s) Active Loratadine 10 MG 1 tab(s) orally once a day Active valACYclovir HCl 1 GM TAKE TWO TABLETS B Y MOUTH 2 TIMES A DAY Active Methocarbamol 750 MG 1 tablet Orally thr ee times a day as needed; Duration: 30 day(s) 08/18/2023 Active Albuterol Sulfate HFA 108 (90 Base) MCG/ACT 1 puff as needed Inhalation four times a day as needed 10/13/2023 Active Meclizine HCl 25 MG 1 tab(s) orally 3 ti mes a day as needed 08/14/2022 Active Spironolactone 50 MG 1 tablet Orally Onc e a day; Duration: 30 day(s) Active Benzonatate 200 mg TAKE 1 CAPSULE BY [facility] 3 TIMES A DAY; Duration: 10 Active Metoprolol Succinate ER 25 MG take one tablet by mouth once a day orally once a day at night Active Problems Problem Type SNOMED Code ICD Code Onset Dates Problem Status W/U Status Risk Notes Problem Vertigo (581296648) Vertigo (438.85) Active confirmed Problem Vitamin D deficiency (55268572) Vitamin D deficiency (E55.9) Active confirmed Problem Essential hypertension (91996858) Essential hypertension (I10) Active confirmed Problem Diverticulitis (79823045) Diverticulitis (K57.92) Active confirmed Problem Otitis externa (8692856) Otitis externa (H60.90) Active confirmed Problem Hypoglycemia (866420602) Hypoglycemia (E16.2) Active confirmed Problem Sciatic nerve lesion (345393817) Piriformis syndrome of right side (G57.01) Active confirmed Problem Paresthesia (47506572) Paresthesia (R20.2) Active confirmed Problem Sciatica (78097399) Sciatic leg pain (M54.30) Active confirmed Problem Mixed anxiety and depressive disorder (583102192) Depression with anxiety (F41.8) Active confirmed Problem Peripheral neuropathy (531390491) Peripheral neuropathy (G62.9) Active confirmed Problem Mixed hyperlipidemia (873495355) Mixed hyperlipidemia (E78.2) Active confirmed Problem Cirrhosis of liver (69009641) Unspecified cirrhosis of liver (K74.60) Active confirmed Problem KOENIG - Nonalcoholic steatohepatitis (026734922) Nonalcoholic steatohepatitis (KOENIG) (K75.81) Active confirmed Problem Portal hypertension (77669567) Portal hypertension (K76.6) Active confirmed Problem Thyroid nodule (872534352) Thyroid nodule (E04.1) Active confirmed Problem Neck pain (72793594) Neck pain (M54.2) Active confirmed Problem Hyperglycemia due to type 2 diabetes mellitus (797499015627553) Diabetes mellitus with hyperglycemia (E11.65) Active confirmed Problem Esophageal varices without bleeding (10331604) Esophageal varices without bleeding, unspecified esophageal varices type (I85.00) Active confirmed Problem Polyneuropathy due to type 2 diabetes mellitus (355030847) Diabetic polyneuropathy associated with type 2 diabetes mellitus (E11.42) Active confirmed Problem Irritable bowel syndrome (44901790) Irritable bowel syndrome, unspecified type (K58.9) Active confirmed Problem KOENIG - Nonalcoholic steatohepatitis (834789703) KOENIG (nonalcoholic steatohepatitis) (K75.81) Active confirmed Problem Atrophic gastritis (34120491) Mild chronic gastritis (K29.50) Active confirmed Problem Left upper quadrant pain (870805580) Left upper quadrant abdominal pain (R10.12) Active confirmed Problem Chronic congestive splenomegaly (158749738) Splenomegaly, congestive, chronic (D73.2) Active confirmed Problem Cervical nerve root compression (91426934) Cervical nerve root impingement (G54.2) Active confirmed Vital Signs Heart Rate 94 /min 05/26/2024 Blood pressure diastolic 82 mm Hg 05/26/2024 Height 60.50 in 05/26/2024 Blood pressure systolic 124 mm Hg 05/26/2024 Weight 207.8 lbs 05/26/2024 BMI 39.91 kg/m2 05/26/2024 Encounters Encounter Location Date Provider Diagnosis Michael [address] [facility] [address] [phone] 05/26/2024 Sara Mendez Neoplasm of uncertai n behavior of skin D48.5 ; Decreased range of motion of right shoulder M25.611 ; Piriformis syndrome of right side G57.01 ; Neck pain M54.2 and Vertigo R42 [facility] [address] [place] [id number] 05/29/2024 Sara Mendez Assessments Encounter Date Diagnosis (ICD Code) Assessment Notes Treatment Notes Treatment Clinical Notes Section Notes 05/26/2024 Neoplasm of uncertain behavior of skin (ICD-10 - D48.5) 05/26/2024 Decreased range of motion of right shoulder (ICD-10 - M25.611) 05/26/2024 Piriformis syndrome of right side (ICD-10 - G57.01) 05/26/2024 Neck pain (ICD-10 - M54.2) 05/26/2024 Vertigo (ICD-10 - R42) Plan Of Treatment Pending Test Test Name Order Date H-VITAMIN B12 08/20/2023 P-Vitamin B12 08/18/2023 Insurance Providers Payer Name Payer Address Payer Phone Subscriber Number Group Number Insured Name Patient Relationship to Insured Coverage Start Date Coverage End Date MEDICARE PART B [address] [address] [place] [id number] CHETNA COSTA Self - patient is the insured Medical (General) History Medical History History ICD Code diverticulitis, May 2005 Type 2 Diabetes Hypertension Hyperlipidemia Depression/Anxiety hepatic cirrhosis esophageal varices splenomegaly and splenic varices 09/14/[address] Surgical History Surgery Date(Month/Year) trigger thumb bilaterally 11/2006,01/2007 trigger thumb/2nd, 3rd digit release 2009 cholecystectomy and appendectomy 1994 Heart Cath 03/13 panascopy 10/21 Hospitalization History Reason Date(Month/Year) Monitoring for chest pain 01-21 to 01-22-0 8 [facility] : passed out [facility] - passed out Apr 18, 2017
--- NOTE | 2025-01-10 22:44 | CT_ITS ---
PROCEDURE INFORMATION: Exam: CT Abdomen And Pelvis With Contrast Exam date and time: 01/10/2025 11:15 PM Age: 59 years old Clinical indication: Abdominal pain; Additional info: Abdominal tenderness and flank tenderness TECHNIQUE: Imaging protocol: Computed tomography of the abdomen and pelvis with contrast. Radiation optimization: All CT scans at this facility use at least one of these dose optimization techniques: automated exposure control; mA and/or kV adjustment per patient size (includes targeted exams where dose is matched to clinical indication); or iterative reconstruction. Contrast material: ISOVUE; Contrast volume: 75 ml; Contrast route: IV; COMPARISON: CT ABDOMEN WO/W CON 05/18/2024 10:42 AM FINDINGS: Liver: Fatty infiltration. No mass. Gallbladder and biliary ducts: Surgically absent gallbladder without biliary ductal dilatation. Pancreas: Unremarkable. No ductal dilation. Spleen: Homogeneous measures 17 cm. Adrenal glands: Unremarkable. No mass. Kidneys and ureters: No nephroureterolithiasis or hydroureter. Stomach and bowel: Scattered colonic diverticula without pericolonic fat stranding. Nonobstructive pattern. Appendix: Not visualized. No obvious pericecal fat stranding. Intraperitoneal space: Unremarkable. No free air. No significant fluid collection. Vasculature: Retroperitoneal collateral vessels. Lymph nodes: No lymphadenopathy. Urinary bladder: Unremarkable as visualized. Reproductive: Unremarkable as visualized. Bones/joints: No acute findings identified. Soft tissues: Unremarkable. IMPRESSION: 1. Retroperitoneal collateral vessels with splenomegaly reflecting chronic portal hypertension. 2. Fatty liver infiltration.
[2025-01-10] MEDS: KETOROLAC 30MG/ML VIAL 30 MG IV (22:56)
[2025-01-10 22:57] LABS: Alanine Aminotransferase 41 U/L (12-78); Albumin Level 4.1 g/dl (3.5-5.0); Albumin/Globulin Ratio 1.4 (1.1-1.8); Alkaline Phosphatase 78 U/L (38-126); Anion Gap 10.6 mEq/L (5-15); Aspartate Amino Transferase 52 U/L (14-36); Bilirubin,Total 4.3 mg/dl (0.2-1.3); Blood Urea Nitrogen 9 mg/dl (7-17); Calcium 8.9 mg/dl (8.4-10.2); Carbon Dioxide 25 mmol/L (22.0-30.0); Chloride 105 mmol/L (98-107); Creatinine Clearance Estimated 138 mL/min (50-200); Creatinine,Serum 0.60 mg/dl (0.52-1.04); Estimated Glomerular Filt Rate 103 ml/min (>60); GFR (African American) 125 ML/MIN (>60); Globulin 3.0 g/dL (1.3-3.2); Glucose 209 mg/dl (74-100); Lipase 170 U/L (23-300); Magnesium 1.6 mg/dl (1.6-2.3); Potassium 3.6 mmoL/L (3.5-5.1); Sodium 137 mmol/L (136-145); Total Protein,Serum 7.1 g/dl (6.3-8.2)
[2025-01-10 23:05] LABS: Hematocrit 37.5 % (37.0-47.0); Hemoglobin 13.3 g/dL (12.2-16.2); Immature Granulocytes % 0 %; Mean Corpuscular HGB Conc 35.5 g/dL (31.8-35.4); Mean Corpuscular Hemoglobin 32.4 pg (27.0-31.2); Mean Corpuscular Volume 91.2 fl (81-99); Nucleated Red Blood Cells % 0 %; Platelet Count 56 K/mm3 (142-424); Red Blood Count 4.11 M/mm3 (4.20-5.40); Red Cell Distribution Width-SD 45.0 fL; White Blood Count 3.3 K/mm3 (4.8-10.8)
[2025-01-10] MEDS: IOPAMIDOL-370 (76%);100ML BOTTLE 75 ML IV (23:21)
[2025-01-10] MEDS: SODIUM CHLORIDE 0.9% 10ML SYR (RAD ONLY) 10 ML IV (23:21)
[2025-01-11 00:49] LABS: Microscopic, Urine URINE MICROSCOPIC (MICROSCOPIC)
[2025-01-11 00:56] LABS: Bilirubin,Urine Negative (Negative); Color,Urine YELLOW (Yellow); Glucose,Urine (UA) Negative (Negative); Ketones,Urine Negative (Negative); Leukocyte Esterase,Urine Negative (Negative); PH,Urine 6.5 (5.0-8.5); Protein,Urine Negative (Negative); Specific Gravity, Urine 1.010 (1.005-1.030); Urobilinogen,Urine 1.0 EU/dl (0.2)
[2025-01-11 01:21] LABS: Bacteria,Urine 1+ /lpf
[2025-01-11 01:35] VITALS: BP 125/71; PULSE 65; RESP 17; TEMP 37; O2SAT 98
[2025-01-11] MEDS: SULFA/TRIMETHOPRIM 1 TABLET 1 EACH PO (01:39)
--- NOTE | 2025-01-12 08:48 | PC.NURSE ---
Urine culture results reviewed by Dr. Mena, no new results received.
== END 2025-01-11 01:43 | disposition home or self-care (01) ==
PROVIDERS: Student in an Organized Health Care Education/Training Program; Emergency Provider Emergency Medicine; PCP Family Medicine
DX: N39.0 Urinary tract infection, site not specified (principal); R10.84 Generalized abdominal pain; K75.81 Nonalcoholic steatohepatitis (NASH)
CPT/HCPCS: 74177; 80053; 80074; 81001; 83690; 83735; 85025; 87086; 96374; 99284; 99285; J1885; Q9967

== ENCOUNTER 2025-01-29 17:21 | Outpatient (CLI) | payer MEDICARE, SELFPAY ==
--- OUTSIDE RECORDS SUMMARY | 2025-01-24 08:15 | XMS_ITS | Encounter Summary ---
Author Organization [facility] Address [address] 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), bilateral Procedures MA BEVACIZUMAB INJECTION Alix Webb MD [address] [address] Phone: tel: fax: Referral ID Status Reason Start Date Expiration Date V isits Requested Visits Authorized [id number] Authorized 01/24/2025 07/26/2026 1 1 * Clinic-Administered Medication (Routine) - Authorized Specialty Diagnoses / Procedures Referred By Mirtha scanlon Referred To Contact Diagnoses 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), bilateral Procedures MA BEVACIZUMAB INJECTION Alix Webb MD 110 [facility] [address] [place] [address] Phone: tel: fax: Referral ID Status Reason Start Date Expiration Date V isits Requested Visits Authorized [id number] Authorized 01/24/2025 07/26/2026 1 1 Reason for Visit * Reason Comments Diabetic Eye Exam Encounter Details Date Type Department Care Team (Late st Contact Info) Description 01/24/2025 8:15 AM EDT Office Visit [facility] [address] [place] [address] Alix Webb MD 110 [facility] [address] [place] [address] Proliferative diabetic retinopathy of both [...] reach the clinic on the phone. Call [phone] and ask for the solderer assembler front end ui developer if it is after hours or a [...] Procedure Laterality Date APPENDECTOMY N/A Appendectomy from [facility] BELT ABDOMINOPLASTY BREAST AUGMENTATION CARPAL TUNNEL RELEASE Bilateral SECTION, LOW TRANSVERSE N/A Section from [facility] COLONOSCOPY GALLBLADDER SURGERY N/A Gallbladder Surgery from [facility] TRIGGER FINGER RELEASE Bilateral TRIGGER POINT INJECTION [...] MG/0.09ML Route: Intravitreal, Site: Right Eye NDC: 03384-567-99, Lot: [id number], Expiration date: 02/11/2025 Left Eye Preparation included 5% betadine to ocular surface, eyelid speculum. A 30 gauge needle was used. Injection: 1.25 mg bevacizumab 2.25 MG/0.09ML Route: Intravitreal, Site: Left Eye NDC: 33042-585-91, Lot: [id number], Expiration date: 03/19/2025 Post-op Right Eye Post [...] eyes (OU), but pt didn't have a highway truck driver, and didn't want to have panretinal photocoagulation (PRP)/CAROLANN was worried about upcoming trip to [place] - Type 2 diabetes mellitus (DM) for [...] reach the clinic on the phone. Call [phone] and ask for the solderer assembler front end ui developer if it is after hours or a [...] Care Team (Late st Contact Info) Description 02/28/2025 10:15 AM EST Office Visit [facility] [address] [place] [address] Alix Webb MD 110 [facility] [address] [place] [address] 03/07/2025 2:20 PM EST Office Visit [facility] Endocr[facility] [address] [place] [phone] Caridad Mondragon APRN [address] [facility] [address] [place] [phone] 05/31/2025 9:00 AM EST Office Visit [facility] [address] [place] [address] Barrett Stratton PA [address] [place] [address] 09/20/2025 10:30 AM EDT Office Visit [facility] Endocrinology [address] [place] [phone] Yo Guadarrama MD [address] [facility] [address] [place] [phone] documented as of this encounter Procedures Procedure [...] MG/0.09ML Route: Intravitreal, Site: Right Eye NDC: 31747-247-96, Lot: [id number], Expiration date: 02/11/2025 Left Eye Preparation included 5% betadine to ocular surface, eyelid speculum. A 30 gauge needle was used. Injection: 1.25 mg bevacizumab 2.25 MG/0.09ML Route: Intravitreal, Site: Left Eye NDC: 27512-638-07, Lot: [id number], Expiration date: 03/19/2025 Post-op Right Eye Post injection exam found visual acuity of at least counting fingers. The patient tolerated the procedure well. There were no complications. Left Eye Post injection exam found visual acuity of at least counting fingers. The patient tolerated the procedure well. There were no complications. Alix Webb MD OPHTH CLINIC PROCEDURE S Final Result * OCT, Retina - OU - Both Eyes (01/24/2025 8:49 AM EDT) Anatomical Region Laterality Modality Head Optical Coherenc e Tomography Narrative 01/24/2025 8:49 AM EDT Right Eye Quality was good. Scan locations included subfoveal. Left Eye Quality was good. Scan locations included subfoveal. Notes Both eyes (OU) - no csDME Mild VMT OD Alix Webb MD OPHTH TOMOGRAPHY Final Result [...] documented as of this encounter Care Teams Vp Global Relationship Specialty Start Date End Date Elfego Main MD [address] [place] [id number] PCP - General 09/06/20 documented as of this encounter
--- OUTSIDE RECORDS SUMMARY | 2025-01-24 08:50 | XMS_ITS | Encounter Summary ---
Author Organization [facility] Address [address] [place] [address] Care Team Providers Care Shrimp Packer Name Role Phone Elfego Main MD Primary Care Provider [phone] Encounter Details Date Type Department Care Team (Late Contact Info) Description 01/24/2025 8:50 AM EDT Ancillary Procedure [facility] [address] [place] [address] Social History Tobacco Use Types [...] Department Care Team (Late Contact Info) Description 02/28/2025 10:15 AM EST Office Visit [facility] [address] [place] [address] Alix Webb MD 110 [facility] [address] [place] [address] 03/07/2025 2:20 PM EST Office Visit [facility] Endocrinology [address] [place] [phone] Caridad Mondragon APRN [address] [place] [phone] 05/31/2025 9:00 AM EST Office Visit [facility] [address] [place] [address] Barrett Stratton PA [address] [place] [address] 09/20/2025 10:30 AM EDT Office Visit [facility] Endocrinology [address] [place] [address] Yo Guadarrama MD [address] [facility] [address] [place] [address] documented as of this encounter [...] documented as of this encounter Care Teams Shrimp Packer Relationship Specialty Start Date End Date Elfego Main MD [address] [place] [id number] PCP - General 09/06/20 documented as of this encounter
--- OUTSIDE RECORDS SUMMARY | 2025-01-29 17:27 | XMS_ITS | Encounter Summary ---
Author Organization [facility] Address [address] [place] [address] Care Team Providers Care Apple Picker Name Role Phone Elfego Main MD Primary Care Provider [phone] Encounter Details Date Type Department Care Team (Late st Contact Info) Description 12/06/2024 Orders Only [facility] [address] [place] [address] Barrett Stratton, REHAN [address] [place] [address] Cirrhosis of liver without ascites, [...] Description 02/28/2025 10:15 AM EST Office Visit [facility] [address] [place] [address] Alix Webb MD [address] [place] [address] 03/07/2025 2:20 PM EST Office Visit [facility] Endocrinology [address] [place] [address] Caridad Mondragon, WATERPROOFING MACHINE OPERATOR [address] [facility] [address] [place] [address] 05/31/2025 9:00 AM EST Office Visit [facility] [address] [place] [address] Barrett Stratton, PA [address] [place] [address] 09/20/2025 10:30 AM EDT Office Visit [facility] Endocrinology [address] [place] [address] Yo Guadarrama MD [address] [facility] [address] [place] [address] Scheduled Orders Name Type Priority [...] Expires: 06/08/2026 documented as of this encounter Visit Diagnoses Diagnosis Cirrhosis of liver without ascites, unspecified hepatic cirrhosis type- Primary documented in this encounter Additional Health Concerns Assessment Noted Time PHQ-9 Depression Total Score: 3 05/30/19 25 11:43 AM EST A fall risk assessment has been complete d for the patient 11/27/2024 10:10 AM EDT A Body Mass Index follow-up plan has been documented for the patient 12/01/2024 1:57 PM EDT documented as of this encounter Care Teams Apple Picker Relationship Specialty Start Date End Date Elfego Main MD [address] [place] [id number] PCP - General 09/06/20 documented as of this encounter
--- OUTSIDE RECORDS SUMMARY | 2025-01-29 17:27 | XMS_ITS | Clinical Summary ---
Author Organization [facility] Address [address] [place] [address] Care Team Providers Care Manufacturing Recruiter Name Role Phone Elfego Main MD Primary Care Provider [phone] Allergies Active Allergy Reactions Criticality Noted Date [...] 1 patch topically as needed. 4 Active meclizine (Antivert) 25 MG tablet Take [...] hyperglycemia, with long-term current use of insulin 1 sensor every 15 days. 6 each 3 5 11/10/19 26 Active Semaglutide, 1 MG/DOSE, (Ozempic, 1 MG/DOSE,) 4 MG/3ML solution pen-injector Inject 1 mg under the skin 1 time per week. 9 mL 3 5 11/10/19 26 Active omeprazole (PriLOSEC) [address] capsule Take 1 capsule by mouth daily. Do not crush or chew. 30 capsule 11 5 11/28/19 26 Active glucagon (Baqsimi Two Pack) 3 MG/DOSE powder Nasal Powder Administer 3 mg into affected nostril(s) 1 (one) time if needed (severe hypoglycemia). 2 each 3 4 01/26/20 25 Active Problems Problem Noted Date Diagnosed Date [...] Abnormal result of cardiovascular function study 07/19/2024 Bilateral knee pain 07/19/2024 BPV (benign [...] (01/26/2022): Regulatory Update January 2022 Cirrhosis 08/23/2017 Resolved Problems Problem Noted Date Diagnosed Date Resolved Date Acute pharyngitis 07/19/2024 01/14/2025 Encounters Date Type Department Care Team Description 01/24/2025 8:50 AM EDT Ancillary Procedure [facility] [address] [place] [address] 01/24/2025 8:15 AM EDT Office Visit [facility] [address] [place] [address] Alix Webb MD 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 (Primary Dx); NVI (new vessels iris), bilateral; Age-related nuclear cataract of both eyes 01/24/2025 Travel 12/06/2024 Orders Only [facility] Medicine [facility]ties [address] [place] [address] Barrett Stratton PA Cirrhosis of liver without ascites, unspecified hepatic cirrhosis type (CMS/HCC) (Primary Dx) 11/29/2024 Results Follow-Up [facility] [address] [place] [address] Barrett Stratton PA 11/27/2024 10:30 AM EDT Office Visit [facility] [address] [place] [address] Barrett Stratton PA Esophageal dysphagia (Primary Dx); Cirrhosis of liver without ascites, unspecified hepatic cirrhosis type (CMS/HCC); Gastroesophageal reflux disease without esophagitis; Costovertebral angle tenderness; BMI 36.0-36.9,adult 11/27/2024 Travel 11/20/2024 9:24 AM EDT - 11/20/2024 11:59 PM EDT Hospital Encounter [facility] [address] [place] [address] Cirrhosis of liver without ascites, unspecified hepatic cirrhosis type (CMS/HCC) Discharge Disposition: Home or Self Care 11/20/2024 Results Follow-Up [facility] [address] [place] [address] aFrzaneh Brennan APRN 11/20/2024 Travel 11/09/2024 1:40 PM EDT Office Visit [facility] Endocrinology [address] [place] [address] Caridad Mondragon, CHANNEL MANAGER Type 2 diabetes mellitus with hyperglycemia, with long-term current use of insulin (CMS/HCC) (Primary Dx); Retinopathy; Neuropathy; Hypertension, unspecified type; Obesity (BMI 30-39.9) 11/09/2024 Travel from Last 3 Months Family History [...] Description 02/28/2025 10:15 AM EST Office Visit [facility] [address] [place] [address] Alix Webb MD [address] [place] [address] 03/07/2025 2:20 PM EST Office Visit [facility] Endocrinology [address] [place] [address] Caridad Mondragon, ELSA [address] [facility] [address] [place] [address] 05/31/2025 9:00 AM EST Office Visit [facility] Medicine Specialties [address] [place] [address] Barrett Stratton PA [address] [place] [address] 09/20/2025 10:30 AM EDT Office Visit [facility] Endocrinology [address] [place] [address] Yo Guadarrama MD [address] [facility] [address] [place] [address] Health Maintenance Due Date Last [...] 2017 [facility]-Zoster Vaccines (1 of 2) 2017 OPT-[id number]-22 Vaccine (1 - 2023- season) 2024 [facility]-Influenza Vaccine (#1) 2024 [facility]-Diabetes: Hemoglobin A1C 02/08/2025, 08/02/2024, 05/02/2024, Additional history exists [facility]-Depression Screening 11/27/2025 11/27/2024, 02/0 07/2024 [facility]-Hepatitis C Screening Completed 11/23/2023 [facility]-HIV Screening Completed 01/16/2024 [facility]-Obesity Intervention Completed 025, 11/27/2024, 11/09/2024, Additional history exists HPV Vaccines Aged [...] on patient's age to complete this topic Procedures Procedure Name Priority Date/Time Associated Diagnosis [...] edema associated with type 2 diabetes mellitus URINE REDMAN PANEL Routine 11/27/2024 11:0 1 [...] with long-term current use of insulin (CMS/HCC) ED HIV 1/2 ANTIBODY/ANTIGEN SCREEN WITH REFLEX TO HIV I/II DIFFERENTIATION STAT 01/16/2024 10:38 PM EDT HEPATITIS C ANTIBODY W/REFLEX TO HCV QUANT PCR Routine 11/23/2023 10:56 AM EDT KOENIG (nonalcoholic steatohepatitis) Cirrhosis of liver without ascites, unspecified hepatic cirrhosis type (CMS/HCC) from Last 3 Months or Most Recently Relevant to Health Maintenance Results * Intravitreal Injection, Pharmacologic Agent - [...] 2.25 MG/0.09ML Route: Intravitreal, Site: Right Eye [facility]: 61097-883-01, Lot: [id number], Expiration date: 02/11/2025 Left Eye Preparation included 5% betadine to ocular surface, eyelid speculum. A 30 gauge needle was used. Injection: 1.25 mg bevacizumab 2.25 MG/0.09ML Route: Intravitreal, Site: Left Eye [facility]: 34640-074-31, Lot: [id number], Expiration date: 03/19/2025 Post-op Right Eye Post [...] Webb MD OPHTH TOMOGRAPHY Final Result * Urine Redman Panel (11/27/2024 11:01 AM EDT) Extra Reflex urine culture not indicated 11/27/2024 7:01 PM EDT [facility] Comment: Previously prelim verified [...] VAN LAB URINE ORDERABLES Final Res ult [facility] [address] [place] [address] * Urinalysis with reflex microscopic (Culture NOT Included) (11/27/2024 11:01 AM EDT) Color, Urine Yellow LAB URINALYSIS - AUTOMATED METHOD 11/27/2024 12:16 PM EDT [facility] Clarity, Urine Clear LAB URINALYSIS - AUTOMATED METHOD 11/27/2024 12:16 PM EDT [facility] Spec [place], Urine 1.020 1.005 - 1.030 LAB URINALYSIS - AUTOMATED METHOD 11/27/2024 12:16 PM EDT [facility] pH, Urine 6.0 5.0 - 8.0 LAB URINALYSIS - AUTOMATED METHOD 11/27/2024 12:16 PM EDT [facility] Protein, Urine Negative Negative mg/dL LAB URINALYSIS - AUTOMATED METHOD 11/27/2024 12:16 PM EDT [facility] Glucose, Urine Negative Negative mg/dL LAB URINALYSIS - AUTOMATED METHOD 11/27/2024 12:16 PM EDT [facility] Ketones, Urine Negative Negative mg/dL LAB URINALYSIS - AUTOMATED METHOD 11/27/2024 12:16 PM EDT [facility] Blood, Urine Negative Negative LAB URINALYSIS - AUTOMATED METHOD 11/27/2024 12:16 PM EDT [facility] Bilirubin, Urine Negative Negative LAB URINALYSIS - AUTOMATED METHOD 11/27/2024 12:16 PM EDT [facility] Urobilinogen, Urine 1.0 0.2 to 1.0 mg/dL LAB URINALYSIS - AUTOMATED METHOD 11/27/2024 12:16 PM EDT [facility] Leukocytes, Urine Negative Negative LAB URINALYSIS - AUTOMATED METHOD 11/27/2024 12:16 PM EDT [facility] Nitrite, Urine Negative Negative LAB URINALYSIS - AUTOMATED METHOD 11/27/2024 12:16 PM EDT [facility] Urine Urine specimen obtained by clean catch procedure / Unknown Non-blood Collection / Unknown 11/27/2024 11:01 AM EDT 11/27/2024 11:01 AM EDT us Barrett VAN LAB URINE ORDERABLES Final Res ult [facility] [address] [place] [address] * Alpha Fetoprotein, Serum (11/27/2024 10:59 AM EDT) Alpha Fetoprotein, Serum <2.3 <10.0 ng/mL 11/27/2024 1:51 PM EDT [facility] Blood Venous blood specimen / Unknown Venipuncture / Unknown 11/27/2024 10:59 AM EDT 11/27/2024 10:59 AM EDT [facility] - 11/27/2024 1:51 PM EDT Performed by Marga electrochemiluminescent immunoassay which is traceable to the 1st [facility] IRP WHO Reference standard 72/255. Results obtained with different test methods or kits cannot be used interchangeably. us Barrett VAN LAB BLOOD ORDERABLES Final Res ult Performing Organization Address [facility] Co de Phone Number [facility] [address] [place] [address] * (ABNORMAL) Prothrombin Time/INR (11/27/2024 10:59 AM EDT) Pathologist [facility] Prothrombin Time 15.0(H) 12.0 - 14.3 sec LAB COAGULATION METHOD 11/27/2024 12:35 PM EDT [facility] INR 1.2(H) 0.9 - 1.1 LAB COAGULATION METHOD 11/27/2024 12:35 PM EDT [facility] Blood Venous blood specimen / Unknown Venipuncture / Unknown 11/27/2024 10:59 AM EDT 11/27/2024 10:59 AM EDT [facility] - 11/27/2024 12:35 PM EDT OPTIMAL INR RANGES FOR PATIENT ON ORAL ANTICOAGULANT THERAPY Prevention of venous thromboembolism INR 2.0 to 3.0 In patients with heart disease: Atrial fibrillation INR 2.0 to 3.0 Valvular heart disease INR 2.0 to 3.0 Tissue heart valves INR 2.0 to 3.0 Mechanical prosthetic valves INR 2.5 to 3.5 Prevention of recurrent NH INR 2.5 to 3.5 us Barrett VAN LAB BLOOD ORDERABLES Final Res ult Performing Organization Address [facility] Co de Phone Number [facility] [address] [place] [address] * (ABNORMAL) CBC and Differential (11/27/2024 10:59 AM EDT) [facility] Signature WBC Count 3.94 3.70 - 10.30 10*3/uL LAB HEMATOLOGY METHOD 11/27/2024 3:48 PM EDT [facility] RBC Count 3.85(L) 3.90 - 5.20 10*6/uL LAB HEMATOLOGY METHOD 11/27/2024 3:48 PM EDT [facility] HGB 12.4 11.2 - 15.7 g/dL LAB HEMATOLOGY METHOD 11/27/2024 3:48 PM EDT [facility] HCT 35.9 34.0 - 45.0 % LAB HEMATOLOGY METHOD 11/27/2024 3:48 PM EDT [facility] Platelet Count 57(L) 155 - 369 10*3/uL LAB HEMATOLOGY METHOD 11/27/2024 3:48 PM EDT [facility] MCV 93 79 - 98 fL LAB HEMATOLOGY METHOD 11/27/2024 3:48 PM EDT [facility] MCH 32.2(H) 26.0 - 32.0 pg LAB HEMATOLOGY METHOD 11/27/2024 3:48 PM EDT [facility] MCHC 34.5 30.7 - 35.5 g/dL LAB HEMATOLOGY METHOD 11/27/2024 3:48 PM EDT [facility] RDW 14.2 11.5 - 14.5 % LAB HEMATOLOGY METHOD 11/27/2024 3:48 PM EDT [facility] MPV 10.7 8.8 - 12.5 fL LAB HEMATOLOGY METHOD 11/27/2024 3:48 PM EDT [facility] nRBC 0.0 <=0.0 per 100 WBCs LAB HEMATOLOGY METHOD 11/27/2024 3:48 PM EDT [facility] Differential Type Automated LAB HEMATOLOGY METHOD 11/27/2024 3:48 PM EDT [facility] Neutrophils % 63 % LAB HEMATOLOGY METHOD 11/27/2024 3:48 PM EDT [facility] Lymphocytes % 28 % LAB HEMATOLOGY METHOD 11/27/2024 3:48 PM EDT [facility] Monocytes % 6 % LAB HEMATOLOGY METHOD 11/27/2024 3:48 PM EDT [facility] Eosinophils % 2 % LAB HEMATOLOGY METHOD 11/27/2024 3:48 PM EDT [facility] Basophils % 1 % LAB HEMATOLOGY METHOD 11/27/2024 3:48 PM EDT [facility] Immature Granulocytes % 0 % LAB HEMATOLOGY METHOD 11/27/2024 3:48 PM EDT [facility] Neutrophils Absolute 2.48 1.60 - 6.10 10*3/uL LAB HEMATOLOGY METHOD 11/27/2024 3:48 PM EDT [facility] Lymphocytes Absolute 1.11(L) 1.20 - 3.90 10*3/uL LAB HEMATOLOGY METHOD 11/27/2024 3:48 PM EDT [facility] Monocytes Absolute 0.25(L) 0.30 - 0.90 10*3/uL LAB HEMATOLOGY METHOD 11/27/2024 3:48 PM EDT [facility] Eosinophils Absolute 0.06 0.00 - 0.50 10*3/uL LAB HEMATOLOGY METHOD 11/27/2024 3:48 PM EDT [facility] Basophils Absolute 0.03 0.00 - 0.10 10*3/uL LAB HEMATOLOGY METHOD 11/27/2024 3:48 PM EDT [facility] Immature Granulocytes Absolute 0.01 0.00 - 0.06 10*3/uL LAB HEMATOLOGY METHOD 11/27/2024 3:48 PM EDT [facility] Blood Venous blood specimen / Unknown Venipuncture / Unknown 11/27/2024 10:59 AM EDT 11/27/2024 10:59 AM EDT Narrative [facility] - 11/27/2024 3:48 PM EDT Therapeutic decision making should be based on absolute values, rather than percentages. us Barrett VAN LAB BLOOD ORDERABLES Final Res ult [facility] [address] [place] [address] * Magnesium (11/27/2024 10:59 AM EDT) Magnesium, Plasma 1.9 1.9 - 2.4 mg/dL 11/27/2024 12:31 PM EDT [facility] Blood Venous blood specimen / Unknown Venipuncture / Unknown 11/27/2024 10:59 AM EDT 11/27/2024 10:59 AM EDT us Barrett VAN LAB BLOOD ORDERABLES Final Res ult [facility] [address] [place] [address] * (ABNORMAL) Comprehensive Metabolic Panel, Plasma (11/27/2024 10:59 AM EDT) Glucose, Plasma 214(H) 74 - 99 mg/dL 11/27/2024 12:31 PM EDT [facility] BUN, Plasma 12 7 - 21 mg/dL 11/27/2024 12:31 PM EDT [facility] Creatinine, Plasma 0.71 0.60 - 1.10 mg/dL 11/27/2024 12:31 PM EDT [facility] BUN/Creatinine Ratio 17 11/27/2024 12:31 PM EDT [facility] Sodium, Plasma 138 136 - 145 mmol/L 11/27/2024 12:31 PM EDT [facility] Potassium, Plasma 4.1 3.6 - 4.9 mmol/L 11/27/2024 12:31 PM EDT [facility] Chloride, Plasma 107 97 - 107 mmol/L 11/27/2024 12:31 PM EDT [facility] CO2, Plasma 20(L) 22 - 29 mmol/L 11/27/2024 12:31 PM EDT [facility] Anion Gap 11 6 - 16 mmol/L 11/27/2024 12:31 PM EDT [facility] Total Calcium, Plasma 9.0 8.9 - 10.2 mg/dL 11/27/2024 12:31 PM EDT [facility] Total Protein 6.3 6.3 - 7.9 g/dL 11/27/2024 12:31 PM EDT [facility] Albumin, Plasma 3.9 3.5 - 5.2 g/dL 11/27/2024 12:31 PM EDT [facility] AST, Plasma 38(H) 10 - 35 U/L 11/27/2024 12:31 PM EDT [facility] ALT, Plasma 34 10 - 35 U/L 11/27/2024 12:31 PM EDT [facility] Alkaline Phosphatase, Plasma 77 46 - 142 U/L 11/27/2024 12:31 PM EDT [facility] Total Bilirubin, Plasma 2.2(H) 0.2 - 1.1 mg/dL 11/27/2024 12:31 PM EDT [facility] eGFRcr 99.3 mL/min/1.7 3m*2 11/27/2024 12:31 PM EDT [facility] Comment:Reported eGFRcr in m L/min/1.73m2 is based the CKD-EPI 2020 equation that does not use a race coefficient. Blood Venous blood specimen / Unknown Venipuncture / Unknown 11/27/2024 10:59 AM EDT 11/27/2024 10:59 AM EDT us Barrett VAN LAB BLOOD ORDERABLES Final Res ult [facility] [address] [place] [address] * US Liver Screen (11/20/2024 10:09 AM [...] are based on Ultrasound LI-RADS version 2017. [email or web address] CRITICAL RESULT: No. COMMUNICATION: Per [...] recommendations are based on UltrasoundLI-RADS version 2017. [email or web address] CRITICAL RESULT: No. COMMUNICATION: Per this written report. Drafted by Joey Herrera MD on 11/20/2024 10:21 AM Final report signed by Joey Herrera MD on 11/20/2024 10:23 AM us Farzaneh Brennan CHANNEL MANAGER IMG US PROCEDURES Final Res ult * POCT glycosylated hemoglobin (Hb A1C) (11/09/2024 1:42 PM EDT) POCT Hemoglobin A1C 7.3 <5.7% Non-Diabe tic % [facility] Kit Lot Number [id number] [facility] Kit Expiration Date 08/23/2026 [facility] Blood Venous blood specimen / Unknown 11/09/2024 1:42 PM EDT us Caridad Mondragon CHANNEL MANAGER POINT OF CARE TEST ENTER/ED IT ORDERABLES Final Result Performing Organization Address [facility] Co de Phone Number [facility] [address] [place] [address] * ED HIV 1/2 Antibody/Antigen Screen w/Reflex to HIV 1/2 Differentiation (01/16/2024 10:38 PM EDT) [facility] HIV 1 & 2 Antibody/Antigen Screen Non Reactive Non Reactive 01/16/2024 11:37 PM EDT [facility] Comment:Screening for HIV 1 & 2 antibodies, and P24 antigen is NONREACTIVE. No confirmatory testing is required. Blood Venous blood specimen / Unknown Venipuncture / Unknown 01/16/2024 10:38 PM EDT 01/16/2024 10:55 PM EDT us Gildardo Das MD LAB BLOOD ORDERABLES Final Re sult Performing Organization Address [facility] Co de Phone Number [facility] [address] [place] [address] * Hepatitis C antibody (11/23/2023 10:56 AM EDT) [facility] Hepatitis C Antibody Negative Negative 11/23/2023 1:23 PM EDT [facility] Blood Venous blood specimen / Unknown Venipuncture / Unknown 11/23/2023 10:56 AM EDT 11/23/2023 10:58 AM EDT us Barrett VAN LAB BLOOD ORDERABLES Final Res ult Performing Organization Address City/[facility] Co de Phone Number [facility] [address] [place] [phone] from Last 3 Months or Most Recently Relevant to Health Maintenance Insurance MEDICARE Care Teams Manufacturing Recruiter Relationship Specialty Start Date End Date Elfego Main MD [address] [place] [address] PCP - General 09/06/20
--- OUTSIDE RECORDS SUMMARY | 2025-01-29 17:27 | XMS_ITS | Encounter Summary ---
Author Organization Healthcare Address [address] [place] [address] Care Team Providers Care Financial Services Agent Name Role Phone Elfego Main MD Primary Care Provider [phone] Encounter Details Date Type Department Care Team (Late st Contact Info) Description 01/17/2024 Ophth Exam [facility] [address] [place] [address] Roscoe Davis MD [address] [place] [address] Social History Tobacco Use Types [...] Description 02/28/2025 10:15 AM EST Office Visit [facility] [address] [place] [address] Alix Webb MD [address] [address] 03/07/2025 2:20 PM EST Office [facility] [address] [place] [address] Caridad Mondragon, ELSA [address] [facility] [address] [place] [address] 05/31/2025 9:00 AM EST Office Visit [facility] [address] [place] [address] Barrett Stratton PA [address] [place] [address] 09/20/2025 10:30 AM EDT Office Visit [facility] [address] [place] [address] Yo Guadarrama MD [address] [facility] [address] [place] [address] documented as of this encounter Visit Diagnoses Not on filedocumented in this encounter Additional Health Concerns Assessment Noted Time A fall risk assessment has been complete d for the patient 11/23/2023 9:38 AM EDT A Body Mass Index follow-up plan has been documented for the patient 01/13/2024 9:49 AM EDT documented as of this encounter Care Teams Financial Services Agent Relationship Specialty Start Date End Date Elfego Main MD [address] [place] [address] PCP - General 09/06/20 documented as of this encounter
--- OUTSIDE RECORDS SUMMARY | 2025-01-29 17:27 | XMS_ITS | Encounter Summary ---
Author Organization Healthcare Address [address] [place] [address] Care Team Providers Care Extract Operator Name Role Phone Elfego Main MD Primary Care Provider Encounter Details Date Type Department Care Team (Late st Contact Info) Description 11/29/2024 Results Follow-Up [facility] [address] [place] [address] Barrett Stratton, REHAN [address] [place] [address] Social History Tobacco Use Types [...] Description 02/28/2025 10:15 AM EST Office Visit [facility] [address] [place] [phone] Alix Webb MD [address] [place] [address] 03/07/2025 2:20 PM EST Office Visit [facility] [address] [place] [address] Caridad Mondragon S, MANAGER PRIVACY [address] [facility] [address] [place] [address] 05/31/2025 9:00 AM EST Office Visit [facility] [address] [place] [address] Barrett Stratton, PA [address] [place] [address] 09/20/2025 10:30 AM EDT Office Visit [facility] [address] [place] [address] Yo Guadarrama MD [address] [facility] [address] [place] [address] documented as of this encounter [...] documented as of this encounter Care Teams Extract Operator Relationship Specialty Start Date End Date Elfego Main MD [address] [place] [address] PCP - General 09/06/20 documented as of this encounter
--- OUTSIDE RECORDS SUMMARY | 2025-01-29 17:27 | XMS_ITS | Clinical Summary ---
Author Organization [employer] ([place], [place], [place], [place]) Address [address] [place] [address] Care Team Providers Care Refinery Operator Helper Crude Unit Name Role Phone Unavailable Primary Care Provider Unavailabl e Social History Tobacco Use Types Packs/Day Years Used Date Smoking Tobacco: Never Assessed Comments Unknown Sex and Gender Information Value Date Recorded Sex Assigned at Female 10/21/2021 6:47 PM CDT Legal Sex Female 6:47 PM CDT Gender Identity Female 10/21/2021 6:47 PM CDT Sexual Orientation Not on file Plan of Treatment Not on file
--- OUTSIDE RECORDS SUMMARY | 2025-01-29 17:27 | XMS_ITS | Encounter Summary ---
Author Organization Healthcare Address [address] [place] [address] Care Team Providers Care Communicable Disease Specialist Name Role Phone Elfego Main MD Primary Care Provider [phone] Encounter Details Date Type Department Care Team (Latest Contact Info) Description 01/24/2025 Travel Social History Tobacco Use Types Packs/Day [...] Description 02/28/2025 10:15 AM EST Office Visit [facility] [address] [place] [address] Alix Webb MD [address] [address] 03/07/2025 2:20 PM EST Office Visit [facility] [address] [place] [address] Caridad Mondragon, SURGICAL ELASTIC KNITTER [address] [facility] [address] [place] [address] 05/31/2025 9:00 AM EST Office Visit [facility] [address] [place] [address] Barrett Stratton PA [address] [place] [address] 09/20/2025 10:30 AM EDT Office Visit [facility] [address] [place] [address] Yo Guadarrama MD [address] [facility] [address] [place] [address] documented as of this encounter [...] documented as of this encounter Care Teams Communicable Disease Specialist Relationship Specialty Start Date End Date Elfego Main MD [address] [place] [address] PCP - General 09/06/20 documented as of this encounter
--- OUTSIDE RECORDS SUMMARY | 2025-01-29 17:27 | XMS_ITS | Referral Summary ---
Author Organization [employer] ([place], [place], [place], [place]) Address [address] [place] [address] Care Team Providers Care Applications Systems Engineer Name Role Phone Unavailable Primary Care Provider [...]
--- OUTSIDE RECORDS SUMMARY | 2025-01-29 17:27 | XMS_ITS | Encounter Summary ---
Author Organization Healthcare Address [address] [place] [address] Care Team Providers Care Digital Service Engineer Name Role Phone Elfego Main MD Primary Care Provider [phone] Encounter Details Date Type Department Care Team (Late st Contact Info) Description 11/20/2024 Results Follow-Up [facility] [address] [place] [address] MikaFarzaneh henry, MIDDLEWARE CONSULTANT [address] [place] [address] Social History Tobacco Use Types [...] things Not at all 11/27/2024 10:10 AM EDT Kaci Guerrero Feeling down, depressed, or hopeless Not at all 11/27/2024 10:10 AM Kaci Garduno Patient Health Questionnaire -2 Score 0 11/27/2024 10:10 AM Kaci Garduno * Question Answer Date of Assessment Author Trouble falling or staying a sleep, or sleeping too much Not at all 11/27/2024 10:10 AM Kaci Garduno Feeling tired or having angely le energy Not at all 11/27/2024 10:10 AM Kaci Garduno Feeling bad about yourself - or that you are a failure or have let yourself or your family down Not at all 11/27/2024 10:10 AM Kaci Garduno Trouble concentrating on thi ngs, such as reading the newspaper or watching television Not at all 11/27/2024 10:10 AM Kaci Garduno Moving or speaking so slowly that other people could have noticed? Or the opposite - being so fidgety or restless that you have been moving around a lot more than usual. Not at all 11/27/2024 10:10 AM Kaci Garduno Thoughts that you would be b faheem off or hurting yourself in some way Not at all 11/27/2024 10:10 AM Kaci Garduno documented as of this encounter Plan of Treatment Upcoming Encounters Date Type Department Care Team (Late st Contact Info) Description 02/28/2025 10:15 AM EST Office Visit [facility] [address] [place] [address] Alix Webb MD [address] [place] [address] 03/07/2025 2:20 PM EST Office Visit [facility] Endocrinology [address] [place] [address] Caridad Mondragon APRN [address] [place] [address] 05/31/2025 9:00 AM EST Office Visit [facility] [address] [place] [address] Barrett Stratton PA [address] [place] [address] 09/20/2025 10:30 AM EDT Office Visit [facility] [address] [place] [address] Yo Guadarrama MD [address] [place] [address] documented as of this encounter [...] documented as of this encounter Care Teams Digital Service Engineer Relationship Specialty Start Date End Date Elfego Main MD [address] [place] [address] PCP - General 09/06/20 documented as of this encounter
[2025-01-29 17:59] LABS: Hematocrit 36.3 % (37.0-47.0); Hemoglobin 12.3 g/dL (12.2-16.2); Immature Granulocytes % 0.3 %; Mean Corpuscular HGB Conc 33.9 g/dL (31.8-35.4); Mean Corpuscular Hemoglobin 31.1 pg (27.0-31.2); Mean Corpuscular Volume 91.7 fl (81-99); Nucleated Red Blood Cells % 0 %; Red Blood Count 3.96 M/mm3 (4.20-5.40); Red Cell Distribution Width-SD 44.5 fL; White Blood Count 3.8 K/mm3 (4.8-10.8)
[2025-01-29 18:24] LABS: INR 1.12 (0.9-1.1); Prothrombin Time 12.3 seconds (10.1-12.5)
[2025-01-29 19:01] LABS: Platelet Count 47 K/mm3 (142-424)
[2025-01-29 19:05] LABS: Albumin Level 3.7 g/dl (3.5-5.0); Chloride 103 mmol/L (98-107); Potassium 4.0 mmoL/L (3.5-5.1); Sodium 135 mmol/L (136-145)
[2025-01-29 19:08] LABS: Alanine Aminotransferase 62 U/L (12-78); Albumin/Globulin Ratio 1.2 (1.1-1.8); Alkaline Phosphatase 97 U/L (38-126); Anion Gap 14.0 mEq/L (5-15); Aspartate Amino Transferase 61 U/L (14-36); Bilirubin,Total 3.5 mg/dl (0.2-1.3); Blood Urea Nitrogen 11 mg/dl (7-17); Calcium 9.3 mg/dl (8.4-10.2); Carbon Dioxide 22 mmol/L (22.0-30.0); Creatinine,Serum 0.60 mg/dl (0.52-1.04); Estimated Glomerular Filt Rate 103 ml/min (>60); GFR (African American) 125 ML/MIN (>60); Globulin 3.0 g/dL (1.3-3.2); Glucose 358 mg/dl (74-100); Total Protein,Serum 6.7 g/dl (6.3-8.2)
== END 2025-01-29 23:59 | disposition home or self-care (01) ==
LOC: LAB 17:25
PROVIDERS: PCP Family Medicine; Visit Provider Physician Assistant Medical
DX: K74.60 Unspecified cirrhosis of liver (principal)
CPT/HCPCS: 36415; 80053; 82105; 85025; 85610

== ENCOUNTER 2025-03-20 11:35 | Outpatient (CLI) | payer MEDICARE, SELFPAY ==
--- OUTSIDE RECORDS SUMMARY | 2023-10-13 10:30 | XMS_ITS ---
Author Organization [facility] Address [address] [place] [id number] Care Team Providers Care Ring Maker Name Role Phone Radha Main Primary Care Provider Sara Mendez Unavailable [phone] Allergies Allergen (clinical drug ingredient) Drug/Non Drug Allergy documented on EMR Reaction Allergy Type Onset Date Status duloxetine Cymbalta throat closes up Drug Allergy Active canagliflozin Invokana yeast infections Drug Allergy Active metformin / sitagliptin Janumet XR stomach upset Drug Allergy Active insulin glargine Toujeo SoloStar will not take d /t side effect profile Drug Allergy Active linagliptin Tradjenta will not take d/ t side effect profile Drug Allergy Active metformin metFORMIN stomach upset Drug Allergy Act vladimir Results Component Value Reference Range Notes CBC Fingerstick (in house) Reviewed date:10/14/2023 12:16:32 PM Interpretation: Performing Lab: Notes/Report: wbc 6.4 3.5 - 10 lym 23.5 15 - 50 mid 5.5 2 - 15 gran 71.0 35 - 80 rbc 3.83 3.5 - 5.5 hgb 12.3 11.5 - 16.5 hct 37.3 35 - 55 mcv 97.3 75 - 100 mch 32.2 25 - 35 mchc 33.0 31 - 38 plat 81 100 - 400 REASON FOR VISIT earache, congestion Medications Medication SIG (Take, Route, Frequency, Duration) Notes Start Date End Date Status Benzonatate 200 MG 1 capsule Orally Thr ee times a day 10/13/2023 Active Metoprolol Succinate ER 25 MG take one tablet by mouth once a day orally once a day at night Active Albuterol Sulfate HFA 108 (90 Base) MCG/ACT 1 puff as needed Inhalation four times a day as needed 10/13/2023 Active Hyzaar 50-12.5 MG 1/2 tab orally once a day Active valACYclovir HCl 1 GM TAKE TWO TABLETS B Y MOUTH 2 TIMES A DAY Active Methocarbamol 750 MG 1 tablet Orally thr ee times a day as needed; Duration: 30 day(s) 08/18/2023 Active Furosemide 20 MG 1 tablet Orally Once a day; Duration: 30 day(s) Active Loratadine 10 MG 1 tab(s) orally once a day Active Meclizine HCl 25 MG 1 tab(s) orally 3 ti mes a day as needed 08/14/2022 Active Fluticasone Propionate 50 MCG/ACT USE 1 SPRAY IN EACH NOSTRIL ONCE A DAY Active Zithromax Z-Lincoln 250 MG 2 pills first day then one daily for 4 days orally as directed; Duration: 5 days 10/13/2023 Active Xifaxan 550 MG 1 tablet Orally Twic e a day; Duration: 30 day(s) Active HumuLIN R U-500 (CONCENTRATED) 500 UNIT/ML 110 units Subcutaneous three times a day Active Spironolactone 50 MG 1 tablet Orally Onc e a day; Duration: 30 day(s) Active Vital Signs Blood pressure systolic 130 mm Hg 10/13/19 24 Blood pressure diastolic 76 mm Hg 024 Heart Rate 70 /min 10/13/2023 Height 60.50 in 10/13/2023 Weight 204.2 lbs 10/13/2023 BMI 39.22 kg/m2 10/13/2023 Encounters Encounter Location Date Provider Diagnosis [facility] [address] [place], [place] [id number] 10/13/2023 Sara Mendez Acute URI J06.9 ; Bronchitis J40 and Acute otitis media, left H66.92 Assessments Encounter Date Diagnosis (ICD Code) Assessment Notes Treatment Notes Treatment Clinical Notes Section Notes 10/13/2023 Acute URI (ICD-10 - J06.9) 10/13/2023 Bronchitis (ICD-10 - J40) 10/13/2023 Acute otitis media, left (ICD-10 - H66.92) Will switch to zithromax. She has had 4 days of steroids and amoxil with no improvement. Plan Of Treatment Medication Medication Name Sig Start Date Stop Date Notes Benzonatate 200 MG 1 capsule Orally Thr ee times a day 10/13/2023 Albuterol Sulfate HFA 108 (9 0 Base) MCG/ACT 1 puff as needed Inhalation four times a day as needed 10/13/2023 Zithromax Z-Lincoln 250 MG 2 pills first day then one daily for 4 days orally as directed; Duration: 5 days 10/13/2023 Treatment Notes Assessment Notes Acute otitis media, left Will switch to zithromax. She has had 4 days of steroids and amoxil with no improvement. Next Appt Details Follow Up: prn, Reason: Progress Notes * TANYA FIGUEROACARRILLODOB:1965 (59 yo F)Acc No.[id number]:10/13/2023 Progress Notes Patient: CHETNA GILL Provider: REHAN Cabrera :1965 A ge:58 Y S ex:Female Date:10/13/2023 Address:[address] [place] [address], [facility], [id number] Pcp:Radha Main Subjective: * Chief Complaints: * 1 . Earache, congestion. * HPI: E NT/respiratory: The patient is here today with c/o bilateral ear pain and nasal congestion. Pt states she started on with sore throat and cough. Pt states she has tried Mucinex, Prednisone, and left over amoxicillin. 58 year old female presents with c/o sore throat. c/o cough. c/o nasal congestion. c/o ear pain. Denies : Fever. * ROS: D ERMATOLOGY: no R angelina. n o H dakota. G ASTROENTEROLOGY: no N ausea. n o V omiting. n o D iarrhea.? U ROLOGY: no D ifficulty urinating. n o B lood in urine. * Medical History: d iverticulitis, May 2005, Type 2 Diabetes, Hypertension, Hyperlipidemia, Depression/Anxiety, Hepatic cirrhosis, Esophageal varices, splenomegaly and splenic varices 09/14/2019 CT. 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 * Hospitalization/Major Diagno stic Procedure: M onitoring for chest pain 01-21 to 01-23-08, [facility] : passed out , [facility] - passed out Apr 18, 2017. * Family History: F ather: . M other: alive. P aternal Grand Father: . P aternal Grand Mother: . M aternal Grand Father: . M aternal Grand Mother: .?3 brother(s) , 4 sister(s) . 1 son(s) , 2 daughter(s) . . * Social History: C URRENT TOBACCO USE S moking Status: Patient does NOT smoke. C affeine: yes, frequency:. Exercise: no. Home smoke detector use: yes. Marital Status: Single. New since last visit: none. Occupation: yes [employer]. Past smoking status: no, Smoking status: Does not smoke. Occup. exposure: none. Recreational drug use: no. Alcohol: Type: , Frequency: ,Years: , Determination:. Sexually active: yes. Travel ouside [place]: no. * Medications: T aking Xifaxan 550 MG Tablet 1 tablet Orally Twice a day , Taking HumuLIN R U-500 (CONCENTRATED) 500 UNIT/ML Solution 110 units Subcutaneous three times a day , Taking Spironolactone 50 MG Tablet 1 tablet Orally Once a day , Taking Furosemide 20 MG Tablet 1 tablet Orally Once a day , Taking Loratadine 10 MG Tablet 1 tab(s) orally once a day , Taking Meclizine HCl 25 MG Tablet 1 tab(s) orally 3 times a day as needed , Taking Fluticasone Propionate 50 MCG/ACT Suspension USE 1 SPRAY IN EACH NOSTRIL ONCE A DAY , Taking Methocarbamol 750 MG Tablet 1 tablet Orally three times a day as needed , Taking Metoprolol Succinate ER 25 MG Tablet Extended Release 24 Hour take one tablet by mouth once a day orally once a day at night , Taking Hyzaar 50-12.5 MG Tablet 1/2 tab orally once a day , Taking valACYclovir HCl 1 GM Tablet TAKE TWO TABLETS BY MOUTH 2 TIMES A DAY , Medication List reviewed and reconciled with the patient * Allergies: J anumet XR: stomach upset, metFORMIN: stomach upset, Cymbalta: throat closes up, Invokana: yeast infections, Tradjenta: will not take d/t side effect profile, Tostephanie Todd: will not take d/t side effect profile. Objective: * Vitals: W t:204.2, Temp:98.1, BP:130/76, HR:70, O2 Sat:99% on RA, Nurse:NIYA, Ht: 60.50, BMI:39.22. * Examination: E NT/Respiratory: General Appearance: N AD. E ars: left TM erythematous with effusion, right TM normal. N ose : turbinates red, congested. S inuses :? tender maxillary sinuses bilaterally. O ral cavity : erythema without exudate on pharynx, PND present. N hugh : n o cervical lymphadenopathy. H eart : R RR, normal S1 S2, no murmurs. L ungs: expiratory wheezes, no rales. Assessment: * Assessment: 1. A ann URI - J06.9 (Primary) 2 . B concepcion - J40 3 .?Acute otitis media, left - H66.92 Plan: * Treatment: Value Reference Range w bc 6.4 3.5 - 10 * l ym 23.5 15 - 50 * m id 5.5 2 - 15 * g ran 71.0 35 - 80 * r bc 3.83 3.5 - 5.5 * h gb 12.3 11.5 - 16.5 * h ct 37.3 35 - 55 * m cv 97.3 75 - 100 * m ch 32.2 25 - 35 * m chc 33.0 31 - 38 * p lat 81 100 - 400 * Darline Garland 10/13/2023 4:34:32 PM > , Provider reviewed results while patient in office. 2.?Bronchitis? Start Albuterol Sulfate HFA Aerosol Solution, 108 (90 Base) MCG/ACT, 1 puff as needed, Inhalation, four times a day as needed, 1, Refills 1;?Start Zithromax Z- Lincoln Tablet, 250 MG, 2 pills first day then one daily for 4 days, orally, as directed, 5 days, 1, Refills 0.??3.?Acute otitis media, left? Notes: Will switch to zithromax. She has had 4 days of steroids and amoxil with no improvement. ? * Procedure Codes: 9 [address] [place], [address] CAPILLARY BLOOD DRAW, 91942 CBC WITH AUTO DIFF * Follow Up: p rn * Images: Billing Information: * Visit Code: 66906 Office Visit, Est Pt., Level 3. * Procedure Codes: [address] [place]. [address] CAPILLARY BLOOD DRAW. 53068 CBC WITH AUTO DIFF. * Electronic signature of REHAN Jeffery on 03/20/2025 at 11:42 AM EST Sign off status: Pending * Provider: REHAN Cabrera Date: 0 10/13/2023 Generated for Osmel nassar/Lakeisha/eTransmitting on: 1 05/20/2024 11:42 AM EST History and Physical Notes * HPI (History of Present Illness) Category Sub-Category Detail Notes Category Not es ENT/respiratory sore throat ear pain cough Fever nasal congestion Examination Category Sub-Category Detail Notes Category Not es ENT/Respiratory Oral cavity : erythema without exudate on pharynx, PND present Sinuses : tender maxillary sin uses bilaterally Ears: left TM erythematous with effusion, right TM normal Neck : no cervical lymphade nopathy Heart : RRR, normal S1 S2, n o murmurs Lungs: expiratory wheezes, no rales General Appearance: NAD Nose : turbinates red, philip ested
--- OUTSIDE RECORDS SUMMARY | 2023-10-18 09:45 | XMS_ITS ---
Author Organization [facility] Address [address] [facility] [address] [place] [id number] Care Team Providers Care Decorative Engraver Apprentice Name Role Phone Radha Main Primary Care Provider Taty Gibbs Unavailable [phone] Allergies Allergen (clinical drug ingredient) Drug/Non Drug [...] metFORMIN stomach upset Drug Allergy Act vladimir REASON FOR VISIT ear pain Medications Medication SIG (Take, Route, Frequency, Duration) Notes Start Date End Date Status Zithromax Z-Lincoln 250 MG 2 pills first day then one daily for 4 days orally as directed; Duration: 5 days 10/13/2023 Not-Taking Albuterol Sulfate HFA 108 (90 Base) MCG/ACT 1 puff as needed Inhalation four times a day as needed 10/13/2023 Active Benzonatate 200 MG 1 capsule Orally Thr ee times a day 10/13/2023 Active valACYclovir HCl 1 GM TAKE TWO TABLETS B Y MOUTH 2 TIMES A DAY Active Amoxicillin-Pot Clavulanate 875-125 MG 1 tablet Orally every 12 hrs; Duration: 10 day(s) 10/18/2023 Active Hyzaar 50-12.5 MG 1/2 tab orally once a day Active Metoprolol Succinate ER 25 MG take one tablet by mouth once a day orally once a day at night Active Methocarbamol 750 MG 1 tablet Orally thr ee times a day as needed; Duration: 30 day(s) 08/18/2023 Active Fluticasone Propionate 50 MCG/ACT USE 1 SPRAY IN EACH NOSTRIL ONCE A DAY Active Ciprofloxacin-dexAMETHaso ne 0.3-0.1 % 4 drops into bilateral ears affected ear Otic Twice a day; Duration: 7 day(s) 10/18/2023 Active HumuLIN R U-500 (CONCENTRATED) 500 UNIT/ML 110 units Subcutaneous three times a day Active Xifaxan 550 MG 1 tablet Orally Twic e a day; Duration: 30 day(s) Active Medrol 4 MG as directed orally daily; Duration: 6 days 10/18/2023 Active Meclizine HCl 25 MG 1 tab(s) orally 3 ti mes a day as needed 08/14/2022 Active Loratadine 10 MG 1 tab(s) orally once a day Active Furosemide 20 MG 1 tablet Orally Once a day; Duration: 30 day(s) Active Spironolactone 50 MG 1 tablet Orally Onc e a day; Duration: 30 day(s) Active Problems Problem Type SNOMED Code ICD Code Onset Dates Problem Status W/U Status Risk Notes Problem Otitis externa (2374167) Otitis externa (H60.90) Active confirmed Vital Signs Blood pressure systolic 146 mm Hg 10/18/19 24 Blood pressure diastolic 82 mm Hg 024 Heart Rate 110 /min 10/18/2023 Height 60.50 in 10/18/2023 Weight 201.8 lbs 10/18/2023 BMI 38.76 kg/m2 10/18/2023 Encounters Encounter Location Date Provider Diagnosis [facility] [address] [place], [place] [phone] 10/18/2023 Tatymainor Gibbs Otitis media H66.90 ; Otitis externa H60.90 and Liver function abnormality R94.5 Assessments Encounter Date Diagnosis (ICD Code) Assessment Notes Treatment Notes Treatment Clinical Notes Section Notes 10/18/2023 Otitis media (ICD-10 - H66.90) dry heat application prn; tylenol prn 10/18/2023 Otitis externa (ICD-10 - H60.90) keep ears dry 10/18/2023 Liver function abnormality (ICD-10 - R94.5) Dr. Weaver who has been managing her liver disease is not available for several months; has an appt at [facility] end of October; will run out of above meds before this;will RF meds as noted Plan Of Treatment Medication Medication Name Sig Start Date Stop Date Notes Amoxicillin-Pot Clavulanate 875-125 MG 1 tablet Orally every 12 hrs; Duration: 10 day(s) 10/18/2023 Ciprofloxacin-dexAMETHasone 0.3-0.1 % 4 drops into bilateral ears affected ear Otic Twice a day; Duration: 7 day(s) 10/18/2023 Medrol 4 MG as directed orally d aily; Duration: 6 days 10/18/2023 Furosemide 20 MG 1 tablet Orally Once a day; Duration: 30 day(s) Spironolactone 50 MG 1 tablet Orally Onc e a day; Duration: 30 day(s) Treatment Notes Assessment Notes Otitis media dry heat application prn; tylenol prn Otitis externa keep ears dry Liver function abnormality Dr. Weaver w ho has been managing her liver disease is not available for several months; has an appt at [facility] end of October; will run out of above meds before this;will RF meds as noted Next Appt Details Follow Up: 10/22/2023, Reason : Progress Notes * CAROLINA, CHETNADOB:1965 (59 yo F)Acc No.[id number]:10/18/2023 Progress Notes Patient: CHETNA GILL Provider: CLARA Bo :1965 A ge:58 Y S ex:Female Date:10/18/2023 Address:[facility] [address], [place], [id number] Pcp:Radha Main Subjective: * Chief Complaints: * 1 . Ear pain. * HPI: E NT/respiratory: 58 year old female presents with c/o cough b faheem. c/o nasal congestion. c/o ear pain P t presents today with c/o pain in her right ear. Pt sts that she seen Sara last for a sinus infection and ear infection. She has finished the Z-pack but her ears have continued to hurt. c/o rhinorrhea s ometimes yellow. c/o post nasal drainage. c/o chest congestion. Denies : facial pain/pressure. D enies : Chest Pain. D enies : smoking. * ROS: D ERMATOLOGY: no R angelina. n o H dakota. G ASTROENTEROLOGY: no N ausea. n o V omiting. n o D iarrhea.? U ROLOGY: no D ifficulty urinating. n o B lood in urine. * Medical History: d iverticulitis, May 2005, Type 2 Diabetes, Hypertension, Hyperlipidemia, Depression/Anxiety, Hepatic cirrhosis, Esophageal varices, splenomegaly and splenic varices 09/14/2019 CT. 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 * Hospitalization/Major Diagno stic Procedure: M onitoring for chest pain 01-21 to 01-23-08, [facility] : passed out , [facility] - passed out Apr 18, [...] BY MOUTH 2 TIMES A DAY , Taking Benzonatate 200 MG Capsule 1 capsule Orally Three times a day , Taking Albuterol Sulfate HFA 108 (90 Base) MCG/ACT Aerosol Solution 1 puff as needed Inhalation four times a day as needed , Not-Taking Zithromax Z-Lincoln 250 MG Tablet 2 pills first day then one daily for 4 days orally as directed , Medication List reviewed and reconciled with the patient * Allergies: J anumet XR: stomach upset, metFORMIN: stomach upset, Cymbalta: throat closes up, Invokana: yeast infections, Tradjenta: will not take d/t side effect profile, Toujeo SoloStar: will not take d/t side effect profile. Objective: * Vitals: W t:201.8, Temp:98.4, BP:146/82, HR:110, O2 Sat:98% on RA, Nurse:CHUCK, Ht: 60.50, BMI:38.76. * Examination: E NT/Respiratory: General Appearance: well nourished and hydrated, NAD, alert, active. E yes: sclera and conjunctiva clear. E ars: T M on the right is bulging and injected; left TM is improving -pale; ; left ear canal erythematous and right with edema. N ose : nares patent. O ral cavity : no erythema or exudate seen on pharynx. N hugh : enlarged nontender lymph nodes. H eart : RRR. L ungs: CTAB A&P.? Assessment: * Assessment: 1. O titis media - H66.90 (Primary) 2 . O titis externa - H60.90 3 . L iver function abnormality - R94.5 Plan: * Treatment: 2. O titis externa Start Ciprofloxacin-dexAMETHasone Suspension, 0.3-0.1 %, 4 drops into bilateral ears affected ear, Otic, Twice a day, 7 day(s), 1, Refills 1. Notes: keep ears dry 3. L iver function abnormality Refill Spironolactone Tablet, 50 MG, 1 tablet, Orally, Once a day, 30 day(s), 30, Refills 2; R efill Furosemide Tablet, 20 MG, 1 tablet, Orally, Once a day, 30 day(s), 30, Refills 2. Notes: Dr. Weaver who has been managing her liver disease is not available for several months; [facility] an appt [facility] end of October; will run out of above meds before this;will RF meds as noted * Procedure Codes: 9 4760 PULSE OX * Follow Up: * Images: Billing Information: * Visit Code: 07130 Office Visit, Est Pt., Level 3. * Procedure Codes: 04381 PULSE OX. * Electronic signature of Andreea Gibbs APRN on 03/20/2025 at 11:41 AM EST Sign off status: Pending * Provider: CLARA Bo Date: 0 10/18/2023 Generated for Osmel nassar/Lakeisha/eTransmitting on: 1 05/20/2024 11:41 AM EST History and Physical Notes * HPI (History of Present Illness) Category Sub-Category Detail Notes Category Not es ENT/respiratory facial pain/pressure ear pain Pt presents today wi th c/o pain in her right ear. Pt sts that she seen Sara last for a sinus infection and ear infection. She has finished the Z-pack but her ears have continued to hurt Chest Pain cough better post nasal drainage chest congestion rhinorrhea sometimes yellow nasal congestion smoking Examination Category Sub-Category Detail Notes Category Not es ENT/Respiratory Oral cavity : no erythema or exudate s een on pharynx Ears: TM on the right is b ulging and injected; left TM is improving -pale; ; left ear canal erythematous and right with edema Neck : enlarged nontender l ymph nodes Heart : RRR Lungs: CTAB A&P General Appearance: well nourished and h ydrated, NAD, alert, active Nose : nares patent Eyes: sclera and conjuncti va clear
--- OUTSIDE RECORDS SUMMARY | 2023-10-22 04:45 | XMS_ITS ---
Author Organization [facility] Address [address] [facility] [address] [place] [id number] Care Team Providers Care Clinical Data Assistant Name Role Phone Radha Main Primary Care Provider [phone] Sara Mendez Unavailable [phone] Allergies Allergen (clinical drug ingredient) Drug/Non Drug [...] vladimir Results Component Value Reference Range Notes Glucose (In-House) Reviewed date:10/22/2023 03:53:28 PM Interpretation:70 Performing Lab: Notes/Report: 70 blood glucose 70 74 - 106 mg/dL REASON FOR VISIT 4 day f/u Medications Medication SIG (Take, Route, Frequency, Duration) Notes Start Date End Date Status Zithromax Z-Lincoln 250 MG 2 pills first day then one daily for 4 days orally as directed; Duration: 5 days 10/13/2023 Not-Taking Amoxicillin-Pot Clavulanate 875-125 MG 1 tablet Orally every 12 hrs 10/18/2023 Active Fluticasone Propionate 50 MCG/ACT 1 spray in each nostril Nasally once daily Active Furosemide 20 MG 1 tablet Orally Once a day; Duration: 30 day(s) Active Hyzaar 50-12.5 MG 1/2 tab orally once a day Active valACYclovir HCl 1 GM TAKE TWO TABLETS B Y MOUTH 2 TIMES A DAY Active Benzonatate 200 MG 1 capsule Orally Thr ee times a day 10/13/2023 Active Albuterol Sulfate HFA 108 (90 Base) MCG/ACT 1 puff as needed Inhalation four times a day as needed 10/13/2023 Active Spironolactone 50 MG 1 tablet Orally Onc e a day; Duration: 30 day(s) Active Methocarbamol 750 MG 1 tablet Orally thr ee times a day as needed; Duration: 30 day(s) 08/18/2023 Active Metoprolol Succinate ER 25 MG take one tablet by mouth once a day orally once a day at night Active HumuLIN R U-500 (CONCENTRATED) 500 UNIT/ML 110 units Subcutaneous three times a day Active Loratadine 10 MG 1 tab(s) orally once a day Active Meclizine HCl 25 MG 1 tab(s) orally 3 ti mes a day as needed 08/14/2022 Active Ciprofloxacin-dexAMETHaso ne 0.3-0.1 % 4 drops into bilateral ears affected ear Otic Twice a day Active Xifaxan 550 MG 1 tablet Orally Twic e a day; Duration: 30 day(s) Active Problems Problem Type SNOMED Code ICD Code Onset Dates Problem Status W/U Status Risk Notes Problem Hypoglycemia (992929187) Hypoglycemia (E16.2) Active confirmed Vital Signs Blood pressure systolic 128 mm Hg 10/22/19 24 Blood pressure diastolic 76 mm Hg 024 Heart Rate 85 /min 10/22/2023 Height 60.50 in 10/22/2023 Weight 202.4 lbs 10/22/2023 BMI 38.87 kg/m2 10/22/2023 Encounters Encounter Location Date Provider Diagnosis [facility] [address] [place], [place] [phone] 10/22/2023 Sara Crowdy Otitis externa H60.9 0 ; Right otitis media with effusion H65.91 ; Murmur, cardiac R01.1 and Hypoglycemia E16.2 Assessments Encounter Date Diagnosis (ICD Code) Assessment Notes Treatment Notes Treatment Clinical Notes Section Notes 10/22/2023 Otitis externa (ICD-10 - H60.90) Resolved 10/22/2023 Right otitis media with effusion (ICD-10 - H65.91) Will finish abx. If ear is still painful, will f/u in the office. 10/22/2023 Murmur, cardiac (ICD-10 - R01.1) Patient had an echo in January which showed no shunts and a normal EF. She did have mulitvalvular mild regurgitation. 10/22/2023 Hypoglycemia (ICD-10 - E16.2) Gave a glucose tablet in the office and she felt much better in a few minutes. 10/22/2023 Other Plan Of Treatment Medication Medication Name Sig Start Date Stop Date Notes Amoxicillin-Pot Clavulanate 875-125 MG 1 tablet Orally every 12 hrs 10/18/2023 Fluticasone Propionate 50 MCG/ACT 1 spray in each nostril Nasally once daily Ciprofloxacin-dexAMETHasone 0.3-0.1 % 4 drops into bilateral ears affected ear Otic Twice a day Treatment Notes Assessment Notes Otitis externa Resolved Right otitis media with effusion Will fi siddharth abx. If ear is still painful, will f/u in the office. Murmur, cardiac Patient had an echo in January which showed no shunts and a normal EF. She did have mulitvalvular mild regurgitation. Hypoglycemia Gave a glucose table t in the office and she felt much better in a few minutes. Next Appt Details Follow Up: prn, Reason: Progress Notes * IGOR, CHETNADOB:1965 (59 yo F)Acc No.[id number]:10/22/2023 Patient: CHETNA GILL Provider: REHAN Cabrera :1965 A ge:58 Y S ex:Female Date:10/22/2023 [facility] [place] [facility], [id number] Pcp:Radha Main Subjective: * Chief Complaints: * 1 . 4 day f/u. * HPI: E NT/respiratory: cough P t sts that she has tried to stop taking cough medication but sts that when she does she feels like she has something caught in her throat. Pt sts that her cough is still dry w/o sputum production. e ar pain P t presents today for a follow up for an ear infection. Pt sts that the pain has got better but sts that she does have diminshed hearing in the right ear. E ndocrinology: Recent Blood Sugars P t sts that she feels like her sugar may be dropping and would like us to check it. C ardiology: Pt sts that she seen her inoculator the other day and they mentioned a possible heart murmur. * ROS: D ERMATOLOGY: no R angelina. n o H dakota. G ASTROENTEROLOGY: no N ausea. n o V omiting. n o D iarrhea.? U ROLOGY: no D ifficulty urinating. n o B lood in urine. * Medical History: d iverticulitis, May 2005, Type 2 Diabetes, Hypertension, Hyperlipidemia, Depression/Anxiety, Hepatic cirrhosis, Esophageal varices, splenomegaly and splenic varices 09/14/2019 CT. 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 * Hospitalization/Major Diagno stic Procedure: M onitoring for chest pain 01-21 to 01-23-08, [facility] : passed out , [facility] - passed out Apr 18, 2017. [...] Subcutaneous three times a day , Taking Loratadine 10 MG [...] four times a day as needed , Taking Ciprofloxacin-dexAMETHasone 0.3-0.1 % Suspension 4 drops into bilateral ears affected ear Otic Twice a day , Taking Amoxicillin-Pot Clavulanate 875-125 MG Tablet 1 tablet Orally every 12 hrs , Taking Spironolactone 50 MG Tablet 1 tablet Orally Once a day , Taking Furosemide 20 MG Tablet 1 tablet Orally Once a day , Not-Taking Zithromax Z-Lincoln 250 MG Tablet 2 pills first day then one daily for 4 days orally as directed , Discontinued Medrol 4 MG Tablet Therapy Pack as directed orally daily , Medication List reviewed and reconciled with the patient * Allergies: J anumet XR: stomach upset, metFORMIN: stomach upset, Cymbalta: throat closes up, Invokana: yeast infections, Tradjenta: will not take d/t side effect profile, Toujeo SoloStar: will not take d/t side effect profile. Objective: * Vitals: W t:202.4, Temp:98.4, BP:128/76, HR:85, O2 Sat:98% on RA, Nurse:CHUCK, Ht: 60.50, BMI:38.87. * Examination: E NT/Respiratory: General Appearance: N AD. E ars: right TM erythematous with effusion, left TM normal, canals clear. N ose : n ormal, no lesions, nares patent. O ral cavity : n o erythema or exudate seen on pharynx. N hugh : n o cervical lymphadenopathy. H eart : R RR, faint systolic murmur. L ungs: c lear to auscultation bilaterally. Assessment: * Assessment: 1. R ight otitis media with effusion - H65.91 (Primary) 2 . O titis externa - H60.90 3 . M urmur, cardiac - R01.1 4 . H ypoglycemia - E16.2 Plan: * Treatment: 2. O titis externa Continue Ciprofloxacin-dexAMETHasone Suspension, 0.3-0.1 %, 4 drops into bilateral ears affected ear, Otic, Twice a day. Notes: Resolved 3. M urmur, cardiac Notes: Patient had an echo in January which showed no shunts and a normal EF. She did have mulitvalvular mild regurgitation. 4. H ypoglycemia L AB: Glucose (In-House) (Collection Date & Time - 10/22/2023) 7 0 Value Reference Range b lood glucose 70 74 - 106 mg/dL * Perla Torres 10/22/2023 10:0 3:53 AM > pt given glucose tablet Notes: Gave a glucose tablet in the office and she felt much better in a few minutes.?? * Procedure Codes: 9 4760 PULSE OX, [address] CAPILLARY BLOOD DRAW, 04294 GLUCOSE TEST * Follow Up: p rn * Images: Billing Information: * Visit Code: 14921 Office Visit, Est Pt., Level 3. * Procedure Codes: [address] [place]. [address] CAPILLARY BLOOD DRAW. 78318 GLUCOSE TEST. * Electronic signature of REHAN Jeffery on 03/20/2025 at 11:42 AM EST Sign off status: Pending * Provider: REHAN Cabrera Date: 0 10/22/2023 Generated for Osmel nassar/Lakeisha/Mecheitting on: 1 05/20/2024 11:42 AM EST History and Physical Notes * HPI (History of Present Illness) Category Sub-Category Detail Notes Category Not es ENT/respiratory ear pain Pt presents toda y for a follow up for an ear infection. Pt sts that the pain has got better but sts that she does have diminshed hearing in the right ear cough Pt sts that she has tried to stop taking cough medication but sts that when she does she feels like she has something caught in her throat. Pt sts that her cough is still dry w/o sputum production Endocrinology Recent Blood Sugars Pt sts that she feels like her sugar may be dropping and would like us to check it Examination Category Sub-Category Detail Notes Category Not es ENT/Respiratory Oral cavity : no erythema or exudate s een on pharynx Ears: right TM erythematou s with effusion, left TM normal, canals clear Neck : no cervical lymphade nopathy Heart : RRR, faint systolic murmur Lungs: clear to auscultatio n bilaterally General Appearance: NAD Nose : normal, no lesions, nares patent
--- OUTSIDE RECORDS SUMMARY | 2024-05-26 06:00 | XMS_ITS ---
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 Referred Provider Specialty Dermatology General Notes Sara Mendez 2024 10:23:10 AM > Would like someone at , if not there will try [facility], Taylor Spence 05/30/2024 1:30:38 PM > completed referral via website, Rubi Reid 05/30/2024 1:53:15 PM > closed the dermatology dept. 3 months ago need to refer to someone else, Taylor Spence 05/30/2024 1:56:08 PM > faxed to [facility] Referral Priority Routine Diagnosis 1 Piriformis syndrome of right side (G57.01) Diagnosis 2 Neck pain (M54.2) Diagnosis 3 Decreased ROM of rig ht shoulder (M25.611) Referral Organization [facility] Referring Provider First Name Sara Referring Provider Last Name Andrea Referring Provider Speciality Physician Clinical Academic Allergist Referred Provider Physical Therapy, . Referred Provider Specialty Physical The rapist General Notes Sara Mendez 2024 10:24:24 AM > Would like to go to [facility], Taylor Spence 05/29/2024 10:42:37 AM > faxed to [facility] PT Referral Priority Routine REASON FOR VISIT places on elbow Medications Medication SIG (Take, Route, Frequency, Duration) Notes Start Date End Date Status Xifaxan 550 MG 1 tablet Orally Twic e a day; Duration: 30 day(s) Active HumuLIN R U-500 (CONCENTRATED) 500 UNIT/ML 130 units Subcutaneous twice a day Active Loratadine 10 MG 1 tab(s) orally once a day Active Metoprolol Succinate ER 25 MG take one tablet by mouth once a day orally once a day at night Active Hyzaar 50-12.5 MG 1/2 tab orally once a day Active Fluticasone Propionate 50 MCG/ACT 1 spray in each nostril Nasally once daily Active Furosemide 20 MG 1 tablet Orally Once a day; Duration: 30 day(s) Active Methocarbamol 750 MG 1 tablet Orally thr ee times a day as needed; Duration: 30 day(s) 08/18/2023 Active Meclizine HCl 25 MG 1 tab(s) orally 3 ti mes a day as needed 08/14/2022 Active Spironolactone 50 MG 1 tablet Orally Onc e a day; Duration: 30 day(s) Active valACYclovir HCl 1 GM TAKE TWO TABLETS B Y MOUTH 2 TIMES A DAY Active Benzonatate 200 MG 1 capsule Orally Thr ee times a day 10/13/2023 Active Albuterol Sulfate HFA 108 (90 Base) MCG/ACT 1 puff as needed Inhalation four times a day as needed 10/13/2023 Active Problems Problem Type SNOMED Code ICD Code Onset Dates Problem Status W/U Status Risk Notes Problem Sciatic nerve lesion (153495207) Piriformis syndrome of right side (G57.01) Active confirmed Problem Neck pain (70862946) Neck pain (M54.2) Active confirmed Vital Signs Blood pressure systolic 124 mm Hg 05/26/19 25 Blood pressure diastolic 82 mm Hg 025 Heart Rate 94 /min 05/26/2024 Height 60.50 in 05/26/2024 Weight 207.8 lbs 05/26/2024 BMI 39.91 kg/m2 05/26/2024 Encounters Encounter Location Date Provider Diagnosis [facility] [address] [place] [id number] 05/26/2024 Sara Mendez Neoplasm of uncertai n behavior of skin D48.5 ; Decreased range of motion of right shoulder M25.611 ; Piriformis syndrome of right side G57.01 ; Neck pain M54.2 and Vertigo R42 Assessments Encounter Date Diagnosis (ICD Code) Assessment Notes Treatment Notes Treatment Clinical Notes Section Notes 05/26/2024 Neoplasm of uncertain behavior of skin (ICD-10 - D48.5) 05/26/2024 Decreased range of motion of right shoulder (ICD-10 - M25.611) 05/26/2024 Piriformis syndrome of right side (ICD-10 - G57.01) 05/26/2024 Neck pain (ICD-10 - M54.2) 05/26/2024 Vertigo (ICD-10 - R42) Plan Of Treatment Medication Medication Name Sig Start Date Stop Date Notes Methocarbamol 750 MG 1 tablet Orally thr ee times a day as needed; Duration: 30 day(s) 08/18/2023 Meclizine HCl 25 MG 1 tab(s) orally 3 ti mes a day as needed 08/14/2022 Referrals Referral Date Details 05/29/2024 05/29/2024, . Dermat ology 05/29/2024 05/29/2024, . Physic al Therapy Next Appt Details Follow Up: prn, Reason: Progress Notes * CHETNA COSTADOB:1965 (59 yo F)Acc No.[id number]:05/26/2024 Progress Notes Patient: CHETNA GILL Provider: REHAN Cabrera :1965 A ge:59 Y S ex:Female Date:05/26/2024 Address:[address], [place], [id number] Pcp:Radha Main Subjective: * Chief Complaints: * 1 . Places on elbow. * HPI: D ermatology: 59 year old female presents with c/o rash P t sts she has a bunch of spots that have come up on her elbow. Pt sts they are raised and change color and want to make sure it is not cancer. Pt sts she has noticed the spots over the last 6 months. Pt sts the spots are on both elbows and all over her body. Pt sts she also numbness in her left arm as well. C ardiology: c/o Dizziness P t sts she has had vertigo as well. * ROS: D ERMATOLOGY: no R angelina. n o H dakota. G ASTROENTEROLOGY: no N ausea. n o V omiting. n o D iarrhea.? U ROLOGY: no D ifficulty urinating. n o B lood in urine. * Medical History: d iverticulitis, May 2005, Type 2 Diabetes, Hypertension, Hyperlipidemia, Depression/Anxiety, Hepatic cirrhosis, Esophageal varices, splenomegaly and splenic varices 09/14/2019 CT. * Surgical History: t valet thumb bilaterally 11/2006,01/2007, trigger thumb/2nd, 3rd digit release 08/2009, cholecystectomy and appendectomy 1994, Heart Cath 03/13, panascopy 10/21. * Hospitalization/Major Diagno stic Procedure: M onitoring for chest pain 01-21 to 01-23-08, [facility] ER : passed out , [facility] - passed out Apr 18, [...] HumuLIN R U-500 (CONCENTRATED) 500 UNIT/ML Solution 130 units Subcutaneous twice a day , Taking Loratadine 10 MG Tablet 1 tab(s) orally once a day , Taking Meclizine HCl 25 MG Tablet 1 tab(s) orally 3 times a day as needed , Taking Methocarbamol 750 MG Tablet 1 [...] times a day as needed , Taking Spironolactone 50 MG Tablet 1 tablet Orally Once a day , Taking Fluticasone Propionate 50 MCG/ACT Suspension 1 spray in each nostril Nasally once daily , Taking Furosemide 20 MG Tablet 1 tablet Orally Once a day , Medication List reviewed and reconciled with the patient * Allergies: J anumet XR: stomach upset, metFORMIN: stomach upset, Cymbalta: throat closes up, Invokana: yeast infections, Tradjenta: will not take d/t side effect profile, Toujeo SoloStar: will not take d/t side effect profile. Objective: * Vitals: W t:207.8, Temp:98.6, BP:124/82, HR:94, Nurse:SARA, Ht: 60.50, BMI:39.91. * Examination: G eneral Examination: General Appearance: N AD. H EENT: sclera and conjunctiva clear, PERRLA, TM's normal, translucent, nystagmus present to the right. O ral cavity:?no lesions, mucosa moist and WNL, no erythema. N hugh: s upple, no lymphadenopathy. C hest: n ormal shape and expansion. H eart: R SR. L ungs: c lear to auscultation. A bdomen: bowel sounds present, soft and nontender, no guarding or rigidity. N eurologic Exam: alert and oriented, normal cranial nerves II-XII sensory & motor WNL, unsteady on Rhomberg. S kin: numerous d ark keratotic lesions on the arms and legs, irregular. Peripheral pulses: n ormal (2+) bilaterally. B ack: ttp in the right piriformis area with pain radiating down the right leg, positive figure 4 test. E xtremities: n o leg edema, right shoulder with decreased flexion, extension, and rotation, ttp along the trapezius muscle and over the AC joint. Assessment: * Assessment: 1. 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 D ecreased range of motion of right shoulder - M25.611 3 . P iriformis syndrome of right side - G57.01 4 . N hugh pain - M54.2 5 . V ertigo - R42 ? Plan: * Treatment: 2. P iriformis syndrome of right side Refill Methocarbamol Tablet, 750 MG, 1 tablet, Orally, three times a day as needed, 30 day(s), 60, Refills 5. Referral To:. Physical Therapy Physical Therapist Reason: 3. N hugh pain Referral To:. Physical Therapy Physical Therapist Reason: 4. V ertigo Refill Meclizine HCl Tablet, 25 MG, 1 tab(s), orally, 3 times a day as needed, 90, Refills 2. ? 5. O thers Referral To:. Physical Therapy Physical Therapist Reason: * Procedure Codes: G 2211 Complex e/m visit add on, 3074F SYST BP LT 130 MM HG, 3079F DIAST BP 80-89 MM HG * Follow Up: p rn * Images: Billing Information: * Visit Code: 13928 Office Visit, Est Pt., Level 4. * Procedure Codes: G2211 Complex e/m visit add on. 3074F SYST BP LT 130 MM HG. 3079F DIAST BP 80-89 MM HG. * Electronic signature of REHAN Jeffery on 03/20/2025 at 11:41 AM EST Sign off status: Pending * Provider: REHAN Cabrera Date: 0 05/26/2024 Generated for Osmel nassar/Lakeisha/Nneka on: 05/20/2024 11:41 AM EST History and Physical Notes * HPI (History of Present Illness) Category Sub-Category Detail Notes Category Not es Dermatology rash Pt sts she has a bunch of spots that have come up on her elbow. Pt sts they are raised and change color and want to make sure it is not cancer. Pt sts she has noticed the spots over the last 6 months. Pt sts the spots are on both elbows and all over her body. Pt sts she also numbness in her left arm as well Cardiology Dizziness Pt sts she has had vertigo a s well Examination Category Sub-Category Detail Notes Category Not es General Examination HEENT: sclera and c onjunctiva clear, PERRLA, TM's normal, translucent, nystagmus present to the right Heart: RSR Lungs: clear to auscultatio n Abdomen: bowel sounds present , soft and nontender, no guarding or rigidity Extremities: no leg edema, right shoulder with decreased flexion, extension, and rotation, ttp along the trapezius muscle and over the AC joint General Appearance: NAD Skin: numerous dark kerato tic lesions on the arms and legs, irregular Neurologic Exam: alert and oriented, normal cranial nerves II-XII sensory & motor WNL, unsteady on Rhomberg Neck: supple, no lymphaden opathy Oral cavity: no lesions, mucosa m oist and WNL, no erythema Peripheral pulses: normal (2+) bilatera lly Back: ttp in the right pir iformis area with pain radiating down the right leg, positive figure 4 test Chest: normal shape and exp ansion Consultation Request Notes Referral Date Referring Provider Referred Provider Not es 05/29/2024 Sara Mendez Dermatology, . 05/29/2024 Sara Mendez Physical Therapy, .
--- OUTSIDE RECORDS SUMMARY | 2025-01-24 07:15 | XMS_ITS | Encounter Summary ---
Author Organization [facility] Address [address] 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), bilateral Procedures [place] BEVACIZUMAB INJECTION Alix Webb MD [address] [address] Phone: tel: fax: Referral ID Status Reason Start Date Expiration Date V isits Requested Visits Authorized [id number] Authorized 01/24/2025 07/26/2026 1 1 * Clinic-Administered Medication (Routine) - Authorized Specialty Diagnoses / Procedures Referred By Mirtha scanlon Referred To Contact Diagnoses 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), bilateral Procedures MN BEVACIZUMAB INJECTION Alix Webb MD 110 [facility] [address] [place] [address] Phone: tel: fax: Referral ID Status Reason Start Date Expiration Date V isits Requested Visits Authorized [id number] Authorized 01/24/2025 07/26/2026 1 1 Reason for Visit * Reason Comments Diabetic Eye Exam Encounter Details Date Type Department Care Team (Late st Contact Info) Description 01/24/2025 8:15 AM EDT Office Visit [facility] [address] [place] [address] Alix Webb MD [address] [place] [address] 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 Most patients experience some blurred vision, floaters, and itching or mild discomfort followingan injection. This typically lasts a few days or less and is normal. 2. If you experience increased levels of eye pain and discomfort, significant decreased vision, flashes of light, increased redness, sensitivity to light, fever or other unexpected symptoms , please contact us immediately. 3. Tylenol or Motrin or Aleve may be taken for a headache after the injection. 4. Avoid rubbing your eyes. 5. You can use artificial tears (Refresh or Systane are brand names) as needed for irritation 6. Always wash your hands prior to putting in eye drops. Call or return to clinic with sudden vision changes including worsening blurring, distortions, or significant flashes or floaters. Consider going to the emergency room if you are unable to reach the clinic on the phone. Call [phone] and ask for the defensive driving instructor computer information systems professor if it is after hours or a weekend or holiday. * Progress Notes - Alix Webb MD - 01/24/2025 8:15 AM EDT Retina Clinic Note CHIEF COMPLAINT Patient presents for Diabetic Eye Exam HISTORY OF PRESENT ILLNESS: Monae Costa is a 59 y.o. female who presents to the clinic today for: HPI 59 year old female presents for a 4 week follow up visit for proliferative diabetic retinopathy of both eyes without macular edema associated with type 2 diabetes mellitus. She had CAROLANN both eyes (OU)on 10/25/2024. She states no new visual complaints. No issues after injections. Last edited by Nadia Pierre on 01/24/2025 8:18 AM. REVIEW OF SYSTEMS: ROS Positive for: Endocrine, Eyes Negative for: Constitutional, Gastrointestinal, Neurological, Skin, Genitourinary, Musculoskeletal,HENT, Cardiovascular, Respiratory, Psychiatric, Allergic/Imm, Heme/Lymph Last edited by Nadia Pierre on 01/24/2025 8:17 AM. Negative except for ROS Positive for: Endocrine, Eyes Negative for: Constitutional, Gastrointestinal, Neurological, Skin, Genitourinary, Musculoskeletal,HENT, Cardiovascular, Respiratory, Psychiatric, Allergic/Imm, Heme/Lymph Last edited by Nadia Pierre on 01/24/2025 8:17 AM. Referring physician: No referring provider defined for this encounter. HISTORICAL INFORMATION: Selected notes from the medical record: CURRENT MEDICATIONS: No current outpatient medications on file. (Ophthalmic Drugs) No current facility-administered medications for this visit. (Ophthalmic Drugs) Current Outpatient Medications (Other) Medication Sig acetaminophen (Tylenol) 500 MG tablet Take 2 tablets by mouth every 6 hours as needed for pain, headaches or fever. Continuous Glucose Sensor (FreeStyle Eric 3 Plus Sensor) misc 1 sensor every 15 days. fluticasone (Flonase) 50 MCG/ACT nasal spray Administer 2 sprays into each nostril daily as needed for allergies or rhinitis. furosemide (Lasix) 20 MG tablet TAKE ONE TABLET BY MOUTH ONCE A DAY glucagon (Baqsimi Two Pack) 3 MG/DOSE powder Nasal Powder Administer 3 mg into affected nostril(s) 1 (one) time if needed (severe hypoglycemia). lidocaine (Lidoderm) 5 % patch Apply 1 patch topically as needed. loratadine (Claritin) 10 MG tablet Take 1 tablet by mouth daily. losartan-hydroCHLOROthiazide (Hyzaar) 50-12.5 MG tablet Take 0.5 tablets by mouth daily. meclizine (Antivert) 25 MG tablet Take 1 tablet by mouth 3 (three) times a day as needed for dizziness. omeprazole (PriLOSEC) [address] capsule Take 1 capsule by mouth daily. Do not crush or chew. pen needle, diabetic (B-D UF III MINI PEN NEEDLES) 31G X 5 MM misc Use 2x/day rifAXIMin (Xifaxan) 550 MG tablet Take 1 tablet (550 mg) by mouth 2 (two) times a day. Semaglutide, 1 MG/DOSE, (Ozempic, 1 MG/DOSE,) 4 MG/3ML solution pen-injector Inject 1 mg under the skin 1 time per week. spironolactone (Aldactone) 50 MG tablet TAKE ONE TABLET BY MOUTH ONCE A DAY No current facility-administered medications for this visit. (Other) ALLERGIES Allergies Allergen Reactions Nsaids Other - please [...] - please document in the comment field PAST MEDICAL HISTORY Past Medical History: Diagnosis Date Acute pharyngitis 07/19/24 Anxiety disorder, unspecified Anxiety and depression Cirrhosis [...] gastroesophageal reflux (GERD) Type 2 diabetes mellitus 2008 Started using insulin regulary 2012 Past Surgical History: Procedure Laterality Date APPENDECTOMY N/A Appendectomy from [facility] BELT ABDOMINOPLASTY BREAST AUGMENTATION CARPAL TUNNEL RELEASE Bilateral SECTION, LOW TRANSVERSE N/A Section from [facility] COLONOSCOPY GALLBLADDER SURGERY N/A Gallbladder Surgery from [facility] TRIGGER FINGER RELEASE Bilateral TRIGGER POINT INJECTION multiple to neck and shoulder FAMILY HISTORY Family History Problem Relation Name Age of Onset Stroke Mother Diabetes Mother Hypertension Mother Obesity Mother Conversions - Other Mother Heart trouble Other cancer Sister Anesthesia problems Neg Hx Malig Hyperthermia Neg Hx SOCIAL HISTORY Social History Tobacco Use Smoking status: Never Passive exposure: Never Smokeless tobacco: Never Vaping Use Vaping status: Never Used Substance Use Topics Alcohol use: Yes Comment: ocassionally Drug use: Never GENERAL EXAM: General Exam: Neuro: Alert and Oriented x 3, normal mood and affect OPHTHALMIC EXAM: Base Eye Exam Visual Acuity (Snellen - Linear) Right Left Dist sc 20/25 20/25 Tonometry (Tonopen, 8:23 AM) Right Left Pressure 19 21 Pupils Pupils APD Right PERRL None Left PERRL None Neuro/Psych Oriented x3: Yes Mood/Affect: Normal Dilation Both eyes: 1% Tropicamide @ 8:23 AM Slit Lamp and Fundus Exam External Exam Right Left External Normal Normal Slit Lamp Exam Right Left Lids/Lashes Normal for age Normal for age Conjunctiva/Sclera Normal Normal Cornea Clear and compact clear Anterior Chamber Deep and quiet Deep and quiet Iris Prominent peripheral iris vessels, moderate caliber residual iris vascularity, moderate caliber Lens 1+ NSC, 2+ ELIZ 1+ NSC, 2+ ELIZ Anterior Vitreous Normal Normal Fundus Exam Right Left Disc no edema, no vascularization, good color (Lary 78 d Lens) no edema, no vascularization, good color (Lary 78 d Lens) C/D Ratio .3 .3 Macula dbh, exudates dbh, exudates Vessels diabetic retinopathy - proliferative, low risk pdr ou diabetic retinopathy - proliferative,low risk pdr ou Periphery flat and attached 360 degrees, dbh, NVE vs CLAUDIA superiorly, PRP 360, no vitreous (vit) heme Dbh, PRP 360. Inferior vitreous (vit) heme improving IMAGING AND PROCEDURES OCT, Retina - OU - Both Eyes Right Eye Quality was good. Scan locations included subfoveal. Left Eye Quality was good. Scan locations included subfoveal. Notes Both eyes (OU) - no csDME Mild VMT OD OCT, Retina - OU - Both Eyes Right Eye Quality was good. Scan locations included subfoveal. Left Eye Quality was good. Scan locations included subfoveal. Notes Both eyes (OU) - no csDME Mild VMT OD Intravitreal Injection, Pharmacologic Agent - OU - Both Eyes Time Out 01/24/2025. 9:22 AM. Confirmed correct patient, procedure, site, and patient consented. Anesthesia Right Eye Topical anesthesia was used. Left Eye Topical anesthesia was used. Procedure Right Eye Preparation included 5% betadine to ocular surface, eyelid speculum. A 30 gauge needle was used. Injection: 1.25 mg bevacizumab 2.25 MG/0.09ML Route: Intravitreal, Site: Right Eye NDC: 85730-564-66, Lot: [id number], Expiration date: 02/11/2025 Left Eye Preparation included 5% betadine to ocular surface, eyelid speculum. A 30 gauge needle was used. Injection: 1.25 mg bevacizumab 2.25 MG/0.09ML Route: Intravitreal, Site: Left Eye NDC: 93230-156-73, Lot: [id number], Expiration date: 03/19/2025 Post-op Right Eye Post injection exam found visual acuity of at least counting fingers. The patient tolerated the procedure well. There were no complications. Left Eye Post injection exam found visual acuity of at least counting fingers. The patient tolerated the procedure well. There were no complications. VISIT DIAGNOSES 1. 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 NVI (new vessels iris), bilateral Intravitreal Injection, Pharmacologic Agent - OU - Both Eyes, bevacizumab injection 1.25 mg, bevacizumab injection 1.25 mg 3. Age-related nuclear cataract of both eyes ASSESSMENT AND PLAN: Stable proliferative diabetic retinopathy of both eyes associated with type 2 diabetes mellitus (CMS/HCC) NVI OU PDR OU with DME OU - lost to follow-up multiple times, gap from [address] Silvestre to 2021; and from 2021 until 12/2023 when went back to the ED - Has seen Dr. Castro who recommended CAROLANN both eyes (OU), but pt didn't have a recycling collections driver, and didn't want to have panretinal photocoagulation (PRP)/CAROLANN was worried about upcoming trip to [place] - Type 2 diabetes mellitus (DM) for several years - poorly controlled, but A1C improving and down to 8.4 in September 2023 - h/o panretinal photocoagulation (PRP) both eyes (OU) on 11/11/21 - fluorescein angiography (FA) done 11/11: significant ischemia both eyes (OU), left eye (OS)>>OD with significant neovascularization elsewhere (NVE) left eye (OS) especially. - historically very anxious about treatment 01/19/24: Seen in ED for new VH left eye (OS) 01/17/24. Neovascularization elsewhere (NVE) right eye (OD), NVI both eyes (OU), and VH left eye (OS). CAROLANN both eyes (OU) with plan for fill in laser 07/19/24: New vitreous (vit) heme left eye (OS). Patient is scared of the shots and laser. Doesn't make appointment because of the anxiety. Wants to consider panretinal photocoagulation (PRP) both eyes (OU) under sedation. Will do CAROLANN left eye (OS) today. Will schedule for panretinal photocoagulation (PRP). Safety visit in 1 month 09/20/24: both eyes (OU) status post (s/p) panretinal photocoagulation (PRP) 08/14/24 in OR and no significant cystoid macular edema (CME). Prominent large caliber iris vessels both eyes (OU) and residual VH inferiorly left eye (OS). Offered close obs vs trial of inj. Pt elects for close obs, recheck 1 month 10/25/24: no significant cystoid macular edema (CME). Still with significant vascularity large caliber peripherally and medium caliber nearly 360. Discussed risk of neovascular glaucoma (NVG), recommendation for CAROLANN both eyes (OU). Pt amenable to proceed. CAROLANN both eyes (OU) recheck 4 weeks 01/24/25: still with significant prominent vasculature but has been 3 months. Repeat CAROLANN both eyes (OU) today, recheck 4 weeks and if no change may switch to treating only new signs of NVI Mild Cataract OU - monitor, not yet visually significant Explained the diagnoses, plan, and follow up with the patient and they expressed understanding. Patient expressed understanding of the importance of proper follow up care. Follow up in about 4 weeks (around 02/21/2025) for Dilated Exam, OCT. Patient Instructions AFTER INJECTION CARE 1. Most patients experience some blurred vision, floaters, and itching or mild discomfort followingan injection. This typically lasts a few days or less and is normal. 2. If you experience increased levels of eye pain and discomfort, significant decreased vision, flashes of light, increased redness, sensitivity to light, fever or other unexpected symptoms , please contact us immediately. 3. Tylenol or Motrin or Aleve may be taken for a headache after the injection. 4. Avoid rubbing your eyes. 5. You can use artificial tears (Refresh or Systane are brand names) as needed for irritation 6. Always wash your hands prior to putting in eye drops. Call or return to clinic with sudden vision changes including worsening blurring, distortions, or significant flashes or floaters. Consider going to the emergency room if you are unable to reach the clinic on the phone. Call [phone] and ask for the defensive driving instructor computer information systems professor if it is after hours or a weekend or holiday. Electronically signed by: Alix Webb MD 01/24/2025 9:44 AM Tobacco Cessation Initiative: Tobacco Use: Low Risk (01/24/2025) Patient History Smoking Tobacco Use: Never Smokeless Tobacco Use: Never Passive Exposure: Never The patient has been counseled on tobacco cessation: Not Applicable documented in this encounter Plan of Treatment Upcoming Encounters Date Type Department Care Team (Late st Contact Info) Description 04/04/2025 3:00 PM EST Office Visit [facility] [address] [place] [address] Alix Webb MD [address] [address] 05/31/2025 9:00 AM EST Office [facility] [address] [place] [address] Barrett Stratton, PA [address] [place] [address] 06/07/2025 1:40 PM EST Office Visit [facility] [address] [place] [id number] Caridad Mondragon APRN [address] [facility] [address] [place] [address] 07/17/2025 7:30 AM EDT Office 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 9:22 AM. Confirmed correct patient, procedure, site, and patient consented. Anesthesia Right Eye Topical anesthesia was used. Left Eye Topical anesthesia was used. Procedure Right Eye Preparation included 5% betadine to ocular surface, eyelid speculum. A 30 gauge needle was used. Injection: 1.25 mg bevacizumab 2.25 MG/0.09ML Route: Intravitreal, Site: Right Eye NDC: 53407-284-16, Lot: [id number], Expiration date: 02/11/2025 Left Eye Preparation included 5% betadine to ocular surface, eyelid speculum. A 30 gauge needle was used. Injection: 1.25 mg bevacizumab 2.25 MG/0.09ML Route: Intravitreal, Site: Left Eye NDC: 86167-383-84, Lot: [id number], Expiration date: 03/19/2025 Post-op Right Eye Post injection exam found visual acuity of at least counting fingers. The patient tolerated the procedure well. There were no complications. Left Eye Post injection exam found visual acuity of at least counting fingers. The patient tolerated the procedure well. There were no complications. us Alix Webb MD OPHTH CLINIC PROCEDURE S Final Result * OCT, Retina - OU - Both Eyes (01/24/2025 8:49 AM EDT) Anatomical Region Laterality Modality Head Optical Coherenc e Tomography Narrative 01/24/2025 8:49 AM EDT Right Eye Quality was good. Scan locations included subfoveal. Left Eye Quality was good. Scan locations included subfoveal. 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- Primary NVI (new vessels iris), bilateral Age-related nuclear cataract of both eyes documented in this encounter Administered Medications Inactive Administered Medications - up to 3 most recent administrations Medication Order MAR Action Action Date Dose Rate Site bevacizumab injection 1.25 mg 1.25 mg, Intravitreal, Once PRN Procedure, 1 dose, Starting on Wed01/24/25 at 0944, Until Wed01/24/25 at 0944, RoutineIndications:Proliferat vladimir diabetic retinopathy of both eyes without macular edema associated with type 2 diabetes mellitus,NVI (new vessels iris), bilateral Given 01/24/2025 9:44 AM EDT 1.25 mg Right Eye bevacizumab injection 1.25 mg 1.25 mg, Intravitreal, Once PRN Procedure, 1 dose, Starting on Wed01/24/25 at 0944, Until Wed01/24/25 at 09, RoutineIndications:Proliferat vladimir diabetic retinopathy of both eyes without macular edema associated with type 2 diabetes mellitus,NVI (new vessels iris), bilateral Given 01/24/2025 9:44 AM EDT 1.25 mg Left Eye documented in this encounter Additional Health Concerns Assessment Noted Time PHQ-9 Depression Total Score: 3 05/30/19 25 11:43 AM EST A fall risk assessment has been complete d for the patient 01/24/2025 8:19 AM EDT A Body Mass Index follow-up plan has been documented for the patient 01/24/2025 9:44 AM EDT documented as of this encounter Care Teams Catcher Filter Tip Relationship Specialty Start Date End Date Elfego Main MD [address] [place] [id number] PCP - General 09/06/20 documented as of this encounter
--- OUTSIDE RECORDS SUMMARY | 2025-01-24 07:50 | XMS_ITS | Encounter Summary ---
Author Organization [facility] Address [address] [place] [address] Care Team Providers Care Mottle Lay Up Operator Name Role Phone Elfego Main MD Primary Care Provider [phone] Encounter Details Date Type Department Care Team (Late st Contact Info) Description 01/24/2025 8:50 AM EDT Ancillary Procedure [facility] [address] [place] [address] Social History Tobacco Use Types Packs/Day Years [...] Encounters Date Type Department Care Team (Late Contact Info) Description 04/04/2025 3:00 PM EST Office Visit [facility] [address] [place] [address] Alix Webb MD [address] [address] 05/31/2025 9:00 AM EST Office Visit [facility] Specialties [address] [place] [address] Barrett Stratton, PA [address] [place] [address] 06/07/2025 1:40 PM EST Office Visit [facility] Endocrinology [address] [place] [phone] Caridad Mondragon APRN [address] [facility] [address] [place] [address] 07/17/2025 7:30 AM EDT Office Visit [facility] [address] [place] [address] Barrett Stratton, PA [address] [place] [address] 09/20/2025 10:30 AM EDT Office Visit [facility] Endocrinology [address] [place] [id number] Yo Guadarrama MD [address] [facility] [address] [place] [address] documented as of this encounter Procedures Procedure Name Priority Date/Time Associated Diagnosis Comments OCT, RETINA - OU - BOTH EYES Routine 01/24/2025 8:49 AM EDT 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
--- OUTSIDE RECORDS SUMMARY | 2025-02-28 10:15 | XMS_ITS | Encounter Summary ---
Author Organization Healthcare Address [address] 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 Regular eye exams are crucial to catching potentially blinding complications early, sometimes even before symptoms occur. Call or return to clinic with sudden vision changes including worsening blurring, distortions, or significant flashes or floaters. Consider going to the emergency room if you are unable to reach the clinic on the phone. Call [phone] and ask for the egg sorter rn lactation if it is after hours or a weekend or holiday. * Progress Notes - Alix Webb MD - 02/28/2025 10:15 AM EST [facility] Note CHIEF COMPLAINT Patient presents for Follow-up HISTORY OF PRESENT ILLNESS: Monae Costa is a 59 y.o. female who presents to the clinic today for: HPI Patient is a 59 y.o. female who identifies as female and is here for a 4 week follow up. Patient states that she has no changes to report. She says that her vision still isnt great, particularly withreading, but it has not gotten any worse. Patient denies flashes of light, new floaters, eye pain, or curtains/veils. Has occasional photophobia. Patient has no further complaints or questions. Last edited by Jaylan Reynoso on 02/28/2025 10:34 AM. REVIEW OF SYSTEMS: ROS Positive for: Constitutional, Gastrointestinal, Neurological, Musculoskeletal, Endocrine, Cardiovascular, Eyes Negative for: Skin, Genitourinary, HENT, Respiratory, Psychiatric, Allergic/Imm, Heme/Lymph Last edited by Alix Webb MD on 02/28/2025 11:50 AM. Negative except for ROS Positive for: Constitutional, Gastrointestinal, Neurological, Musculoskeletal, Endocrine, Cardiovascular, Eyes Negative for: Skin, Genitourinary, HENT, Respiratory, Psychiatric, Allergic/Imm, Heme/Lymph Last edited by Alix Webb MD on 02/28/2025 11:50 AM. Referring physician: No referring provider defined for this encounter. HISTORICAL INFORMATION: Selected notes from the medical record: CURRENT MEDICATIONS: No current outpatient medications on file. (Ophthalmic Drugs) No current facility-administered medications for this visit. (Ophthalmic Drugs) Current Outpatient Medications (Other) Medication Sig Continuous Glucose Sensor (FreeStyle Eric 3 Plus Sensor) misc 1 sensor every 15 days. pen needle, diabetic (B-D UF III MINI PEN NEEDLES) 31G X 5 MM misc Use 2x/day acetaminophen (Tylenol) 500 MG tablet Take 2 tablets by mouth every 6 hours as needed for pain, headaches or fever. (Patient not taking: Reported on 02/28/2025) fluticasone (Flonase) 50 MCG/ACT nasal spray Administer 2 sprays into each nostril daily as needed for allergies or rhinitis. (Patient not taking: Reported on 02/28/2025) furosemide (Lasix) 20 MG tablet TAKE ONE TABLET BY MOUTH ONCE A DAY (Patient not taking: Reported on 02/28/2025) insulin regular (HumuLIN R) 500 UNIT/ML CONCENTRATED injection vial every 8 hours. lidocaine (Lidoderm) 5 % patch Apply 1 patch topically as needed. (Patient not taking: Reported on 02/28/2025) loratadine (Claritin) 10 MG tablet Take 1 tablet by mouth daily. (Patient not taking: Reported on 02/28/2025) losartan-hydroCHLOROthiazide (Hyzaar) 50-12.5 MG tablet Take 0.5 tablets by mouth daily. (Patient not taking: Reported on 02/28/2025) meclizine (Antivert) 25 MG tablet Take 1 tablet by mouth 3 (three) times a day as needed for dizziness. (Patient not taking: Reported on 02/28/2025) omeprazole (PriLOSEC) [address] capsule Take 1 capsule by mouth daily. Do not crush or chew. (Patient not taking: Reported on 02/28/2025) rifAXIMin (Xifaxan) 550 MG tablet Take 1 tablet (550 mg) by mouth 2 (two) times a day. (Patient nottaking: Reported on 02/28/2025) Semaglutide, 1 MG/DOSE, (Ozempic, 1 MG/DOSE,) 4 MG/3ML solution pen-injector Inject 1 mg under the skin 1 time per week. (Patient not taking: Reported on 02/28/2025) spironolactone (Aldactone) 50 MG tablet TAKE ONE TABLET BY MOUTH ONCE A DAY (Patient not taking: Reported on 02/28/2025) No current facility-administered medications for this visit. [...] Procedure Laterality Date APPENDECTOMY N/A Appendectomy from [employer] BELT ABDOMINOPLASTY BREAST AUGMENTATION CARPAL TUNNEL RELEASE Bilateral SECTION, LOW TRANSVERSE N/A Section from [employer] COLONOSCOPY GALLBLADDER SURGERY N/A Gallbladder Surgery from [employer] TRIGGER FINGER RELEASE Bilateral TRIGGER POINT INJECTION [...] - Linear) Right Left Dist sc 20/25 20/30 Tonometry (Tonopen, 10:27 AM) Right Left Pressure 20 20 Pupils Pupils Right PERRL Left PERRL Patient complained of a sharp pain on pupil examination, says that she is sometimes photophobic Visual Bhatia Right Left Full Full Extraocular Movement Right Left Full Full Neuro/Psych Oriented x3: Yes Dilation Both eyes: 1% Tropicamide, 2.5% Phenylephrine @ 10:31 AM IMAGING AND PROCEDURES VISIT DIAGNOSES No diagnosis found. ASSESSMENT AND PLAN: Stable proliferative diabetic retinopathy [...] eyes (OU), but pt didn't have a entry driver operator, and didn't want to have panretinal photocoagulation [...] (OU) status post (s/p) panretinal photocoagulation (PRP) 04/21/25 in OR and no significant cystoid macular [...] to treating only new signs of NVI 02/28/25: pt feeling ill today vs allergies, vascularity improved but not completely resolved. Offered CAROLANN vs obs given feeling ill, pt elects to obs and recheck 4-6 weeks for probable injection OU Mild Cataract OU - monitor, not yet visually significant Explained the diagnoses, plan, and follow up with the patient and they expressed understanding. Patient expressed understanding of the importance of proper follow up care. No follow-ups on file. There are no Patient Instructions on file for this visit. Electronically signed by: Alix Webb MD 02/28/2025 11:50 AM Tobacco Cessation Initiative: Tobacco Use: Low Risk (02/28/2025) Patient History Smoking Tobacco Use: Never Smokeless Tobacco Use: Never Passive Exposure: Never The patient has been counseled on tobacco cessation: Not Applicable documented in this encounter Plan of Treatment Upcoming Encounters Date Type Department Care Team (Late st Contact Info) Description 04/04/2025 3:00 PM EST Office Visit [facility] [address] [place] [address] Alix Webb MD [address] [facility] [address] [place] [address] 05/31/2025 9:00 AM EST Office Visit [facility] Medicine Specialties [address] [place] [address] Barrett Stratton, PA [address] [facility] [address] [place] [address] 06/07/2025 1:40 PM EST Office Visit [facility] Endocrinology [address] [place] [phone] Caridad Mondragon, VANSTONE MACHINE OPERATOR [address] [facility] [address] [place] [address] 07/17/2025 7:30 AM EDT Office Visit [facility] Medicine Specialties [address] [place] [address] Barrett Stratton PA [address] 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
--- OUTSIDE RECORDS SUMMARY | 2025-02-28 11:55 | XMS_ITS | Encounter Summary ---
Author Organization [facility] Address [address] [place] [address] Care Team Providers Care Rubber Tile Floor Layer Name Role Phone Elfego Main MD Primary Care Provider [phone] Encounter Details Date Type Department Care Team (Late st Contact Info) Description 02/28/2025 11:55 AM EST Ancillary Procedure [facility] [address] [place] [address] Social History Tobacco Use Types [...] Description 04/04/2025 3:00 PM EST Office Visit [facility] [address] [place] [address] Alix Webb MD [address] [address] 05/31/2025 9:00 AM EST Office Visit [facility] Specialties [address] [place] [address] Barrett Stratton, PA [address] [place] [address] 06/07/2025 1:40 PM EST Office Visit [facility] Endocrinology [address] [place] [phone] Caridad Mondragon APRN [address] [facility] [address] [place] [address] 07/17/2025 7:30 AM EDT Office Visit [facility] [address] [place] [address] Barrett Stratton, PA [address] [place] [address] 09/20/2025 10:30 AM EDT Office Visit [facility] Endocrinology [address] [place] [address] Yo Guadarrama MD [address] [facility] [address] [place] [address] documented as of this encounter [...] documented as of this encounter Care Teams Rubber Tile Floor Layer Relationship Specialty Start Date End Date Elfego Main MD [address] [place] [address] PCP - General 09/06/20 documented as of this encounter
--- OUTSIDE RECORDS SUMMARY | 2025-03-05 09:30 | XMS_ITS | Encounter Summary ---
Author Organization [facility] Address [address] [place] [address] Care Team Providers Care Pedorthist Name Role Phone Elfego Main MD Primary Care Provider [phone] Reason for Referral * Consultation (Routine) - Authorized Specialty Diagnoses / Procedures Referred By Contac t Referred To Contact Diagnoses Cirrhosis of liver without ascites, unspecified hepatic cirrhosis type HE (hepatic encephalopathy) Thyroid nodule Barrett Stratton PA [address] [place] [address] Phone: tel: fax: Referral ID Status Reason Start Date Expiration Date V isits Requested Visits Authorized [id number] Authorized 03/05/2025 09/04/2026 1 1 Reason for Visit * Reason Comments Esophageal dysphagia Cirrhosis of liver without ascites, unsp ecified hepatic cir Encounter Details Date Type Department Care Team (Late st Contact Info) Description 03/05/2025 9:30 AM EST [facility] Visit [place] [facility] [address] [place] [address] Barrett Stratton PA [address] [place] [address] Cirrhosis of liver without ascites, unspecified hepatic cirrhosis type (Primary Dx); HE (hepatic encephalopathy); Thyroid nodule; BMI 35.0-35.9,adult; Secondary esophageal varices without bleeding Social History Tobacco Use Types Packs/Day Years Used Date Smoking Tobacco: Never Passive Smoke Exposure: Never Smokeless Tobacco: Never Alcohol Use Standard Drinks/Week Comments Yes 0 (1 standard drink = 0.6 oz pur e alcohol) ocassionally PHQ-2 Answer Date Recorded Patient Health Questionnaire-2 Score 0 03/05/2025 PHQ-9 Answer Date Recorded Patient Health Questionnaire-9 Score 1 03/05/2025 Comments No Sex and Gender Information Value Date Recorded Sex Assigned at Not on file Legal Sex Female 7:30 PM EDT Gender Identity Not on file Sexual Orientation Not on file documented as of this encounter Last Filed Vital Signs Vital Sign Reading Time Taken Comments Blood Pressure 137/82 03/05/2025 9:01 AM EST Pulse 79 03/05/2025 9:01 AM EST Temperature 36.6 C (97.8 F) 03/05/2025 9:01 AM EST Respiratory Rate 18 03/05/2025 9:01 AM EST Oxygen Saturation 98% 03/05/2025 9:01 AM EST Inhaled Oxygen Concentration - - Weight 85.6 kg (188 lb 11.4 oz) 03/05/2025 9:01 AM EST Height 154.9 cm (5' 1 ) 03/05/2025 9:01 AM EST Body Mass Index 35.66 03/05/2025 9:01 AM EST documented in this encounter Functional Status * Over the past 2 weeks, how often have you been bothered by any of the following problems? Question Answer Date of Assessment Author Little interest or pleasure in doing things Not at all 03/05/2025 9:03 AM EST Shreyas Sal Feeling down, depressed, or hopeless Not at all 03/05/2025 9:03 AM EST Shreyas Sal Patient Health Questionnaire -2 Score 0 03/05/2025 9:03 AM EST Shreyas Sal * Question Answer Date of Assessment Author Trouble falling or staying asleep, or sleeping too much Several days 03/05/2025 9:03 AM EST Shreyas Sal Feeling tired or having angely le energy Not at all 03/05/2025 9:03 AM Shreyas Mejia Poor appetite or overeating Not at all 03/05/2025 9: 03 AM Shreyas Mejia Feeling bad about yourself - or that you are a failure or have let yourself or your family down Not at all 03/05/2025 9:03 AM Shreyas Mejia Trouble concentrating on things, such as reading the newspaper or watching television Not at all 03/05/2025 9:03 AM Shreyas Mejia Moving or speaking so slowly that other people could have noticed? Or the opposite - being so fidgety or restless that you have been moving around a lot more than usual. Not at all 03/05/2025 9:03 AM Shreyas Mejia Thoughts that you would be better off or hurting yourself in some way Not at all 03/05/2025 9:03 AM Wilfredo Mejia Patient Health Questionnaire -9 Score 1 03/05/2025 9:03 AM Shreyas Mejia * How difficult have these problems made it for you to do your work, take care of things at home, or get along with other people? Answer Date of Assessment Author Not difficult at all 03/05/2025 9:03 AM Shreyas Wright documented as of this encounter Miscellaneous Notes * Progress Notes - Barrett Stratton PA - 03/05/2025 9:30 AM EST /General Hepatology Note Subjective Patient ID: Monae Costa is a 59 y.o. female. The following portions of the chart were reviewed this encounter and updated as appropriate: Tobacco Allergies Meds Problems Med Hx Surg Hx Fam Hx Chief Complaint Patient presents with Esophageal dysphagia Cirrhosis of liver without ascites, unspecified hepatic cir History of Presenting Illness Ms. Monae Costa is a 59 y.o. female presenting for follow-up of KOENIG Cirrhosis. She has an additional past medical history of HTN, GERD with H Pylori, T2DM, colonic polyps, PHG, Esophageal varices, anxiety and depression. She was last seen in clinic in November 2024. The patient states she was seen in the ED for her previously reported back pain with consideration of a UTI; was given bactrim in the ED for this but didn't take it due to concerns of her liver cirrhosis. Her back pain has improved now. She does report of discoloration on the toilet paper when peeing. She has a hemorrhoids and is eating more fiber. She has more diarrhea at this time though. She denies any bleeding in her stool. She is now experiencing a dry cough that is improving; but it worsens when she lays down. She took some low doses of prednisone and cough drops and it has improved. She is only on Insulin therapy at this time for her glucose levels. She has gained some weight since stopping Ozempic; she stopped this due to her back pain. She is unsure if it was worsening the back pain but does plan to restart it back. She has some swelling in her feet and ankles/calves when doing activity. She has noticed her stomach enlarging at night a few times. It does improve in the morning. She is not taking her water pills. She reports joint pain all over and it doesn't really resolve with rest; it is more likely to worsen with activity though. Patient denies dysphagia, or chest pain. No [...] Medical History Past Medical History: Diagnosis Date Acute pharyngitis [...] diabetes mellitus 2009 Started using insulin regulary 2013 Surgical History Past Surgical History: Procedure Laterality [...] file Social Connections: Unknown (02/01/2023) Received from [facility] Family and Community Support Help with Day-to-Day Activities: Not on file Lonely or Isolated: Not on file Intimate Partner Violence: Unknown (02/01/2023) Received from [facility] Abuse Screen Unsafe at Home or Work/School: Not on file Feels Threatened by Someone?: Not on file Does Anyone Keep You from Contacting Others or Doint Things Outside the Home?: Not on file Physical Sign of Abuse Present: Not on file Housing Stability: Unknown (02/01/2023) Received from [facility] Housing Stability Current Living Arrangements: Not on file Potentially Unsafe Housing Conditions: Not on file Review of Systems A 14 point review of systems negative except for HPI Outpatient Medications Current Outpatient Medications Medication Instructions acetaminophen (TYLENOL) 1,000 mg, Every 6 hours PRN Continuous Glucose Sensor (FreeStyle Eric 3 Plus Sensor) misc 1 sensor, Does not apply, Every 15 days fluticasone (Flonase) 50 MCG/ACT nasal spray 2 sprays, Daily PRN furosemide (LASIX) 20 mg, Oral, Daily insulin regular (HumuLIN R) 500 UNIT/ML CONCENTRATED injection vial Every 8 hours lidocaine (Lidoderm) 5 % patch 1 patch, [...] this patient. Vital Signs Visit Vitals BP 137/82 Pulse 79 Temp 36.6 ??C (97.8 ??F) (Oral) Resp 18 Ht 1.549 m (5' 1 ) Wt 85.6 kg (188 lb 11.4 oz) LMP (LMP Unknown) SpO2 98% BMI 35.66 kg/m?? OB Status Postmenopausal Smoking Status Never BSA 1.92 m?? Physical Exam General - Well nourished [...] List Items Addressed This Visit Cirrhosis (CMS/HCC) - Primary Relevant Orders Alpha Fetoprotein, Serum Prothrombin Time/INR Comprehensive Metabolic Panel, Plasma CBC and Differential Ammonia Conjugated Bilirubin, Plasma Antinuclear Antibody (YOON), HEp-2, IgG Anti-smooth muscle antibody, IgG Ferritin, Serum Thyroid Stimulating Hormone, Plasma Mitochondrial M2 Antibody, IgG (JONAH) Iron & Total Iron Binding Capacity, Plasma (Includes Transferrin) IG Profile T4, free T3 Thyroid Peroxidase Antibody Follow Up GI Esophageal varices without bleeding Thyroid nodule Relevant Orders Thyroid Stimulating Hormone, Plasma T4, free Follow Up GI Other Visit Diagnoses HE (hepatic encephalopathy) Relevant Orders Alpha Fetoprotein, Serum Prothrombin Time/INR Comprehensive Metabolic Panel, Plasma CBC and Differential Ammonia Conjugated Bilirubin, Plasma Antinuclear Antibody (YOON), HEp-2, IgG Anti-smooth muscle antibody, IgG Ferritin, Serum Thyroid Stimulating Hormone, Plasma Mitochondrial M2 Antibody, IgG (JONAH) Iron & Total Iron Binding Capacity, Plasma (Includes Transferrin) IG Profile T4, free T3 Thyroid Peroxidase Antibody Follow Up GI BMI 35.0-35.9,adult #Liver Cirrhosis - MELD 10 previous visit; has increased to 13 as of today. Most recent labs drawn while patient wasin the ED; with increase in tBili. MELD 15 at that time during an acute complication/presentation. - Likely metabolic in nature; elevated but improved BMI to 35.66, T2DM worsened control due to discontinuation of ozempic (stopped for EGD and didn't restart), HTN notable in history. - History of EV and PHG; no bleeding. No overt HE symptoms noted in history. No ascites noted at this time with mild lower leg swelling. - No suspicious liver lesions; AFP has remained WNL - MELD has been worsening; may be due to acute complications versus. Will do further investigation today. - CBC, CMP, PT/INR and AFP pending - YOON, ASMA, AMA, IG Profile, Thyroid work up and conjugated bilirubin pending MELD 3.0: 13 at 11/27/2024 10:59 AM [...] hypotension per patient. - EGD is pending (patient may do this local to home or at ; will have pcp reorder if doing local.Colonoscopy +/- given it is due summer 2025). #Hepatic Encephalopathy - No reported overt symptoms of HE. - Previous concrete block layer frequently checked patient's ammonia level; would vary at times with unknown clinical significance. - Patient xifaxan resent due to concerns of coverage. Sent to specialty; PAP - No lactulose on board; baseline diarrhea at this time - Continue to monitor. #HCC Surveillance - No previous history of liver lesions or elevated AFP - US Liver Screen 11/20/2024: The liver is coarse and heterogenous consistent with parenchymal disease. No suspicious focal lesions are detected. Antegrade flow in the main portal vein. Gallbladder is absent. CBD 3mm. Spleen is enlarged measuring 15.7cm. No ascites. - AFP WNL - Repeat due May 2025 #Healthcare Maintenance Immunity to Hepatitis A- No [...] sigmoid colon. Repeat 5 year (2025) RTC 3 Months documented in this encounter Plan of Treatment Upcoming Encounters Date Type Department Care Team (Late st Contact Info) Description 04/04/2025 3:00 PM EST Office Visit [facility] [address] [place] [address] Alix Webb MD [address] [facility] [address] [place] [address] 05/31/2025 9:00 AM EST Office Visit [facility] Medicine Specialties [address] [place] [address] Barrett Stratton PA [address] [place] [address] 06/07/2025 1:40 PM EST Office Visit [facility] Endocrinology [address] [place] [id number] Caridad Mondragon, STOCK PITCHER [address] [facility] [address] [place] [address] 07/17/2025 7:30 AM EDT Office Visit [place] [facility] [address] [place] [address] Barrett Stratton PA [address] [facility] [address] [place] [address] 09/20/2025 10:30 AM EDT Office Visit [facility] Endocrinology [address] [place] [phone] Yo Guadarrama MD [address] [address] Scheduled Referrals Name Type Priority Associated Diagnoses Orde r Schedule Follow Up GI Outpatient Referral Routine Cirrhosis of liver without ascites, unspecified hepatic cirrhosis type HE (hepatic encephalopathy) Thyroid nodule Expected: 06/05/2025, Expires: 04/04/2026 documented as of this encounter Results * Thyroid Peroxidase Antibody (03/05/2025 10:15 AM EST) Thyroid Peroxidase Antibody <5 <=8 IU/mL 03/05/2025 1:42 PM EST [facility] Blood Venous blood specimen / Unknown Venipuncture / Unknown 03/05/2025 10:15 AM EST 03/05/2025 10:18 AM EST us Barrett VAN LAB BLOOD ORDERABLES Final Res ult [facility] [address] [place] [address] * T3 (03/05/2025 10:15 AM EST) T3, Serum 146 87 - 187 ng/dL 03/05/2025 1:13 PM EST [facility] Blood Venous blood specimen / Unknown Venipuncture / Unknown 03/05/2025 10:15 AM EST 03/05/2025 10:18 AM EST Barrett VAN LAB BLOOD ORDERABLES Final Res ult Performing Organization Address City/[facility]/ZIP Co de Phone Number [facility] [address] [place] [address] * T4, free (03/05/2025 10:15 AM EST) Free T4, Plasma 1.0 0.8 - 1.7 ng/dL 03/05/2025 12:32 PM EST [facility] Blood Venous blood specimen / Unknown Venipuncture / Unknown 03/05/2025 10:15 AM EST 03/05/2025 10:18 AM EST Barrett VAN LAB BLOOD ORDERABLES Final Res ult Performing Organization Address City/[facility]/ZIP Co de Phone Number [facility] [address] [place] [address] * IG Profile (03/05/2025 10:15 AM EST) IGA 290 75 - 400 mg/dL 03/05/2025 12:32 PM EST [facility] IGG 1,361 720 - 1,589 mg/dL 03/05/2025 12:32 PM EST [facility] IGM 123 35 - 225 mg/dL 03/05/2025 12:32 PM EST [facility] Blood Venous blood specimen / Unknown Venipuncture / Unknown 03/05/2025 10:15 AM EST 03/05/2025 10:18 AM EST Barrett VAN LAB BLOOD ORDERABLES Final Res ult Performing Organization Address City/[facility]/ZIP Co de Phone Number [facility] [address] [place] [address] * Iron & Total Iron Binding Capacity, Plasma (Includes Transferrin) (03/05/2025 10:15 AM EST) Iron, Plasma 112 30 - 160 ug/dL 03/05/2025 12:32 PM EST [facility] Transferrin, Plasma 249 200 - 360 mg/dL 03/05/2025 12:32 PM EST [facility] Total Iron Binding Capacity, Plasma 311 240 - 450 ug/mL 03/05/2025 12:32 PM EST [facility] Transferrin Saturation 36 14 - 50 % 03/05/2025 12:32 PM EST [facility] Blood Venous blood specimen / Unknown Venipuncture / Unknown 03/05/2025 10:15 AM EST 03/05/2025 10:18 AM EST Barrett VAN LAB BLOOD ORDERABLES Final Res ult Performing Organization Address City/[facility] Co de Phone Number [facility] [address] [place] [address] * Mitochondrial M2 Antibody, IgG (JONAH) (03/05/2025 10:15 AM EST) MITOCHONDRIA M2 AB IGG 1.8 0.0 - 24.9 Units 03/07/2025 1:05 AM EST [email or web address]) Serum Venous blood specimen / Unknown 03/05/2025 10:15 AM EST 03/05/2025 10:18 AM EST Narrative [email or web address]) - 03/07/2025 1:05 AM EST REFERENCE INTERVAL: Mitochondrial (M2) Antibody, IgG 20.0 Units or less ......... Negative 20.1 - 24.9 Units........... Equivocal 25.0 Units or greater....... Positive Anti-mitochondrial antibodies (AMA) are thought to be present in 90-95% of patients with primary biliary cholangitis (PBC). However, the frequency of detected antibodies may be cohort or assay dependent, as lower sensitivities have been reported. Not all PBC patients are positive for AMA; some patients may be positive for SP100 and/or GP210 antibodies. A negative result does not rule out PBC. Performed By: [employer] [address] [place] [address] Bl[employer] Packing Machine Tender: Kenrick Ervin MD, PhD CLIA Number: [id number] Barrett VAN LAB BLOOD ORDERABLES Final Res ult Performing Organization Address City/[facility]/ZIP Co de Phone Number [facility] [address] [place] [address] * Thyroid Stimulating Hormone, Plasma (03/05/2025 10:15 AM EST) Thyroid Stimulating Hormone, Plasma 2.26 0.40 - 4.20 uIU/mL 03/05/2025 12:32 PM EST [facility] Blood Venous blood specimen / Unknown Venipuncture / Unknown 03/05/2025 10:15 AM EST 03/05/2025 10:18 AM EST Barrett VAN LAB BLOOD ORDERABLES Final Res ult Performing Organization Address City/[facility] Co de Phone Number [facility] [address] [place] [address] * Ferritin, Serum (03/05/2025 10:15 AM EST) Ferritin, Serum 85 13 - 150 ng/mL 03/05/2025 1:13 PM EST [facility] Blood Venous blood specimen / Unknown Venipuncture / Unknown 03/05/2025 10:15 AM EST 03/05/2025 10:18 AM EST Barrett VAN LAB BLOOD ORDERABLES Final Res ult Performing Organization Address City/[facility] Co de Phone Number [facility] [address] [place] [address] * Anti-smooth muscle antibody, IgG (03/05/2025 10:15 AM EST) Smooth Muscle Ab, IgG Titer <1:20 <1:20 03/07/2025 11:57 AM EST [email or web address]) Blood Venous blood specimen / Unknown Venipuncture / Unknown 03/05/2025 10:15 AM EST 03/05/2025 10:18 AM EST Narrative [email or web address]) - 03/07/2025 11:57 AM EST INTERPRETIVE INFORMATION: Smooth Muscle Ab, IgG Titer Less than 1:20 ........ Negative - No antibody detected. 1:20 - 1:80 .......... Weak Positive - Suggest repeat in two to three weeks with fresh specimen. 1:160 or greater ...... Positive - Suggestive of autoimmune hepatitis or chronic active hepatitis. Performed By: [employer] [address] [place] [address] Bl[employer] Packing Machine Tender: Kenrick Ervin MD, PhD CLIA Number: [id number] us Barrett VAN LAB BLOOD ORDERABLES Final Res ult [facility] [address] [place] [address] * Antinuclear Antibody (YOON), HEp-2, IgG (03/05/2025 10:15 AM EST) Pathologist [facility] YOON INTERPRETIVE COMMENT See Note 03/09/2025 8:22 AM EST [email or web address]) Anti Nuc Ab Screen <1:80 <1:80 03/09/2025 8:22 AM EST [employer] Blood Venous blood specimen / Unknown Venipuncture / Unknown 03/05/2025 10:15 AM EST 03/05/2025 10:18 AM EST Narrative [email or web address]) - 03/09/2025 8:22 AM EST Clinical Interpretation: Antinuclear antibodies by IFA negative for homogeneous, speckled, nucleolar, centromere, and nuclear dots patterns. Cytoplasmic antibodies by IFA negative for reticular/AMA, discrete/GW body-like, polar/golgi-like, rods and rings, and cytoplasmic speckled patterns. INTERPRETIVE INFORMATION: YOON Interpretive Comment Presence of antinuclear antibodies (YOON) is a hallmark feature of systemic autoimmune rheumatic diseases (SARD). However, YOON lacks diagnostic specificity and is associated with a variety of diseases (cancers, autoimmune, infectious, and inflammatory conditions) and may also occur in healthy individuals in varying prevalence. The lack of diagnostic specificity requires confirmation of positive YOON by more specific serologic tests. YOON (nuclear reactivity) positive patterns reported include centromere, homogeneous, nuclear dots, nucleolar, or speckled. YOON (cytoplasmic reactivity) positive patterns reported include reticular/AMA, discrete/GW body-like, polar/golgi-like, cytoplasmic speckled or rods and rings. All positive patterns are reported to endpoint titers (1:2560). Reported patterns may help guide differential diagnosis, although they may not be specific for individual antibodies or diseases. Mitotic staining patterns not reported. Negative results do not necessarily rule out SARD. Performed By: [employer] [address] [place] [address] Bl[employer] Packing Machine Tender: Kenrick Ervin MD, PhD CLIA Number: [id number] us Barrett VAN LAB BLOOD ORDERABLES Final Res ult Performing Organization Address City/[facility] Co de Phone Number [facility] ([facility]) [address] [place] [address] * (ABNORMAL) Conjugated Bilirubin, Plasma (03/05/2025 10:15 AM EST) Direct Bilirubin, Plasma 0.7(H) <=0.3 mg/dL 03/05/2025 12:32 PM EST [facility] Blood Venous blood specimen / Unknown Venipuncture / Unknown 03/05/2025 10:15 AM EST 03/05/2025 10:18 AM EST Barrett VAN LAB BLOOD ORDERABLES Final Res ult [facility] [address] [place] [address] * (ABNORMAL) Ammonia (03/05/2025 10:15 AM EST) Ammonia 52(H) 11 - 51 umol/L 03/05/2025 11:32 AM EST [facility] Blood Venous blood specimen / Unknown Venipuncture / Unknown 03/05/2025 10:15 AM EST 03/05/2025 10:18 AM EST us Barrett VAN LAB BLOOD ORDERABLES Final Res ult [facility] [address] [place] [address] * (ABNORMAL) CBC and Differential (03/05/2025 10:15 AM EST) WBC Count 2.84(L) 3.70 - 10.30 10*3/uL LAB HEMATOLOGY METHOD 03/05/2025 2:42 PM EST [facility] RBC Count 4.07 3.90 - 5.20 10*6/uL LAB HEMATOLOGY METHOD 03/05/2025 2:42 PM EST [facility] HGB 12.5 11.2 - 15.7 g/dL LAB HEMATOLOGY METHOD 03/05/2025 2:42 PM EST [facility] HCT 37.0 34.0 - 45.0 % LAB HEMATOLOGY METHOD 03/05/2025 2:42 PM EST [facility] Platelet Count 54(L) 155 - 369 10*3/uL LAB HEMATOLOGY METHOD 03/05/2025 2:42 PM EST [facility] MCV 91 79 - 98 fL LAB HEMATOLOGY METHOD 03/05/2025 2:42 PM EST [facility] MCH 30.7 26.0 - 32.0 pg LAB HEMATOLOGY METHOD 03/05/2025 2:42 PM EST [facility] MCHC 33.8 30.7 - 35.5 g/dL LAB HEMATOLOGY METHOD 03/05/2025 2:42 PM EST [facility] RDW 13.8 11.5 - 14.5 % LAB HEMATOLOGY METHOD 03/05/2025 2:42 PM EST [facility] MPV 9.8 8.8 - 12.5 fL LAB HEMATOLOGY METHOD 03/05/2025 2:42 PM EST [facility] nRBC 0.0 <=0.0 per 100 WBCs LAB HEMATOLOGY METHOD 03/05/2025 2:42 PM EST [facility] Differential Type Automated LAB HEMATOLOGY METHOD 03/05/2025 2:42 PM EST [facility] Neutrophils % 67 % LAB HEMATOLOGY METHOD 03/05/2025 2:42 PM EST [facility] Lymphocytes % 24 % LAB HEMATOLOGY METHOD 03/05/2025 2:42 PM EST [facility] Monocytes % 6 % LAB HEMATOLOGY METHOD 03/05/2025 2:42 PM EST [facility] Eosinophils % 3 % LAB HEMATOLOGY METHOD 03/05/2025 2:42 PM EST [facility] Basophils % 0 % LAB HEMATOLOGY METHOD 03/05/2025 2:42 PM EST [facility] Immature Granulocytes % 0 % LAB HEMATOLOGY METHOD 03/05/2025 2:42 PM EST [facility] Neutrophils Absolute 1.89 1.60 - 6.10 10*3/uL LAB HEMATOLOGY METHOD 03/05/2025 2:42 PM EST [facility] Lymphocytes Absolute 0.68(L) 1.20 - 3.90 10*3/uL LAB HEMATOLOGY METHOD 03/05/2025 2:42 PM EST [facility] Monocytes Absolute 0.18(L) 0.30 - 0.90 10*3/uL LAB HEMATOLOGY METHOD 03/05/2025 2:42 PM EST [facility] Eosinophils Absolute 0.07 0.00 - 0.50 10*3/uL LAB HEMATOLOGY METHOD 03/05/2025 2:42 PM EST [facility] Basophils Absolute 0.01 0.00 - 0.10 10*3/uL LAB HEMATOLOGY METHOD 03/05/2025 2:42 PM EST [facility] Immature Granulocytes Absolute 0.01 0.00 - 0.06 10*3/uL LAB HEMATOLOGY METHOD 03/05/2025 2:42 PM EST [facility] Blood Venous blood specimen / Unknown Venipuncture / Unknown 03/05/2025 10:15 AM EST 03/05/2025 10:18 AM EST [facility] - 03/05/2025 2:42 PM EST Therapeutic decision making should be based on absolute values, rather than percentages. us Barrett VAN LAB BLOOD ORDERABLES Final Res ult [facility] [address] [place] [address] * (ABNORMAL) Comprehensive Metabolic Panel, Plasma (03/05/2025 10:15 AM EST) Glucose, Plasma 296(H) 74 - 99 mg/dL 03/05/2025 12:32 PM EST [facility] BUN, Plasma 9 7 - 21 mg/dL 03/05/2025 12:32 PM EST [facility] Creatinine, Plasma 0.59(L) 0.60 - 1.10 mg/dL 03/05/2025 12:32 PM EST [facility] BUN/Creatinine Ratio 15 03/05/2025 12:32 PM EST [facility] Sodium, Plasma 137 136 - 145 mmol/L 03/05/2025 12:32 PM EST [facility] Potassium, Plasma 3.8 3.6 - 4.9 mmol/L 03/05/2025 12:32 PM EST [facility] Chloride, Plasma 105 97 - 107 mmol/L 03/05/2025 12:32 PM EST [facility] CO2, Plasma 25 22 - 29 mmol/L 03/05/2025 12:32 PM EST [facility] Anion Gap 7 6 - 16 mmol/L 03/05/2025 12:32 PM EST [facility] Total Calcium, Plasma 8.8(L) 8.9 - 10.2 mg/dL 03/05/2025 12:32 PM EST [facility] Total Protein 6.5 6.3 - 7.9 g/dL 03/05/2025 12:32 PM EST [facility] Albumin, Plasma 3.7 3.5 - 5.2 g/dL 03/05/2025 12:32 PM EST [facility] AST, Plasma 55(H) 10 - 35 U/L 03/05/2025 12:32 PM EST [facility] ALT, Plasma 45(H) 10 - 35 U/L 03/05/2025 12:32 PM EST [facility] Alkaline Phosphatase, Plasma 98 46 - 142 U/L 03/05/2025 12:32 PM EST [facility] Total Bilirubin, Plasma 2.5(H) 0.2 - 1.1 mg/dL 03/05/2025 12:32 PM EST [facility] eGFRcr 105.3 mL/min/1.7 3m*2 03/05/2025 12:32 PM EST [facility] Comment:Reported eGFRcr in m L/min/1.73m2 is based the CKD-EPI 2020 equation that does not use a race coefficient. Blood Venous blood specimen / Unknown Venipuncture / Unknown 03/05/2025 10:15 AM EST 03/05/2025 10:18 AM EST Barrett VAN LAB BLOOD ORDERABLES Final Res ult Performing Organization Address City/[facility] Co de Phone Number [facility] [address] [place] [address] * (ABNORMAL) Prothrombin Time/INR (03/05/2025 10:15 AM EST) Prothrombin Time 15.3(H) 12.0 - 14.3 sec LAB COAGULATION METHOD 03/05/2025 11:49 AM EST [facility] INR 1.2(H) 0.9 - 1.1 LAB COAGULATION METHOD 03/05/2025 11:49 AM EST [facility] Blood Venous blood specimen / Unknown Venipuncture / Unknown 03/05/2025 10:15 AM EST 03/05/2025 10:18 AM EST Narrative [facility] - 03/05/2025 11:49 AM EST OPTIMAL INR RANGES FOR PATIENT ON ORAL ANTICOAGULANT THERAPY Prevention of venous thromboembolism INR 2.0 to 3.0 In patients with heart disease: Atrial fibrillation INR 2.0 to 3.0 Valvular heart disease INR 2.0 to 3.0 Tissue heart valves INR 2.0 to 3.0 Mechanical prosthetic valves INR 2.5 to 3.5 Prevention of recurrent IL INR 2.5 to 3.5 Barrett VAN LAB BLOOD ORDERABLES Final Res ult [facility] [address] [place] [address] * Alpha Fetoprotein, Serum (03/05/2025 10:15 AM EST) Alpha Fetoprotein, Serum <2.3 <10.0 ng/mL 03/05/2025 1:13 PM EST [facility] Blood Venous blood specimen / Unknown Venipuncture / Unknown 03/05/2025 10:15 AM EST 03/05/2025 10:18 AM EST Narrative [facility] - 03/05/2025 1:13 PM EST Performed by Marga electrochemiluminescent immunoassay which is traceable to the 1st AFP IRP WHO Reference standard 72/255. Results obtained with different test methods or kits cannot be used interchangeably. us Barrett VAN LAB BLOOD ORDERABLES Final Res ult [facility] [address] [place] [address] documented in this encounter Visit Diagnoses Diagnosis Cirrhosis of liver without ascites, unspecified hepatic cirrhosis type- Primary HE (hepatic encephalopathy) Hepatic encephalopathy Thyroid nodule Nontoxic uninodular goiter BMI 35.0-35.9,adult Secondary esophageal varices without bleeding documented in this encounter Additional Health Concerns Assessment Noted Time PHQ-9 Depression Total Score: 1 03/05/20 25 9:03 AM EST A fall risk assessment has been complete d for the patient 03/05/2025 9:03 AM EST A Body Mass Index follow-up plan has been documented for the patient 03/05/2025 10:26 AM EST documented as of this encounter Care Teams Pedorthist Relationship Specialty Start Date End Date Elfego Main MD [address] [place] [address] PCP - General 09/06/20 documented as of this encounter
--- OUTSIDE RECORDS SUMMARY | 2025-03-07 14:20 | XMS_ITS | Encounter Summary ---
Author Organization [facility] Address [address] [place] [address] Care Team Providers Care Shaper Machine Hand Name Role Phone Elfego Main MD Primary Care Provider [phone] Reason for Referral * Consultation (Routine) - Authorized Specialty Diagnoses / Procedures Referred By Mirtha scanlon Referred To Contact Diagnoses Type 2 diabetes mellitus with hyperglycemia, with long-term current use of insulin Caridad Mondragon APRN [address] [address] Phone: tel: fax: Referral ID Status Reason Start Date Expiration Date V isits Requested Visits Authorized [id number] Authorized 03/07/2025 09/06/2026 1 1 Reason for Visit * Reason Comments Diabetes * Consultation (Routine) - Closed Specialty Diagnoses / Procedures Referred By Mirtha scanlon Referred To Contact Diagnoses Type 2 diabetes mellitus with hyperglycemia, with long-term current use of insulin Caridad Mondragon APRN [address] [address] Phone: tel: fax: Referral ID Status Reason Start Date Expiration Date Visits Re quested Visits Authorized [id number] Closed 11/09/2024 05/11/2026 1 1 Encounter Details Date Type Department Care Team (Late st Contact Info) Description 03/07/2025 2:20 PM EST Office [facility] Endocrinology [address] [place] [address] Caridad Mondragon, FREIGHT BRAKE OPERATOR [address] [place] [address] Type 2 diabetes mellitus with hyperglycemia, with long-term current use of insulin (Primary Dx); Hyperlipidemia, unspecified hyperlipidemia type; Hypertension, unspecified type; Obesity (BMI 30-39.9) Social History Tobacco Use Types Packs/Day Years [...] Sign Reading Time Taken Comments Blood Pressure 139/84 03/07/2025 2:12 PM EST Pulse 79 03/07/2025 2:12 PM EST Temperature - - Respiratory Rate - - Oxygen Saturation - - Inhaled Oxygen Concentration - - Weight 84.8 kg (186 lb 15.2 oz) 12:56 PM EST Height 154.9 cm (5' 1 ) 03/07/2025 12:5 6 PM EST Body Mass Index 35.32 03/07/2025 12:56 PM EST documented in this encounter Miscellaneous Notes * Clinician Note - Connie Bartholomew - 03/07/2025 2:20 PM EST Reviewed new insulin regimen with Monae Costa This regimen is Novolog 70/30 mixture 100 units before breakfast and 10 units before evening meal at least 8- 10 hours apart. Further reviewed titration instructions to separately increase morning and evening doses in 2 unit increments every 3 days. Adjust morning dose based upon the evening blood glucose levels. Adjust the evening dose based upon the morning blood glucose level. Target blood glucose is < 150 mg/dl. Discussed the value of consistent meal and injection timing and testing of BG prior to the meal and injection. Reviewed importance of mixing insulin before injections by rolling pen/vial. Provided [facility] logbook and recommended record pre breakfast and pre dinner BG levels. Monae Costa successfully taught back instructions with the assistance of the instructional handout provided. Reviewed action and s/a of Ozempic with Monae Costa. Reviewed major risk of GI discomfort r/t slower stomach emptying. Rec titrate up to clinical dose and how BG levels might not change until has increased to full clinical dose. Discussed reason why titration aides w/ alleviating stomach discomfort. Advised limit intake of high fat/greasy foods and larger than necessary portions. Provided patient with GLP-1 diet considerations handout. Provided CDE contact information and discussed procedurefor leaving a message and expectations concerning phone call returns. Connie Bartholomew, MS, RD, LD, CDCES, MLDE * Progress Notes - Caridad Mondragon, FREIGHT BRAKE OPERATOR - 03/07/2025 2:20 PM EST Images from the original note were not included. Subjective Monae Costa is a 59 y.o. female who presents for an follow up evaluation of Diabetes Mellitis Type 2. Patient was diagnosed 2008. History of neuropathy, retinopathy, hypertension, obesity, cirrhosis, high ammonia levels, non- compliance, Anxiety, heart murmur HPI -accompanied by spouse -A1c: 7.4% -Last A1C: 7.3% October 2024 Current treatment includes insulin injections and GLP1 -U500 insulin pen 100-115 units with BK and 25-30 units in PM (only sometimes does evening dose, states prior to illness blood glucose was well controlled on 115 units in AM only and ozempic) -Ozempic 1 mg weekly, denies GI SE (off since around Dec 2024, originally had plans for a scope and then got sick and never resumed, wants to resume and reports was well tolerated) -previous medications: SGLT2-yeast infections, Janumet-GI SE/history cirrhosis, glipizide/glimepiride, Trulicity- intolerance, declined basal/bolus therapy Known diabetic complications: retinopathy and peripheral neuropathy Compliance at present is estimated to be good. -injecting insulin into the abdomen, rotates injection site, denies scar tissue noted at injection site, denies insulin leakage at injection site Cardiovascular risk factors: diabetes mellitus, hypertension, and obesity (BMI >= 30 kg/m2) Is she on ROE inhibitor or angiotensin II receptor satish? No on lasix, spironolactone Is she on a StatinNo- contraindication with history liver disease Current diet: typically carb heavy, eating food in more often, appetite increased since off Ozempic, eating egg sandwich, oatmeal, sandwich, dinner leftovers like vegetable soup, tries to incorporatevegetables, fried chicken, peas, reports financially watching meal choices -cut back on sugary drinks Current exercise: a bit more active lately Home blood sugar records: Patient's continuous glucose monitor was downloaded and reviewed with the patient during the visit CGM dates reviewed: 02/22/25-03/07/25 Interpretation: significant hyperglycemia from 5pm-12pm Avg B GMI: 8.2% Percentage time in range: 33% Percentage of time with low blood glucose: 2% -Eye exam: up to date, history retinopathy with macular edema/injection and laser treatment, followed by ophthalmology -Foot exam: denies sores, endorses some neuropathy, history calluses, declines need for foot exam today -Labs: Feb 2025 -Dec 2024 had back pain and cough and took a steroid and noticed blood glucose increase substantially -sees [facility] at [facility] -follows with Dr. Rudolph for thyroid nodule Monae Costa has ketone strips: yes/no: No, no history DKA Monae Costa has glucagon kit: yes/no: ordered The following portions of the chart were reviewed this encounter and updated as appropriate: Tobacco Allergies Meds Problems Med Hx Surg Hx Fam Hx Review of Systems Constitutional: Intentional weight loss HENT: Negative. Eyes: Positive for visual disturbance. Respiratory: Negative. Cardiovascular: Negative. Endocrine: Positive for polydipsia and polyuria. See HPI Genitourinary: Negative. Skin: Negative. Neurological: Neuropathy Psychiatric/Behavioral: Negative. Objective Physical Exam Vitals reviewed. Constitutional: Appearance: Normal appearance. She is obese. HENT: Head: Normocephalic. Nose: Nose normal. Cardiovascular: Rate and Rhythm: Normal rate and regular rhythm. Heart sounds: Murmur heard. Pulmonary: Effort: Pulmonary effort is normal. Breath sounds: Normal breath sounds. Musculoskeletal: General: Normal range of motion. Cervical back: Normal range of motion. Skin: General: Skin is warm and dry. Coloration: Pallor: .bmi. Neurological: Mental Status: She is alert and oriented to person, place, and time. Psychiatric: Mood and Affect: Mood normal. Behavior: Behavior normal. Thought Content: Thought content normal. Judgment: Judgment normal. Lab Review Glucose, Plasma (mg/dL) Date Value 03/05/2025 296 (H) 11/27/2024 214 (H) 08/10/2024 249 (H) POCT Hemoglobin A1C Date Value 11/09/2024 7.3 % 08/02/2024 7.3 % 05/02/2024 7.7 % 06/16/2021 9.7 % (A) 10/31/2020 10.0 % (A) 05/12/2019 9.3 CO2, Plasma (mmol/L) Date Value 03/05/2025 25 11/27/2024 20 (L) 08/10/2024 23 BUN, Plasma (mg/dL) Date Value 03/05/2025 9 11/27/2024 12 08/10/2024 9 Creatinine, Plasma (mg/dL) Date Value 03/05/2025 0.59 (L) 11/27/2024 0.71 08/10/2024 0.70 Assessment/Plan Diabetes Mellitis Type 2, is uncontrolled. Rx changes: -stop U500 pen -start premixed insulin pen 100 units with breakfast and 10 units with supper plus titration of 2 units every 3 days until fasting blood glucose avg <150 (instructions reviewed per Collection Advisor and handout provided) -resume Ozempic 0.25 mg weekly for one month and then increase to 0.5 mg weekly thereafter if tolerated -to notify clinic if hypoglycemia occurs and will reduce insulin dose -recommend healthy, consistent carb diet -labs ordered -follow up: 3 months provider #Retinopathy -obtain regular eye exams with ophthalmology -encouraged good blood glucose control to prevent progression #Neuropathy -recommend daily foot checks, good blood glucose control to prevent progression #HTN -controlled 144/85 -on ARB/hydrochlorothiazide, asymptomatic -continue antihypertensives per primary care provider #HLD -not on statin due to contraindication with liver disease -encouraged healthy diet and exercise as tolerated #Obesity -BMI 35.78 The patient received dietary education because they have an above normal BMI. and Pharmacotherapy was ordered because the patient hasan above normal BMI. The following Diabetes education was reviewed: []SBGM to evaluate dose needs [x]Insulin coverage with carbohydrate intake [x]Site rotation [] Exercise impact on glucose levels []Driving safety related to diabetes []Sick day management []Ketone testing []Over treatment of hypoglycemia [x] Hypoglycemia management [x]Call-in line use []Insulin pump pros and cons []Sensor home use []Pump class offerings []Isi phenomena []Somogyi effect [] Alcohol related to diabetes []Benefits of written records [x]Pre-meal Bolusing []Daily foot care [x] Healthy diet and regular exercise []Long-term complications related to poor diabetes management [] Injection timing related to changes in activity/exercise Time spent in visit does not include the time spent in reviewing CGM I personally spent a total of minutes on this encounter. This time includes face to face with patient, counseling and discussion and/or coordination of care. Electronically signed by: Caridad Mondragon APRN [facility] [address] [place] [address]. [address] [place]. [address] PHONE [phone] FAX: [phone] documented in this encounter Plan of Treatment Upcoming Encounters Date Type Department Care Team (Late st Contact Info) Description 04/04/2025 3:00 PM EST Office Visit [facility] [address] [place] [address] Alix Webb MD [address] [place] [address] 05/31/2025 9:00 AM EST Office Visit [facility] [address] [place] [address] Barrett Stratton, PA [address] [place] [address] 06/07/2025 1:40 PM EST Office Visit [facility]ocr[facility] [address] [place] [address] Caridad Mondragon, FREIGHT BRAKE OPERATOR [address] [facility] [address] [place] [phone] 07/17/2025 7:30 AM EDT Office Visit [facility] [address] [place] [address] Barrett Stratton, PA [address] [place] [address] 09/20/2025 10:30 AM EDT Office Visit [facility] [address] [place] [address] Yo Guadarrama MD [address] [phone] Scheduled Orders Name Type Priority Associated Diagnoses Orde r Schedule Lipid Profile, Plasma Lab Routine Type 2 diabetes mellitus with hyperglycemia, with long-term current use of insulin 1 Occurrences starting 03/07/2025 until 09/08/2026 Albumin-creatinine ratio, urine, random Lab Routine Type 2 diabetes mellitus with hyperglycemia, with long-term current use of insulin 1 Occurrences starting 03/07/2025 until 09/08/2026 Scheduled Referrals Name Type Priority Associated Diagnoses Orde r Schedule Follow Up [facility] Outpatient Referral Routine Type 2 diabetes mellitus with hyperglycemia, with long-term current use of insulin Expected: 06/07/2025, Expires: 09/08/2026 documented as of this encounter Procedures Procedure Name Priority Date/Time Associated Diagnosis Comments POCT GLYCOSYLATED HEMOGLOBIN (HGB A1C) Routine 03/07/2025 1:32 PM EST Type 2 diabetes mellitus with hyperglycemia, with long-term current use of insulin documented in this encounter Results * POCT glycosylated hemoglobin (Hb A1C) (03/07/2025 1:32 PM EST) POCT Hemoglobin A1C 7.4 <5.7% Non-Diabet ic % [facility] Kit Lot Number [id number] [facility] Kit Expiration Date 12/2026 [facility] Blood Venous blood specimen / Unknown 03/07/2025 1:32 PM EST us Caridad Mondragon FREIGHT BRAKE OPERATOR POINT OF CARE TEST ENTER/ED IT ORDERABLES Final Result [facility] [address] [place] [address] documented in this encounter Visit Diagnoses Diagnosis Type 2 diabetes mellitus with hyperglycemia, with long-term current use of insulin- Primary Hyperlipidemia, unspecified hyperlipidemia type Hypertension, unspecified type Obesity (BMI 30-39.9) documented in this encounter Additional Health Concerns Assessment Noted Time PHQ-9 Depression Total Score: 1 03/05/20 25 9:03 AM EST A fall risk assessment has been complete d for the patient 03/05/2025 9:03 AM EST A Body Mass Index follow-up plan has been documented for the patient 03/07/2025 2:39 PM EST documented as of this encounter Care Teams Shaper Machine Hand Relationship Specialty Start Date End Date Elfego Main MD [address] [place] [id number] PCP - General 09/06/20 documented as of this encounter
--- OUTSIDE RECORDS SUMMARY | 2025-03-20 11:41 | XMS_ITS | Encounter Summary ---
Author Organization Healthcare Address [address] [place] [address] Care Team Providers Care Seed Service Advisor Name Role Phone Elfego Main MD Primary Care Provider [phone] Encounter Details Date Type Department Care Team (Late Contact Info) Description 01/17/2024 Ophth Exam [facility] [address] [place] [address] Roscoe Davis MD [address] [place] [address] Social History Tobacco Use Types [...] Description 04/04/2025 3:00 PM EST Office Visit [facility] [address] [place] [address] Alix Webb MD [address] [address] 05/31/2025 9:00 AM EST Office Visit [facility] Specialties [address] [place] [address] aBrrett Stratton PA [address] [place] [address] 06/07/2025 1:40 PM EST Office Visit [facility] Endocrinology [address] [place] [phone] Caridad Mondragon, ONCOLOGY PHYSICIAN ASSISTANT [address] [facility] [address] [place] [address] 07/17/2025 7:30 AM EDT Office Visit [facility] [address] [place] [address] Barrett Stratton PA [address] [place] [address] 09/20/2025 10:30 AM EDT Office Visit [facility] Endocrinology [address] [place] [phone] Yo Guadarrama MD [address] [facility] [address] [place] [address] documented as of this encounter Visit Diagnoses Not on filedocumented in this encounter Additional Health Concerns Assessment Noted Time A fall risk assessment has been complete d for the patient 11/23/2023 9:38 AM EDT A Body Mass Index follow-up plan has been documented for the patient 01/13/2024 9:49 AM EDT documented as of this encounter Care Teams Seed Service Advisor Relationship Specialty Start Date End Date Elfego Main MD [address] [place] [address] PCP - General 09/06/20 documented as of this encounter
--- OUTSIDE RECORDS SUMMARY | 2025-03-20 11:41 | XMS_ITS | Encounter Summary ---
Author Organization Healthcare Address [address] [place] [address] Care Team Providers Care Videogame Designer Name Role Phone Elfego Main MD Primary Care Provider [phone] Encounter Details Date Type Department Care Team (Late st Contact Info) Description 11/20/2024 Results Follow-Up [facility] Medicine Specialties [address] [place] [address] MikaFarzaneh henry, HISTORICAL MANUSCRIPTS CURATOR [address] [place] [address] Social History Tobacco Use Types [...] things Not at all 11/27/2024 10:10 AM Kaci Garduno Feeling down, depressed, or hopeless Not at [...] Description 04/04/2025 3:00 PM EST Office Visit [facility] [address] [place] [address] Alix Webb MD [address] [place] [address] 05/31/2025 9:00 AM EST Office Visit [facility] Medicine Specialties [address] [place] [address] Barrett Stratton PA [address] [place] [address] 06/07/2025 1:40 PM EST Office Visit [facility] Endocrinology [address] [place] [phone] Caridad Mondragon, HISTORICAL MANUSCRIPTS CURATOR [address] [facility] [address] [place] [address] 07/17/2025 7:30 AM EDT Office Visit [facility] [address] [place] [address] Barrett Stratton PA [address] [place] [phone] 09/20/2025 10:30 AM EDT Office Visit [facility] Endocrinology [address] [place] [address] Yo Guadarrama MD [address] [facility] [address] [place] [address] documented as of this encounter [...] documented as of this encounter Care Teams Videogame Designer Relationship Specialty Start Date End Date Elfego Main MD [address] [place] [id number] PCP - General 09/06/20 documented as of this encounter
--- OUTSIDE RECORDS SUMMARY | 2025-03-20 11:41 | XMS_ITS | Encounter Summary ---
Author Organization Healthcare Address [address] [place] [address] Care Team Providers Care Medical Assembly Name Role Phone Elfego Main MD Primary Care Provider [phone] Encounter Details Date Type Department Care Team (Late st Contact Info) Description 11/29/2024 Results Follow-Up [facility] Medicine Specialties [address], [address]nd [place] [address] Barrett Stratton, REHAN [address] [place] [address] Social History Tobacco Use Types [...] as of this encounter Miscellaneous Notes * Telephone Encounter - Stephanie Phillips, RN - 02/26/2025 2:04 PM EST F/U lab results, requested patient get at [facility] 02/26-02/28 * Telephone Encounter - Stephanie Phillips, RN - 02/26/2025 1:37 PM EST Left VM asking patient to please read her MCM or return my call, left CBN documented in this encounter Plan of Treatment Upcoming Encounters Date Type Department Care Team (Late st Contact Info) Description 04/04/2025 3:00 PM EST Office Visit [facility] [address] [place] [address] Alix Webb MD [address] [place] [address] 05/31/2025 9:00 AM EST Office Visit [facility] Medicine Specialties [address] 2[address] [place] [address] Barrett Stratton, PA [address] [place] [address] 06/07/2025 1:40 PM EST Office Visit [facility] Endocrinology [address] [place] [address] Caridad Mondragon S, BANNER PAINTER [address] [place] [address] 07/17/2025 7:30 AM EDT Office Visit [facility] Medicine Specialties [address] 2[address] [place] [address] Barrett Stratton, PA [address] [place] [address] 09/20/2025 10:30 AM EDT Office Visit [facility] Endocrinology [address] [place] [address] Yo Guadarrama MD [address] [place] [address] documented as of this encounter Visit Diagnoses [...] documented as of this encounter Care Teams Medical Assembly Relationship Specialty Start Date End Date Elfego Main MD [address] [place] [address] PCP - General 09/06/20 documented as of this encounter
--- OUTSIDE RECORDS SUMMARY | 2025-03-20 11:42 | XMS_ITS | Encounter Summary ---
Author Organization Healthcare Address [address] [place] [address] Care Team Providers Care Manager Client Service Name Role Phone Elfego Main MD Primary Care Provider [phone] Encounter Details Date Type Department Care Team (Latest Contact Info) Description 02/28/2025 Travel Social History Tobacco Use Types Packs/Day [...] Description 04/04/2025 3:00 PM EST Office Visit [facility] [address] [place] [address] Alix Webb MD [address] [facility] [address] [place] [address] 05/31/2025 9:00 AM EST Office Visit [facility] [address] 2[address] [place] [address] Barrett Stratton, PA [address] [place] [address] 06/07/2025 1:40 PM EST Office Visit [facility] Endocrinology [address] [place] [address] Caridad Mondragon, BATCH TRUCKER 2[address] [facility] 125 [place] [address] 07/17/2025 7:30 AM EDT Office Visit [facility] [address], 2nd [place] [address] Barrett Stratton, PA [address] [place] [address] 09/20/2025 10:30 AM EDT Office Visit [facility] Endocrinology [address] [place] [address] Yo Guadarrama MD [address] [phone] documented as of this encounter Visit Diagnoses [...] documented as of this encounter Care Teams Manager Client Service Relationship Specialty Start Date End Date Elfego Main MD [address] [place] [address] PCP - General 09/06/20 documented as of this encounter
--- OUTSIDE RECORDS SUMMARY | 2025-03-20 11:42 | XMS_ITS | Encounter Summary ---
Author Organization Healthcare Address [address] [place] [address] Care Team Providers Care Hand Cigar Maker Name Role Phone Elfego Main MD Primary Care Provider [phone] Encounter Details Date Type Department Care Team (Latest Contact Info) Description 03/07/2025 Travel Social History Tobacco Use Types Packs/Day [...] Description 04/04/2025 3:00 PM EST Office Visit [facility] [address] [place] [address] Alix Webb MD [address] [facility] [address] [place] [address] 05/31/2025 9:00 AM EST Office Visit [facility]ties [address] [place] [address] Barrett Stratton, PA [address] [place] [address] 06/07/2025 1:40 PM EST Office Visit [facility] Endocrinology [address] [place] [address] Caridad Mondragon, SEWING MACHINE MAINTENANCE MECHANIC 2195 [facility] [address] [place] [address] 07/17/2025 7:30 AM EDT Office Visit [facility] Medicine Specialties [address], 2nd [place] [address] Barrett Stratton, PA [address] [place] [address] 09/20/2025 10:30 AM EDT Office Visit [facility] Endocrinology [address] [place] [address] Yo Guadarrama MD [address] [address] documented as of this encounter Visit Diagnoses [...] documented as of this encounter Care Teams Hand Cigar Maker Relationship Specialty Start Date End Date Elfego Main MD [address] [place] [address] PCP - General 09/06/20 documented as of this encounter
--- OUTSIDE RECORDS SUMMARY | 2025-03-20 11:42 | XMS_ITS | Encounter Summary ---
Author Organization Healthcare Address [address] [place] [address] Care Team Providers Care Smokehouse Worker Name Role Phone Elfego Main MD Primary Care Provider [phone] Encounter Details Date Type Department Care Team (Late Contact Info) Description 03/06/2025 Results Follow-Up [facility] Medicine Specialties [address], [address] [place] [address] Barrett Stratton, PA [address] [place] [address] Social History Tobacco Use Types [...] Description 04/04/2025 3:00 PM EST Office Visit [facility] [address] [place] [address] Alix Webb MD [address] [place] [address] 05/31/2025 9:00 AM EST Office Visit [facility] Specialties [address] [place] [address] Barrett Stratton PA [address] [place] [address] 06/07/2025 1:40 PM EST Office Visit [facility] Endocrinology [address] [place] [address] Caridad Mondragon, IMAGE SCIENTIST 2195 [facility] 125 [place] [address] 07/17/2025 7:30 AM EDT Office Visit [facility] [address] [place] [address] Barrett Stratton, PA [address] [place] [address] 09/20/2025 10:30 AM EDT Office Visit [facility] Endocrinology [address] [place] [address] Yo Guadarrama MD [address] [place] [address] documented as of this encounter [...] documented as of this encounter Care Teams Smokehouse Worker Relationship Specialty Start Date End Date Elfego Main MD [address] [place] [address] PCP - General 09/06/20 documented as of this encounter
--- OUTSIDE RECORDS SUMMARY | 2025-03-20 11:42 | XMS_ITS | Encounter Summary ---
Author Organization [facility] Address [address] [place] [address] Care Team Providers Care Spray Crew Name Role Phone Elfego Main MD Primary Care Provider [phone] Reason for Referral * Medications - Authorized Specialty Diagnoses / Procedures Referred By Mirtha t Referred To Contact Diagnoses Cirrhosis of liver without ascites, unspecified hepatic cirrhosis type HE (hepatic encephalopathy) Barrett Stratton PA [address] [place] [address] Phone: tel: fax: Referral ID Status Reason Start Date Expiration Date V isits Requested Visits Authorized [id number] Authorized 02/19/2025 09/01/2025 1 1 Encounter Details Date Type Department Care Team (Late st Contact Info) Description 03/05/2025 Refill [facility] Specialties [address] [place] [address] Barrett Stratton PA [address] [place] [address] Cirrhosis of liver without ascites, unspecified hepatic cirrhosis type; HE (hepatic encephalopathy) Social History Tobacco Use Types Packs/Day Years [...] things Not at all 03/05/2025 9:03 AM Shreyas Mejia Feeling down, depressed, or hopeless Not at all 03/05/2025 9:03 AM Shreyas Mejia Patient Health Questionnaire -2 Score 0 03/05/2025 9:03 AM Shreyas Mejia * Question Answer Date of Assessment Author Trouble falling or staying asleep, or sleeping too much Several days 03/05/2025 9:03 AM Shreyas Mejia Feeling tired or having angely le energy [...] way Not at all 03/05/2025 9:03 AM EST Zakhara, Solomii a Patient Health Questionnaire -9 Score 1 03/05/2025 9:03 AM Shreyas Mejia * How difficult have these problems made it for you to do your work, take care of things at home, or get along with other people? Answer Date of Assessment Author Not difficult at all 03/05/2025 9:03 AM Shreyas Wright documented as of this encounter Plan of Treatment Upcoming Encounters Date Type Department Care Team (Late st Contact Info) Description 04/04/2025 3:00 PM EST Office Visit [facility] [address] [place] [address] Alix Webb MD [address] [facility] [address] [place] [address] 05/31/2025 9:00 AM EST Office Visit [facility] Medicine Specialties [address] 2nd [place] [address] Barrett Stratton PA [address] [place] [address] 06/07/2025 1:40 PM EST Office Visit [facility] Endocrinology [address] [place] [address] Caridad Mondragon S, RED CROSS WORKER 2[address] [facility] [address] [place] [address] 07/17/2025 7:30 AM EDT Office Visit [facility] Medicine Specialties [address] [place] [address] Barrett Stratton, PA [address] [place] [address] 09/20/2025 10:30 AM EDT Office Visit [facility] Endocrinology [address] [place] [address] Yo Guadarrama MD [address] [place] [address] documented as of this encounter Visit Diagnoses Diagnosis Cirrhosis of liver without ascites, unspecified hepatic cirrhosis type HE (hepatic encephalopathy) Hepatic encephalopathy documented in this encounter Additional Health Concerns Assessment Noted Time PHQ-9 Depression Total Score: 1 03/05/20 25 9:03 AM EST A fall risk assessment has been complete d for the patient 03/05/2025 9:03 AM EST A Body Mass Index follow-up plan has been documented for the patient 03/05/2025 10:26 AM EST documented as of this encounter Care Teams Spray Crew Relationship Specialty Start Date End Date Elfego Main MD [address] [place] [address] PCP - General 09/06/20 documented as of this encounter
--- OUTSIDE RECORDS SUMMARY | 2025-03-20 11:42 | XMS_ITS | Encounter Summary ---
Author Organization Healthcare Address [address] [place] [address] Care Team Providers Care Electro Tech Name Role Phone Elfego Main MD Primary [...] Description 04/04/2025 3:00 PM EST Office Visit [facility] [address] [place] [address] Alix Webb MD [address] [facility] 550 [place] [address] 05/31/2025 9:00 AM EST Office Visit [facility] [address] [place] [address] Barrett Stratton, PA [address] [place] [address] 06/07/2025 1:40 PM EST Office Visit [facility] Endocrinology [address] [place] [address] Caridad Mondragon, PROSTHETIST 2195 [facility] [address] [place] [address] 07/17/2025 7:30 AM EDT [facility] [address] 2nd [place] [address] Barrett Stratton, PA [address] [place] [address] 09/20/2025 10:30 AM EDT Office Visit [facility] Endocrinology [address] [place] [address] Yo Guadarrama MD [address] [phone] documented as of this encounter Visit Diagnoses [...] documented as of this encounter Care Teams Electro Tech Relationship Specialty Start Date End Date Elfego Main MD [address] [place] [address] PCP - General 09/06/20 documented as of this encounter
--- OUTSIDE RECORDS SUMMARY | 2025-03-20 11:42 | XMS_ITS | Encounter Summary ---
Author Organization Healthcare Address [address] [place] [address] Care Team Providers Care Licensed Chemical Spray Technician Name Role Phone Elfego Main MD Primary Care Provider [phone] Encounter Details Date Type Department Care Team (Late st Contact Info) Description 01/31/2025 Telephone [facility] [address] 2[address] [place] [address] Ginny Mace, RN None None Social History Tobacco Use Types Packs/Day Years [...] encounter Miscellaneous Notes * Telephone Encounter - Neida Valle RN - 01/31/2025 11:07 AM EDT I spoke with the patient and she has been scheduled for 03/06 at 9:00. * Telephone Encounter - Ginny Mace RN - 01/31/2025 8:42 AM EDT Pt said she was scheduled to have an endoscopy and stopped taking ozempic. Has URI and has noticed blood glucose is all over the place. She had to cx endoscopy due to illness. Hasn't started back on ozempic either. Might start back this weekend but will talk with established bleacher operator at [facility] it. She was having abd pain, abdominal swelling,and back pain and went to ED at [facility] at the end of December. Notes that her daughter had noticed yellowing of her eyes at that time as well. ED told her she had a UTI and prescribed antibiotics but no further intervention for additional symptoms. Records requested * Telephone Encounter - Ginny Mace RN - 01/31/2025 8:42 AM EDT Images from the original note were not included. Barrett Stratton PA P [facility] Gastroenterology Liver Nursing Staff Please call patient to discuss: Her labs show ongoing elevation of glucose - is she getting this better controlled overall? Does she have endocrinology to manage this? Her bilirubin is increased - is she having any abdominal pain, yellowing of the skin/eyes, itching? Her liver enzymes and overall function otherwise are okay. Thanks- Barrett documented in this encounter Plan of Treatment Upcoming Encounters Date Type Department Care Team (Late st Contact Info) Description 04/04/2025 3:00 PM EST Office Visit [facility] [address] [place] [address] Alix Webb MD [address] [place] [address] 05/31/2025 9:00 AM EST Office Visit [facility] Medicine Specialties [address] 2[address] [place] [address] Barrett Stratton, PA [address] [place] [address] 06/07/2025 1:40 PM EST Office Visit [facility] Endocrinology [address] [place] [address] Caridad Mondragon S, SYSTEMS INTEGRATION ENGINEER 2195 [facility] 125 [place] [address] 07/17/2025 7:30 AM EDT Office Visit [facility] [address], [address] [place] [address] Barrett Stratton, PA [address] [place] [address] 09/20/2025 10:30 AM EDT Office Visit [facility] Endocrinology [address] [place] [address] Yo Guadarrama MD [address] [address] documented as of this encounter [...] documented as of this encounter Care Teams Licensed Chemical Spray Technician Relationship Specialty Start Date End Date Elfego Main MD [address] [place] [address] PCP - General 09/06/20 documented as of this encounter
--- OUTSIDE RECORDS SUMMARY | 2025-03-20 11:42 | XMS_ITS | Encounter Summary ---
Author Organization [facility] Address [address] [place] [address] Care Team Providers Care Wide Area Network Administrator Name Role Phone Elfego Main MD Primary Care Provider [phone] Reason for Visit * Reason Onset Date Comments Rectal Bleeding 02/07/2025 Encounter Details Date Type Department Care Team (Late st Contact Info) Description 02/07/2025 Telephone [facility] [address] 2[address] [place] [address] Stephanie Phillips, RN MEDICINE SPECIALTIES CLINIC None Rectal Bleeding Social History Tobacco Use Types Packs/Day Years [...] Telephone Encounter - Stephanie Phillips, RN - 02/16/2025 9:08 AM EDT S/W patient -Recommended that she be evaluated by PCP or ER -symptoms do not appear to be liver related -patient verbalized her concern r/t her clotting disorder and esophageal varices -recommended that she be evaluated in an ER with these concerns -verbalized understanding, no questions * Telephone Encounter - Ada Suarez - 02/16/2025 8:33 AM EDT Received call from patient Patient states that she has had a URI symptoms- states that it has been going on since end of dec/early November Patient states that she had developed a hemorrhoid Patient states that during a coughing fit the hemorrhoid busted and has been bleeding- states bleeding has been going on for 3 days Patient states that she has a clotting disorder and is having to wear a pad- states that she could go a whole day with the pad, but changes it for cleanliness Patient states that this AM she had some stabbing pains on her L side under her ribs Patient would like to be advised on if she needs to go to ED/UTC or if she should let it go CB: [phone] * Telephone Encounter - Stephanie Phillips, RN - 02/07/2025 2:26 PM EDT Images from the original note were not included. Patient's next appt is F2F S/W patient -She is not feeling well, has absolutely no energy -elevated BS could be r/t taking some leftover steroids and being off Ozempic. Also was having severe back and stomach pain -Went to the ER, no answers -Stopped Ozempic around January 19 for EGD and has not restarted it -did not have EGD d/t head cold/allergies -her back and stomach have quit hurting -is having some swelling in feet when doing chores (stopped diuretics after last appt with Barrett) -did have severe abd bloating but it resolved itself -no further c/o Barrett Stratton, REHAN [facility] Gastroenterology Liver Nursing Staff Can we make sure her appt is in person -her glucose levels are still elevated; bilirubin isn't really budging from previous. - How is she currently feeling? Thanks- Barrett documented in this encounter Plan of Treatment Upcoming Encounters Date Type Department Care Team (Late st Contact Info) Description 04/04/2025 3:00 PM EST Office Visit [facility] [address] [place] [address] Alix Webb MD [address] [place] [address] 05/31/2025 9:00 AM EST Office Visit [facility] Medicine Specialties [address] [place] [address] Barrett Stratton, PA [address] [place] [address] 06/07/2025 1:40 PM EST Office Visit [facility] Endocrinology [address] [place] [address] Caridad Mondragon, LINE CAMERA OPERATOR 2195 [facility] 125 [place] [address] 07/17/2025 7:30 AM EDT Office Visit [facility] Medicine Specialties [address] [place] [address] Barrett Stratton PA [address] [place] [address] 09/20/2025 10:30 AM EDT Office Visit [facility] Endocrinology [address] [place] [address] Yo Guadarrama MD 2[address] [facility] [address] [place] [address] documented as of this encounter [...] documented as of this encounter Care Teams Wide Area Network Administrator Relationship Specialty Start Date End Date Elfego Main MD [address] [place] [address] PCP - General 09/06/20 documented as of this encounter
--- OUTSIDE RECORDS SUMMARY | 2025-03-20 11:42 | XMS_ITS | Encounter Summary ---
Author Organization Healthcare Address [address] [place] [address] Care Team Providers Care Actuarial Internship Name Role Phone Elfego Main MD Primary Care Provider [phone] Encounter Details Date Type Department Care Team (Latest Contact Info) Description 03/05/2025 Travel Social History Tobacco Use Types Packs/Day [...] energy Not at all 03/05/2025 9:03 AM Gosia Mejiaiia Poor appetite or overeating Not at all 03/05/2025 9: 03 AM Gosia Mejiaiia Feeling bad about yourself - or that you are a failure or have let yourself or your family down Not at all 03/05/2025 9:03 AM Gosia Mejiaiia Trouble concentrating on things, such as reading the newspaper or watching television Not at all 03/05/2025 9:03 AM Gosia Mejiaiia Moving or speaking so slowly that other people could have noticed? Or the opposite - being so fidgety or restless that you have been moving around a lot more than usual. Not at all 03/05/2025 9:03 AM Shreyas Mejia Thoughts that you would be better off or hurting yourself in some way Not at all 03/05/2025 9:03 AM Wilfredo Mejia a Patient Health Questionnaire -9 Score 1 [...] Description 04/04/2025 3:00 PM EST Office Visit [facility] [address] [place] [address] Alix Webb MD [address] [place] [address] 05/31/2025 9:00 AM EST Office Visit [facility] Medicine Specialties [address] [place] [address] Barrett Stratton, PA [address] [place] [address] 06/07/2025 1:40 PM EST Office Visit [facility] Endocrinology [address] [place] [address] Caridad Mondragon S, WEDDING PHOTOGRAPHER 2195 [facility] [address] [place] [address] 07/17/2025 7:30 AM EDT Office Visit [facility] [address] [place] [address] Barrett Stratton, PA [address] [place] [address] 09/20/2025 10:30 AM EDT Office Visit [facility] Endocrinology [address] [place] [address] Yo Guadarrama MD 2[address] [facility] 125 [place] [address] documented as of this encounter [...] documented as of this encounter Care Teams Actuarial Internship Relationship Specialty Start Date End Date Elfego Main MD [address] [place] [address] PCP - General 09/06/20 documented as of this encounter
--- OUTSIDE RECORDS SUMMARY | 2025-03-20 11:42 | XMS_ITS | Encounter Summary ---
Author Organization Healthcare Address [address] [place] [address] Care Team Providers Care Senior Hydrogeologist Name Role Phone Elfego Main MD Primary Care Provider [phone] Encounter Details Date Type Department Care Team (Late st Contact Info) Description 01/29/2025 Telephone [facility] [address] [place] [address] Andrey Pires MD [address] [place] [address] Social History Tobacco Use Types [...] encounter Miscellaneous Notes * Telephone Encounter - Andrey Pires MD - 01/29/2025 7:11 PM EDT I received a call from outside lab regarding a critical lab value for platelets 47. Seems consistent (although slightly lower) than last lab value we have in system from 11/27/2024. No urgent intervention now. Will notify primary GI provider ordering the lab for next steps in management. Andrey Pires MD GI Fellow, PGY4 Healthcare documented in this encounter Plan of Treatment Upcoming Encounters Date Type Department Care Team (Late st Contact Info) Description 04/04/2025 3:00 PM EST Office Visit [facility] [address] [place] [address] Alix Webb MD [address] [place] [address] 05/31/2025 9:00 AM EST Office Visit [facility] Medicine Specialties [address] [place] [address] Barrett Stratton, PA [address] [place] [address] 06/07/2025 1:40 PM EST Office Visit [facility] Endocrinology [address] [place] [phone] Caridad Mondragon S, [employer] [address] [facility] [address] [place] [address] 07/17/2025 7:30 AM EDT Office Visit [facility] Medicine Specialties [address] [place] [address] Barrett Stratton, PA [address] [place] [address] 09/20/2025 10:30 AM EDT Office Visit [facility] Endocrinology [address] [place] [phone] Yo Guadarrama MD [address] [place] [address] documented as of this encounter Visit Diagnoses Diagnosis Thrombocytopenia (CMS/HCC)- Primary Unspecified thrombocytopenia documented in this encounter Additional Health Concerns Assessment Noted Time PHQ-9 Depression Total Score: 3 05/30/19 25 11:43 AM EST A fall risk assessment has been complete d for the patient 01/24/2025 8:19 AM EDT A Body Mass Index follow-up plan has been documented for the patient 01/24/2025 9:44 AM EDT documented as of this encounter Care Teams Senior Hydrogeologist Relationship Specialty Start Date End Date Elfego Main MD [address] [place] [address] PCP - General 09/06/20 documented as of this encounter
--- OUTSIDE RECORDS SUMMARY | 2025-03-20 11:42 | XMS_ITS | Encounter Summary ---
Author Organization Healthcare Address [address] [place] [address] Care Team Providers Care Cloth Trimmer Hand Name Role Phone Elfego Main MD Primary Care Provider [phone] Encounter Details Date Type Department Care Team (Late Contact Info) Description 02/01/2025 Orders Only [facility] [address] [place] [address] Provider, [place] [phone] Social History Tobacco Use Types Packs/Day Years [...] Description 04/04/2025 3:00 PM EST Office Visit [facility] [address] [place] [address] Alix Webb MD [address] [phone] 05/31/2025 9:00 AM EST Office Visit [facility] Specialties [address] [place] [phone] Barrett Stratton, PA [address] [place] [address] 06/07/2025 1:40 PM EST Office Visit [facility] Endocrinology [address] [place] [phone] Caridad Mondragon APRN [address] [facility] [address] [place] [address] 07/17/2025 7:30 AM EDT Office Visit [facility] [address] [place] [address] Barrett Stratton, PA [address] [facility] [address] [place] [address] 09/20/2025 10:30 AM EDT Office Visit [facility] Endocrinology [address] [place] [phone] Yo Guadarrama MD [address] [facility] [address] [place] [address] documented as of this encounter Procedures Procedure Name Priority Date/Time Associated Diagnosis Comments AFP, TUMOR MARKER Routine 02/01/2025 7:20 AM EDT documented in this encounter Results * AFP, Tumor Marker (02/01/2025 7:20 AM EDT) Blood Venous blood specimen / Unknown us Historical Provider LAB BLOOD ORDERABLES Final R esult documented in this encounter Visit Diagnoses Not [...] documented as of this encounter Care Teams Cloth Trimmer Hand Relationship Specialty Start Date End Date Elfego Main MD [address] [place] [address] PCP - General 09/06/20 documented as of this encounter
--- OUTSIDE RECORDS SUMMARY | 2025-03-20 11:42 | XMS_ITS | Encounter Summary ---
Author Organization Healthcare Address [address] [place] [address] Care Team Providers Care Policy Checker Name Role Phone Elfego Main MD Primary Care Provider [phone] Encounter Details Date Type Department Care Team (Late Contact Info) Description 01/30/2025 Orders Only [facility] Medicine Specialties [address] [place] [address] Provider, [place] [phone] Social History Tobacco Use Types Packs/Day Years [...] Description 04/04/2025 3:00 PM EST Office Visit [facility] [address] [place] [address] Alix Webb MD [address] [phone] 05/31/2025 9:00 AM EST Office Visit [facility] Specialties [address] [place] [phone] Barrett Stratton, PA [address] [place] [address] 06/07/2025 1:40 PM EST Office Visit [facility] Endocrinology [address] [place] [phone] Caridad Mondragon APRN [address] [facility] [address] [place] [address] 07/17/2025 7:30 AM EDT Office Visit [facility] Specialties [address] [place] [address] Barrett Stratton, PA [address] [facility] [address] [place] [address] 09/20/2025 10:30 AM EDT Office Visit [facility] Endocrinology [address] [place] [address] Yo Guadarrama MD [address] [facility] [address] [place] [address] documented as of this encounter Procedures Procedure Name Priority Date/Time Associated Diagnosis Comments COMPLETE METABOLIC PROFILE (CMP) Routine 01/30/2025 8:17 AM EDT PROTHROMBIN TIME(PT) / INR Routine 01/30/2025 7:48 AM EDT CBC WITH AUTO DIFFERENTIAL Routine 01/30/2025 7:48 AM EDT documented in this encounter Results * COMPLETE METABOLIC PROFILE (CMP) (01/30/2025 8:17 AM EDT) Historical Provider LAB BLOOD ORDERABLES Final R esult * Prothrombin Time/INR (01/30/2025 7:48 AM EDT) Blood Venous blood specimen / Unknown Result [facility] Provider LAB BLOOD ORDERABLES Final R esult * CBC and Differential (01/30/2025 7:48 AM EDT) Blood Venous blood specimen / Unknown [facility] Provider LAB BLOOD ORDERABLES Final R esult [...] documented as of this encounter Care Teams Policy Checker Relationship Specialty Start Date End Date Elfego Main MD [address] [place] [address] PCP - General 09/06/20 documented as of this encounter
--- OUTSIDE RECORDS SUMMARY | 2025-03-20 11:43 | XMS_ITS | Clinical Summary ---
Author Organization [facility] Address [address] [place] [address] Care Team Providers Care Feed Mill Supervisor Name Role Phone Elfego Main MD Primary Care Provider [phone] Allergies Active Allergy Reactions Criticality Noted Date [...] in the comment field Low 09/19/2024 Medications loratadine (Claritin) 10 MG tablet Take 1 tablet by mouth daily. Active fluticasone (Flonase) 50 MCG/ACT nasal spray Administer 2 sprays into each nostril daily as needed for allergies or rhinitis. 02/06/20 23 Active lidocaine (Lidoderm) 5 % patch Apply 1 patch topically as needed. 01/04/20 24 Active meclizine (Antivert) 25 MG tablet Take 1 tablet by mouth 3 (three) times a day as needed for dizziness. 05/29/19 25 Active acetaminophen (Tylenol) 500 MG tablet Take 2 tablets by mouth every 6 hours as needed for pain, headaches or fever. Active Continuous Glucose Sensor (FreeStyle Eric 3 Plus Sensor) miscIndications: Type 2 diabetes mellitus with hyperglycemia, with long-term current use of insulin 1 sensor every 15 days. 6 each 11/10/19 25 Active omeprazole (PriLOSEC) [address] capsule Take 1 capsule by mouth daily. Do not crush or chew. 30 capsule 11/28/19 Active Additional Information Patient not taking.Reported on 03/07/2025 rifAXIMin (Xifaxan) 550 MG tabletIndication s:Cirrhosis of liver without ascites, unspecified hepatic cirrhosis type,HE (hepatic encephalopathy) Take 1 tablet by mouth 2 times a day. 60 tablet 03/05/20 25 Active furosemide (Lasix) 20 MG tablet Take 1 tablet by mouth daily. 30 tablet 03/05/20 25 Active spironolactone (Aldactone) 50 MG tablet Take 1 tablet by mouth daily. 30 tablet 03/05/20 25 Active Semaglutide,0.25 or 0.5MG/DOS, (Ozempic, 0.25 or 0.5 MG/DOSE,) 2 MG/3ML solution pen-injector Inject subcutaneous 0.25 mg weekly for one month and then increase to 0.5 mg weekly after one month 3 mL 03/07/20 25 Active insulin aspart protamine-insuli n aspart (NovoLOG MIX 70/30 FLEXPEN) (70-30) 100 UNIT/ML injection pen Inject subcutaneous 100 units with breakfast and 10 units with supper plus titration as advised, max dose 150u/day 45 mL 03/07/20 25 Active pen needle, diabetic (B-D UF III MINI PEN NEEDLES) 31G X 5 MM misc Use 2x/day 180 each 3 03/07/20 25 Active losartan-hydroCH LOROthiazide (Hyzaar) 50-12.5 MG tablet Take 0.5 tablets by mouth daily. 10/05/19 21 025 Discontinu ed(Per Patient Report) rifAXIMin (Xifaxan) 550 MG tablet Take 1 tablet (550 mg) by mouth 2 (two) times a day. 60 tablet 11/23/19 24 11/10/2 025 Discontinu ed(Reorder ) pen needle, diabetic (B-D UF III MINI PEN NEEDLES) 31G X 5 MM misc Use 2x/day 180 each 3 08/03/19 25 Discontinu ed(Reorder ) spironolactone (Aldactone) 50 MG tablet TAKE ONE TABLET BY MOUTH ONCE A DAY 30 tablet 3 08/16/19 25 Discontinu ed(Reorder ) furosemide (Lasix) 20 MG tablet TAKE ONE TABLET BY MOUTH ONCE A DAY 30 tablet 3 09/26/19 25 Discontinu ed(Reorder ) Semaglutide, 1 MG/DOSE, (Ozempic, 1 MG/DOSE,) 4 MG/3ML solution pen-injector Inject 1 mg under the skin 1 time per week. 9 mL 3 11/10/19 25 Discontinu ed(Per Patient Report) insulin regular (HumuLIN R) 500 UNIT/ML CONCENTRATED injection vial every 8 hours. Discontinu ed(Therapy completed) rifAXIMin (Xifaxan) 550 MG tabletIndication s:Cirrhosis of liver without ascites, unspecified hepatic cirrhosis type,HE (hepatic encephalopathy) Take 1 tablet by mouth 2 times a day. 60 tablet 5 03/05/20 25 Discontinu ed(Reorder ) spironolactone (Aldactone) 50 MG tablet Take 1 tablet by mouth daily. 30 tablet 5 03/05/20 25 Discontinu ed(Reorder ) furosemide (Lasix) 20 MG tablet Take 1 tablet by mouth daily. 30 tablet 5 03/05/20 25 Discontinu ed(Reorder ) Active Problems Problem Noted Date Diagnosed Date [...] Encounters Date Type Department Care Team Description 03/07/2025 2:20 PM EST Office Visit [facility] Endocrinology [address] [place] [address] Caridad Mondragon, DRIVER MEDIC Type 2 diabetes mellitus with hyperglycemia, with long-term current use of insulin (Primary Dx); Hyperlipidemia, unspecified hyperlipidemia type; Hypertension, unspecified type; Obesity (BMI 30-39.9) 03/07/2025 Travel 03/06/2025 Results [facility] [address], [address] [place] [phone] Barrett Stratton PA 03/05/2025 9:30 AM EST Office Visit [facility] Medicine Specialties [address], [address] [place] [phone] Barrett Stratton PA Cirrhosis of liver without ascites, unspecified hepatic cirrhosis type (Primary Dx); HE (hepatic encephalopathy); Thyroid nodule; BMI 35.0-35.9,adult; Secondary esophageal varices without bleeding 03/05/2025 Refill [facility] Medicine Specialties [address], [address] [place] [phone] Barrett Stratton PA Cirrhosis of liver without ascites, unspecified hepatic cirrhosis type; HE (hepatic encephalopathy) 03/05/2025 Travel 02/28/2025 11:55 AM EST Ancillary Procedure [facility] [address] [place] [address] 02/28/2025 10:15 AM EST Office Visit [facility] [address] [place] [address] Alix Webb MD 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 (Primary Dx); NVI (new vessels iris), bilateral; Vitreomacular traction syndrome of left eye 02/28/2025 Travel 02/07/2025 Telephone [facility] Medicine Specialties [address] [place] [address] Stephanie Phillips, RN Rectal Bleeding 02/01/2025 Orders Only [facility] Medicine Specialties [address], [address] [place] [address] Provider, Historical 01/31/2025 Telephone [facility] Specialties [address], [address] [place] [address] Ginny Mace RN 01/30/2025 Orders Only [facility] Specialties [address], [address] [place] [address] Provider, Historical 01/29/2025 Telephone [facility] Specialties [address], [address] [place] [address] Andrey Pires MD 01/24/2025 8:50 AM EDT Ancillary Procedure [facility] [address] [place] [address] 01/24/2025 8:15 AM EDT Office Visit [facility] [address] [place] [address] Alix Webb MD 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 (Primary Dx); NVI (new vessels iris), bilateral; Age-related nuclear cataract of both eyes 01/24/2025 Travel from Last 3 Months Family History [...] Pulse 79 03/07/2025 2:12 PM EST Temperature 36.6 C (97.8 F) 03/05/2025 9:01 AM EST Respiratory Rate 18 03/05/2025 9:01 AM EST Oxygen Saturation 98% 03/05/2025 9:01 AM EST Inhaled Oxygen Concentration - - Weight 84.8 kg (186 lb 15.2 oz) 025 12:56 PM EST Height 154.9 cm (5' 1 ) 03/07/2025 12:5 6 PM EST Body Mass Index 35.32 03/07/2025 12:56 PM EST Plan of Treatment Upcoming Encounters Date Type Department Care Team (Late st Contact Info) Description 04/04/2025 3:00 PM EST Office Visit [facility] [address] [place] [address] Alix Webb MD [address] [place] [address] 05/31/2025 9:00 AM EST Office Visit [facility] Medicine Specialties [address] [place] [address] Barrett Stratton, PA [address] [place] [address] 06/07/2025 1:40 PM EST Office Visit [facility] Endocrinology [address] [place] [phone] Caridad Mondragon S, DRIVER MEDIC [address] [facility] [address] [place] [address] 07/17/2025 7:30 AM EDT [facility] [address], [address] [place] [address] Barrett Stratton, PA [address] [place] [address] 09/20/2025 10:30 AM EDT Office Visit [facility] Endocrinology [address] [place] [address] Yo Guadarrama MD [address] [facility] [address] [place] [address] Health Maintenance Due Date Last Done Comments [facility]-Medicare Annual Wellness (AWV) 1965 [facility]-/Child/Adol SDOH Screenings 1965 Diabetes: Dental Exam 1977 [...] 2017 [facility]-Zoster Vaccines (1 of 2) 2017 [id number] Vaccine (1 - season) 2024 [facility]-Influenza Vaccine (#1) 2024 [facility]-Diabetes: Hemoglobin A1C 06/06/202503/2025, 11/09/2024, 08/02/2024, Additional history exists [facility]-Depression Screening 03/05/2026 03/05/2025, 02/24 [facility]-Hepatitis C Screening Completed 11/23/2023 [facility]-HIV Screening Completed 01/16/2024 [facility]-Obesity Intervention Completed 025, 03/07/2025, 03/07/2025, Additional history exists HPV Vaccines Aged Out [...] hyperglycemia, with long-term current use of insulin PROTHROMBIN TIME(PT) / INR Routine 03/05/2025 10:15 AM EST Cirrhosis of liver without ascites, unspecified hepatic cirrhosis type HE (hepatic encephalopathy) COMPREHENSIVE METABOLIC PANEL, PLASMA Routine 03/05/2025 10:15 AM EST Cirrhosis of liver without ascites, unspecified hepatic cirrhosis type HE (hepatic encephalopathy) CBC WITH AUTO DIFFERENTIAL Routine 03/05/2025 10:15 AM EST Cirrhosis of liver without ascites, unspecified hepatic cirrhosis type HE (hepatic encephalopathy) AMMONIA, PLASMA Routine 03/05/2025 10:15 AM EST Cirrhosis of liver without ascites, unspecified hepatic cirrhosis type HE (hepatic encephalopathy) DIRECT BILIRUBIN, PLASMA Routine 03/05/2025 10:15 AM EST Cirrhosis of liver without ascites, unspecified hepatic cirrhosis type HE (hepatic encephalopathy) ANTINUCLEAR ANTIBODY (YOON) WITH HEP-2 SUBSTRATE, IGG BY IFA (SO) Routine 03/05/2025 10:15 AM EST Cirrhosis of liver without ascites, unspecified hepatic cirrhosis type HE (hepatic encephalopathy) SMOOTH MUSCLE ANTIBODY, IGG TITER (SO) Routine 03/05/2025 10:15 AM EST Cirrhosis of liver without ascites, unspecified hepatic cirrhosis type HE (hepatic encephalopathy) FERRITIN, SERUM Routine 03/05/2025 10:15 AM EST Cirrhosis of liver without ascites, unspecified hepatic cirrhosis type HE (hepatic encephalopathy) TSH Routine 03/05/2025 10:15 AM EST Cirrhosis of liver without ascites, unspecified hepatic cirrhosis type HE (hepatic encephalopathy) Thyroid nodule MITOCHONDRIAL M2 ANTIBODY, IGG (JONAH)(SO) Routine 03/05/2025 10:15 AM EST Cirrhosis of liver without ascites, unspecified hepatic cirrhosis type HE (hepatic encephalopathy) IRON & TOTAL IRON BINDING CAPACITY, PLASMA (INCLUDES TRANSFERRIN) Routine 03/05/2025 10:15 AM EST Cirrhosis of liver without ascites, unspecified hepatic cirrhosis type HE (hepatic encephalopathy) IG PROFILE Routine 03/05/2025 10:15 AM EST Cirrhosis of liver without ascites, unspecified hepatic cirrhosis type HE (hepatic encephalopathy) FREE T4, PLASMA Routine 03/05/2025 10:15 AM EST Cirrhosis of liver without ascites, unspecified hepatic cirrhosis type HE (hepatic encephalopathy) Thyroid nodule T3 Routine 03/05/2025 10:15 AM EST Cirrhosis of liver without ascites, unspecified hepatic cirrhosis type HE (hepatic encephalopathy) THYROID PEROXIDASE ANTIBODY Routine 03/05/2025 10:15 AM EST Cirrhosis of liver without ascites, unspecified hepatic cirrhosis type HE (hepatic encephalopathy) ALPHA FETOPROTEIN, SERUM Routine 03/05/2025 10:15 AM EST Cirrhosis of liver without ascites, unspecified hepatic cirrhosis type HE (hepatic encephalopathy) OCT, RETINA - OU - BOTH EYES Routine 02/28/2025 11:51 AM EST 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), 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 AFP, TUMOR MARKER Routine 02/01/2025 7:2 0 AM EDT COMPLETE METABOLIC PROFILE (CMP) Routine 01/30/2025 8:17 AM EDT PROTHROMBIN TIME(PT) / INR Routine 01/30/2025 7:48 AM EDT CBC WITH AUTO DIFFERENTIAL Routine 01/30/2025 7:48 AM EDT INTRAVITREAL INJECTION, PHARMACOLOGIC AGENT - OU - BOTH EYES Routine 01/24/2025 9:44 AM EDT 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), bilateral OCT, RETINA - OU - BOTH EYES Routine 01/24/2025 8:49 AM EDT 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 ED HIV 1/2 ANTIBODY/ANTIGEN SCREEN WITH REFLEX TO HIV I/II DIFFERENTIATION STAT 01/16/2024 10:38 PM EDT HEPATITIS C ANTIBODY W/REFLEX TO HCV QUANT PCR Routine 11/23/2023 10:56 AM EDT KOENIG (nonalcoholic steatohepatitis) Cirrhosis of liver without ascites, unspecified hepatic cirrhosis type (CMS/HCC) from Last 3 Months or Most Recently Relevant to Health Maintenance Results * POCT glycosylated hemoglobin (Hb A1C) (03/07/2025 1:32 PM EST) Pathologist [facility] POCT Hemoglobin A1C 7.4 <5.7% Non-Diabet ic % [facility] Kit Lot Number [id number] [facility] Kit Expiration Date 12/2026 [facility] Blood Venous blood specimen / Unknown 03/07/2025 1:32 PM EST Caridad Mondragon DRIVER MEDIC POINT OF CARE TEST ENTER/ED IT ORDERABLES Final Result Performing Organization Address [facility] Co de Phone Number [facility] [address] [place] [address] * Alpha Fetoprotein, Serum (03/05/2025 10:15 AM EST) [facility] Alpha Fetoprotein, Serum <2.3 <10.0 ng/mL 03/05/2025 1:13 PM EST [facility] Blood Venous blood specimen / Unknown Venipuncture / Unknown 03/05/2025 10:15 AM EST 03/05/2025 10:18 AM EST Narrative [facility] - 03/05/2025 1:13 PM EST Performed by Marga electrochemiluminescent immunoassay which is traceable to the 1st AFP IRP WHO Reference standard 72/255. Results obtained with different test methods or kits cannot be used interchangeably. Barrett VAN LAB BLOOD ORDERABLES Final Res ult Performing Organization Address City/[facility] Co de Phone Number [facility] [address] [place] [address] * T3 (03/05/2025 10:15 AM EST) [facility] T3, Serum 146 87 - 187 ng/dL 03/05/2025 1:13 PM EST [facility] Blood Venous blood specimen / Unknown Venipuncture / Unknown 03/05/2025 10:15 AM EST 03/05/2025 10:18 AM EST Barrett VAN LAB BLOOD ORDERABLES Final Res ult [facility] [address] [place] [address] * IG Profile (03/05/2025 10:15 AM EST) IGA 290 75 - 400 mg/dL 03/05/2025 12:32 PM EST [facility] IGG 1,361 720 - 1,589 mg/dL 03/05/2025 12:32 PM EST [facility] IGM 123 35 - 225 mg/dL 03/05/2025 12:32 PM EST [facility] Blood Venous blood specimen / Unknown Venipuncture / Unknown 03/05/2025 10:15 AM EST 03/05/2025 10:18 AM EST us Barrett VAN LAB BLOOD ORDERABLES Final Res ult [facility] [address] [place] [address] * Thyroid Peroxidase Antibody (03/05/2025 10:15 AM EST) Thyroid Peroxidase Antibody <5 <=8 IU/mL 03/05/2025 1:42 PM EST [facility] Blood Venous blood specimen / Unknown Venipuncture / Unknown 03/05/2025 10:15 AM EST 03/05/2025 10:18 AM EST us Barrett VAN LAB BLOOD ORDERABLES Final Res ult [facility] [address] [place] [address] * Iron & Total Iron Binding Capacity, Plasma (Includes Transferrin) (03/05/2025 10:15 AM EST) Iron, Plasma 112 30 - 160 ug/dL 03/05/2025 12:32 PM EST [facility] Transferrin, Plasma 249 200 - 360 mg/dL 03/05/2025 12:32 PM EST [facility] Total Iron Binding Capacity, Plasma 311 240 - 450 ug/mL 03/05/2025 12:32 PM EST [facility] Transferrin Saturation 36 14 - 50 % 03/05/2025 12:32 PM EST [facility] Blood Venous blood specimen / Unknown Venipuncture / Unknown 03/05/2025 10:15 AM EST 03/05/2025 10:18 AM EST Barrett VAN LAB BLOOD ORDERABLES Final Res ult [facility] [address] [place] [address] * Anti-smooth muscle antibody, IgG (03/05/2025 10:15 AM EST) Smooth Muscle Ab, IgG Titer <1:20 <1:20 03/07/2025 11:57 AM EST [facility] [employer]) Blood Venous blood specimen / Unknown Venipuncture / Unknown 03/05/2025 10:15 AM EST 03/05/2025 10:18 AM EST Narrative [facility]) - 03/07/2025 11:57 AM EST INTERPRETIVE INFORMATION: Smooth Muscle Ab, IgG Titer Less than 1:20 ........ Negative - No antibody detected. 1:20 - 1:80 .......... Weak Positive - Suggest repeat in two to three weeks with fresh specimen. 1:160 or greater ...... Positive - Suggestive of autoimmune hepatitis or chronic active hepatitis. Performed By: [facility] [address] [place] [address] Hard Tile Setter Apprentice: Kenrick Ervin MD, PhD CLIA Number: [id number] Barrett [facility] LAB BLOOD ORDERABLES Final Res ult [facility]) [address] [place] [address] * Mitochondrial M2 Antibody, IgG (JONAH) (03/05/2025 10:15 AM EST) MITOCHONDRIA M2 AB IGG 1.8 0.0 - 24.9 Units 03/07/2025 1:05 AM EST [facility]) Serum Venous blood specimen / Unknown 03/05/2025 10:15 AM EST 03/05/2025 10:18 AM EST Narrative [facility] - 03/07/2025 1:05 AM EST REFERENCE INTERVAL: [...] does not rule out PBC. Performed By: [facility] [address] [place] [address] Hard Tile Setter Apprentice: Kenrick Ervin MD, PhD CLIA Number: [id number] us Barrett VAN LAB BLOOD ORDERABLES Final Res ult [facility]) [address] [place] [address] * (ABNORMAL) Prothrombin Time/INR (03/05/2025 10:15 AM EST) Only the most recent of2 resultswithin the time period is included. Prothrombin Time 15.3(H) 12.0 - 14.3 sec LAB COAGULATION METHOD 03/05/2025 11:49 AM EST [facility] INR 1.2(H) 0.9 - 1.1 LAB COAGULATION METHOD 03/05/2025 11:49 AM EST [facility] Blood Venous blood specimen / Unknown Venipuncture / Unknown 03/05/2025 10:15 AM EST 03/05/2025 10:18 AM EST Narrative [facility] - 03/05/2025 11:49 AM EST OPTIMAL INR RANGES FOR PATIENT ON ORAL ANTICOAGULANT THERAPY Prevention of venous thromboembolism INR 2.0 to 3.0 In patients with heart disease: Atrial fibrillation INR 2.0 to 3.0 Valvular heart disease INR 2.0 to 3.0 Tissue heart valves INR 2.0 to 3.0 Mechanical prosthetic valves INR 2.5 to 3.5 Prevention of recurrent CA INR 2.5 to 3.5 us Barrett VAN LAB BLOOD ORDERABLES Final Res ult [facility] [address] [place] [address] * (ABNORMAL) CBC and Differential (03/05/2025 10:15 AM EST) Only the most recent of2 resultswithin the time period is included. WBC Count 2.84(L) 3.70 - 10.30 10*3/uL LAB HEMATOLOGY METHOD 03/05/2025 2:42 PM EST [facility] RBC Count 4.07 3.90 - 5.20 10*6/uL LAB HEMATOLOGY METHOD 03/05/2025 2:42 PM EST [facility] HGB 12.5 11.2 - 15.7 g/dL LAB HEMATOLOGY METHOD 03/05/2025 2:42 PM EST [facility] HCT 37.0 34.0 - 45.0 % LAB HEMATOLOGY METHOD 03/05/2025 2:42 PM EST [facility] Platelet Count 54(L) 155 - 369 10*3/uL LAB HEMATOLOGY METHOD 03/05/2025 2:42 PM EST [facility] MCV 91 79 - 98 fL LAB HEMATOLOGY METHOD 03/05/2025 2:42 PM EST [facility] MCH 30.7 26.0 - 32.0 pg LAB HEMATOLOGY METHOD 03/05/2025 2:42 PM EST [facility] MCHC 33.8 30.7 - 35.5 g/dL LAB HEMATOLOGY METHOD 03/05/2025 2:42 PM EST [facility] RDW 13.8 11.5 - 14.5 % LAB HEMATOLOGY METHOD 03/05/2025 2:42 PM EST [facility] MPV 9.8 8.8 - 12.5 fL LAB HEMATOLOGY METHOD 03/05/2025 2:42 PM EST [facility] nRBC 0.0 <=0.0 per 100 WBCs LAB HEMATOLOGY METHOD 03/05/2025 2:42 PM EST [facility] Differential Type Automated LAB HEMATOLOGY METHOD 03/05/2025 2:42 PM EST [facility] Neutrophils % 67 % LAB HEMATOLOGY METHOD 03/05/2025 2:42 PM EST [facility] Lymphocytes % 24 % LAB HEMATOLOGY METHOD 03/05/2025 2:42 PM EST [facility] Monocytes % 6 % LAB HEMATOLOGY METHOD 03/05/2025 2:42 PM EST [facility] Eosinophils % 3 % LAB HEMATOLOGY METHOD 03/05/2025 2:42 PM EST [facility] Basophils % 0 % LAB HEMATOLOGY METHOD 03/05/2025 2:42 PM EST [facility] Immature Granulocytes % 0 % LAB HEMATOLOGY METHOD 03/05/2025 2:42 PM EST [facility] Neutrophils Absolute 1.89 1.60 - 6.10 10*3/uL LAB HEMATOLOGY METHOD 03/05/2025 2:42 PM EST [facility] Lymphocytes Absolute 0.68(L) 1.20 - 3.90 10*3/uL LAB HEMATOLOGY METHOD 03/05/2025 2:42 PM EST [facility] Monocytes Absolute 0.18(L) 0.30 - 0.90 10*3/uL LAB HEMATOLOGY METHOD 03/05/2025 2:42 PM EST [facility] Eosinophils Absolute 0.07 0.00 - 0.50 10*3/uL LAB HEMATOLOGY METHOD 03/05/2025 2:42 PM EST [facility] Basophils Absolute 0.01 0.00 - 0.10 10*3/uL LAB HEMATOLOGY METHOD 03/05/2025 2:42 PM EST [facility] Immature Granulocytes Absolute 0.01 0.00 - 0.06 10*3/uL LAB HEMATOLOGY METHOD 03/05/2025 2:42 PM [facility] Blood Venous blood specimen / Unknown Venipuncture / Unknown 03/05/2025 10:15 AM EST 03/05/2025 10:18 AM EST [facility] - 03/05/2025 2:42 PM EST Therapeutic decision making should be based on absolute values, rather than percentages. us Barrett VAN LAB BLOOD ORDERABLES Final Res ult [facility] [address] [place] [address] * Antinuclear Antibody (YOON), HEp-2, IgG (03/05/2025 10:15 AM EST) YOON INTERPRETIVE COMMENT See Note 03/09/2025 8:22 AM EST [facility] ([facility]) Anti Nuc Ab Screen <1:80 <1:80 03/09/2025 8:22 AM EST [facility] ([facility]) Blood Venous blood specimen / Unknown Venipuncture / Unknown 03/05/2025 10:15 AM EST 03/05/2025 10:18 AM EST Narrative [facility] ([facility]) - 03/09/2025 8:22 AM EST Clinical Interpretation: [...] not necessarily rule out SARD. Performed By: [facility] [address] [place] [address] Hard Tile Setter Apprentice: Kenrick Ervin MD, PhD CLIA Number: [id number] us Barrett VAN LAB BLOOD ORDERABLES Final Res ult [facility] ([facility]) [address] [place] [address] * Thyroid Stimulating Hormone, Plasma (03/05/2025 10:15 AM EST) Thyroid Stimulating Hormone, Plasma 2.26 0.40 - 4.20 uIU/mL 03/05/2025 12:32 PM EST [facility] Blood Venous blood specimen / Unknown Venipuncture / Unknown 03/05/2025 10:15 AM EST 03/05/2025 10:18 AM EST [facility] LAB BLOOD ORDERABLES Final Res ult Performing Organization Address City/[facility]/ZIP Co de Phone Number [facility] [address] [place] [address] * T4, free (03/05/2025 10:15 AM EST) Free T4, Plasma 1.0 0.8 - 1.7 ng/dL 03/05/2025 12:32 PM EST [facility] Blood Venous blood specimen / Unknown Venipuncture / Unknown 03/05/2025 10:15 AM EST 03/05/2025 10:18 AM EST [facility] BLOOD ORDERABLES Final Res ult Performing Organization Address City/[facility] Co de Phone Number [facility] [address] [place] [address] * Ferritin, Serum (03/05/2025 10:15 AM EST) Ferritin, Serum 85 13 - 150 ng/mL 03/05/2025 1:13 PM EST [facility] Blood Venous blood specimen / Unknown Venipuncture / Unknown 03/05/2025 10:15 AM EST 03/05/2025 10:18 AM EST us [facility] BLOOD ORDERABLES Final Res ult [facility] [address] [place] [address] * (ABNORMAL) Conjugated Bilirubin, Plasma (03/05/2025 10:15 AM EST) Direct Bilirubin, Plasma 0.7(H) <=0.3 mg/dL 03/05/2025 12:32 PM EST [facility] Blood Venous blood specimen / Unknown Venipuncture / Unknown 03/05/2025 10:15 AM EST 03/05/2025 10:18 AM EST [facility] BLOOD ORDERABLES Final Res ult Performing Organization Address City/[facility]/ZIP Co de Phone Number [facility] [facility] [address] [place] [address] * (ABNORMAL) Ammonia (03/05/2025 10:15 AM EST) Ammonia 52(H) 11 - 51 umol/L 03/05/2025 11:32 AM EST [facility] Blood Venous blood specimen / Unknown Venipuncture / Unknown 03/05/2025 10:15 AM EST 03/05/2025 10:18 AM EST Barrett VAN LAB BLOOD ORDERABLES Final Res ult Performing Organization Address City/[facility]/ZIP Co de Phone Number [facility] [address] [place] [address] * (ABNORMAL) Comprehensive Metabolic Panel, Plasma (03/05/2025 10:15 AM EST) Glucose, Plasma 296(H) 74 - 99 mg/dL 03/05/2025 12:32 PM EST [facility] BUN, Plasma 9 7 - 21 mg/dL 03/05/2025 12:32 PM EST [facility] Creatinine, Plasma 0.59(L) 0.60 - 1.10 mg/dL 03/05/2025 12:32 PM EST [facility] BUN/Creatinine Ratio 15 03/05/2025 12:32 PM EST [facility] Sodium, Plasma 137 136 - 145 mmol/L 03/05/2025 12:32 PM EST [facility] Potassium, Plasma 3.8 3.6 - 4.9 mmol/L 03/05/2025 12:32 PM EST [facility] Chloride, Plasma 105 97 - 107 mmol/L 03/05/2025 12:32 PM EST [facility] CO2, Plasma 25 22 - 29 mmol/L 03/05/2025 12:32 PM EST [facility] Anion Gap 7 6 - 16 mmol/L 03/05/2025 12:32 PM EST [facility] Total Calcium, Plasma 8.8(L) 8.9 - 10.2 mg/dL 03/05/2025 12:32 PM EST [facility] Total Protein 6.5 6.3 - 7.9 g/dL 03/05/2025 12:32 PM EST [facility] Albumin, Plasma 3.7 3.5 - 5.2 g/dL 03/05/2025 12:32 PM EST [facility] AST, Plasma 55(H) 10 - 35 U/L 03/05/2025 12:32 PM EST [facility] ALT, Plasma 45(H) 10 - 35 U/L 03/05/2025 12:32 PM EST [facility] Alkaline Phosphatase, Plasma 98 46 - 142 U/L 03/05/2025 12:32 PM EST [facility] Total Bilirubin, Plasma 2.5(H) 0.2 - 1.1 mg/dL 03/05/2025 12:32 PM EST [facility] eGFRcr 105.3 mL/min/1.7 3m*2 03/05/2025 12:32 PM EST [facility] Comment:Reported eGFRcr in m L/min/1.73m2 is based the CKD-EPI 2020 equation that does not use a race coefficient. Blood Venous blood specimen / Unknown Venipuncture / Unknown 03/05/2025 10:15 AM EST 03/05/2025 10:18 AM EST us Barrett [facility] LAB BLOOD ORDERABLES Final Res ult [facility] [address] [place] [address] * OCT, Retina - OU - Both Eyes (02/28/2025 11:51 AM EST) Anatomical Region Laterality Modality Head Optical Coherenc e Tomography Narrative 02/28/2025 11:51 AM EST Right Eye Quality was good. Scan locations included subfoveal. Left Eye Quality was good. Scan locations included subfoveal. Notes Both eyes (OU) - no csDME Mild VMT OD Alix Webb MD OPHTH TOMOGRAPHY Final Result * AFP, Tumor Marker (02/01/2025 7:20 AM EDT) Blood Venous blood specimen / Unknown Historical Provider LAB BLOOD ORDERABLES Final R esult * COMPLETE METABOLIC PROFILE (CMP) (01/30/2025 8:17 AM EDT) Historical Provider LAB BLOOD ORDERABLES Final R esult * Intravitreal Injection, Pharmacologic Agent - OU [...] 2.25 MG/0.09ML Route: Intravitreal, Site: Right Eye ND: [id number], Lot: [id number], Expiration date: 02/11/2025 Left Eye Preparation included 5% betadine to ocular surface, eyelid speculum. A 30 gauge needle was used. Injection: 1.25 mg bevacizumab 2.25 MG/0.09ML Route: Intravitreal, Site: Left Eye NDC: [id number], Lot: [id number], Expiration date: 03/19/2025 Post-op Right Eye Post injection exam found visual acuity of at least counting fingers. The patient tolerated the procedure well. There were no complications. Left Eye Post injection exam found visual acuity of at least counting fingers. The patient tolerated the procedure well. There were no complications. Result [facility] Alix Webb MD OPHTH CLINIC PROCEDURE S Final Result * OCT, Retina - OU - Both Eyes (01/24/2025 8:49 AM EDT) Anatomical Region Laterality Modality Head Optical Coherenc e Tomography Narrative 01/24/2025 8:49 AM EDT Right Eye Quality was good. Scan locations included subfoveal. Left Eye Quality was good. Scan locations included subfoveal. Notes Both eyes (OU) - no csDME Mild VMT OD Result [facility] Alix Webb MD OPHTH TOMOGRAPHY Final Result * ED HIV 1/2 Antibody/Antigen Screen w/Reflex to HIV 1/2 Differentiation (01/16/2024 10:38 PM EDT) Pathologist [facility] HIV 1 & 2 Antibody/Antigen Screen Non Reactive Non Reactive 01/16/2024 11:37 PM EDT [facility] Comment:Screening for HIV 1 & 2 antibodies, and P24 antigen is NONREACTIVE. No confirmatory testing is required. Blood Venous blood specimen / Unknown Venipuncture / Unknown 01/16/2024 10:38 PM EDT 01/16/2024 10:55 PM EDT Result [facility] Gildardo Das MD LAB BLOOD ORDERABLES Final Re sult [facility] [address] [place] [address] * Hepatitis C antibody (11/23/2023 10:56 AM EDT) Pathologist [facility] Hepatitis C Antibody Negative Negative 11/23/2023 1:23 PM EDT [facility] Blood Venous blood specimen / Unknown Venipuncture / Unknown 11/23/2023 10:56 AM EDT 11/23/2023 10:58 AM EDT us Barrett VAN LAB BLOOD ORDERABLES Final Res ult [facility] [address] [place] [address] from Last 3 Months or Most Recently Relevant to Health Maintenance Insurance MEDICARE Care Teams 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
--- OUTSIDE RECORDS SUMMARY | 2025-03-20 11:43 | XMS_ITS | Patient Health Record ---
[facility] Address [address] [facility] [address] [place] [id number] Care Team Providers Care Chromosomal Disorders Counselor Name Role Phone Radha Main Primary Care Provider [phone] Sara Mendez Unavailable [phone] Allergies Allergen (clinical drug ingredient) Drug/Non Drug [...] Benzonatate 200 mg TAKE 1 [facility] 3 TIMES A DAY; Duration: 10 Active Metoprolol Succinate ER 25 MG take one tablet by mouth once a day orally once a day at night Active Problems Problem Type SNOMED Code ICD Code Onset Dates Problem Status W/U Status Risk Notes Problem Vertigo (148640075) Vertigo (438.85) Active confirmed Problem Vitamin D deficiency (79506893) Vitamin D deficiency (E55.9) Active confirmed Problem Essential hypertension (90148807) Essential hypertension (I10) Active confirmed Problem Diverticulitis (91099555) Diverticulitis (K57.92) Active confirmed Problem Otitis externa (8112925) Otitis externa (H60.90) Active confirmed Problem Hypoglycemia (262211448) Hypoglycemia (E16.2) Active confirmed Problem Sciatic nerve lesion (362437332) Piriformis syndrome of right side (G57.01) Active confirmed Problem Paresthesia (99706931) Paresthesia (R20.2) Active confirmed Problem Sciatica (38881678) Sciatic leg pain (M54.30) Active confirmed Problem Mixed anxiety and depressive disorder (190101226) Depression with anxiety (F41.8) Active confirmed Problem Peripheral neuropathy (098404605) Peripheral neuropathy (G62.9) Active confirmed Problem Mixed hyperlipidemia (564537698) Mixed hyperlipidemia (E78.2) Active confirmed Problem Cirrhosis of liver (89527718) Unspecified cirrhosis of liver (K74.60) Active confirmed Problem KOENIG - Nonalcoholic steatohepatitis (258699957) Nonalcoholic steatohepatitis (KOENIG) (K75.81) Active confirmed Problem Portal hypertension (00847887) Portal hypertension (K76.6) Active confirmed Problem Thyroid nodule (953387061) Thyroid nodule (E04.1) Active confirmed Problem Neck pain (21291212) Neck pain (M54.2) Active confirmed Problem Hyperglycemia due to type 2 diabetes mellitus (161302583706430) Diabetes mellitus with hyperglycemia (E11.65) Active confirmed Problem Esophageal varices without bleeding (94055060) Esophageal varices without bleeding, unspecified esophageal varices type (I85.00) Active confirmed Problem Polyneuropathy due to type 2 diabetes mellitus (283431333) Diabetic polyneuropathy associated with type 2 diabetes mellitus (E11.42) Active confirmed Problem Irritable bowel syndrome (86740857) Irritable bowel syndrome, unspecified type (K58.9) Active confirmed Problem KOENIG - Nonalcoholic steatohepatitis (764178761) KOENIG (nonalcoholic steatohepatitis) (K75.81) Active confirmed Problem Atrophic gastritis (80653213) Mild chronic gastritis (K29.50) Active confirmed Problem Left upper quadrant pain (056831873) Left upper quadrant abdominal pain (R10.12) Active confirmed Problem Chronic congestive splenomegaly (588343604) Splenomegaly, congestive, chronic (D73.2) Active confirmed Problem Cervical nerve root compression (13410573) Cervical nerve root impingement (G54.2) Active confirmed Vital Signs Heart Rate 94 /min 05/26/2024 Blood pressure diastolic 82 mm Hg 05/26/2024 Height 60.50 in 05/26/2024 Blood pressure systolic 124 mm Hg 05/26/2024 Weight 207.8 lbs 05/26/2024 BMI 39.91 kg/m2 05/26/2024 Encounters Encounter Location Date Provider Diagnosis [facility] [address] [place] [id number] 05/29/2024 [facility] [address] [place], [place] [phone] 05/26/2024 Sara Mendez Neoplasm of uncertai n [...] Date MEDICARE PART B [address] [address] [place] [id number] CHETNA COSTA Self - patient is the [...] for chest pain 01-21 to 01-22-0 8 [facility] : passed out [facility] - passed out Apr 18, 2017
[2025-03-20 12:30] LABS: Cholesterol 126 mg/dl (140-200); Triglycerides 68 mg/dl (30-150)
[2025-03-20 13:18] LABS: HDL Cholesterol 52 mg/dl (40-60)
== END 2025-03-20 23:59 | disposition home or self-care (01) ==
LOC: LAB 11:36
PROVIDERS: PCP Family Medicine; Visit Provider Nurse Practitioner Family
DX: E11.65 Type 2 diabetes mellitus with hyperglycemia (principal); Z79.4 Long term (current) use of insulin
CPT/HCPCS: 36415; 80061